=== PATIENT | female | born 1950 ===

== ENCOUNTER → 2021-08-04 11:18 | Outpatient (BNVA) | payer MEDICARE, OTHER, SELFPAY | PROVIDERS: PCP Internal Medicine; Visit Provider Psychiatry & Neurology Neurology | DX: G24.01 Drug induced subacute dyskinesia (principal); G47.30 Sleep apnea, unspecified | CPT/HCPCS: 99212 ==

== ENCOUNTER → 2022-02-02 11:19 | Outpatient (BNVA) | payer MEDICARE, OTHER, SELFPAY | PROVIDERS: PCP Internal Medicine; Visit Provider Psychiatry & Neurology Neurology | DX: G24.01 Drug induced subacute dyskinesia (principal); G47.30 Sleep apnea, unspecified | CPT/HCPCS: 99212 ==

== ENCOUNTER 2022-02-27 18:32 | Emergency (ER) | payer MEDICARE, OTHER, SELFPAY ==
--- NOTE | ~2022-02-27 | XR_ITS ---
EXAMINATION: PELVIS AND RIGHT HIP, RIGHT ANKLE, RIGHT FOOT CLINICAL INFORMATION: Fall with pain COMPARISON: None TECHNIQUE: Single view pelvis with 2 additional views right hip, 3 views right ankle, 3 views right foot FINDINGS: Pelvis and right hip: No fractures are seen. No significant degenerative changes are detected. Right ankle: There is mild lateral soft tissue swelling. A small bony fragment is seen between the lateral malleolus and the talus, possibly an avulsion fracture from the talus. The ankle mortise appears stable. No joint effusion is present. Right foot: Evaluation of the foot shows no evidence of a traumatic injury. XR/XR foot RT 2V IMPRESSION: Lateral process fracture of the talus.
--- NOTE | ~2022-02-27 | XR_ITS ---
EXAMINATION: PELVIS AND RIGHT HIP, RIGHT ANKLE, RIGHT FOOT CLINICAL INFORMATION: Fall with pain COMPARISON: None TECHNIQUE: Single view pelvis with 2 additional views right hip, 3 views right ankle, 3 views right foot FINDINGS: Pelvis and right hip: No fractures are seen. No significant degenerative changes are detected. Right ankle: There is mild lateral soft tissue swelling. A small bony fragment is seen between the lateral malleolus and the talus, possibly an avulsion fracture from the talus. The ankle mortise appears stable. No joint effusion is present. Right foot: Evaluation of the foot shows no evidence of a traumatic injury. XR/XR hip RT w PEL1V IMPRESSION: Lateral process fracture of the talus.
--- NOTE | ~2022-02-27 | XR_ITS ---
EXAMINATION: PELVIS AND RIGHT HIP, RIGHT ANKLE, RIGHT FOOT CLINICAL INFORMATION: Fall with pain COMPARISON: None TECHNIQUE: Single view pelvis with 2 additional views right hip, 3 views right ankle, 3 views right foot FINDINGS: Pelvis and right hip: No fractures are seen. No significant degenerative changes are detected. Right ankle: There is mild lateral soft tissue swelling. A small bony fragment is seen between the lateral malleolus and the talus, possibly an avulsion fracture from the talus. The ankle mortise appears stable. No joint effusion is present. Right foot: Evaluation of the foot shows no evidence of a traumatic injury. XR/XR ankle RT 2V IMPRESSION: Lateral process fracture of the talus.
[2022-02-27 18:40] VITALS: BP 166/76; PULSE 68; O2SAT 97
[2022-02-27 18:41] VITALS: BP 166/76; PULSE 68; RESP 16; TEMP 36.5; O2SAT 97; BMI 38.9
--- NOTE | 2022-02-27 18:42 | ED_ITS ---
HPI - Fall General Chief Complaint: Fall Stated Complaint: fall, no thinners Time Seen by Provider: 02/27/22 18:37 Source: patient and EMS Mode of arrival: EMS Limitations: no limitations History of Present Illness HPI Narrative: 71 yo female with history of HTN, HLD, hypothyroidism, MERRITT, bipolar disorder, tardive dyskinesia here with complaints of right ankle/foot/hip pain after missing a step and falling landing on the right hip. She caught herself with her left hand. Denies hitting her head or loss of consciousness. No anticoagulation use. Related Data Home Medications Medication Instructions Recorded Confirmed amlodipine 10 mg tablet 10 mg PO DAILY 08/04/21 02/02/22 atorvastatin 10 mg tablet 10 mg PO DAILY 08/04/21 02/02/22 bupropion HCl 150 mg tablet,12 hr 150 mg PO BID 08/04/21 02/02/22 sustained-release (Wellbutrin SR) desvenlafaxine succinate 25 mg 25 mg PO DAILY 08/04/21 02/02/22 tablet,extended release 24 hr hydroxyzine HCl 10 mg tablet 10 mg PO TID PRN 08/04/21 02/02/22 lamotrigine 150 mg tablet 150 mg PO BID 08/04/21 02/02/22 levothyroxine 13 mcg capsule 0.1 mcg PO DAILY 08/04/21 02/02/22 oxcarbazepine 300 mg/5 mL (60 450 mg PO BID 08/04/21 02/02/22 mg/mL) oral suspension pantoprazole 40 mg tablet,delayed 40 mg PO DAILY 08/04/21 02/02/22 release trazodone 100 mg tablet 200 mg PO BEDTIME PRN 08/04/21 02/02/22 trazodone 50 mg tablet 50 mg PO BEDTIME PRN 08/04/21 02/02/22 desvenlafaxine succinate 50 mg 50 mg PO DAILY 02/02/22 02/02/22 tablet,extended release 24 hr (Pristiq) Allergies Allergy/AdvReac Type Severity Reaction Status Date / Time Penicillins Allergy Severe HIVES Verified 02/27/22 19:11 lorazepam [Lorazepam] Allergy Mild REVERSE Verified 02/27/22 19:11 EFFECT oxycodone [Oxycodone] Allergy Mild UNKNOWN Verified 02/27/22 19:11 deutetrabenazine Allergy Unknown TOO MANY Verified 02/27/22 19:11 [From [place]] SIDE EFFECTS gabapentin [GABAPENTIN] Allergy Unknown DIZZYNESS, Verified 02/27/22 19:11 GI ISSUES NSAIDS (Non-Steroidal Allergy Unknown LIVER Verified 02/27/22 19:11 Anti-Inflamma ENZYME [NSAIDS (NON-STEROIDAL ISSUES ANTI-INFLAMMA] sulfamethoxazole Allergy Unknown DIARRHEA Verified 02/27/22 19:11 [From BACTRIM] trimethoprim [From BACTRIM] Allergy Unknown DIARRHEA Verified 02/27/22 19:11 valbenazine [From INGREZZA] Allergy Unknown INCREASED Verified 02/27/22 19:11 SLEEP 15-16HRS ANTIBIOTICS Allergy Unknown PT STATED Uncoded 02/27/22 19:11 NEED TO GO THRU PCP D/T GASTROPARESIS Review of Systems Review of Systems: Yes all other systems are reviewed and are negative Constitutional: Constitutional: Reports no additional constitutional complaints, Denies body ache(s), Denies chills, Denies fever(s), Denies headache(s) and Denies weakness Eyes: Eyes: Reports no additional eye complaints and Denies change in vision ENT: Reports system reviewed and no additional complaints, except as documented, Denies dizziness, Denies headache(s), Denies nasal congestion, Denies nasal discharge and Denies neck pain Cardiovascular: Cardiovascular: Reports no additional cardiovascular complaints, Denies chest pain, Denies leg edema and Denies dyspnea Respiratory: Respiratory: Reports no additional respiratory complaints, Denies cough and Denies dyspnea Gastrointestinal: Gastrointestinal: Reports no additional gastrointestinal complaints, Denies abdominal pain, Denies diarrhea, Denies nausea and Denies vomiting Genitourinary: Genitourinary: Reports no additional female genitourinary complaints and Denies urinary incontinence Musculoskeletal: Musculoskeletal: Reports no additional musculoskeletal complaints, Denies back pain, Reports arthralgias, Reports joint swelling, Reports limited range of motion, Denies neck pain, Denies numbness and Denies tingling Integumentary/Breasts: Skin/Breast: Reports system reviewed and no additional complaints, except as docu and Denies rash Neurologic: Reports system reviewed and no additional complaints, except as documented, Denies Abnormal speech present, Denies dizziness, Denies headache(s), Denies numbness, Denies tingling and Denies weakness PMFSH Past Medical History Attestation statement: The following information was validated with the patient. Source: old records reviewed and nursing notes reviewed Medical History Bipolar 1 disorder Combined hyperlipidemia Depression HTN (hypertension) Sleep apnea Tardive dyskinesia Thyroid disease Tremors of nervous system Surgical History H/O shoulder surgery Hx of appendectomy Hx of cholecystectomy Social History Social History Household Members: None Housing: Condominium Unable to assess alcohol history related to: Unable to respond Advance Directives: No Advance Directives Information Provided: No Physical Exam Vital Signs: Vital Signs: Last Vital Signs Temp 97.7 F 02/27/22 18:41 Pulse 68 02/27/22 18:41 Resp 16 02/27/22 18:41 BP 166/76 H 02/27/22 18:41 Pulse Ox 97 02/27/22 18:41 O2 Del Method 02/27/22 18:41 BMI result Body Mass Index 38.9 Const: General: cooperative, healthy appearing, comfortable and no acute distress Orientation/consciousness: patient oriented x3 Limitations: no limitations HEENT: Head: Yes normal to inspection Ears: hearing grossly normal bilaterally General nose exam: Normal external nose present Face and sinus: Yes normal facial exam Mouth: Normal oral and palatal mucosa present Throat: Yes posterior oropharynx normal Eyes: General: appearance normal, both eyes and all related structures Pupils: Equal, round and reactive pupils present Neck: Neck: Yes normal visual inspection Chest: Chest palpation & inspection: normal inspection of the chest Resp: Effort & Inspection: normal respiratory effort Auscultation: clear to auscultation bilaterally Cardio: Rate: regular rate Rhythm: regular rhythm Peripheral pulses: Peripheral pulses 2+ throughout GI: Inspection: Yes normal to inspection Palpation (GI): Soft to palpation and nontender Auscultation: normal bowel sounds Back/Spine/Pelvis: Thoracic/Lumbar Spine: thoracic and lumbar spine normal to inspection Skin: General skin exam: no rashes or lesions noted Neuro: General: patient oriented x3, moves all extremities, no focal motor deficits and normal sensation to monofilament Cranial nerves: Yes CN's II-XII intact bilaterally, Yes Equal, round and reactive pupils present, Yes Bilaterally intact EOM present, Yes Nystagmus not present, Yes Normal facial strength present and Yes Midline tongue present Cognition (Neuro): normal cognition Speech: No Abnormal speech present Motor exam (neuro): 5/5 motor strength present throughout Sensory Exam: Normal double simultaneous stimulation for sensation Extrem: Other: There is tenderness and swelling to the right lateral ankle and the base of the right 5th metatarsal. There is full range of motion. Neurovascular intact distally. Tenderness the right lateral. No shortening, rotation or deformity of the limb. Pain is worsened with internal rotation of the hip and abduction. Nv intact distally. 2+ DP/PT pulses General: Yes normal to inspection Course Course Course Narrative: X-rays of the right hip, right foot are normal. The ankle shows an avulsion fracture of the talus. Patient be placed in a walking boot and discharged home. Reviewed rice. Reviewed worrisome signs and symptoms of when to return to the emergency room. Comfortable discharge home. Procedures Procedure Narrative Procedure Narrative: walking boot MDM - Fall MDM Narrative Medical decision making narrative: 71-year-old female here with right ankle pain, right foot pain and right hip pain after mechanical fall. Will check x-rays Medical Records Attestation: I reviewed the patient's medical records. Lab Data Attestation: I reviewed the patient's lab results. Imaging Data pelvis/right hip/right ankle and foot: Attestation: I personally reviewed and interpreted this imaging study as follows: Radiologist's impression: TECHNIQUE: Single view pelvis with 2 additional views right hip, 3 views right ankle, 3 views right foot? FINDINGS: Pelvis and right hip: No fractures are seen. No significant degenerative changes are detected. Right ankle: There is mild lateral soft tissue swelling. A small bony fragment is seen between the lateral malleolus and the talus, possibly an avulsion fracture from the talus. The ankle mortise appears stable. No joint effusion is present. Right foot: Evaluation of the foot shows no evidence of a traumatic injury. XR/XR ankle RT 2V IMPRESSION: Lateral process fracture of the talus.? Discharge Plan Discharge Clinical Impression: Avulsion fracture of right talus Patient Disposition: Home, Self-Care Instructions: Talar Fracture in Adults (ED), Avulsion Fracture (ED) Additional Instructions: Use the boot for ambulation Remove the boot when resting and sleeping Apply ice to the ankle and elevated Take Tylenol for pain Follow-up with orthopedics Prescriptions: No Action bupropion HCl [Wellbutrin SR] 150 mg tablet sustained-release 12 hr 150 mg PO BID amlodipine 10 mg tablet 10 mg PO DAILY oxcarbazepine 300 mg/5 mL (60 mg/mL) suspension 450 mg PO BID trazodone 50 mg tablet 50 mg PO BEDTIME PRN trazodone 100 mg tablet 200 mg PO BEDTIME PRN atorvastatin 10 mg tablet 10 mg PO DAILY hydroxyzine HCl 10 mg tablet 10 mg PO TID PRN lamotrigine 150 mg tablet 150 mg PO BID levothyroxine 13 mcg capsule 0.1 mcg PO DAILY pantoprazole 40 mg tablet,delayed release (DR/EC) 40 mg PO DAILY desvenlafaxine succinate 25 mg tablet extended release 24 hr 25 mg PO DAILY desvenlafaxine succinate [Pristiq] 50 mg tablet extended release 24 hr 50 mg PO DAILY Referrals: [facility] [place] [facility] [Provider Group] - 2 weeks
--- NOTE | 2022-02-27 19:12 | PC.NURSE ---
patient away for imaging.
== END 2022-02-27 21:25 | disposition home or self-care (01) ==
PROVIDERS: Emergency Provider Internal Medicine
DX: S92.154A Nondisplaced avulsion fracture (chip fracture) of right talus, initial encounter for closed fracture (principal); W10.8XXA Fall (on) (from) other stairs and steps, initial encounter; M25.551 Pain in right hip; Y93.89 Activity, other specified; Y92.9 Unspecified place or not applicable; Y99.9 Unspecified external cause status
CPT/HCPCS: 73502; 73600; 73620; 99283

== ENCOUNTER → 2022-03-10 08:52 | Outpatient (BNVA) | payer MEDICARE, OTHER, SELFPAY | PROVIDERS: Visit Provider Nurse Practitioner Family | DX: G47.30 Sleep apnea, unspecified (principal); I10 Essential (primary) hypertension; G24.01 Drug induced subacute dyskinesia; E66.9 Obesity, unspecified; E07.9 Disorder of thyroid, unspecified; E78.2 Mixed hyperlipidemia; G25.81 Restless legs syndrome | CPT/HCPCS: 99212 ==

== ENCOUNTER 2022-03-29 13:02 | Inpatient (IN) | payer MEDICARE, OTHER, SELFPAY ==
[2022-03-29 13:07] VITALS: BP 132/66; PULSE 64; O2SAT 98
[2022-03-29 13:14] VITALS: BP 182/79; PULSE 65; RESP 16; TEMP 36.7; O2SAT 97; BMI 33.3
--- NOTE | 2022-03-29 13:29 | ECG_ITS ---
Test Reason : CHEST PRESSURE Blood Pressure : / mmHG Vent. Rate : 058 BPM Atrial Rate : 058 BPM P-R Int : 172 ms QRS Dur : 074 ms QT Int : 426 ms P-R-T Axes : 054 004 033 degrees QTc Int : 418 ms Sinus bradycardia with sinus arrhythmia Otherwise normal ECG No previous ECGs available Referred By: Gustavo De León Electronically Signed By:KOKI CURRIE MD
--- NOTE | 2022-03-29 13:31 | ED_ITS ---
HPI - Psych General Chief Complaint: Psychiatric Symptoms Stated Complaint: crisis Section 12 Time Seen by Provider: 03/29/22 13:12 Source: patient Mode of arrival: EMS Limitations: no limitations History of Present Illness HPI Narrative: 71-year-old female who was brought to the emergency department on a Section 12 for suicidal ideation. The patient told me that she has a history of depression and bipolar disorder. She states that over the last 6 months she had several life changes which have made her depression worse. She states that she is currently going through a divorce. She states that in January of 2022 her provider told her that she can no longer drive her car. She states that 2 weeks ago, her provider told her that she needs to get into an assisted living program. The patient states that these and other life changes that have made her very depressed. She does have a psychiatrist and a therapist and she has been in a [facility] outpatient program for approximately [address] that today, she told her providers that she was thinking of going into her [place] by her house and hang herself. She states she has attempted to hurt herself in the past but does not want to go into the details. Secondary to her suicidal ideation with a plan, she was placed on a Section 12 and transferred to the emergency department. Under to a of the Section 12 it states ?major depression disorder, recurrent, severe with suicidal ideation ?. The patient states that she has had difficulty sleeping is been only sleeping 5 hours at night she states that she cannot shut her mind off when she tries to fall asleep. She denied fever, chills, rhinorrhea, sore throat or cough. She states that she has chronic chest pain and chronic dyspnea on exertion secondary to her tardive dyskinesia. She has chronic nausea as well with no vomiting or diarrhea. Related Data Home Medications Medication Instructions Recorded Confirmed amlodipine 10 mg tablet 10 mg PO DAILY@1800 08/04/21 03/29/22 atorvastatin 10 mg tablet 10 mg PO DAILY 08/04/21 03/29/22 bupropion HCl 150 mg tablet,12 hr 150 mg PO BID 08/04/21 03/29/22 sustained-release (Wellbutrin SR) desvenlafaxine succinate 25 mg 25 mg PO DAILY 08/04/21 03/29/22 tablet,extended release 24 hr hydroxyzine HCl 10 mg tablet 10 mg PO TID PRN Anxiety 08/04/21 03/29/22 lamotrigine 150 mg tablet 150 mg PO BID 08/04/21 03/29/22 pantoprazole 40 mg tablet,delayed 40 mg PO DAILY 08/04/21 03/29/22 release trazodone 100 mg tablet 200 mg PO BEDTIME PRN Insomnia 08/04/21 03/29/22 desvenlafaxine succinate 50 mg 50 mg PO DAILY 02/02/22 03/29/22 tablet,extended release 24 hr (Pristiq) levothyroxine 100 mcg tablet 100 mcg PO DAILY 03/10/22 03/29/22 oxcarbazepine 150 mg tablet 150 mg PO BID 03/10/22 03/29/22 oxcarbazepine 300 mg tablet 300 mg PO BID 03/10/22 03/29/22 multivitamin 1 tab PO DAILY 03/29/22 03/29/22 Allergies Allergy/AdvReac Type Severity Reaction Status Date / Time Penicillins Allergy Severe HIVES Verified 03/10/22 08:58 lorazepam [Lorazepam] Allergy Mild REVERSE Verified 03/10/22 08:58 EFFECT oxycodone [Oxycodone] Allergy Mild UNKNOWN Verified 03/10/22 08:58 deutetrabenazine Allergy Unknown TOO MANY Verified 03/10/22 08:58 [From [place]ED[place]] SIDE EFFECTS gabapentin [GABAPENTIN] Allergy Unknown DIZZYNESS, Verified 03/10/22 08:58 GI ISSUES NSAIDS (Non-Steroidal Allergy Unknown LIVER Verified 03/10/22 08:58 Anti-Inflamma ENZYME [NSAIDS (NON-STEROIDAL ISSUES ANTI-INFLAMMA] sulfamethoxazole Allergy Unknown DIARRHEA Verified 03/10/22 08:58 [From BACTRIM] trimethoprim [From BACTRIM] Allergy Unknown DIARRHEA Verified 03/10/22 08:58 valbenazine [From INGREZZA] Allergy Unknown INCREASED Verified 03/10/22 08:58 SLEEP 15-16HRS ANTIBIOTICS Allergy Unknown PT STATED Uncoded 03/10/22 08:58 NEED TO GO THRU PCP D/T GASTROPARESIS Review of Systems 2 Review of Systems: Yes all other systems are reviewed and are negative PMFSH Past Medical History PMF Narrative: Past medical history: Reviewed below, gastroparesis. Past surgical history: Cholecystectomy, shoulder surgery for rotator cuff tear, bilateral knee surgeries for meniscal tears, shoulder surgery for bone spurs, x2, appendectomy. Social history: Patient states that she is a former smoker and quit 50 years prior. She smokes cigarettes for approximately 6 years. She denies alcohol use. She denies drug use. Medical History Bipolar 1 disorder Combined hyperlipidemia Depression HTN (hypertension) Sleep apnea Tardive dyskinesia Thyroid disease Tremors of nervous system Surgical History H/O shoulder surgery Hx of appendectomy Hx of cholecystectomy Family History Family History Father No problems noted. Mother No problems noted. Social History Social History Household Members: None Housing: Condominium Unable to assess alcohol history related to: Unable to respond Alcohol intake: never Patient Tobacco Use Status: Former Tobacco user Quit Date: 50 yrs ago Use of substances other than those prescribed or required for medical reasons: No Advance Directives: No Advance Directives Information Provided: No Physical Exam Vital Signs: Vital Signs: Last Vital Signs Temp 98.0 F 03/29/22 20:00 Pulse 68 03/29/22 20:00 Resp 16 03/29/22 20:00 BP 172/77 H 03/29/22 20:00 Pulse Ox 96 03/29/22 20:00 O2 Del Method 03/29/22 20:00 BMI result Body Mass Index 33.3 Const: General: cooperative and no acute distress Orientation/consciousness: oriented to person and oriented to place Limitations: no limitations HEENT: Head: Yes normal to inspection, Yes normocephalic and Yes atraumatic Ears: external ears normal General nose exam: Normal external nose present Face and sinus: Yes normal facial exam Mouth: Normal oral and palatal mucosa present Throat: Yes posterior oropharynx normal Eyes: General: appearance normal, both eyes and all related structures Pupils: Equal, round and reactive pupils present Neck: Neck: Yes normal visual inspection, Yes no lymphadenopathy, Yes trachea midline and Yes supple Chest: Chest palpation & inspection: normal inspection of the chest and normal palpation of entire chest wall Resp: Effort & Inspection: normal respiratory effort and able to speak in complete sentences Auscultation: clear to auscultation bilaterally Cardio: Rate: regular rate Rhythm: regular rhythm Heart sounds: S1 normal heart sound present, S2 normal heart sound present and no murmurs GI: Inspection: Yes normal to inspection Palpation (GI): Soft to palpation, nontender and no guarding Auscultation: normal bowel sounds : General: Yes no CVA tenderness Back/Spine/Pelvis: Back: no CVA tenderness Skin: General skin exam: no rashes or lesions noted Neuro: General: oriented to person and oriented to place Cranial nerves: Y es CN's II-XII intact bilaterally and Yes Equal, round and reactive pupils present Cognition (Neuro): normal cognition Motor exam (neuro): 5/5 motor strength present throughout Extrem: Other: Patient has a walking boot on the right leg for ankle sprain 3 weeks prior Psych: Appearance: grossly normal Speech and movement: Normal speech and movement present Affect: normal affect Attitude: cooperative Thought process: Normal thought process present Thought content: Suicidality present and no homicidality Course Course Course Narrative: 71-year-old female who presents emergency department on a Section 12 from her partial outpatient program for depression secondary to multiple life stressors over the last 6 months and suicidal ideation with a plan to go into the [place] near her house and hang herself. The patient's blood pressure was elevated 182/79 otherwise unremarkable. Physical examination was unremarkable except for a walking boot on her right lower extremity secondary to ankle sprain several weeks prior. I did order laboratory evaluation to include CBC, CMP, drug screen, alcohol level, acetaminophen and salicylate level, 12 EKG. Patient's medications will be reconciled. I will consult crisis for evaluation and in- patient placement. 1632: Start physician observation: Patient's laboratory evaluation was unremarkable. COVID-19 was negative. Urinalysis was negative. Urine tox screen was negative. Blood alcohol levels below detectable limits. Twelve EKG revealed a sinus bradycardia with a rate of 58 otherwise unremarkable. At this point I think the patient is medically cleared for crisis evaluation. The patient's medications have been reconciled and I will order these. The patient will remain on a Section 12. Patient will be placed in physician observation until she can be seen by crisis team and appropriate disposition can be obtained. 2134: Physician observation continued: At the end of my shift, the patient is still waiting for care team evaluation. The patient's care was turned over to my colleague, Dr. Carlos Marley. [facility] - Psych Medical Records Attestation: I reviewed the patient's medical records. Lab Data Attestation: I reviewed the patient's lab results. Result diagrams: 03/29/22 13:56 03/29/22 13:56 Labs: Lab Results 03/29/22 03/29/22 03/29/22 Range/Units 13:56 13:56 13:56 WBC 7.0 (4.8-10.8) X10*3/uL RBC 4.15 L (4.20-5.50) X10*6/uL Hgb 11.9 L (12.0-16.0) g/dl Hct 36.1 L (37.0-47.0) % MCV 87.0 (80.0-98.0) fL MCH 28.7 (27.0-33.0) pg MCHC 33.0 (31.0-35.0) g/dl RDW 13.0 (11.0-16.0) % Plt Count 202 (160-400) X10*3/uL MPV 9.6 (9.4-12.3) fL Immature Gran % (Auto) 0.6 H (0.0-0.4) % Neut % (Auto) 70.4 (45-73) % Lymph % (Auto) 16.7 L (20-40) % [place] % (Auto) 8.8 (2-11) % Eos % (Auto) 2.9 (0-4) % Baso % (Auto) 0.6 (0-2) % Lymph # (Auto) 1.2 (1.2-4.9) X10*3/uL [place] # (Auto) 0.6 (0.1-1.2) X10*3/uL Eos # (Auto) 0.2 (0.0-0.4) X10*3/uL Baso # (Auto) 0.0 (0.0-0.2) X10*3/uL Abs Immat Gran (auto) 0.04 H (0.00-0.03) X10*3/uL Absolute Neuts (auto) 4.9 (2.0-8.3) x10*3/uL Absolute Nucleated RBC 0.000 (0.0-0.012) X10*3/uL Nucleated RBC % (auto) 0.0 (0.0-0.2) /100WBC Sodium 143 (135-145) mmol/L Potassium 3.8 (3.3-5.1) mmol/L Chloride 106 (96-108) mmol/L Carbon Dioxide 27 (22-29) mmol/L Anion Gap 14 (12-20) BUN 20 H (9-16) mg/dL Creatinine 0.86 (0.5-1.4) mg/dL Estim Creat Clear Calc 66.7 Estimated GFR > 60 Random Glucose 144 H (60-115) mg/dL Calcium 8.9 (8.4-10.2) mg/dL Total Bilirubin 0.3 (0.0-1.0) mg/dL AST 14 (5-31) U/L ALT 13 (0-31) U/L Alkaline Phosphatase 133 H (39-117) U/L Total Protein 6.4 L (6.5-8.0) g/dL Albumin 3.7 (3.5-5.0) g/dL Urine Color Urine Appearance Urine pH (5.0-9.0) Ur Specific Newcomb (1.005-1.025) Urine Protein (Neg-Trace) mg/dL Urine Glucose (UA) (Negative) mg/dL Urine Ketones (Negative) mg/dL Urine Blood (Negative) Urine Nitrite (Negative) Ur Leukocyte Esterase (Negative) Urine RBC (0-2) /HPF Urine WBC (0-5) /HPF Ur Squamous Epith Cells (0-2) /HPF Urine Bacteria (None Seen) Hyaline Casts (0-2) /LPF Salicylates < 5.0 L (15-30) mg/dL Urine Opiates Screen (Not Detect) Urine Fentanyl Screen (Not Detect) Acetaminophen < 1 (<30) mcg/mL Ur Barbiturates Screen (Not Detect) Ur Phencyclidine Scrn (Not Detect) Ur Amphetamines Screen (Not Detect) U Benzodiazepines Scrn (Not Detect) Urine Cocaine Screen (Not Detect) U Marijuana (THC) Screen (Not Detect) Ethyl Alcohol < 10 mg/dL COVID-19 (LIZABETH) Negative (Negative) COVID-19 Clin Com See Note 03/29/22 03/29/22 Range/Units 14:12 14:12 WBC (4.8-10.8) X10*3/uL RBC (4.20-5.50) X10*6/uL Hgb (12.0-16.0) g/dl Hct (37.0-47.0) % MCV (80.0-98.0) fL MCH (27.0-33.0) pg MCHC (31.0-35.0) g/dl RDW (11.0-16.0) % Plt Count (160-400) X10*3/uL MPV (9.4-12.3) fL Immature Gran % (Auto) (0.0-0.4) % Neut % (Auto) (45-73) % Lymph % (Auto) (20-40) % [place] % (Auto) (2-11) % Eos % (Auto) (0-4) % Baso % (Auto) (0-2) % Lymph # (Auto) (1.2-4.9) X10*3/uL [place] # (Auto) (0.1-1.2) X10*3/uL Eos # (Auto) (0.0-0.4) X10*3/uL Baso # (Auto) (0.0-0.2) X10*3/uL Abs Immat Gran (auto) (0.00-0.03) X10*3/uL Absolute Neuts (auto) (2.0-8.3) x10*3/uL Absolute Nucleated RBC (0.0-0.012) X10*3/uL Nucleated RBC % (auto) (0.0-0.2) /100WBC Sodium (135-145) mmol/L Potassium (3.3-5.1) mmol/L Chloride (96-108) mmol/L Carbon Dioxide (22-29) mmol/L Anion Gap (12-20) BUN (9-16) mg/dL Creatinine (0.5-1.4) mg/dL Estim Creat Clear Calc Estimated GFR Random Glucose (60-115) mg/dL Calcium (8.4-10.2) mg/dL Total Bilirubin (0.0-1.0) mg/dL AST (5-31) U/L ALT (0-31) U/L Alkaline Phosphatase (39-117) U/L Total Protein (6.5-8.0) g/dL Albumin (3.5-5.0) g/dL Urine Color Yellow Urine Appearance Clear Urine pH 5.5 (5.0-9.0) Ur Specific Newcomb 1.025 (1.005-1.025) Urine Protein Negative (Neg-Trace) mg/dL Urine Glucose (UA) Negative (Negative) mg/dL Urine Ketones Negative (Negative) mg/dL Urine Blood Negative (Negative) Urine Nitrite Negative (Negative) Ur Leukocyte Esterase Trace H (Negative) Urine RBC 0-2 (0-2) /HPF Urine WBC 0-5 (0-5) /HPF Ur Squamous Epith Cells 3-5 (0-2) /HPF Urine Bacteria None Seen (None Seen) Hyaline Casts 0-2 (0-2) /LPF Salicylates (15-30) mg/dL Urine Opiates Screen Not Detected (Not Detect) Urine Fentanyl Screen Not Detected (Not Detect) Acetaminophen (<30) mcg/mL Ur Barbiturates Screen Not Detected (Not Detect) Ur Phencyclidine Scrn Not Detected (Not Detect) Ur Amphetamines Screen Not Detected (Not Detect) U Benzodiazepines Scrn Not Detected (Not Detect) Urine Cocaine Screen Not Detected (Not Detect) U Marijuana (THC) Screen Not Detected (Not Detect) Ethyl Alcohol mg/dL COVID-19 (LIZABETH) (Negative) COVID-19 Clin Com ECG Data Attestation: I personally reviewed and interpreted this ECG as follows: Interpretation: Sinus bradycardia with a rate of 58, normal [place] interval, QRS duration QTC interval, Q-wave in lead 3, no ST segment elevation, no ST segment depression, no T-wave abnormalities, no PACs, no PVCs. Discharge Plan Discharge Clinical Impression: Suicidal ideations, Depression Patient Disposition: Still a Patient Prescriptions: No Action multivitamin Tablet 1 tab PO DAILY bupropion HCl [Wellbutrin SR] 150 mg tablet sustained-release 12 hr 150 mg PO BID amlodipine 10 mg tablet 10 mg PO DAILY@1800 trazodone 100 mg tablet 200 mg PO BEDTIME PRN (Reason: Insomnia) atorvastatin 10 mg tablet 10 mg PO DAILY hydroxyzine HCl 10 mg tablet 10 mg PO TID PRN (Reason: Anxiety) lamotrigine 150 mg tablet 150 mg PO BID pantoprazole 40 mg tablet,delayed release (DR/EC) 40 mg PO DAILY desvenlafaxine succinate 25 mg tablet extended release 24 hr 25 mg PO DAILY desvenlafaxine succinate [Pristiq] 50 mg tablet extended release 24 hr 50 mg PO DAILY oxcarbazepine 150 mg tablet 150 mg PO BID oxcarbazepine 300 mg tablet 300 mg PO BID levothyroxine 100 mcg tablet 100 mcg PO DAILY
--- NOTE | 2022-03-29 13:59 | PC.NURSE ---
patient a&ox3, vss, pt states she has si but refuses to divulge plan to this nurse although she did tell provider she wishes to do so by hanging, pts labs obtained by tech, security now at bedside to do change management director, pt calm/compliant at this time, 1:1 sitter at bedside, will continue to monitor
[2022-03-29 14:05] LABS: MANUAL DIFF FLAG NO
[2022-03-29 14:07] LABS: Basophils Percent Auto 0.6 % (0-2); Eosinophils Absolute Auto 0.2 X10*3/uL (0.0-0.4); Eosinophils Percent Auto 2.9 % (0-4); Hematocrit 36.1 % (37.0-47.0); Hemoglobin 11.9 g/dl (12.0-16.0); Imm Gran Abs Auto 0.04 X10*3/uL (0.00-0.03); Imm Gran Pct Auto 0.6 % (0.0-0.4); Lymphocytes Absolute Auto 1.2 X10*3/uL (1.2-4.9); Lymphocytes Percent Auto 16.7 % (20-40); Mean Corpuscular Hemoglobin 28.7 pg (27.0-33.0); Mean Platelet Volume 9.6 fL (9.4-12.3); Monocytes Absolute Auto 0.6 X10*3/uL (0.1-1.2); Monocytes Percent Auto 8.8 % (2-11); Neutrophils Absolute Auto 4.9 x10*3/uL (2.0-8.3); Neutrophils Percent Auto 70.4 % (45-73); Platelet Count 202 X10*3/uL (160-400); Red Blood Count 4.15 X10*6/uL (4.20-5.50)
[2022-03-29 14:20] LABS: COVID-19 Test Negative (Negative); IDNOW Serial# 55D5AD1C
[2022-03-29 14:29] LABS: Acetaminophen LAB < 1 mcg/mL (<30); Alanine Aminotransferase 13 U/L (0-31); Albumin Level 3.7 g/dL (3.5-5.0); Alkaline Phosphatase 133 U/L (39-117); Anion Gap 14 (12-20); Aspartate Amino Transferase 14 U/L (5-31); Bilirubin Total 0.3 mg/dL (0.0-1.0); Blood Urea Nitrogen 20 mg/dL (9-16); Calcium 8.9 mg/dL (8.4-10.2); Carbon Dioxide 27 mmol/L (22-29); Chloride 106 mmol/L (96-108); Creatinine Clr Calc Pharmacy 66.7; Estimated Glomerular Filt Rate > 60; Ethanol < 10 mg/dL; Glucose Random 144 mg/dL (60-115); Potassium 3.8 mmol/L (3.3-5.1); Salicylate < 5.0 mg/dL (15-30); Sodium 143 mmol/L (135-145); Total Protein 6.4 g/dL (6.5-8.0)
[2022-03-29 14:36] LABS: Amphetamine Screen Urine Not Detected (Not Detect); Barbiturates, Urine Not Detected (Not Detect); Benzodiazepines Screen Urine Not Detected (Not Detect); Cannabinoid Screen Urine Not Detected (Not Detect); Cocaine Screen Urine Not Detected (Not Detect); Fentanyl, urine Not Detected (Not Detect); Opiate Screen Urine Not Detected (Not Detect); Phencyclidine Screen Urine Not Detected (Not Detect)
--- NOTE | 2022-03-29 14:37 | PHA.MEDREC ---
Pharmacy Consult ? Medication Reconciliation Pharmacy has completed the medication reconciliation. Patient takes her tablets with apple sauce.
[2022-03-29 16:00] VITALS: BP 175/87; PULSE 65; RESP 14; TEMP 36.7; O2SAT 98
--- NOTE | 2022-03-29 17:02 | PC.NURSE ---
care team this nurse called care team to notify them about the pt needing to be seen, they stated there is 8 people to be seen before her .
--- NOTE | 2022-03-29 17:56 | MHC.CARE ---
Smart sheet submitted
[2022-03-29 18:00] VITALS: BP 180/78; PULSE 65; RESP 14; TEMP 37.2; O2SAT 97
[2022-03-29] MEDS: Acetaminophen 325 MG TABLET 650 MG PO (18:04)
[2022-03-29] MEDS: Ibuprofen 400 MG TABLET PO (18:05)
[2022-03-29] MEDS: amLODIPine Besylate 10 MG TABLET PO (18:05)
--- NOTE | 2022-03-29 18:05 | PC.NURSE ---
patient a&ox3, medicated per order, speaking with daughter on phone, 1:1 sitter at bedside, will continue to monitor
[2022-03-29 20:00] VITALS: BP 172/77; PULSE 68; RESP 16; TEMP 36.7; O2SAT 96
--- NOTE | 2022-03-29 20:14 | PC.NURSE ---
patient awake/alert, 1:1 ranjan, pt concerned about not being seen by care team as of yet, pt states she has multiple appts tomm that she needs to have cancelled for her if she ends up staying. no c/o pain at this time, will continue to monitor
[2022-03-29 20:31] LABS: Appearance Urine Clear; Color Urine Yellow; Glucose Urine UA Negative (Negative); Leukocyte Esterase Urine Trace (Negative); Nitrite Urine Negative (Negative); PH 5.5 (5.0-9.0); Specific Gravity - Urine 1.025 (1.005-1.025); UMIC TRIGGER UA YES; Urine Blood Negative (Negative); Urine Ketones Negative (Negative); Urine Protein Negative (Neg-Trace)
[2022-03-29 20:35] LABS: Bacteria Urine None Seen (None Seen); Hyaline Casts Urine 0-2 /LPF (0-2); RBC Urine 0-2 /HPF (0-2); WBC Urine 0-5 /HPF (0-5)
[2022-03-29] MEDS: lamoTRIgine 25 MG TABLET 150 MG PO (21:26)
[2022-03-29] MEDS: OXcarbazepine 150 MG TABLET PO (21:26)
[2022-03-29] MEDS: OXcarbazepine 300 MG TABLET PO (21:26)
[2022-03-29] MEDS: traZODone HCL 100 MG TABLET 200 MG PO (21:40)
[2022-03-29] MEDS: hydrOXYzine HCL 10 MG TABLET PO (21:54)
--- NOTE | 2022-03-29 22:01 | PC.NURSE ---
Patient she was admitted to room 1 for observation, she was pleasant and cooperative, she had multiple questions about her medications after clarification with Dr. Wray and pharmacy order was placed for vistaril 10 mg now to make a total of 20mg, willbutrin 150mg not available in this hospital, Trazadone 200 mg given to help her sleep, she agreed to this changes and she is going to speak to her hog slaughterer to bring her, all medications from home, because she would like to follow the same schedule the she has at home. support provided,will continue to monitor.
--- NOTE | 2022-03-29 23:37 | MHC.CARE ---
Pt was evaluated by the CARE Team and is an inpatient bedsearch, likely will be going to S1 tomorrow.
[2022-03-30] VITALS (8 sets, daily range): BP systolic 130–193; BP diastolic 60–79; PULSE 61–72; RESP 12–18; TEMP 36.2–37.1; O2SAT 94–97
[2022-03-30] MEDS: Acetaminophen 325 MG TABLET 975 MG PO (04:19)
--- NOTE | 2022-03-30 04:24 | PC.NURSE ---
Patient was up C/O headache , B/P was taken right arm 189/79 and left arm 172/74 , Dr. Marley was make aware, Tylenol po given. Will continue to monitor.
[2022-03-30] MEDS: Levothyroxine Sodium 100 MCG TABLET PO (06:27)
--- NOTE | 2022-03-30 06:36 | PC.NURSE ---
Patient awake, feeling much better, denies any pain or discomfort, refusing to take Omeprazole at this time due to her Thyroid medication, BP is now 152/71, denies any distress, will continue to monitor.
[2022-03-30] MEDS: OXcarbazepine 300 MG TABLET PO ×2 (07:27→21:04)
[2022-03-30] MEDS: lamoTRIgine 25 MG TABLET 150 MG PO ×2 (07:27→20:46)
[2022-03-30] MEDS: Multivitamin TABLET 1 TAB PO (07:27)
[2022-03-30] MEDS: OXcarbazepine 150 MG TABLET PO ×2 (07:27→20:47)
[2022-03-30] MEDS: buPROPion HCl XL 300 MG TAB.ER.24H PO (07:27)
[2022-03-30] MEDS: Atorvastatin Calcium 10 MG TABLET PO (07:27)
[2022-03-30] MEDS: Acetaminophen 325 MG TABLET 650 MG PO (11:02)
--- NOTE | 2022-03-30 14:29 | PC.NURSE ---
rn to rn given to hilary barba aware of plan of care for transfer to s1.
--- NOTE | 2022-03-30 14:45 | PC.NURSE ---
rn to margareth barba re: pt's new vss.
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
[2022-03-30] MEDS: hydrOXYzine HCL 10 MG TABLET PO (17:22)
[2022-03-30] MEDS: amLODIPine Besylate 10 MG TABLET PO (18:58)
--- NOTE | 2022-03-30 19:03 | PC.NURSE ---
Pt is a 71 year old female, had been attending PHP at [facility], who reported SI with a plan to hang herself out in the [place] behind my house. Pt reports recent stressors including divorce, losing her license, and increase in depression and anxiety. Pt reported she felt unsafe by herself at home and is glad she has been admitted to the hospital. The pt arrived to the unit via wheelchair with RN present from the ED pod at 1745 on 03-30-2022. The pt is alert and oriented X4 at this time. The pt declined to participate in the majority of the admission assessment, stated I am tired, and I need to make some phone calls, and I am feeling quite stressed at this time . Admission assessment on the worklist was completed. The paperwork was signed and placed the chart. The pt signed a CV while in the pod. The pt reported she strained the tendons in her right foot and had order to wear a boot on that foot until she sees the orthopedic
[2022-03-30] MEDS: traZODone HCL 100 MG TABLET 200 MG PO (20:47)
[2022-03-30] MEDS: hydrOXYzine HCL 25 MG TABLET PO (21:15)
[2022-03-31] MEDS: Levothyroxine Sodium 100 MCG TABLET PO (06:18)
[2022-03-31 07:30] VITALS: BP 133/63; PULSE 65; RESP 17; TEMP 36.3; O2SAT 96
[2022-03-31 08:40] LABS: Estimated Average Glucose 97 mg/dL
[2022-03-31 09:07] LABS: Cholesterol 198 mg/dL; HDL Cholesterol 72 mg/dL; LDL Cholesterol Calculated 114 mg/dl; Magnesium 2.1 mg/dL (1.6-2.6); Triglycerides 62 mg/dL
[2022-03-31 09:30] LABS: Free T4 (Free Thyroxine) 1.05 ng/dL (0.71-1.85); Thyroid Stimulating Hormone 2.33 uIU/mL (0.32-4.0)
[2022-03-31 09:53] LABS: Folate > 20.0 ng/mL (> or = 4.0); Vitamin B12 440 pg/mL (200-900)
[2022-03-31] MEDS: lamoTRIgine 25 MG TABLET 150 MG PO ×2 (10:04→21:10)
[2022-03-31] MEDS: OXcarbazepine 300 MG TABLET PO ×2 (10:05→21:15)
[2022-03-31] MEDS: OXcarbazepine 150 MG TABLET PO ×2 (10:05→21:15)
[2022-03-31] MEDS: Atorvastatin Calcium 10 MG TABLET PO (10:05)
[2022-03-31] MEDS: Multivitamin TABLET 1 TAB PO (10:05)
[2022-03-31] MEDS: hydrOXYzine HCL 10 MG TABLET PO (10:35)
--- NOTE | 2022-03-31 12:14 | HE.PHANOTE ---
RE PT OWN MEDS PRISTIQ DOSE CHANGED. TOOK 25MG BOTTLE AND PUT IN SAFE
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
--- NOTE | 2022-03-31 15:25 | MHC.CLN ---
NUTRITION CONSULT FOR GASTROPARESIS. PATIENT REPORTS HX OF GASTROPARESIS. DISCUSSED FOODS THAT SHE IS ABLE TO TOLERATE/FOODS TO AVOID. SHOWED PATIENT COMPLETE MENU AND DISCUSSED THAT ABLE TO MAKE OWN FOOD CHOICES. NO FRESH FRUITS OR VEGETABLES. SMALL PIECES OF CELERY OK IN MEAT SALADS. FAT FREE MILK ONLY. WHITE BREAD ONLY. PREFERS FISH AND POULTRY; NO BEEF OR PORK. LIMITS FAT INTAKE. DIET=REGULAR. COMMUNICATED FOOD PREFERENCES WITH [facility]/DINING SERVICES.
[2022-03-31 18:00] VITALS: BP 158/80; PULSE 75; RESP 18; TEMP 36.6; O2SAT 96
[2022-03-31] MEDS: amLODIPine Besylate 10 MG TABLET PO (18:42)
[2022-03-31] MEDS: traZODone HCL 100 MG TABLET 200 MG PO (21:15)
[2022-03-31] MEDS: hydrOXYzine HCL 25 MG TABLET PO (21:44)
[2022-04-01] MEDS: Levothyroxine Sodium 100 MCG TABLET PO (06:16)
[2022-04-01] MEDS: OXcarbazepine 300 MG TABLET PO ×2 (08:36→21:10)
[2022-04-01] MEDS: lamoTRIgine 25 MG TABLET 150 MG PO (08:36)
[2022-04-01] MEDS: Multivitamin TABLET 1 TAB PO (08:36)
[2022-04-01] MEDS: OXcarbazepine 150 MG TABLET PO ×2 (08:36→21:10)
[2022-04-01] MEDS: Atorvastatin Calcium 10 MG TABLET PO (08:36)
[2022-04-01 08:40] VITALS: BP 138/62; PULSE 63; RESP 17; TEMP 36.1; O2SAT 96
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
[2022-04-01 18:00] VITALS: BP 148/70; PULSE 70; RESP 16; TEMP 37; O2SAT 98
[2022-04-01] MEDS: amLODIPine Besylate 10 MG TABLET PO (20:04)
[2022-04-01] MEDS: lamoTRIgine 25 MG TABLET 175 MG PO (21:08)
[2022-04-01] MEDS: traZODone HCL 100 MG TABLET 200 MG PO (21:10)
[2022-04-01] MEDS: hydrOXYzine HCL 25 MG TABLET PO (22:22)
[2022-04-02] MEDS: Levothyroxine Sodium 100 MCG TABLET PO (05:34)
[2022-04-02 06:00] VITALS: BP 144/74; PULSE 65; RESP 17; TEMP 36.1; O2SAT 97
[2022-04-02] MEDS: Multivitamin TABLET 1 TAB PO (08:41)
[2022-04-02] MEDS: lamoTRIgine 25 MG TABLET 150 MG PO (08:41)
[2022-04-02] MEDS: Atorvastatin Calcium 10 MG TABLET PO (08:42)
[2022-04-02] MEDS: OXcarbazepine 150 MG TABLET PO ×2 (08:42→21:03)
[2022-04-02] MEDS: OXcarbazepine 300 MG TABLET PO ×2 (08:42→21:03)
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
[2022-04-02] MEDS: hydrOXYzine HCL 25 MG TABLET PO ×2 (12:39→21:30)
[2022-04-02] MEDS: amLODIPine Besylate 10 MG TABLET PO (17:10)
[2022-04-02 18:00] VITALS: BP 169/71; PULSE 63; RESP 18; TEMP 36.6; O2SAT 98
[2022-04-02] MEDS: traZODone HCL 100 MG TABLET 200 MG PO (21:04)
[2022-04-02] MEDS: lamoTRIgine 25 MG TABLET 175 MG PO (21:07)
[2022-04-03] MEDS: Levothyroxine Sodium 100 MCG TABLET PO (06:15)
[2022-04-03 09:15] VITALS: BP 181/77; PULSE 58; RESP 16; TEMP 36.5; O2SAT 99
[2022-04-03] MEDS: lamoTRIgine 25 MG TABLET 150 MG PO (09:36)
[2022-04-03] MEDS: OXcarbazepine 150 MG TABLET PO ×2 (09:38→21:01)
[2022-04-03] MEDS: Multivitamin TABLET 1 TAB PO (09:38)
[2022-04-03] MEDS: OXcarbazepine 300 MG TABLET PO ×2 (09:38→21:01)
[2022-04-03] MEDS: Atorvastatin Calcium 10 MG TABLET PO (09:38)
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
[2022-04-03 17:05] VITALS: BP 171/78
[2022-04-03] MEDS: amLODIPine Besylate 10 MG TABLET PO (17:09)
[2022-04-03] MEDS: Acetaminophen 325 MG TABLET 650 MG PO (17:09)
[2022-04-03 18:00] VITALS: BP 174/79; PULSE 70; RESP 18; TEMP 36.3; O2SAT 98
[2022-04-03] MEDS: lamoTRIgine 25 MG TABLET 175 MG PO (21:01)
[2022-04-03] MEDS: traZODone HCL 100 MG TABLET 200 MG PO (21:04)
[2022-04-03] MEDS: hydrOXYzine HCL 25 MG TABLET PO (21:33)
[2022-04-04] MEDS: Acetaminophen 325 MG TABLET 650 MG PO ×2 (03:49→12:17)
[2022-04-04 06:00] VITALS: BP 144/65; PULSE 65; RESP 16; TEMP 36.6
[2022-04-04] MEDS: Levothyroxine Sodium 100 MCG TABLET PO (06:16)
[2022-04-04] MEDS: Atorvastatin Calcium 10 MG TABLET PO (08:15)
[2022-04-04] MEDS: lamoTRIgine 25 MG TABLET 175 MG PO ×2 (08:15→20:54)
[2022-04-04] MEDS: Multivitamin TABLET 1 TAB PO (08:15)
[2022-04-04] MEDS: OXcarbazepine 150 MG TABLET PO ×2 (08:15→20:59)
[2022-04-04] MEDS: OXcarbazepine 300 MG TABLET PO ×2 (08:17→20:59)
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
[2022-04-04 18:34] VITALS: BP 187/84
[2022-04-04] MEDS: amLODIPine Besylate 10 MG TABLET PO (18:36)
[2022-04-04 19:00] VITALS: BP 194/86; PULSE 61; RESP 16; TEMP 36.6; O2SAT 100
[2022-04-04 20:00] VITALS: BP 209/78; PULSE 64; RESP 16
[2022-04-04] MEDS: cloNIDine HCL 0.1 MG TABLET PO ×2 (20:54→22:08)
[2022-04-04] MEDS: traZODone HCL 100 MG TABLET 200 MG PO (20:58)
[2022-04-04] MEDS: hydrOXYzine HCL 25 MG TABLET PO (20:59)
[2022-04-04 21:45] VITALS: BP 181/86; PULSE 60; RESP 16; O2SAT 94
--- NOTE | 2022-04-04 23:00 | PC.NURSE ---
[address] kayce payen in regard to htn- notified 1. b/p 194/86 2. recheck b/p 209/77 3. pt c/o of intermittent headache 4. pt has scheduled norvasc 10 mg q am plan a. clonidine 0.1 mg stat.b. recheck b/p [address] kayce payne 1. repeat b/p 1 hour post clonidine 181/66 2. pt is comfortably resting. plan repeat clonidine 0.1 mg po now.
[2022-04-05] MEDS: Acetaminophen 325 MG TABLET 650 MG PO (05:00)
[2022-04-05 06:00] VITALS: BP 170/72; PULSE 60; TEMP 36.3; O2SAT 100
[2022-04-05] MEDS: Levothyroxine Sodium 100 MCG TABLET PO (06:36)
[2022-04-05] MEDS: OXcarbazepine 300 MG TABLET PO ×2 (10:46→21:38)
[2022-04-05] MEDS: OXcarbazepine 150 MG TABLET PO ×2 (10:46→21:37)
[2022-04-05] MEDS: lamoTRIgine 25 MG TABLET 175 MG PO ×2 (10:47→21:33)
[2022-04-05] MEDS: Multivitamin TABLET 1 TAB PO (10:47)
[2022-04-05] MEDS: Atorvastatin Calcium 10 MG TABLET PO (10:48)
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
[2022-04-05] MEDS: amLODIPine Besylate 10 MG TABLET PO (18:14)
[2022-04-05 19:30] VITALS: BP 199/81; PULSE 63; RESP 16; TEMP 37.1; O2SAT 100
[2022-04-05] MEDS: cloNIDine HCL 0.2 MG TABLET PO (20:31)
[2022-04-05 21:35] VITALS: BP 221/79; PULSE 66; RESP 18
[2022-04-05] MEDS: traZODone HCL 100 MG TABLET 200 MG PO (21:37)
[2022-04-05 21:43] VITALS: BP 219/85; PULSE 66; RESP 16
[2022-04-05] MEDS: hydrOXYzine HCL 25 MG TABLET PO (21:59)
[2022-04-05] MEDS: hydrOXYzine HCL 50 MG TABLET PO (22:09)
[2022-04-05 22:58] VITALS: BP 176/78; PULSE 64; RESP 16
--- NOTE | 2022-04-05 23:05 | PC.NURSE ---
P. htn-[address] salguero contacted notified pt htn a. b/p la 219/85 b. b/p ra 221/79 c. apical hr 66 bpm d. anxious worried/situational stress plan- clonidine 0.2 mg po stat atarax 50 mg po stat will recheck b/p at 2300 E. 2300- pt recumbent in side lying position. she appears somnolent. pt arouses to voice. she verbalizes a decrease in her anxiety. she has a lengthy conversation that her b/p has been out of control in the past. she is not sure what medications were used. pt states that she has uncoordinated movements in her hands r/t tardive dyskinesia. resp effort is regular unlabored. heart sounds have a soft tori. b/p 178/76. will continue to monitor.
[2022-04-06 06:00] VITALS: BP 110/56; PULSE 66; RESP 17; TEMP 36.8; O2SAT 97
[2022-04-06] MEDS: Levothyroxine Sodium 100 MCG TABLET PO (06:43)
[2022-04-06] MEDS: OXcarbazepine 300 MG TABLET PO (08:15)
[2022-04-06] MEDS: OXcarbazepine 150 MG TABLET PO (08:15)
[2022-04-06] MEDS: lamoTRIgine 25 MG TABLET 175 MG PO (08:15)
[2022-04-06] MEDS: Multivitamin TABLET 1 TAB PO (08:15)
[2022-04-06] MEDS: Atorvastatin Calcium 10 MG TABLET PO (08:16)
--- NOTE | 2022-04-06 08:19 | PM.PSYDC ---
DS: Providers Provider Date of Service: 04/06/22 Date of admission: 03/30/22 17:10 Date of discharge: 04/06/22 Primary care physician: Fadumo Marcum MD Attending physician on discharge: Chilo Marshall DS: Diagnosis Discharge Diagnosis (1) Bipolar II disorder: Status: Acute DS: Medications Discharge Medications Home Medications: Home Medications Medication Instructions Recorded Confirmed amlodipine 10 mg tablet 10 mg PO DAILY@1800 08/04/21 03/29/22 atorvastatin 10 mg tablet 10 mg PO DAILY 08/04/21 03/29/22 bupropion HCl 150 mg tablet,12 hr 150 mg PO BID 08/04/21 03/29/22 sustained-release (Wellbutrin SR) desvenlafaxine succinate 25 mg 25 mg PO DAILY 08/04/21 03/29/22 tablet,extended release 24 hr hydroxyzine HCl 10 mg tablet 10 mg PO TID PRN Anxiety 08/04/21 03/29/22 lamotrigine 150 mg tablet 150 mg PO BID 08/04/21 03/29/22 pantoprazole 40 mg tablet,delayed 40 mg PO DAILY 08/04/21 03/29/22 release trazodone 100 mg tablet 200 mg PO BEDTIME PRN Insomnia 08/04/21 03/29/22 desvenlafaxine succinate 50 mg 50 mg PO DAILY 02/02/22 03/29/22 tablet,extended release 24 hr (Pristiq) levothyroxine 100 mcg tablet 100 mcg PO DAILY 03/10/22 03/29/22 oxcarbazepine 150 mg tablet 150 mg PO BID 03/10/22 03/29/22 oxcarbazepine 300 mg tablet 300 mg PO BID 03/10/22 03/29/22 multivitamin 1 tab PO DAILY 03/29/22 03/29/22 Mental Status Exam Mental Status Exam Patient Appearance: Well Grooomed Patient Orientation: Person, Place, Time and Situation Level of Consciousness: Awake Patient Behavior: Cooperative Mood Description: Withdrawn Affect Description: Constricted Patient Cognition Impaired: No Ability to Follow Directions: Good Speech Pattern: Clear Hallucinations: None Delusions: Not Present Thought Process: Linear Thought Content: positive for [place]um[place] Judgement: Fair Data Data Completed and Pending Completed studies during hospitalization [Text1]: 10/14/22 10/14/22 10/14/22 07:58 07:58 07:58 Estimat Average Glucose 97 Hemoglobin A1c % 5.0 Magnesium 2.1 Triglycerides 62 Cholesterol 198 LDL Cholesterol, Calc 114 HDL Cholesterol 72 Vitamin B12 440 Folate > 20.0 TSH 2.33 Free T4 1.05 DS: Summary Hospital Course Hospital Course: the patient was initially admitted for suicidal ideation in the context of several psychosocial stressors such as impending divorce and financial constraints, currently living with the help of a really use order. Please see the HPI note for details. On admission, we review her list of medications and we start increasing her Pristiq progressively up to 100 mg p.o. daily and lamotrigine up to 175 mg p.o. b.i.d.. The patient tolerating fairly well these changes, her mood improved and she was future oriented. She participated in groups and since there were no safety concerns discharge planning was discussed. Time spent discussing smoking cessation with patient: 3 to 10 minutes Status at Discharge Cognitive/behavioral status at discharge: At baseline Functional status at discharge: independent ambulation Overall status at discharge: patient is back to baseline Time Spent with Patient Time attestation: Total time spent providing and/or coordinating discharge services: Time spent: Less than 30 minutes Discharge Plan Discharge Anticipated Discharge Date/Time: 04/06/22 08:20 Patient Disposition: Home, Self-Care Discharge Diagnosis: bipolar disorder. Cluster B personality traits Referrals: [facility] Partial Program [Other] - 3-5 Days ([facility] was contacted, referral made for Eloisa to return to [facility] post discharge. Clinical faxed over and and request was made for priority due to dischrge from inpatient unit.) Rachel Meyer (therapists) [Other] - 04/06/22 8:30 pm (Standing therapy appointments on Sunday/ @ 8:30 PM) Dr. Susu Funez (psychiatrists) [Other] - 04/13/22 3:30 pm (Appointment scheduled for 04/13/22 @ 3:30 PM IN PERSON) [facility] [Other] - 04/12/22 10:45 pm (Appointment scheduled for 04/12/22 @ 10:45 AM IN PERSON) Fadumo Marcum MD [Primary Care Provider] - 04/17/22 11:30 am (Appointment scheduled for April 17, 2022 @ 11:20 PM) Discharge Medications: New lamotrigine 25 mg Tablet 175 mg PO BID 30 Days Qty: 420 0RF Desvenlafaxine Succinate [Pristiq] 100 mg PO DAILY 30 Days Qty: 30 0RF Continued multivitamin Tablet 1 tab PO DAILY Qty: 30 0RF bupropion HCl [Wellbutrin SR] 150 mg tablet sustained-release 12 hr 150 mg PO BID 30 Days Qty: 60 0RF oxcarbazepine 150 mg tablet 150 mg PO BID 30 Days Qty: 60 0RF atorvastatin 10 mg tablet 10 mg PO DAILY 30 Days Qty: 30 0RF oxcarbazepine 300 mg tablet 300 mg PO BID 30 Days Qty: 60 0RF levothyroxine 100 mcg tablet 100 mcg PO DAILY 30 Days Qty: 30 0RF trazodone 100 mg tablet 200 mg PO BEDTIME PRN (Reason: Insomnia) 30 Days Qty: 60 0RF amlodipine 10 mg tablet 10 mg PO DAILY@1800 30 Days Qty: 30 0RF pantoprazole 40 mg tablet,delayed release (DR/EC) 40 mg PO DAILY 30 Days Qty: 30 0RF hydroxyzine HCl 10 mg tablet 10 mg PO TID PRN (Reason: Anxiety) 30 Days Qty: 90 0RF Discontinued lamotrigine 150 mg tablet 150 mg PO BID desvenlafaxine succinate 25 mg tablet extended release 24 hr 25 mg PO DAILY desvenlafaxine succinate [Pristiq] 50 mg tablet extended release 24 hr 50 mg PO DAILY Discharge Orders: Discharge Order (Routine); Ordered 04/06/22 Ordered By: Chilo Marshall Diet: Advance to usual diet Activity on Discharge: As tolerated Stand Alone Forms: Patient Portal Discharge page Care Plan Goals: care plan goals achieved in this admission Health Concerns: continue treatment by primary care physician Plan of Treatment: continue treatment as an outpatient. Assessment: elderly female with a long history of bipolar type 2 and cluster B personality traits admitted for suicidality in the context of several psychosocial stressors. At this moment, she is safe able to contract for safety. We did medication changes to optimize her antidepressants. No safety concerns at the moment of the discharge
--- NOTE | 2022-04-06 11:44 | PC.NURSE ---
Pt walked off the unit with all of her belongings at 11am, to meet her [employer] ride. Pt reports she is in agreement with discharge plan, feels safe with discharge.
== END 2022-04-06 11:00 | disposition home or self-care (01) | DRG 885 ==
LOC: HO.ED 03-30 17:33 → HO.PGERI 03-30 17:54
PROVIDERS: Emergency Medicine Emergency Medical Services; Admitting Provider Registered Nurse; Emergency Provider Internal Medicine; PCP Internal Medicine; Visit Provider Registered Nurse
DX: F31.81 Bipolar II disorder (principal); R45.851 Suicidal ideations; E78.2 Mixed hyperlipidemia; G47.39 Other sleep apnea; G24.01 Drug induced subacute dyskinesia; Z20.822 Contact with and (suspected) exposure to COVID-19; Z59.01 Sheltered homelessness; Z91.51 Personal history of suicidal behavior; Z87.891 Personal history of nicotine dependence; Z88.0 Allergy status to penicillin; Z88.2 Allergy status to sulfonamides; Z88.5 Allergy status to narcotic agent; Z88.6 Allergy status to analgesic agent; Z79.890 Hormone replacement therapy; Z79.899 Other long term (current) drug therapy
CPT/HCPCS: 36415; 80053; 80061; 80143; 80179; 80307; 81001; 82077; 82607; 82746; 83036; 83735; 84439; 84443; 85025; 87635; 90792; 93005; 99285

== ENCOUNTER 2022-04-13 15:38 | Outpatient (REF) | payer MEDICARE, OTHER, SELFPAY ==
--- NOTE | ~2022-04-13 | XR_ITS ---
EXAMINATION: XR hand wrist LT, 4V XR hand wrist RT, 4V XR ankle LT min 3V XR foot LT min 3V CLINICAL INFORMATION: Reason for Exam R76.8 - Other specified abnormal immunological findings in serum COMPARISON: None. FINDINGS: Bilateral hands/wrists: No fractures. No erosive changes. Joint spaces and articular surfaces are maintained. Small marginal osteophytes of the first CMC joint, and first metacarpophalangeal joint, bilaterally. Soft tissues unremarkable. No radiopaque foreign bodies. Left ankle/foot: No acute fracture or dislocation. Ankle mortise is congruent. Talar dome intact. Small tibiotalar marginal osteophytes. Tiny plantar calcaneal enthesophyte. Small first metatarsophalangeal joint marginal osteophytes. No ankle joint effusion. Soft tissues unremarkable. XR/XR hand wrist LT IMPRESSION: No acute findings. No evidence of inflammatory arthropathy.
--- NOTE | ~2022-04-13 | XR_ITS ---
EXAMINATION: XR hand wrist LT, 4V XR hand wrist RT, 4V XR ankle LT min 3V XR foot LT min 3V CLINICAL INFORMATION: Reason for Exam R76.8 - Other specified abnormal immunological findings in serum COMPARISON: None. FINDINGS: Bilateral hands/wrists: No fractures. No erosive changes. Joint spaces and articular surfaces are maintained. Small marginal osteophytes of the first CMC joint, and first metacarpophalangeal joint, bilaterally. Soft tissues unremarkable. No radiopaque foreign bodies. Left ankle/foot: No acute fracture or dislocation. Ankle mortise is congruent. Talar dome intact. Small tibiotalar marginal osteophytes. Tiny plantar calcaneal enthesophyte. Small first metatarsophalangeal joint marginal osteophytes. No ankle joint effusion. Soft tissues unremarkable. XR/XR hand wrist RT IMPRESSION: No acute findings. No evidence of inflammatory arthropathy.
--- NOTE | ~2022-04-13 | XR_ITS ---
EXAMINATION: XR hand wrist LT, 4V XR hand wrist RT, 4V XR ankle LT min 3V XR foot LT min 3V CLINICAL INFORMATION: Reason for Exam R76.8 - Other specified abnormal immunological findings in serum COMPARISON: None. FINDINGS: Bilateral hands/wrists: No fractures. No erosive changes. Joint spaces and articular surfaces are maintained. Small marginal osteophytes of the first CMC joint, and first metacarpophalangeal joint, bilaterally. Soft tissues unremarkable. No radiopaque foreign bodies. Left ankle/foot: No acute fracture or dislocation. Ankle mortise is congruent. Talar dome intact. Small tibiotalar marginal osteophytes. Tiny plantar calcaneal enthesophyte. Small first metatarsophalangeal joint marginal osteophytes. No ankle joint effusion. Soft tissues unremarkable. XR/XR ankle LT min 3V IMPRESSION: No acute findings. No evidence of inflammatory arthropathy.
--- NOTE | ~2022-04-13 | XR_ITS ---
EXAMINATION: XR hand wrist LT, 4V XR hand wrist RT, 4V XR ankle LT min 3V XR foot LT min 3V CLINICAL INFORMATION: Reason for Exam R76.8 - Other specified abnormal immunological findings in serum COMPARISON: None. FINDINGS: Bilateral hands/wrists: No fractures. No erosive changes. Joint spaces and articular surfaces are maintained. Small marginal osteophytes of the first CMC joint, and first metacarpophalangeal joint, bilaterally. Soft tissues unremarkable. No radiopaque foreign bodies. Left ankle/foot: No acute fracture or dislocation. Ankle mortise is congruent. Talar dome intact. Small tibiotalar marginal osteophytes. Tiny plantar calcaneal enthesophyte. Small first metatarsophalangeal joint marginal osteophytes. No ankle joint effusion. Soft tissues unremarkable. XR/XR foot LT min 3V IMPRESSION: No acute findings. No evidence of inflammatory arthropathy.
[2022-04-13 16:11] LABS: MANUAL DIFF FLAG NO
[2022-04-13 16:41] LABS: Basophils Percent Auto 0.5 % (0-2); Eosinophils Absolute Auto 0.2 X10*3/uL (0.0-0.4); Eosinophils Percent Auto 2.5 % (0-4); Hematocrit 38.2 % (37.0-47.0); Hemoglobin 12.8 g/dl (12.0-16.0); Imm Gran Abs Auto 0.03 X10*3/uL (0.00-0.03); Imm Gran Pct Auto 0.4 % (0.0-0.4); Lymphocytes Absolute Auto 1.2 X10*3/uL (1.2-4.9); Lymphocytes Percent Auto 15.1 % (20-40); Mean Corpuscular HGB Conc 33.5 g/dl (31.0-35.0); Mean Corpuscular Hemoglobin 29.2 pg (27.0-33.0); Mean Corpuscular Volume 87.2 fL (80.0-98.0); Mean Platelet Volume 10.2 fL (9.4-12.3); Monocytes Absolute Auto 0.7 X10*3/uL (0.1-1.2); Monocytes Percent Auto 8.8 % (2-11); Neutrophils Absolute Auto 5.8 x10*3/uL (2.0-8.3); Neutrophils Percent Auto 72.7 % (45-73); Platelet Count 250 X10*3/uL (160-400); Red Blood Count 4.38 X10*6/uL (4.20-5.50); Red Cell Distribution Width 12.8 % (11.0-16.0)
[2022-04-13 17:14] LABS: Alanine Aminotransferase 21 U/L (0-31); Albumin Level 4.1 g/dL (3.5-5.0); Alkaline Phosphatase 158 U/L (39-117); Anion Gap 14 (12-20); Aspartate Amino Transferase 17 U/L (5-31); Bilirubin Total 0.3 mg/dL (0.0-1.0); Blood Urea Nitrogen 14 mg/dL (9-16); Calcium 9.4 mg/dL (8.4-10.2); Carbon Dioxide 29 mmol/L (22-29); Chloride 103 mmol/L (96-108); Estimated Glomerular Filt Rate > 60; Glucose Random 93 mg/dL (60-115); Potassium 4.3 mmol/L (3.3-5.1); Rheumatoid Factor 30.2 IU/mL (<15.0); Sodium 142 mmol/L (135-145); Total Protein 7.1 g/dL (6.5-8.0)
[2022-04-13 17:23] LABS: Erythrocyte Sedimentation Rate 27 MM/HR (0-20)
[2022-04-13 17:37] LABS: TSH reflex Free T4 1.68 uIU/mL (0.32-4.0)
[2022-04-13 18:04] LABS: Appearance Urine Clear; Color Urine Yellow; Creatinine Urine 156.44 mg/dL; Glucose Urine UA Negative (Negative); Leukocyte Esterase Urine Negative (Negative); Nitrite Urine Negative (Negative); PH 5.5 (5.0-9.0); Protein/Creatinine Ratio, Ur 0.06 (<0.2); Total Protein Urine Random 10 mg/dL (<12); Urine Blood Negative (Negative); Urine Ketones Trace mg/dL (Negative); Urine Protein Negative (Neg-Trace)
[2022-04-13 18:09] LABS: Bacteria Urine None Seen (None Seen); Hyaline Casts Urine 0-2 /LPF (0-2); RBC Urine 0-2 /HPF (0-2); Squamous Epithelial Cell Urine 0-2 /HPF (0-2); WBC Urine 0-5 /HPF (0-5)
[2022-04-14 04:39] LABS: HBS Num1 0.45 mIU/mL (0-7.99); HBc Num1 0.09 S/CO (0.00-0.79); HBsAGNum1 0.14 S/CO (0.00-0.99); Hepatitis A Antibody IgM 0.17 Index (0-0.79); Hepatitis B Core Antibody Nonreactive (Nonreactive); Hepatitis B Surface Antigen Negative (Negative); ~HepC Num1 0.08 S/CO (0.00-0.79); ~Hepatitis A Antibody IgM Nonreactive (Nonreactive); ~Hepatitis B Surface Antibody NONREACTIVE (Nonreactive); ~Hepatitis C Antibody Nonreactive (Nonreactive)
[2022-04-14 18:07] LABS: Complement C3 148 mg/dL (83-193)
[2022-04-15 09:32] LABS: Thyroid Peroxidase Antibodies 3 IU/mL (<9)
[2022-04-16 01:27] LABS: TS Negative Control Passed; TS Panel A 0; TS Panel B 0; TS Positive Control Passed; TSpotTB Negative (Negative)
[2022-04-17 11:48] LABS: Anti DNA DS Antibody <1 IU/mL; Antibody to SS-A Antigen <1.0 NEG AI (<1.0 NEG); Antibody to SS-B Antigen <1.0 NEG AI (<1.0 NEG); SM/Ribonucleoprotein Ab <1.0 NEG AI (<1.0 NEG); Scleroderma 70 Antibody <1.0 NEG AI (<1.0 NEG); Smith Protein <1.0 NEG AI (<1.0 NEG)
[2022-04-17 13:33] LABS: Cardiolipin IgG Ab <2.0 GPL-U/mL; Cardiolipin IgM Ab 8.2 MPL-U/mL
[2022-04-17 16:47] LABS: Lyme Abs Screen <0.90 index
[2022-04-17 18:52] LABS: Cyclic Citrullinated Peptide <16 UNITS
[2022-04-17 22:11] LABS: Anti-Centromere B Antibodies <1.0 NEG AI (<1.0 NEG)
[2022-04-17 22:32] LABS: PTT (LAC) Screen 38 sec (<=40); Thyroglobulin Antibodies 259 IU/mL (< or = 1)
[2022-04-18 13:07] LABS: IgA 234 mg/dL (70-320); IgG 1040 mg/dL (600-1540); IgM 159 mg/dL (50-300)
[2022-04-18 18:11] LABS: Prot Elec - Albumin 3.9 g/dL (3.8-4.8); Prot Elec - Alpha1 0.3 g/dL (0.2-0.3); Prot Elec - Alpha2 0.8 g/dL (0.5-0.9); Prot Elec - Beta 1 0.5 g/dL (0.4-0.6); Prot Elec - Beta 2 0.4 g/dL (0.2-0.5); Prot Elec - Gamma 0.9 g/dL (0.8-1.7); Prot Elec - Total Protein 6.7 g/dL (6.1-8.1)
[2022-04-18 21:12] LABS: Beta-2 Glycoprotein IgG <2.0 U/mL (<20.0); Beta-2 Glycoprotein IgM 10.3 U/mL (<20.0)
[2022-04-19 14:23] LABS: DNAds, Crithidia Antibody Negative (Negative)
[2022-04-20 09:12] LABS: HLA B27 Positive (Negative)
== END 2022-04-13 15:39 | disposition home or self-care (01) ==
LOC: HO.LAB 15:38
PROVIDERS: Visit Provider Student in an Organized Health Care Education/Training Program
DX: R76.8 Other specified abnormal immunological findings in serum (principal); M25.541 Pain in joints of right hand; E03.9 Hypothyroidism, unspecified; E78.5 Hyperlipidemia, unspecified; Z79.899 Other long term (current) drug therapy; M13.80 Other specified arthritis, unspecified site
CPT/HCPCS: 36415; 73110; 73130; 73610; 73630; 80053; 81001; 82550; 82784; 84156; 84165; 84443; 85025; 85597; 85613; 85652; 85730; 86038; 86140; 86146; 86147; 86160; 86200; 86225; 86235; 86255; 86334; 86376; 86431; 86481; 86617; 86618; 86704; 86706; 86709; 86800; 86803; 86812; 87340; 99202

== ENCOUNTER → 2022-05-26 13:20 | Outpatient (BNVA) | payer MEDICARE, OTHER, SELFPAY | PROVIDERS: PCP Internal Medicine; Visit Provider Student in an Organized Health Care Education/Training Program | DX: M05.79 Rheumatoid arthritis with rheumatoid factor of multiple sites without organ or systems involvement (principal); Z71.85 Encounter for immunization safety counseling; Z79.631 Long term (current) use of antimetabolite agent | CPT/HCPCS: 99212 ==

== ENCOUNTER → 2022-05-30 19:30 | Outpatient (REF) | payer MEDICARE, OTHER, SELFPAY | LOC: HO.SL 19:30 | PROVIDERS: Visit Provider Nurse Practitioner Family | DX: G47.33 Obstructive sleep apnea (adult) (pediatric) (principal) | CPT/HCPCS: 95811 ==

== ENCOUNTER → 2022-06-20 14:32 | Outpatient (BNVA) | payer MEDICARE, OTHER, SELFPAY | PROVIDERS: PCP Internal Medicine; Visit Provider Nurse Practitioner Family | DX: G47.30 Sleep apnea, unspecified (principal) | CPT/HCPCS: 99212 ==

== ENCOUNTER → 2022-07-14 10:46 | Outpatient (BNVA) | payer MEDICARE, OTHER, SELFPAY | PROVIDERS: PCP Internal Medicine; Visit Provider Student in an Organized Health Care Education/Training Program | DX: M05.79 Rheumatoid arthritis with rheumatoid factor of multiple sites without organ or systems involvement (principal); G24.01 Drug induced subacute dyskinesia; E03.9 Hypothyroidism, unspecified; E78.5 Hyperlipidemia, unspecified; F31.9 Bipolar disorder, unspecified | CPT/HCPCS: 99212 ==

== ENCOUNTER → 2022-08-09 11:10 | Outpatient (BNVA) | payer MEDICARE, OTHER, SELFPAY | PROVIDERS: PCP Internal Medicine; Visit Provider Psychiatry & Neurology Neurology | DX: G47.30 Sleep apnea, unspecified (principal); G24.01 Drug induced subacute dyskinesia; R53.1 Weakness | CPT/HCPCS: 99212 ==

== ENCOUNTER → 2022-09-05 10:53 | Outpatient (BNVA) | payer MEDICARE, OTHER, SELFPAY | PROVIDERS: PCP Internal Medicine; Visit Provider Nurse Practitioner Family | DX: G47.30 Sleep apnea, unspecified (principal) | CPT/HCPCS: 99212 ==

== ENCOUNTER 2022-10-12 09:20 | Outpatient (REF) | payer MEDICARE, OTHER, SELFPAY ==
[2022-10-12 11:30] LABS: MANUAL DIFF FLAG NO
[2022-10-12 11:50] LABS: Basophils Absolute Auto 0.1 X10*3/uL (0.0-0.2); Basophils Percent Auto 0.5 % (0-2); Eosinophils Absolute Auto 0.2 X10*3/uL (0.0-0.4); Eosinophils Percent Auto 2.3 % (0-4); Hematocrit 37.4 % (37.0-47.0); Imm Gran Abs Auto 0.06 X10*3/uL (0.00-0.03); Imm Gran Pct Auto 0.6 % (0.0-0.4); Lymphocytes Absolute Auto 1.5 X10*3/uL (1.2-4.9); Lymphocytes Percent Auto 15.4 % (20-40); Mean Corpuscular HGB Conc 32.1 g/dl (31.0-35.0); Mean Corpuscular Hemoglobin 27.9 pg (27.0-33.0); Monocytes Absolute Auto 0.9 X10*3/uL (0.1-1.2); Monocytes Percent Auto 9.5 % (2-11); Neutrophils Absolute Auto 6.9 x10*3/uL (2.0-8.3); Neutrophils Percent Auto 71.7 % (45-73); Platelet Count 287 X10*3/uL (160-400); Red Cell Distribution Width 13.3 % (11.0-16.0); White Blood Count 9.7 X10*3/uL (4.8-10.8)
[2022-10-12 12:12] LABS: Alanine Aminotransferase 24 U/L (0-31); Albumin Level 3.9 g/dL (3.5-5.0); Alkaline Phosphatase 151 U/L (39-117); Anion Gap 12 (12-20); Aspartate Amino Transferase 17 U/L (5-31); Bilirubin Total 0.6 mg/dL (0.0-1.0); Blood Urea Nitrogen 15 mg/dL (9-16); C Reactive Protein 0.67 mg/dL (< or = 0.50); Calcium 9.3 mg/dL (8.4-10.2); Carbon Dioxide 29 mmol/L (22-29); Chloride 97 mmol/L (96-108); Estimated Glomerular Filt Rate > 60; Glucose Random 118 mg/dL (60-115); Potassium 4.3 mmol/L (3.3-5.1); Sodium 134 mmol/L (135-145); Total Protein 6.6 g/dL (6.5-8.0)
[2022-10-12 12:39] LABS: Erythrocyte Sedimentation Rate 29 MM/HR (0-20)
== END 2022-10-12 09:21 | disposition home or self-care (01) ==
LOC: HO.10HDL 09:20
PROVIDERS: Visit Provider Student in an Organized Health Care Education/Training Program
DX: M05.79 Rheumatoid arthritis with rheumatoid factor of multiple sites without organ or systems involvement (principal)
CPT/HCPCS: 36415; 80053; 85025; 85652; 86140; 99212

== ENCOUNTER 2022-11-20 22:04 | Emergency (ER) | payer MEDICARE, OTHER, SELFPAY ==
--- NOTE | ~2022-11-20 | XR_ITS ---
EXAMINATION: RIGHT ELBOW, RIGHT KNEE CLINICAL INFORMATION: Fall with knee and elbow pain COMPARISON: None available. TECHNIQUE: 4 views right knee, 3 views right elbow FINDINGS: Elbow: No bone, joint or soft tissue abnormality is seen. Left knee: A small knee joint effusion is present tricompartmental degenerative changes are seen with some minimal osteophytes. No chondrocalcinosis. No significant joint space narrowing. XR/XR elbow RT 2V IMPRESSION: No evidence of an acute osseous injury. Small knee joint effusion.
--- NOTE | ~2022-11-20 | CT_ITS ---
EXAMINATION: CT CHEST, ABDOMEN AND PELVIS WITHOUT CONTRAST CLINICAL INFORMATION: Reason for Exam fall COMPARISON: No pertinent prior studies are available for comparison. TECHNIQUE: Multidetector volumetric imaging was performed from the thoracic inlet through the pubic symphysis without IV contrast. Sagittal and coronal reformatted images were obtained on the technologist's workstation. This CT examination was performed using dose optimization techniques as appropriate, variously including the following: *Automated exposure control *Adjustment of mA and/or kV according to patient size (this includes techniques or standardized protocols for targeted exams where dose is matched to indication/reason for exam; i.e. extremities or head) *Use of iterative reconstruction technique DLP: 1804 mGy-cm FINDINGS: CHEST: Lung: Scattered peripheral tree-in-bud opacities are seen in both lungs. The largest single micronodule measures 3 mm in the right lower lobe (6:320). No consolidations. Mediastinum: The mediastinum is unremarkable. The central vascular structures are unremarkable. No hilar or mediastinal lymphadenopathy. Coronary calcification is present. Pericardium/Pleura: No significant effusion. No pleural mass or thickening. Chest Wall/Axilla: Unremarkable ABDOMEN/PELVIS: Peritoneal Space: No significant free air or free fluid identified. Liver, Gallbladder, Biliary Tree: The liver is normal in size, shape, and attenuation. No focal hepatic lesion or biliary ductal dilatation is present. Status post cholecystectomy Pancreas: Unremarkable Spleen: Unremarkable Adrenal Glands: Unremarkable Kidneys and Ureters: The kidneys are normal in size, shape, and attenuation. No hydronephrosis, hydroureter, or calculi seen. No perinephric stranding. Bladder: Unremarkable Gastrointestinal Tract: The small and large bowel are unremarkable aside from colonic diverticulosis without diverticulitis. The appendix is not seen but there is no evidence of appendicitis evidence of appendicitis. Abdominal Wall: No significant hernia is appreciated. Lymph Nodes: No lymphadenopathy. Vascular: Calcific plaque present aorta and iliac vessels without aneurysm.. The IVC appears unremarkable. PELVIC VISCERA: The uterus and adnexa are unremarkable. OSSEUS STRUCTURES: Moderate degenerative changes seen at L5-S1. Schmorl's nodes seen at the inferior endplate of L2 and the superior endplate of L3. No bony destructive lesions. CT/CT abdomen pelvis wo IV con IMPRESSION: 1. No evidence of a traumatic injury in the chest, abdomen or pelvis. 2. Incidental note made of scattered tree-in-bud opacities in the lungs with the largest nodule measuring 3 mm, colonic diverticulosis without diverticulitis and degenerative changes in the spine. Fleischner guidelines were followed.
--- NOTE | ~2022-11-20 | CT_ITS ---
EXAMINATION: CT head/brain wo IV con, CT cervical spine wo IV con INDICATION INFORMATION: Reason for Exam headache fall COMPARISON: None TECHNIQUE: Separate noncontrast CT examinations of the head and cervical spine were performed. Coronal and sagittal images were created for each examination at the technologist workstation. This CT examination was performed using dose optimization techniques as appropriate, variously including the following: *Automated exposure control *Adjustment of mA and/or kV according to patient size (this includes techniques or standardized protocols for targeted exams where dose is matched to indication/reason for exam; i.e. extremities or head) *Use of iterative reconstruction technique DLP: 1233.85 mGy-cm FINDINGS: Head: No acute osseous or soft tissue abnormality. The mastoid air cells and visualized portions of the paranasal sinuses are well aerated. There is no evidence of acute intracranial hemorrhage or territorial infarction. No abnormal mass effect or midline shift is seen. Araujo to white matter differentiation is well preserved. No extra-axial fluid collections are identified. No hydrocephalus. No significant volume loss. There is no abnormal attenuation within the brain parenchyma. Cervical spine: There is no evidence of acute cervical spine fracture. Vertebral bodies remain normal in height. Loss of the usual cervical spine lordosis. I No pre- or paravertebral soft tissue abnormality is identified. Focus of dense sclerosis along the right aspect of the C5 vertebral body most likely represents a bone island. Visualized portions of the lung apices are unremarkable. The thyroid gland is unremarkable. CT/CT cervical spine wo IV con IMPRESSION: 1. No acute intracranial abnormality. 2. No cervical spine fracture or traumatic malalignment.
--- NOTE | ~2022-11-20 | XR_ITS ---
EXAMINATION: RIGHT ELBOW, RIGHT KNEE CLINICAL INFORMATION: Fall with knee and elbow pain COMPARISON: None available. TECHNIQUE: 4 views right knee, 3 views right elbow FINDINGS: Elbow: No bone, joint or soft tissue abnormality is seen. Left knee: A small knee joint effusion is present tricompartmental degenerative changes are seen with some minimal osteophytes. No chondrocalcinosis. No significant joint space narrowing. XR/XR knee RT 3V IMPRESSION: No evidence of an acute osseous injury. Small knee joint effusion.
[2022-11-20 22:07] VITALS: BP 174/67; BP 178/92; PULSE 72; PULSE 95; RESP 16; TEMP 36.4; O2SAT 100; O2SAT 99; BMI 39.9
--- NOTE | 2022-11-20 23:03 | ECG_ITS ---
Test Reason : FALL Blood Pressure : / mmHG Vent. Rate : 058 BPM Atrial Rate : 058 BPM P-R Int : 178 ms QRS Dur : 072 ms QT Int : 442 ms P-R-T Axes : 065 011 027 degrees QTc Int : 433 ms Sinus bradycardia Normal ECG When compared with ECG of 29-MAR-2022 14:33, No significant change was found Referred By: Gayathri Burger Electronically Signed By:James Marsh
--- NOTE | 2022-11-20 23:10 | ED_ITS ---
HPI - Fall General Chief Complaint: Fall Stated Complaint: Fall yesterday, pain on rt side Time Seen by Provider: 11/20/22 22:44 History of Present Illness HPI Narrative: Patient is a 72-year-old female presents today with having fallen about 24 hours ago. Complaining of pain to the right side. Patient hit her head. She is not on any blood thinners. Feel lightheaded. Have neck pain. Patient also has chest pain. Has abdominal pain. Has pain to the hip. Pain to the knee on the right side pain to the elbow on the right side. Patient stated that she has a history of tardive dyskinesia subsequently fell accidentally. She denies any dizziness nausea vomiting prior. Denies any chest pain prior. Patient is from home. Related Data Home Medications Medication Instructions Recorded Confirmed lamotrigine 200 mg tablet 200 mg PO BID 05/26/22 10/12/22 hydrochlorothiazide 25 mg tablet 25 mg PO DAILY 07/14/22 10/12/22 lisinopril 5 mg tablet 5 mg PO DAILY 07/14/22 10/12/22 hydrochlorothiazide 25 mg tablet 25 mg PO DAILY 10/12/22 10/12/22 Previous Rx's Medication Instructions Recorded Desvenlafaxine Succinate [Pristiq] 100 mg PO DAILY 30 days #30 tabs 04/06/22 amlodipine 10 mg tablet 10 mg PO DAILY@1800 30 days #30 04/06/22 tabs atorvastatin 10 mg tablet 10 mg PO DAILY 30 days #30 tabs 04/06/22 bupropion HCl 150 mg tablet,12 hr 150 mg PO BID 30 days #60 tabs 04/06/22 sustained-release (Wellbutrin SR) hydroxyzine HCl 10 mg tablet 10 mg PO TID PRN Anxiety 30 days 04/06/22 #90 tabs levothyroxine 100 mcg tablet 100 mcg PO DAILY 30 days #30 tabs 04/06/22 multivitamin 1 tab PO DAILY #30 tabs 04/06/22 oxcarbazepine 150 mg tablet 150 mg PO BID 30 days #60 tabs 04/06/22 oxcarbazepine 300 mg tablet 300 mg PO BID 30 days #60 tabs 04/06/22 pantoprazole 40 mg tablet,delayed 40 mg PO DAILY 30 days #30 tabs 04/06/22 release trazodone 100 mg tablet 200 mg PO BEDTIME PRN Insomnia 30 04/06/22 days #60 tabs Allergies Allergy/AdvReac Type Severity Reaction Status Date / Time methotrexate Allergy Severe whole body Verified 10/12/22 10:36 itchy, swelling eyes and lips Penicillins Allergy Severe HIVES Verified 10/12/22 10:36 lorazepam [Lorazepam] Allergy Mild REVERSE Verified 10/12/22 10:36 EFFECT oxycodone [Oxycodone] Allergy Mild UNKNOWN Verified 10/12/22 10:36 deutetrabenazine Allergy Unknown TOO MANY Verified 10/12/22 10:36 [From [place]] SIDE EFFECTS gabapentin [GABAPENTIN] Allergy Unknown DIZZYNESS, Verified 10/12/22 10:36 GI ISSUES NSAIDS (Non-Steroidal Allergy Unknown LIVER Verified 10/12/22 10:36 Anti-Inflamma ENZYME [NSAIDS (NON-STEROIDAL ISSUES ANTI-INFLAMMA] sulfamethoxazole Allergy Unknown DIARRHEA Verified 10/12/22 10:36 [From BACTRIM] trimethoprim [From BACTRIM] Allergy Unknown DIARRHEA Verified 10/12/22 10:36 valbenazine [From INGREZZA] Allergy Unknown INCREASED Verified 10/12/22 10:36 SLEEP 15-16HRS ANTIBIOTICS Allergy Unknown PT STATED Uncoded 10/12/22 10:36 NEED TO GO THRU PCP D/T GASTROPARESIS Review of Systems Review of Systems: Positive pain on the right side Yes all other systems are reviewed and are negative PMFSH Past Medical History Attestation statement: The following information was validated with the patient. Medical History Bipolar 1 disorder Combined hyperlipidemia Depression HTN (hypertension) Sleep apnea Tardive dyskinesia Thyroid disease Tremors of nervous system Type 2 diabetes mellitus Weakness Surgical History H/O shoulder surgery Hx of appendectomy Hx of cholecystectomy Family History Family History Father No problems noted. Mother No problems noted. Other Family history of rheumatoid arthritis Social History Social History Household Members: Other Housing: Other Housing Other:: Living with nuns in a wing of a convent due to homelessness Do you presently have visiting nurse or other home services: No (Did receive services before partial hospitalization) Unable to assess alcohol history related to: Unable to respond Alcohol intake: never Patient Tobacco Use Status: Former Tobacco user Quit Date: over 50 years ago Tobacco use type: Cigarette Smoked in Last 30 Days: No e-Cigarette/Vaping Use: Never Used Second Hand Smoke Exposure: No Use of substances other than those prescribed or required for medical reasons: No Advance Directives: No Advance Directives Information Provided: No service: No Sexual orientation: Straight/Heterosexual Physical Exam Vital Signs: Vital Signs: Last Vital Signs Temp 97.6 F 11/20/22 22:07 Pulse 95 11/20/22 22:07 Resp 16 11/20/22 22:07 BP 174/67 H 11/20/22 22:07 Pulse Ox 99 11/20/22 22:07 O2 Del Method Room Air 11/20/22 23:03 BMI result Body Mass Index 39.9 Appearance: Alert. Oriented X3. No acute distress. Eyes: Pupils equal, round and reactive to light. ENT: Pharynx normal. Neck: Trachea is midline, C-spine is immobilized CVS: Normal heart rate and rhythm. Pulses normal. Normal S1 and S2 Respiratory: No respiratory distress. Breath sounds normal. No Wheezing. No rales Abdomen: Soft and nontender. No rigidity. No distention. good BS x4 Skin: Skin warm and dry. Normal skin color. Normal skin turgor. Extremities: Positive pain to the right hip. Pain on movement of the hip. Pain on movement of the knee. There is no gross joint effusion noted. Sensation distally intact. Neuro: Oriented X 3. No motor deficit. No sensory deficit. Moving all extermities. No slurred speech Medical Decision Making Medical Decision Making MDM Narrative: Patient status post accidental fall. Currently not on any blood thinners. Complaining of pain to the head to the neck to the back to the shoulder to the hip on the right side knee to the right side elbow to the right side. Denies any loss of consciousness. Not on blood thinners. CT scan of the head was negative for any acute evidence of bleeding. No fracture noted. CT scan of the C-spine was ordered based on nexus criteria there is no gross fracture or malalignment noted. CT scan of the chest abdomen pelvis showed no evidence of hip fracture or spine fracture. It does show a 3 mm pulmonary nodule which will require follow-up on an outpatient basis. Patient's abdominal CT showed no evidence of traumatic injury. X-ray of the elbow and x-ray of the knees both showed no acute fracture. Patient to be discharged home. Differential Diagnosis Differential Diagnoses: The differential diagnosis associated with the presentation includes Contusion, head injury, C-spine injury, fracture, abdominal trauma Lab Data MDM Lab Attestation statement: I reviewed the patient's lab results. 11/20/22 23:29 11/20/22 23:29 Labs: Lab Results 11/20/22 11/20/22 Range/Units 23:29 23:29 WBC 7.3 (4.8-10.8) X10*3/uL RBC 3.90 L (4.20-5.50) X10*6/uL Hgb 11.1 L (12.0-16.0) g/dl Hct 33.8 L (37.0-47.0) % MCV 86.7 (80.0-98.0) fL MCH 28.5 (27.0-33.0) pg MCHC 32.8 (31.0-35.0) g/dl RDW 13.4 (11.0-16.0) % Plt Count 232 (160-400) X10*3/uL MPV 9.6 (9.4-12.3) fL Immature Gran % (Auto) 0.4 (0.0-0.4) % Neut % (Auto) 59.7 (45-73) % Lymph % (Auto) 22.6 (20-40) % Baldwin % (Auto) 12.7 H (2-11) % Eos % (Auto) 4.0 (0-4) % Baso % (Auto) 0.6 (0-2) % Lymph # (Auto) 1.6 (1.2-4.9) X10*3/uL Baldwin # (Auto) 0.9 (0.1-1.2) X10*3/uL Eos # (Auto) 0.3 (0.0-0.4) X10*3/uL Baso # (Auto) 0.0 (0.0-0.2) X10*3/uL Abs Immat Gran (auto) 0.03 (0.00-0.03) X10*3/uL Absolute Neuts (auto) 4.3 (2.0-8.3) x10*3/uL Absolute Nucleated RBC 0.000 (0.0-0.012) X10*3/uL Nucleated RBC % (auto) 0.0 (0.0-0.2) /100WBC Sodium 140 (135-145) mmol/L Potassium 4.0 (3.3-5.1) mmol/L Chloride 103 (96-108) mmol/L Carbon Dioxide 27 (22-29) mmol/L Anion Gap 14 (12-20) BUN 21 H (9-16) mg/dL Creatinine 0.80 (0.5-1.4) mg/dL Estim Creat Clear Calc 77.9 Estimated GFR > 60 Random Glucose 125 H (60-115) mg/dL Calcium 9.2 (8.4-10.2) mg/dL Total Bilirubin 0.3 (0.0-1.0) mg/dL Direct Bilirubin 0.1 (0.0-0.5) mg/dL AST 17 (5-31) U/L ALT 21 (0-31) U/L Alkaline Phosphatase 148 H (39-117) U/L Total Protein 6.5 (6.5-8.0) g/dL Albumin 3.6 (3.5-5.0) g/dL Independent Interpretation I performed an independent interpretation of an: EKG Interpretation: My interpretation of patient's EKG showed a sinus pattern heart rate is 60 KS QRS QT within normal limits is no acute ST segment elevation. Radiology Impression Discussion of test interpretation with radiology: I have reviewed the radiologist's reading. Radiologist Impression: I reviewed the x-ray of the elbow and the x-ray of the knee they are both grossly negative. Discharge Plan Discharge Clinical Impression: Tardive dyskinesia, Head injury Patient Disposition: Home, Self-Care Instructions: Head Injury (ED), Fall Prevention (ED), Fall Prevention for Older Adults (ED), Contusion in Adults (ED) Prescriptions: No Action Desvenlafaxine Succinate [Pristiq] 100 mg PO DAILY 30 Days Qty: 30 0RF multivitamin Tablet 1 tab PO DAILY Qty: 30 0RF bupropion HCl [Wellbutrin SR] 150 mg tablet sustained-release 12 hr 150 mg PO BID 30 Days Qty: 60 0RF oxcarbazepine 150 mg tablet 150 mg PO BID 30 Days Qty: 60 0RF atorvastatin 10 mg tablet 10 mg PO DAILY 30 Days Qty: 30 0RF oxcarbazepine 300 mg tablet 300 mg PO BID 30 Days Qty: 60 0RF levothyroxine 100 mcg tablet 100 mcg PO DAILY 30 Days Qty: 30 0RF trazodone 100 mg tablet 200 mg PO BEDTIME PRN (Reason: Insomnia) 30 Days Qty: 60 0RF amlodipine 10 mg tablet 10 mg PO DAILY@1800 30 Days Qty: 30 0RF pantoprazole 40 mg tablet,delayed release (DR/EC) 40 mg PO DAILY 30 Days Qty: 30 0RF hydroxyzine HCl 10 mg tablet 10 mg PO TID PRN (Reason: Anxiety) 30 Days Qty: 90 0RF lamotrigine 200 mg tablet 200 mg PO BID hydrochlorothiazide 25 mg tablet 25 mg PO DAILY lisinopril 5 mg tablet 5 mg PO DAILY hydrochlorothiazide 25 mg tablet 25 mg PO DAILY Referrals: Physician,Unknown J [Primary Care Provider] - 11/23/22
--- NOTE | 2022-11-20 23:28 | PC.NURSE ---
Pt is a 72-year-old female presents today with a fall that happened yesterday afternoon. Pt states that the fall is causing right sided pain and feels lightheaded, CP and neck pain from the fall. Pt also claims she hit her head when she fell but no LOC. Pt denies being on any blood thinners. Patient also has chest pain. Pt also has abdominal pain, hip pain and right side pain to the elbow on the right side.
[2022-11-20 23:35] LABS: MANUAL DIFF FLAG NO
[2022-11-20 23:36] LABS: Basophils Percent Auto 0.6 % (0-2); Eosinophils Absolute Auto 0.3 X10*3/uL (0.0-0.4); Hematocrit 33.8 % (37.0-47.0); Hemoglobin 11.1 g/dl (12.0-16.0); Imm Gran Abs Auto 0.03 X10*3/uL (0.00-0.03); Imm Gran Pct Auto 0.4 % (0.0-0.4); Lymphocytes Absolute Auto 1.6 X10*3/uL (1.2-4.9); Lymphocytes Percent Auto 22.6 % (20-40); Mean Corpuscular HGB Conc 32.8 g/dl (31.0-35.0); Mean Corpuscular Hemoglobin 28.5 pg (27.0-33.0); Mean Corpuscular Volume 86.7 fL (80.0-98.0); Mean Platelet Volume 9.6 fL (9.4-12.3); Monocytes Absolute Auto 0.9 X10*3/uL (0.1-1.2); Monocytes Percent Auto 12.7 % (2-11); Neutrophils Absolute Auto 4.3 x10*3/uL (2.0-8.3); Neutrophils Percent Auto 59.7 % (45-73); Platelet Count 232 X10*3/uL (160-400); Red Cell Distribution Width 13.4 % (11.0-16.0); White Blood Count 7.3 X10*3/uL (4.8-10.8)
[2022-11-20 23:53] LABS: Alanine Aminotransferase 21 U/L (0-31); Albumin Level 3.6 g/dL (3.5-5.0); Alkaline Phosphatase 148 U/L (39-117); Anion Gap 14 (12-20); Aspartate Amino Transferase 17 U/L (5-31); Bilirubin Direct 0.1 mg/dL (0.0-0.5); Bilirubin Total 0.3 mg/dL (0.0-1.0); Blood Urea Nitrogen 21 mg/dL (9-16); Calcium 9.2 mg/dL (8.4-10.2); Carbon Dioxide 27 mmol/L (22-29); Chloride 103 mmol/L (96-108); Creatinine Clr Calc Pharmacy 77.9; Estimated Glomerular Filt Rate > 60; Glucose Random 125 mg/dL (60-115); Sodium 140 mmol/L (135-145); Total Protein 6.5 g/dL (6.5-8.0)
== END 2022-11-21 01:44 | disposition home or self-care (01) ==
PROVIDERS: Emergency Provider Emergency Medicine Emergency Medical Services
DX: G24.01 Drug induced subacute dyskinesia (principal); S09.90XA Unspecified injury of head, initial encounter; W19.XXXA Unspecified fall, initial encounter; R91.1 Solitary pulmonary nodule; E11.9 Type 2 diabetes mellitus without complications; I10 Essential (primary) hypertension; E78.5 Hyperlipidemia, unspecified; F31.81 Bipolar II disorder; Z87.891 Personal history of nicotine dependence; Z79.899 Other long term (current) drug therapy; Z79.02 Long term (current) use of antithrombotics/antiplatelets; Y93.9 Activity, unspecified; Y92.89 Other specified places as the place of occurrence of the external cause; Y99.9 Unspecified external cause status
CPT/HCPCS: 36415; 70450; 71250; 72125; 73070; 73562; 74176; 80048; 80076; 85025; 93005; 99284; 99285

== ENCOUNTER 2022-12-07 09:37 | Outpatient (REF) | payer MEDICARE, OTHER, SELFPAY ==
--- NOTE | ~2022-12-07 | MR_ITS ---
EXAMINATION: MR HAND WITHOUT AND WITH CONTRAST, LEFT CLINICAL INFORMATION: Rheumatoid arthritis. Pain. COMPARISON: Right hand and wrist radiographs dated 04/13/2022. TECHNIQUE: Multisequence MR imaging of the right hand was obtained before and after the administration of 10 mL Gadavist contrast on a high-field strength scanner. FINDINGS: BONE: Mild marrow edema within the dorsal aspect of the lunate. Findings may be degenerative or represent an osseous contusion. No additional marrow edema. Grossly intact articular cartilage. No concerning lytic or blastic osseous lesion. MUSCLES/TENDONS: Trace fluid within the flexor digitorum and extensor digitorum tendon sheaths, consistent with minimal tenosynovitis. Findings are most prominent within the 3rd flexor digitorum tendon sheath. No transverse tendon tear or tendon retraction. LIGAMENTS: The intra-articular ligaments are grossly intact. SOFT TISSUES: Mild edema along the dorsal aspect of the distal carpal row. No significant joint effusion. Findings could indicate minimal synovitis. No soft tissue mass or fluid collection. MR/MR hand LT wo/w con IMPRESSION: 1. Mild marrow edema within the dorsal aspect of the lunate which may be degenerative or represent an osseous contusion. No associated fracture line. 2. Mild flexor and extensor digitorum tenosynovitis, most prominent within the 3rd flexor digitorum tendon sheath. No transverse tendon tear or tendon retraction. 3. Mild edema along the dorsal aspect of the distal carpal row which could indicate minimal synovitis. No significant joint effusion.
== END 2022-12-07 09:38 | disposition home or self-care (01) ==
LOC: HO.MRI 09:37
PROVIDERS: Visit Provider Student in an Organized Health Care Education/Training Program
DX: M06.9 Rheumatoid arthritis, unspecified (principal)
CPT/HCPCS: 73220; A9585

== ENCOUNTER 2022-12-20 10:45 | Outpatient (AMB) | payer MEDICARE, OTHER, SELFPAY ==
--- NOTE | 2022-12-20 10:48 | A.OFFVIS_ITS ---
Intake Vital Signs 12/20/22 10:56 Weight 248 lb 2 oz BP 130/60 Blood Pressure Location Rt brachial Position Sitting Pulse 79 Pulse Source Pulse Oximeter Pulse Oximetry (%) 97 Oxygen Delivery Method Room Air Intake Visit Reasons: 3 mnts f/u + weakness & Pain complaints- Conf Intake Note: F/U for weakness and pain, she states she believes her tardive dyskanegia is getting worse and she can do this anymore. Also she was in partial hospitalization program Asset Protection Agent Required: No Allergies methotrexate Allergy (Severe, Verified 06/06/23 13:29) whole body itchy, swelling eyes and lips Penicillins Allergy (Severe, Verified 06/06/23 13:29) HIVES lorazepam [Lorazepam] Allergy (Mild, Verified 06/06/23 13:29) REVERSE EFFECT oxycodone [Oxycodone] Allergy (Mild, Verified 06/06/23 13:29) UNKNOWN deutetrabenazine [From AUSTEDO] Allergy (Unknown, Verified 06/06/23 13:29) TOO MANY SIDE EFFECTS gabapentin [GABAPENTIN] Allergy (Unknown, Verified 06/06/23 13:29) DIZZYNESS, GI ISSUES NSAIDS (Non-Steroidal Anti-Inflamma [NSAIDS (NON-STEROIDAL ANTI-INFLAMMA] Allergy (Unknown, Verified 06/06/23 13:29) LIVER ENZYME ISSUES sulfamethoxazole [From BACTRIM] Allergy (Unknown, Verified 06/06/23 13:29) DIARRHEA trimethoprim [From BACTRIM] Allergy (Unknown, Verified 06/06/23 13:29) DIARRHEA valbenazine [From INGREZZA] Allergy (Unknown, Verified 06/06/23 13:29) INCREASED SLEEP 15-16HRS acetaminophen [From Vicodin] Allergy (Verified 06/06/23 13:29) Unknown alprazolam [From Xanax] Allergy (Verified 06/06/23 13:29) Unknown doxepin Allergy (Verified 06/06/23 13:29) Unknown escitalopram [From Lexapro] Allergy (Verified 06/06/23 13:29) Unknown estradiol Allergy (Verified 06/06/23 13:29) Unknown hydrocodone [From Vicodin] Allergy (Verified 06/06/23 13:29) Unknown mirtazapine Allergy (Verified 06/06/23 13:29) Unknown pregabalin [From Lyrica] Allergy (Verified 06/06/23 13:29) Unknown ramelteon Allergy (Verified 06/06/23 13:29) Unknown ANTIBIOTICS Allergy (Unknown, Uncoded 06/06/23 13:29) PT STATED NEED TO GO THRU PCP D/T GASTROPARESIS Medication List - Last Reconciled 12/20/22 by Lata Dunham MD amlodipine 10 mg PO DAILY@1800 30 days atorvastatin 10 mg PO DAILY 30 days bupropion HCl (Wellbutrin SR) 150 mg PO BID 30 days [Desvenlafaxine Succinate [Pristiq] 100 mg PO DAILY 30 days] hydrochlorothiazide 25 mg PO DAILY hydroxyzine HCl 10 mg PO TID PRN 30 days lamotrigine 200 mg PO BID levothyroxine 100 mcg PO DAILY 30 days lisinopril 5 mg PO DAILY multivitamin 1 tab PO DAILY oxcarbazepine 300 mg PO BID 30 days oxcarbazepine 150 mg PO BID 30 days pantoprazole 40 mg PO DAILY 30 days trazodone 200 mg (2 x 100 mg) PO BEDTIME PRN 30 days HPI HPI Comments History of Present Illness Details 72 y/o female patient [facility] [place] [facility] . she reports increase in generalized weakness, speech is worse, has trouble with bringing words out, stutters.she also reports myoclonus like movements when she is lying down.she also reports recent fall 1 month ago. SHe missed a step and fell. The split sleep study result reviewed. The baseline portion of the study was significant for moderate degree of sleep apnea with increased severity in REM sleep. The AHI was 19/hr. REM AHI was 61/hr with O2 narinder at 83%. The breathing and oxygenation stabilized on CPAP 6cmH2O. The CPAP compliance and therapy response (09/13/22-12/11/22) reviewed with the patient. Usage days 90 days, usage 76%,average usage hours 5 hours 56min. The mean pressure is 6 and AHI 3.4 Pt states that she sleeps well throughout the night with CPAP, but still can have daytime tiredness. she also is going through a divorce and her is trying to prove her incompetent due to mental health issues. [facility] Medical History Expressive speech disorder Speech abnormality Weakness Type 2 diabetes mellitus Tremors of nervous system Tardive dyskinesia Sleep apnea Thyroid disease Depression Bipolar 1 disorder Combined hyperlipidemia HTN (hypertension) Surgical History Hx of cholecystectomy H/O shoulder surgery Hx of appendectomy Family History Father No problems noted. Mother No problems noted. Other Family history of rheumatoid arthritis Social History Household Members: Other Housing: Other Housing Other:: Living with nuns in a wing of a convent due to homelessness Do you presently have visiting nurse or other home services: No (Did receive services before partial hospitalization) Unable to assess alcohol history related to: Unable to respond Alcohol intake: never Patient Tobacco Use Status: Former Tobacco user Quit Date: over 50 years ago Tobacco use type: Cigarette e-Cigarette/Vaping Use: Never Used Second Hand Smoke Exposure: No Advance Directives Date on File: 01/21/23 service: No Sexual orientation: Straight/Heterosexual Physical Exam Vital Signs: Last Vital Signs Pulse 79 12/20/22 10:56 BP 130/60 12/20/22 10:56 Pulse Ox 97 12/20/22 10:56 Oxygen Delivery Method Room Air 12/20/22 10:56 Const General: cooperative, healthy appearing, comfortable and no acute distress Nutritional Appearance: overweight Neck Neck: Yes normal visual inspection and Yes full ROM Neuro Other: No abnormal tongue movements No UE or LE choreiform movements No tremors gait- mild slowness , good stride posture and arm swings Speech- normal General: CN's II-XI intact bilaterally Psych Affect: No Anxious affect present Assessment & Plan Assessment & Plan (1) Sleep apnea: Comment: Hx of complex sleep apnea, Moderate degree of sleep apnea with increased severity in REM sleep. AHI was 19/hr, REM AHI was 61/hr. Oxygen narinder was 83%. Code(s): G47.30 - Sleep apnea, unspecified (2) Tardive dyskinesia: Code(s): G24.01 - Drug induced subacute dyskinesia Plan: she could not tolerate austedo or ingrezza (3) Weakness: Code(s): R53.1 - Weakness Plan Continue CPAP at 6 cm of water She was diagnosed with Rheumatoid arthritis - f/u with Dr. Enriquez Speech therapy emg /ncs UE Orders: Referrals Speech and Hearing Referral R47.9 - Unspecified speech disturbances Coding Level of Care Code Est Pt Level 4 (46362) Diagnoses Sleep apnea G47.30 Tardive dyskinesia G24.01 Weakness R53.1
[2022-12-20 10:56] VITALS: BP 130/60; PULSE 79; O2SAT 97
== END 2022-12-20 11:32 | disposition home or self-care (01) ==
PROVIDERS: Visit Provider Psychiatry & Neurology Neurology
DX: G47.30 Sleep apnea, unspecified (principal); G24.01 Drug induced subacute dyskinesia; R53.1 Weakness
CPT/HCPCS: 99213; 99214

== ENCOUNTER → 2022-12-20 10:45 | Outpatient (BNVA) | payer MEDICARE, OTHER, SELFPAY | PROVIDERS: Visit Provider Nurse Practitioner Family | DX: G47.30 Sleep apnea, unspecified (principal); G24.01 Drug induced subacute dyskinesia; R53.1 Weakness | CPT/HCPCS: 99212 ==

== ENCOUNTER 2023-01-02 09:41 | Outpatient (AMB) | payer MEDICARE, OTHER, SELFPAY ==
[2023-01-02 09:56] VITALS: BP 142/64; PULSE 72; TEMP 36.5; O2SAT 96; BMI 41.6
--- NOTE | 2023-01-02 09:56 | A.OFFVIS_ITS ---
Intake Vital Signs 01/02/23 09:56 Height 5 ft 5 in Weight 249 lb 12.54 oz BMI 41.6 BP 142/64 H Blood Pressure Location Rt brachial Position Sitting Pulse 72 Pulse Source Pulse Oximeter Temp 97.7 F Temp Source Skin Pulse Oximetry (%) 96 Intake Visit Reasons: RA Intake Note: * Pt seen today for RA follow up. Reports while on prednisone felt more depressed and very dizzy, so she self stopped it * C/o pain in multiple areas. * States the pain is everywhere Claim Administrator Required: No Accompanied by: Self / Same As Patient Allergies methotrexate Allergy (Severe, Verified 01/02/23 10:00) whole body itchy, swelling eyes and lips Penicillins Allergy (Severe, Verified 01/02/23 10:00) HIVES lorazepam [Lorazepam] Allergy (Mild, Verified 01/02/23 10:00) REVERSE EFFECT oxycodone [Oxycodone] Allergy (Mild, Verified 01/02/23 10:00) UNKNOWN deutetrabenazine [From AUSTEDO] Allergy (Unknown, Verified 01/02/23 10:00) TOO MANY SIDE EFFECTS gabapentin [GABAPENTIN] Allergy (Unknown, Verified 01/02/23 10:00) DIZZYNESS, GI ISSUES NSAIDS (Non-Steroidal Anti-Inflamma [NSAIDS (NON-STEROIDAL ANTI-INFLAMMA] Allergy (Unknown, Verified 01/02/23 10:00) LIVER ENZYME ISSUES sulfamethoxazole [From BACTRIM] Allergy (Unknown, Verified 01/02/23 10:00) DIARRHEA trimethoprim [From BACTRIM] Allergy (Unknown, Verified 01/02/23 10:00) DIARRHEA valbenazine [From INGREZZA] Allergy (Unknown, Verified 01/02/23 10:00) INCREASED SLEEP 15-16HRS ANTIBIOTICS Allergy (Unknown, Uncoded 01/02/23 10:00) PT STATED NEED TO GO THRU PCP D/T GASTROPARESIS Medication List - Last Reconciled 01/02/23 by Yaquelin Darden MD amlodipine 10 mg PO DAILY@1800 30 days atorvastatin 10 mg PO DAILY 30 days bupropion HCl (Wellbutrin SR) 150 mg PO BID 30 days desvenlafaxine succinate ER 100 mg PO QAM hydrochlorothiazide 25 mg PO DAILY hydroxyzine HCl 10 mg PO TID PRN 30 days lamotrigine 200 mg PO BID levothyroxine 100 mcg PO DAILY 30 days lisinopril 5 mg PO DAILY multivitamin 1 tab PO DAILY oxcarbazepine 300 mg PO BID 30 days oxcarbazepine 150 mg PO BID 30 days pantoprazole 40 mg PO DAILY 30 days trazodone 200 mg (2 x 100 mg) PO BEDTIME PRN 30 days HPI HPI Comments History of Present Illness Details 72-year-old female with seropositive RA (+ RF, +[id number], -ve CCP) returns for follow-up. She continues to have pain and stiffness of both hands, back of both knees and both feet. She gets sudden cramps of her fingers when she is trying to go to sleep at night. Three weeks ago patient called the office complaining of diffuse pain. She was prescribed prednisone course which helped her pain but patient discontinued it after 4 days due to depression and dizziness. Initial history: This is a 71-year-old female past history hypothyroidism, dyslipidemia, depression, bipolar disorder, dyskinesia presents for evaluation diffuse joint pain. patient had bipolar disorder for many years was on antipsychotic many years. She recently developed tardive dyskinesia which is significantly affecting life. Over the past 6-9 months she has been pain swelling and stiffness hands, wrists, ankles and feet. Pain is generally worse in morning associated morning stiffness lasted few hours. She has dry for years but got worse over last 3 months.She was evaluated by her PCP referred to Rheumatology for evaluation. [facility] Medical History Bipolar 1 disorder Combined hyperlipidemia Depression HTN (hypertension) Sleep apnea Speech abnormality Tardive dyskinesia Thyroid disease Tremors of nervous system Type 2 diabetes mellitus Weakness Surgical History H/O shoulder surgery Hx of appendectomy Hx of cholecystectomy Family History Father No problems noted. Mother No problems noted. Other Family history of rheumatoid arthritis Social History Household Members: Other Housing: Other Housing Other:: Living with nuns in a wing of a convent due to homelessness Do you presently have visiting nurse or other home services: No (Did receive services before partial hospitalization) Unable to assess alcohol history related to: Unable to respond Alcohol intake: never Patient Tobacco Use Status: Former Tobacco user Quit Date: over 50 years ago Tobacco use type: Cigarette e-Cigarette/Vaping Use: Never Used Second Hand Smoke Exposure: No service: No Sexual orientation: Straight/Heterosexual Review of Systems Musc Reports arthralgias, Reports joint swelling, Reports muscle weakness and Reports stiffness Physical Exam Vital Signs: Last Vital Signs Temp 97.7 F 01/02/23 09:56 Pulse 72 01/02/23 09:56 BP 142/64 H 01/02/23 09:56 Pulse Ox 96 01/02/23 09:56 BMI result Body Mass Index 41.6 Const General: cooperative, healthy appearing, comfortable and no acute distress Nutritional Appearance: obese morbidly obese Orientation/consciousness: patient oriented x3 Limitations: ambulation with walker HEENT Head: Yes normocephalic and Yes atraumatic Resp Effort & Inspection: normal respiratory effort and able to speak in complete sentences Skin General skin exam: no rashes or lesions noted Neuro General: patient oriented x3 Extrem Other: Left wrist tenderness & pain with full flexion and extension Bilateral MCP joints tenderness with no significant swelling. Bilateral positive MCP squeeze test Diffuse PIP joint tenderness bilaterally with no significant swelling Right 2nd through 5th MTP tenderness and positive MTP squeeze test. Right 1st MTP joint tenderness Results Reviewed Results Reviewed: ?MR/MR hand LT wo/w con? 12/08 IMPRESSION: 1. Mild marrow edema within the dorsal aspect of the lunate which may be degenerative or represent an osseous contusion. No associated fracture line. 2. Mild flexor and extensor digitorum tenosynovitis, most prominent within the 3rd flexor digitorum tendon sheath. No transverse tendon tear or tendon retraction. 3. Mild edema along the dorsal aspect of the distal carpal row which could indicate minimal synovitis. No significant joint effusion. Assessment & Plan Assessment & Plan (1) Rheumatoid arthritis: Comment: +RF -CCP Dx 07/10 MTX 07/10 (multiple side effects Enbrel 07/10-10/08 ineffective Prednisone effective but causes psychiatric side effects and dizziness Code(s): M06.9 - Rheumatoid arthritis, unspecified Qualifiers: Rheumatoid arthritis location: multiple sites Rheumatoid factor presence: with rheumatoid factor Qualified Code(s): M05.79 - Rheumatoid arthr itis with rheumatoid factor of multiple sites without organ or systems involvement Plan: This is a 72-year-old female with seropositive RA (+RF, -ve CCP) who presents for follow-up. She is HLA B27 positive but no symptoms suggestive of inflammatory back pain. No symptoms of psoriasis. No history suggestive of uveitis or IBD. Patient could not tolerate methotrexate due to whole body pain, itchiness, swelling of her eyes lips and severe nausea. Cannot try sulfasalazine due to history of sulfa allergy. Hydroxychloroquine would not be favorable as patient is on multiple QTC prolonging medications. Enbrel tried for 11 weeks without improvement. Her recent hand MRI showing diffuse synovitis/tenosynovitis. Recent inflammatory markers elevated. Patient would be a good candidate for Actemra. Patient denies history of diverticulitis. Discussed risks and benefits of Actemra. Patient agreed to proceed. Will start prior authorization for Actemra Infectious screening: Hepatitis panel and T spot -ve 2021 Labs before next visit in 3 months Plan I spent 18 minutes reviewing patient's chart, evaluating patient, ordering diagnostic workup, counseling patient and documenting in the chart Orders: Orders Comprehensive Met. Panel 3 Months M06.9 - Rheumatoid arthritis, unspecified C Reactive Protein 3 Months M06.9 - Rheumatoid arthritis, unspecified Complete Blood Count Auto Diff 3 Months M06.9 - Rheumatoid arthritis, unspecified Erythrocyte Sedimentation Rate 3 Months M06.9 - Rheumatoid arthritis, unspecified Coding Level of Care Code Est Pt Level 3 (55572) Diagnoses Rheumatoid arthritis M05.79 Rheumatoid arthritis location: multiple sites Rheumatoid factor presence: with rheumatoid factor
== END 2023-01-02 10:39 | disposition home or self-care (01) ==
PROVIDERS: PCP Internal Medicine; Visit Provider Student in an Organized Health Care Education/Training Program
DX: M05.79 Rheumatoid arthritis with rheumatoid factor of multiple sites without organ or systems involvement (principal)
CPT/HCPCS: 99213

== ENCOUNTER → 2023-01-02 09:41 | Outpatient (BNVA) | payer MEDICARE, OTHER, SELFPAY | PROVIDERS: Visit Provider Student in an Organized Health Care Education/Training Program | DX: M05.79 Rheumatoid arthritis with rheumatoid factor of multiple sites without organ or systems involvement (principal) | CPT/HCPCS: 99212 ==

== ENCOUNTER 2023-01-18 08:30 | Outpatient (REF) | payer MEDICARE, OTHER, SELFPAY ==
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
== END 2023-01-18 08:31 | disposition home or self-care (01) ==
LOC: HO.HAP 08:30
PROVIDERS: Visit Provider Psychiatry & Neurology Neurology
DX: Z46.1 Encounter for fitting and adjustment of hearing aid (principal); R47.9 Unspecified speech disturbances
CPT/HCPCS: 96125

== ENCOUNTER 2023-01-21 11:22 | Observation (INO) | payer MEDICARE, OTHER, SELFPAY ==
--- NOTE | ~2023-01-21 | XR_ITS ---
EXAMINATION: XR chest 1V CLINICAL INFORMATION: Reason for Exam SOB COMPARISON: None TECHNIQUE: XR chest 1V Tubes and lines: None Lungs and pleura: Both lungs are clear. Heart and mediastinum: The mediastinum is within normal limits.. Bones/soft tissue: Skeletal structures included are normal for patient's age. XR/XR chest 1V IMPRESSION: No radiographic evidence of acute cardiopulmonary disease.
--- NOTE | 2023-01-21 11:31 | ECG_ITS ---
Test Reason : SYNCOPE Blood Pressure : / mmHG Vent. Rate : 057 BPM Atrial Rate : 057 BPM P-R Int : 178 ms QRS Dur : 080 ms QT Int : 480 ms P-R-T Axes : 062 -01 030 degrees QTc Int : 467 ms Sinus bradycardia Cannot rule out Inferior infarct , age undetermined Abnormal ECG When compared with ECG of 20-NOV-2022 23:16, Criteria for Septal infarct are no longer Present No significant change was found Referred By: Robe Barrett Electronically Signed By:James Marsh
--- NOTE | 2023-01-21 11:39 | ED_ITS ---
HPI - Syncope General Chief Complaint: Syncope Stated Complaint: past out while having a massive BM per EMS Time Seen by Provider: 01/21/23 11:31 Source: EMS Mode of arrival: EMS History of Present Illness HPI narrative: this is 72 years old female that the had large bowel movement and she had a syncopal episode she was brought pale hypodense MD complaint: loss of consciousness Onset (ago): hour(s) (1) Prodromal symptoms: lightheaded Context: other (using bathroom) Current symptoms: weakness Related Data Home Medications Medication Instructions Recorded Confirmed lamotrigine 200 mg tablet 200 mg PO BID 05/26/22 12/20/22 hydrochlorothiazide 25 mg tablet 25 mg PO DAILY 07/14/22 12/20/22 lisinopril 5 mg tablet 5 mg PO DAILY 07/14/22 12/20/22 desvenlafaxine succinate 100 mg 100 mg PO QAM 01/02/23 tablet,extended release 24 hr Previous Rx's Medication Instructions Recorded amlodipine 10 mg tablet 10 mg PO DAILY@1800 30 days #30 04/06/22 tabs atorvastatin 10 mg tablet 10 mg PO DAILY 30 days #30 tabs 04/06/22 bupropion HCl 150 mg tablet,12 hr 150 mg PO BID 30 days #60 tabs 04/06/22 sustained-release (Wellbutrin SR) hydroxyzine HCl 10 mg tablet 10 mg PO TID PRN Anxiety 30 days 04/06/22 #90 tabs levothyroxine 100 mcg tablet 100 mcg PO DAILY 30 days #30 tabs 04/06/22 multivitamin 1 tab PO DAILY #30 tabs 04/06/22 oxcarbazepine 150 mg tablet 150 mg PO BID 30 days #60 tabs 04/06/22 oxcarbazepine 300 mg tablet 300 mg PO BID 30 days #60 tabs 04/06/22 pantoprazole 40 mg tablet,delayed 40 mg PO DAILY 30 days #30 tabs 04/06/22 release trazodone 100 mg tablet 200 mg PO BEDTIME PRN Insomnia 30 04/06/22 days #60 tabs tocilizumab 162 mg/0.9 mL 162 mg (0.9 mL) subcut Q2W #1.8 mL 01/04/23 subcutaneous pen injector (Actemra ACTPen) Allergies Allergy/AdvReac Type Severity Reaction Status Date / Time methotrexate Allergy Severe whole body Verified 01/02/23 10:00 itchy, swelling eyes and lips Penicillins Allergy Severe HIVES Verified 01/02/23 10:00 lorazepam [Lorazepam] Allergy Mild REVERSE Verified 01/02/23 10:00 EFFECT oxycodone [Oxycodone] Allergy Mild UNKNOWN Verified 01/02/23 10:00 deutetrabenazine Allergy Unknown TOO MANY Verified 01/02/23 10:00 [From A[place]EDO] SIDE EFFECTS gabapentin [GABAPENTIN] Allergy Unknown DIZZYNESS, Verified 01/02/23 10:00 GI ISSUES NSAIDS (Non-Steroidal Allergy Unknown LIVER Verified 01/02/23 10:00 Anti-Inflamma ENZYME [NSAIDS (NON-STEROIDAL ISSUES ANTI-INFLAMMA] sulfamethoxazole Allergy Unknown DIARRHEA Verified 01/02/23 10:00 [From BACTRIM] trimethoprim [From BACTRIM] Allergy Unknown DIARRHEA Verified 01/02/23 10:00 valbenazine [From INGREZZA] Allergy Unknown INCREASED Verified 01/02/23 10:00 SLEEP 15-16HRS ANTIBIOTICS Allergy Unknown PT STATED Uncoded 01/02/23 10:00 NEED TO GO THRU PCP D/T GASTROPARESIS Review of Systems Constitutional: Constitutional: Reports no additional constitutional complaints Cardiovascular: Cardiovascular: Reports no additional cardiovascular complaints Musculoskeletal: Musculoskeletal: Reports no additional musculoskeletal complaints PMFSH Past Medical History Medical History Bipolar 1 disorder Combined hyperlipidemia Depression HTN (hypertension) Sleep apnea Speech abnormality Tardive dyskinesia Thyroid disease Tremors of nervous system Type 2 diabetes mellitus Weakness Surgical History H/O shoulder surgery Hx of appendectomy Hx of cholecystectomy Family History Family History Father No problems noted. Mother No problems noted. Other Family history of rheumatoid arthritis Social History Social History Household Members: Other Housing: Other Housing Other:: Living with nuns in a wing of a convent due to homelessness Do you presently have visiting nurse or other home services: No (Did receive services before partial hospitalization) Unable to assess alcohol history related to: Unable to respond Alcohol intake: never Patient Tobacco Use Status: Former Tobacco user Quit Date: over 50 years ago Tobacco use type: Cigarette Smoked in Last 30 Days: No e-Cigarette/Vaping Use: Never Used Second Hand Smoke Exposure: No Use of substances other than those prescribed or required for medical reasons: No Advance Directives: Yes Advance Directives Information Provided: Yes Advance Directives on File: No service: No Sexual orientation: Straight/Heterosexual Physical Exam Vital Signs: Vital Signs: Last Vital Signs Temp 97.6 F 01/21/23 12:49 Pulse 63 01/21/23 13:14 Resp 15 01/21/23 13:14 BP 154/73 H 01/21/23 13:14 Pulse Ox 100 01/21/23 13:14 O2 Del Method Nasal Cannula 01/21/23 13:14 O2 Flow Rate 2 01/21/23 13:14 BMI result Body Mass Index 18.8 Const: General: cooperative Nutritional Appearance: well nourished Orientation/consciousness: patient oriented x3 Limitations: no limitations HEENT: Head: Yes normal to inspection General nose exam: Normal external nose present Mouth: Normal oral and palatal mucosa present Neck: Neck: Yes normal visual inspection and Yes full ROM Chest: Chest palpation & inspection: normal inspection of the chest Resp: Effort & Inspection: normal respiratory effort Auscultation: clear to auscultation bilaterally Cardio: Jugular venous distension: no JVD Rate: regular rate Rhythm: regular rhythm GI: Inspection: Yes normal to inspection Palpation (GI): Soft to palpation, not firm and nontender Skin: General skin exam: no rashes or lesions noted and elasticity normal Rashes: no rashes Neuro: General: patient oriented x3 Course Reevaluation(s) Reevaluation #1: doing better normotensive now after IV fluids Time: 14:25 Medications Administered Discontinued Medications Generic Name Dose Route Start Last Admin Trade Name Freq PRN Reason Stop Dose Admin Sodium Chloride 1,000 mls @ 999 mls/hr 01/21/23 11:45 01/21/23 14:42 Ns IVCONT 01/21/23 12:45 Infused .Q1H1M EDWARD Infusion Sodium Chloride 1,000 mls @ 999 mls/hr 01/21/23 12:30 01/21/23 14:47 Ns IVCONT 01/21/23 13:30 Infused .Q1H1M EDWARD Infusion Ondansetron HCl 4 mg 01/21/23 11:42 01/21/23 12:32 Ondansetron Hcl 4 Mg/2 Ml Vial IVPUSH 01/21/23 11:43 4 mg ONCE ONE Administration Medical Decision Making Medical Decision Making [facility] Narrative: she presented after syncope and hypotension will get labs/IV fluids and reasses Differential Diagnosis Differential Diagnoses: The differential diagnosis associated with the presentation includes ACS/Dehydration/arrythimias Admission/Observation Consideration of admission/observation: Escalation of care including admission/observation considered Consult Healthcare Provider Management of the patient was discussed with: Hospitalist Dr Lugo Lab Data [facility] Lab Attestation statement: I reviewed the patient's lab results. 01/21/23 11:50 01/21/23 11:50 Labs: Lab Results 01/21/23 01/21/23 01/21/23 Range/Units 11:38 11:50 11:50 WBC 15.9 H (4.8-10.8) X10*3/uL RBC 4.61 (4.20-5.50) X10*6/uL Hgb 12.5 (12.0-16.0) g/dl Hct 37.4 (37.0-47.0) % MCV 81.1 (80.0-98.0) fL MCH 27.1 (27.0-33.0) pg MCHC 33.4 (31.0-35.0) g/dl RDW 13.9 (11.0-16.0) % Plt Count 344 D (160-400) X10*3/uL MPV 9.3 L (9.4-12.3) fL Immature Gran % (Auto) 0.8 H (0.0-0.4) % Neut % (Auto) 84.9 H (45-73) % Lymph % (Auto) 6.9 L (20-40) % Hawkins % (Auto) 6.2 (2-11) % Eos % (Auto) 0.8 (0-4) % Baso % (Auto) 0.4 (0-2) % Lymph # (Auto) 1.1 L (1.2-4.9) X10*3/uL Hawkins # (Auto) 1.0 (0.1-1.2) X10*3/uL Eos # (Auto) 0.1 (0.0-0.4) X10*3/uL Baso # (Auto) 0.1 (0.0-0.2) X10*3/uL Abs Immat Gran (auto) 0.13 H (0.00-0.03) X10*3/uL Absolute Neuts (auto) 13.5 H (2.0-8.3) x10*3/uL Absolute Nucleated RBC 0.000 (0.0-0.012) X10*3/uL Nucleated RBC % (auto) 0.0 (0.0-0.2) /100WBC Sodium 131 L (135-145) mmol/L Potassium 3.9 (3.3-5.1) mmol/L Chloride 95 L (96-108) mmol/L Carbon Dioxide 21 L (22-29) mmol/L Anion Gap 19 (12-20) BUN 18 H (9-16) mg/dL Creatinine 1.43 H (0.5-1.4) mg/dL Estim Creat Clear Calc TNP Estimated GFR 36 POC Glucose 198 H (60-115) mg/dL Random Glucose 218 H (60-115) mg/dL Estimat Average Glucose mg/dL Hemoglobin A1c % % Calcium 9.9 D (8.4-10.2) mg/dL Total Bilirubin 0.5 (0.0-1.0) mg/dL AST 21 (5-31) U/L ALT 23 (0-31) U/L Alkaline Phosphatase 161 H (39-117) U/L Troponin I High Sens (<3.5-17.0) ng/L Total Protein 7.3 (6.5-8.0) g/dL Albumin 3.9 (3.5-5.0) g/dL Stool Occult Blood (NEGATIVE) 01/21/23 01/21/23 01/21/23 Range/Units 11:50 11:50 11:50 WBC (4.8-10.8) X10*3/uL RBC (4.20-5.50) X10*6/uL Hgb (12.0-16.0) g/dl Hct (37.0-47.0) % MCV (80.0-98.0) fL MCH (27.0-33.0) pg MCHC (31.0-35.0) g/dl RDW (11.0-16.0) % Plt Count (160-400) X10*3/uL MPV (9.4-12.3) fL Immature Gran % (Auto) (0.0-0.4) % Neut % (Auto) (45-73) % Lymph % (Auto) (20-40) % Hawkins % (Auto) (2-11) % Eos % (Auto) (0-4) % Baso % (Auto) (0-2) % Lymph # (Auto) (1.2-4.9) X10*3/uL Hawkins # (Auto) (0.1-1.2) X10*3/uL Eos # (Auto) (0.0-0.4) X10*3/uL Baso # (Auto) (0.0-0.2) X10*3/uL Abs Immat Gran (auto) (0.00-0.03) X10*3/uL Absolute Neuts (auto) (2.0-8.3) x10*3/uL Absolute Nucleated RBC (0.0-0.012) X10*3/uL Nucleated RBC % (auto) (0.0-0.2) /100WBC Sodium (135-145) mmol/L Potassium (3.3-5.1) mmol/L Chloride (96-108) mmol/L Carbon Dioxide (22-29) mmol/L Anion Gap (12-20) BUN (9-16) mg/dL Creatinine (0.5-1.4) mg/dL Estim Creat Clear Calc Estimated GFR POC Glucose (60-115) mg/dL Random Glucose (60-115) mg/dL Estimat Average Glucose 120 mg/dL Hemoglobin A1c % 5.8 % Calcium (8.4-10.2) mg/dL Total Bilirubin (0.0-1.0) mg/dL AST (5-31) U/L ALT (0-31) U/L Alkaline Phosphatase (39-117) U/L Troponin I High Sens 10.3 (<3.5-17.0) ng/L Total Protein (6.5-8.0) g/dL Albumin (3.5-5.0) g/dL Stool Occult Blood NEGATIVE (NEGATIVE) Independent Interpretation I performed an independent interpretation of an: EKG Interpretation: sinus rhythm rate [address]-T changes Radiology Impression Discussion of test interpretation with radiology: I have reviewed the radiologist's reading. Independent Historian CLINICAL INFORMATION: Reason for Exam SOB COMPARISON: None? TECHNIQUE: XR chest 1V Tubes and lines: None Lungs and pleura: Both lungs are clear. Heart and mediastinum: The mediastinum is within normal limits.. Bones/soft tissue: Skeletal structures included are normal for patient's age. XR/XR chest 1V IMPRESSION: No radiographic evidence of acute cardiopulmonary disease. Dictated By: Yanely Stovall MD Signed By: <Electronically signed by Yanely Stovall MD in OV> 01/21/23 1448 External Record Review External record reviewed: Inpatient record Critical Care Time Critical Care Time Critical Care Time: Yes Total Critical Care Time: 60 Attestation: hypotension,JORDY Discharge Plan Discharge Clinical Impression: Syncope, Hypotension, JORDY (acute kidney injury), Leukocytosis
[2023-01-21 11:43] VITALS: BP 87/31; PULSE 56; RESP 18
[2023-01-21 11:44] LABS: Glucose, Whole Blood 198 mg/dL (60-115)
[2023-01-21 11:54] LABS: MANUAL DIFF FLAG NO
[2023-01-21 11:55] LABS: Basophils Absolute Auto 0.1 X10*3/uL (0.0-0.2); Basophils Percent Auto 0.4 % (0-2); Eosinophils Absolute Auto 0.1 X10*3/uL (0.0-0.4); Eosinophils Percent Auto 0.8 % (0-4); Hematocrit 37.4 % (37.0-47.0); Hemoglobin 12.5 g/dl (12.0-16.0); Imm Gran Abs Auto 0.13 X10*3/uL (0.00-0.03); Imm Gran Pct Auto 0.8 % (0.0-0.4); Lymphocytes Absolute Auto 1.1 X10*3/uL (1.2-4.9); Lymphocytes Percent Auto 6.9 % (20-40); Mean Corpuscular HGB Conc 33.4 g/dl (31.0-35.0); Mean Corpuscular Hemoglobin 27.1 pg (27.0-33.0); Mean Corpuscular Volume 81.1 fL (80.0-98.0); Mean Platelet Volume 9.3 fL (9.4-12.3); Monocytes Percent Auto 6.2 % (2-11); Neutrophils Absolute Auto 13.5 x10*3/uL (2.0-8.3); Neutrophils Percent Auto 84.9 % (45-73); Platelet Count 344 X10*3/uL (160-400); Red Blood Count 4.61 X10*6/uL (4.20-5.50); Red Cell Distribution Width 13.9 % (11.0-16.0); White Blood Count 15.9 X10*3/uL (4.8-10.8)
[2023-01-21 11:56] LABS: OBS Int Ctl Valid YES; OBS1 NEGATIVE (NEGATIVE)
[2023-01-21 12:04] VITALS: BP 102/00; BP 86/35; PULSE 46; PULSE 59; RESP 18; TEMP 36.5; O2SAT 100; BMI 18.8
[2023-01-21 12:09] LABS: Alanine Aminotransferase 23 U/L (0-31); Albumin Level 3.9 g/dL (3.5-5.0); Alkaline Phosphatase 161 U/L (39-117); Anion Gap 19 (12-20); Aspartate Amino Transferase 21 U/L (5-31); Bilirubin Total 0.5 mg/dL (0.0-1.0); Blood Urea Nitrogen 18 mg/dL (9-16); Calcium 9.9 mg/dL (8.4-10.2); Carbon Dioxide 21 mmol/L (22-29); Chloride 95 mmol/L (96-108); Estimated Glomerular Filt Rate 36; Glucose Random 218 mg/dL (60-115); Potassium 3.9 mmol/L (3.3-5.1); Sodium 131 mmol/L (135-145); Total Protein 7.3 g/dL (6.5-8.0)
[2023-01-21 12:16] LABS: Troponin-I High Sensitivity 10.3 ng/L (<3.5-17.0)
[2023-01-21] MEDS: 0.9 % Sodium Chloride 1,000 ML 999 ML IVCONT ×2 (12:16→12:48)
[2023-01-21] MEDS: ondansetron HCL 4 MG/2 ML VIAL IVPUSH (12:32)
[2023-01-21 12:49] VITALS: BP 106/60; PULSE 59; PULSE 62; RESP 14; TEMP 36.4; O2SAT 88
--- NOTE | 2023-01-21 12:55 | PC.NURSE ---
bp improving, 115/5 MAP 75. pt remains supine, feeling weak, diaphoretic, ongoing sensation that she has to have a bm. ivf running, piv positional though patent. attempts to obtain second iv unsuccessful.
[2023-01-21 13:14] VITALS: BP 154/73; PULSE 63; RESP 15; O2SAT 100
--- NOTE | 2023-01-21 14:46 | PM.IMHP ---
History of Present Illness Date of Service: 01/21/23 Chief Complaint: Syncope, Hypotension 72 year old female with PMH as listed below including HTN on lisinopril and Norvasc who has not been feeling well since the morning and went to [place]ai and headed to bathroom and passed out on the floor incontinent of a large bowel movement, she has been having nausea and vomitting and frequent diarrhea, EMS found her to be pale and low blood pressure; initial blood pressure was 86/31 and has gotten 2 liters of [place] [id number]. She has no chest pain and shortness of breath. Lab work is noted for mild hyponatremia 131 and REGGIE Creat of 1.4 Review of Systems Review of Systems: Gen: no fever Resp: no sob, no cough CV: no chest, no SETHI, no leg edema GI: + n/v, no abd pain, diarrhea Neuro: No confusion Yes all other systems are reviewed and are negative [facility] Medical History Bipolar 1 disorder Combined hyperlipidemia Depression HTN (hypertension) Sleep apnea Speech abnormality Tardive dyskinesia Thyroid disease Tremors of nervous system Type 2 diabetes mellitus Weakness Family History Father No problems noted. Mother No problems noted. Other Family history of rheumatoid arthritis Surgical History H/O shoulder surgery Hx of appendectomy Hx of cholecystectomy Social History Household Members: Other Housing: Other Housing Other:: Living with nuns in a wing of a convent due to homelessness Do you presently have visiting nurse or other home services: No (Did receive services before partial hospitalization) Unable to assess alcohol history related to: Unable to respond Alcohol intake: never Patient Tobacco Use Status: Former Tobacco user Quit Date: over 50 years ago Tobacco use type: Cigarette Smoked in Last 30 Days: No e-Cigarette/Vaping Use: Never Used Second Hand Smoke Exposure: No Use of substances other than those prescribed or required for medical reasons: No Advance Directives: Yes Advance Directives Information Provided: Yes Advance Directives on File: No service: No Sexual orientation: Straight/Heterosexual Meds Allergies Allergy/AdvReac Type Severity Reaction Status Date / Time methotrexate Allergy Severe whole body Verified 01/02/23 10:00 itchy, swelling eyes and lips Penicillins Allergy Severe HIVES Verified 01/02/23 10:00 lorazepam [Lorazepam] Allergy Mild REVERSE Verified 01/02/23 10:00 EFFECT oxycodone [Oxycodone] Allergy Mild UNKNOWN Verified 01/02/23 10:00 deutetrabenazine Allergy Unknown TOO MANY Verified 01/02/23 10:00 [From AUSTEDO] SIDE EFFECTS gabapentin [GABAPENTIN] Allergy Unknown DIZZYNESS, Verified 01/02/23 10:00 GI ISSUES NSAIDS (Non-Steroidal Allergy Unknown LIVER Verified 01/02/23 10:00 Anti-Inflamma ENZYME [NSAIDS (NON-STEROIDAL ISSUES ANTI-INFLAMMA] sulfamethoxazole Allergy Unknown DIARRHEA Verified 01/02/23 10:00 [From BACTRIM] trimethoprim [From BACTRIM] Allergy Unknown DIARRHEA Verified 01/02/23 10:00 valbenazine [From INGREZZA] Allergy Unknown INCREASED Verified 01/02/23 10:00 SLEEP 15-16HRS ANTIBIOTICS Allergy Unknown PT STATED Uncoded 01/02/23 10:00 NEED TO GO THRU PCP D/T GASTROPARESIS Active Medications: Current Medications Pharmacy Consult (Consult Rx Perform Med Rec) 1 each MISCELLANE ONCE PRN PRN Reason: Consult order Home Medications Medication Instructions Recorded Confirmed Last Taken Type lamotrigine 200 mg tablet 200 mg PO BID 05/26/22 12/20/22 Unknown History hydrochlorothiazide 25 mg tablet 25 mg PO DAILY 07/14/22 12/20/22 Unknown History lisinopril 5 mg tablet 5 mg PO DAILY 07/14/22 12/20/22 Unknown History desvenlafaxine succinate 100 mg 100 mg PO QAM 01/02/23 Unknown History tablet,extended release 24 hr Physical Exam Vital Signs and Narrative: Vital Signs: Last Vital Signs Temp 97.6 F 01/21/23 12:49 Pulse 63 01/21/23 13:14 Resp 15 01/21/23 13:14 BP 154/73 H 01/21/23 13:14 Pulse Ox 100 01/21/23 13:14 O2 Del Method Nasal Cannula 01/21/23 13:14 O2 Flow Rate 2 01/21/23 13:14 BMI result Body Mass Index 18.8 Const: Other: Constitutional: Alert, in no distress, overweight. Mental Status: Oriented to person, place and time. Eyes: Pupils are equal, round and reactive to light. Ear, Nose and Throat: Oropharynx clear, mucous membranes moist. Ears and nose without eformities. Trachea midline. Respiratory: Clear to auscultation. No wheezing, rales or rhonchi. Cardiovascular: S1 S2 regular. No murmurs, rubs or gallops. Gastrointestinal: Abdomen soft, non-tender, non-distended. Normal bowel sounds.? Neurologic: Cranial nerves II-XII grossly intact. No focal neurological deficits. Moves all extremities spontaneously.? Skin: No rashes or lesions.? Musculoskeletal: No cyanosis or clubbing. Psychiatric: Normal mood and affect? Results Labs 01/21/23 11:50 01/21/23 11:50 Labs: Laboratory Results - last 24 hr 01/21/23 01/21/23 01/21/23 11:38 11:50 11:50 MCV 81.1 MCH 27.1 MCHC 33.4 RDW 13.9 Plt Count 344 D MPV 9.3 L Immature Gran % (Auto) 0.8 H Neut % (Auto) 84.9 H Lymph % (Auto) 6.9 L Bracken % (Auto) 6.2 Eos % (Auto) 0.8 Baso % (Auto) 0.4 Lymph # (Auto) 1.1 L Bracken # (Auto) 1.0 Eos # (Auto) 0.1 Baso # (Auto) 0.1 Abs Immat Gran (auto) 0.13 H Absolute Neuts (auto) 13.5 H Absolute Nucleated RBC 0.000 Nucleated RBC % (auto) 0.0 Anion Gap 19 Estim Creat Clear Calc TNP Estimated GFR 36 POC Glucose 198 H Random Glucose 218 H Calcium 9.9 D Total Bilirubin 0.5 AST 21 ALT 23 Alkaline Phosphatase 161 H Total Protein 7.3 Albumin 3.9 Stool Occult Blood 01/21/23 11:50 MCV MCH MCHC RDW Plt Count MPV Immature Gran % (Auto) Neut % (Auto) Lymph % (Auto) Bracken % (Auto) Eos % (Auto) Baso % (Auto) Lymph # (Auto) Bracken # (Auto) Eos # (Auto) Baso # (Auto) Abs Immat Gran (auto) Absolute Neuts (auto) Absolute Nucleated RBC Nucleated RBC % (auto) Anion Gap Estim Creat Clear Calc Estimated GFR POC Glucose Random Glucose Calcium Total Bilirubin AST ALT Alkaline Phosphatase Total Protein Albumin Stool Occult Blood NEGATIVE Assessment and Plan (1) Syncope: Status: Acute (2) Hypotension: Status: Acute (3) REGGIE (acute kidney injury): Status: Acute (4) Diarrhea: Status: Acute Plan 72 year old female with syncope, REGGIE due to dehydration leading to hypotension likely from decrease oral intake and frequent diarrha. She likely has viral gastroenteritis leading to gi symptoms and hypotension and REGGIE Plan: Agresive hydration with IVF, check cdif, stool panel, repeat BMP in the morning. Hold BP medsmeds until able toerate meds, if not cdif can get immodium. Hyperglycemia chech a1 c Reggie pre renal and should resolved with ivf, repeat tomorrow Hyponatremia mild and should resolved with IvF Observe overnight if better in the morning discharge. Time Spent With Patient Time: Total time managing care of this patient today ____ minutes. Quality Stroke Does the patient have a stroke diagnosis?: No VTE Prior VTE?: No VTE Risk Level:: Medical - moderate - high VTE Device Contraindication: Treatment Not Indicated VTE Drug Contraindication: N/A - Med Ordered
[2023-01-21 14:54] LABS: Estimated Average Glucose 120 mg/dL; Hemoglobin A1c % 5.8 %
--- NOTE | 2023-01-21 16:19 | PHA.MEDREC ---
Pharmacy Consult ? Medication Reconciliation Pharmacy has completed the medication reconciliation. spoke with patient to confirm medications. She took her AM meds today. Does have an order for Actemra injection however she states she has not had approval to start it yet.
[2023-01-21 16:25] VITALS: BP 176/78; PULSE 69; RESP 14; TEMP 36.9; O2SAT 98
[2023-01-21] MEDS: 0.9 % Sodium Chloride 1,000 ML 150 ML IVCONT ×2 (16:51→23:19)
[2023-01-21] MEDS: Enoxaparin Sodium 40 MG/0.4 ML SYRINGE SUBCUT (19:04)
[2023-01-21 21:40] VITALS: BMI 41.5
[2023-01-21 22:10] VITALS: TEMP 36.4
[2023-01-21] MEDS: Acetaminophen 325 MG TABLET 650 MG PO (22:16)
[2023-01-22] VITALS: BP 176/70; PULSE 70; RESP 18; TEMP 36.5; O2SAT 96
[2023-01-22 00:24] LABS: CDiff Gene PCR NEGATIVE (Negative)
[2023-01-22] MEDS: hydrOXYzine HCL 25 MG TABLET PO (02:46)
[2023-01-22] MEDS: Loperamide HCl 2 MG CAPSULE PO (02:46)
[2023-01-22] MEDS: hydrALAZINE HCl 20 MG/ML VIAL 10 MG IVPUSH (03:24)
[2023-01-22 03:52] VITALS: BP 202/79; PULSE 69; RESP 18; TEMP 36.6; O2SAT 99
--- NOTE | 2023-01-22 04:02 | PC.NURSE ---
Pt admitted from ED. A&Ox3. Calm and cooperative with care. C/O SOB with exertion but improves with rest and deep breathing. No c/o chest pain or discomfort. Diarrhea continues, C-Diff sample obtained, results negative. Stool panel pending. Voiding on bedpan. SBP >200, MD Aldridge notified. 1x dose IV Hydralazine ordered and given. Pt c/o increased anxiety and feels like crawling out of my skin . notified, Atarax ordered and given. Call key within reach, bed in lowest locked position.
[2023-01-22] MEDS: 0.9 % Sodium Chloride 1,000 ML 150 ML IVCONT (05:44)
[2023-01-22 06:18] VITALS: BP 188/81; PULSE 66
[2023-01-22 07:14] VITALS: BP 172/65; PULSE 65; RESP 17; TEMP 37.3; O2SAT 97
[2023-01-22 07:16] LABS: Anion Gap 17 (12-20); Blood Urea Nitrogen 11 mg/dL (9-16); Calcium 8.9 mg/dL (8.4-10.2); Carbon Dioxide 19 mmol/L (22-29); Chloride 103 mmol/L (96-108); Creatinine Clr Calc Pharmacy 79.7; Estimated Glomerular Filt Rate > 60; Glucose Random 129 mg/dL (60-115); Potassium 3.5 mmol/L (3.3-5.1); Sodium 135 mmol/L (135-145)
--- NOTE | 2023-01-22 08:53 | MHC.CM.PN ---
CM met with Patient at bedside and addressed BRIZUELA with her (Patient explains that she has TD and can only make an X). Original BRIZUELA given to Patient and a copy has been placed on the chart. Patient lives alone in an apartment at [facility] and the goal is for her to return there. CM has initiated and will follow for dc planning. Daughter/Elvia and Niece/Barbara are the HCP. PCP is Dr. Fadumo Escobar.
[2023-01-22] MEDS: Omeprazole 20 MG CAPSULE.DR PO (09:02)
[2023-01-22] MEDS: OXcarbazepine 150 MG TABLET PO (09:02)
[2023-01-22] MEDS: OXcarbazepine 300 MG TABLET PO (09:02)
[2023-01-22] MEDS: hydroCHLOROthiazide 25 MG TABLET PO (09:02)
[2023-01-22] MEDS: lamoTRIgine 100 MG TABLET 200 MG PO (09:02)
[2023-01-22] MEDS: Levothyroxine Sodium 100 MCG TABLET PO (09:03)
[2023-01-22] MEDS: lisinopriL 5 MG TABLET PO (09:03)
[2023-01-22] MEDS: Atorvastatin Calcium 10 MG TABLET PO (09:03)
[2023-01-22 09:22] LABS: Campylobacter Not Detected (Not Detect.); Plesiomonas shigelloides Not Detected (Not Detect.); Salmonella Not Detected (Not Detect.); Vibrio Not Detected (Not Detect.)
[2023-01-22 09:23] LABS: Adenovirus F 40/41 Not Detected (Not Detect.); Astrovirus Not Detected (Not Detect.); Cryptosporidium Not Detected (Not Detect.); Cyclospora cayetanensis Not Detected (Not Detect.); E. coli EAEC Not Detected (Not Detect.); E. coli EPEC Not Detected (Not Detect.); E. coli ETEC Not Detected (Not Detect.); E. coli STEC Not Detected (Not Detect.); Entamoeba histolytica Not Detected (Not Detect.); Giardia lamblia Not Detected (Not Detect.); Norovirus GI/GII Not Detected (Not Detect.); Rotavirus A Not Detected (Not Detect.); Sapovirus Not Detected (Not Detect.); Shigella sp./EIEC Not Detected (Not Detect.); Vibrio Cholerae Not Detected (Not Detect.); Yersinia enterocolitica Not Detected (Not Detect.)
[2023-01-22 10:29] LABS: Hematocrit 37.3 % (37.0-47.0); Mean Corpuscular HGB Conc 32.2 g/dl (31.0-35.0); Mean Corpuscular Hemoglobin 26.8 pg (27.0-33.0); Mean Corpuscular Volume 83.4 fL (80.0-98.0); Mean Platelet Volume 10.5 fL (9.4-12.3); Platelet Count 274 X10*3/uL (160-400); Red Blood Count 4.47 X10*6/uL (4.20-5.50); Red Cell Distribution Width 14.2 % (11.0-16.0); White Blood Count 13.5 X10*3/uL (4.8-10.8)
--- NOTE | 2023-01-22 11:11 | PC.NURSE ---
Pt neurologically intact. Lung sounds clear denies shortness of breath or chest pain. Abdomen soft tender having cramps per patient, denies nausea/vomiting. Voiding without difficulty. Continues with loose stool although per pt less than previous having small amount of bleeding from rectum. Dr Calix notified on unit to see patient. OOB to chair in am ambulates with walker steady to bathroom. Plan for discharge back to assisted living at 1200. Will continue to monitor and report changes
--- NOTE | 2023-01-22 11:21 | PM.DS ---
DS: Providers Provider Date of Service: 01/22/23 Date of admission: 01/21/23 14:57 Primary care physician: Fadumo Marcum MD DS: Diagnosis Discharge Diagnosis (1) Syncope: Status: Acute (2) Hypotension: Status: Acute (3) JORDY (acute kidney injury): Status: Acute (4) Diarrhea: Status: Acute DS: Summary Hospital Course Hospital Course: Chief Complaint: Syncope, Hypotension 72 year old female with PMH as listed below including HTN on lisinopril and Norvasc who has not been feeling well since the morning and went to christian and headed to bathroom and passed out on the floor incontinent of a large bowel movement, she has been having nausea and vomitting and frequent diarrhea, EMS found her to be pale and low blood pressure; initial blood pressure was 86/31 and has gotten 2 liters of fluid bolus [place] [address]. She has no chest pain and shortness of breath. Lab work is noted for mild hyponatremia 131 and JORDY Creat of 1.4 Hospital course: She presented with severe dehydration, n/v, diarrhea leading hypotension, syncope and JORDY, work was unremarkable for infectin. She responded well to iv fluid with resolution of hypotension, n/v and diarrhea have all resolved, but is back up, JORDY resolved, leukocytosis is trending down. She is feeling better, tolerating regular diet and will be discharged home. She likely had acute gastroenteritis causing her symptoms, had an episode of blood stain on wipe, hemoglobin and hematocrit are normal. She will follow up with PCP this week. Time Spent with Patient Time attestation: Total time managing care of this patient today ____ minutes. Discharge coordination time: Greater than 30 minutes Quality: Safe Use of Opioids Does Pt have an Active Cancer Diagnosis on the Problem List?: No Quality: Stroke Does the patient have a stroke diagnosis?: No Physical Exam Vital Signs: Vital Signs: Last Vital Signs Temp 99.1 F 01/22/23 07:14 Pulse 65 01/22/23 07:14 Resp 17 01/22/23 07:14 BP 172/65 H 01/22/23 07:14 Pulse Ox 97 01/22/23 07:14 O2 Del Method Room Air 01/22/23 07:14 O2 Flow Rate 2 01/21/23 13:14 BMI result Body Mass Index 41.5 Const: Other: General: AO X 3, no acute distress Resp: CTA bilateral CVS: S1,S2,RRR GI: +BS, NT, no distention Skin: No rash Neuro: motor grossly intact Psych: appropriate affect DS: Data Data Completed and Pending Labs on day of discharge: Laboratory Results - last 24 hr 01/21/23 01/21/23 01/21/23 11:38 11:50 11:50 WBC 15.9 H RBC 4.61 Hgb 12.5 Hct 37.4 MCV 81.1 MCH 27.1 MCHC 33.4 RDW 13.9 Plt Count 344 D MPV 9.3 L Immature Gran % (Auto) 0.8 H Neut % (Auto) 84.9 H Lymph % (Auto) 6.9 L [place] % (Auto) 6.2 Eos % (Auto) 0.8 Baso % (Auto) 0.4 Lymph # (Auto) 1.1 L [place] # (Auto) 1.0 Eos # (Auto) 0.1 Baso # (Auto) 0.1 Abs Immat Gran (auto) 0.13 H Absolute Neuts (auto) 13.5 H Absolute Nucleated RBC 0.000 Nucleated RBC % (auto) 0.0 Sodium 131 L Potassium 3.9 Chloride 95 L Carbon Dioxide 21 L Anion Gap 19 BUN 18 H Creatinine 1.43 H Estim Creat Clear Calc TNP Estimated GFR 36 POC Glucose 198 H Random Glucose 218 H Estimat Average Glucose Hemoglobin A1c % Calcium 9.9 D Total Bilirubin 0.5 AST 21 ALT 23 Alkaline Phosphatase 161 H Troponin I High Sens Total Protein 7.3 Albumin 3.9 Stool Occult Blood Stl C. cayetanensis PCR Stool Rotavirus A PCR Stl Adenov F 40/41 PCR Stool Astrovirus (PCR) Stool Campylobacter PCR Stool Cryptosporidium PCR Stl Sh Tox Pr E STEC PCR Stool E coli O157 PCR Stl Enterotoxigenic E PCR Stool EPEC (PCR) Stool EAEC (PCR) Stl E. histolytica PCR Stool Giardia Lamblia PCR Stl P. shigelloides PCR Stool Salmonella PCR Stool Sapovirus (PCR) Stl Shigella/EIEC PCR St Y.enterocolitica PCR Stool Vibrio (PCR) Stl Vibrio cholerae PCR Stl Norovirus GI/GII PCR C. difficile Tox B Gene 01/21/23 01/21/23 01/21/23 11:50 11:50 11:50 WBC RBC Hgb Hct MCV MCH MCHC RDW Plt Count MPV Immature Gran % (Auto) Neut % (Auto) Lymph % (Auto) [place] % (Auto) Eos % (Auto) Baso % (Auto) Lymph # (Auto) [place] # (Auto) Eos # (Auto) Baso # (Auto) Abs Immat Gran (auto) Absolute Neuts (auto) Absolute Nucleated RBC Nucleated RBC % (auto) Sodium Potassium Chloride Carbon Dioxide Anion Gap BUN Creatinine Estim Creat Clear Calc Estimated GFR POC Glucose Random Glucose Estimat Average Glucose 120 Hemoglobin A1c % 5.8 Calcium Total Bilirubin AST ALT Alkaline Phosphatase Troponin I High Sens 10.3 Total Protein Albumin Stool Occult Blood NEGATIVE Stl C. cayetanensis PCR Stool Rotavirus A PCR Stl Adenov F PCR Stool Astrovirus (PCR) Stool Campylobacter PCR Stool Cryptosporidium PCR Stl Sh Tox Pr E STEC PCR Stool E coli O157 PCR Stl Enterotoxigenic E PCR Stool EPEC (PCR) Stool EAEC (PCR) Stl E. histolytica PCR Stool Giardia Lamblia PCR Stl P. shigelloides PCR Stool Salmonella PCR Stool Sapovirus (PCR) Stl Shigella/EIEC PCR St Y.enterocolitica PCR Stool Vibrio (PCR) Stl Vibrio cholerae PCR Stl Norovirus GI/GII PCR C. difficile Tox B Gene 01/21/23 01/21/23 01/22/23 19:07 19:07 06:10 WBC 13.5 H RBC 4.47 Hgb 12.0 Hct 37.3 MCV 83.4 MCH 26.8 L MCHC 32.2 RDW 14.2 Plt Count 274 MPV 10.5 Immature Gran % (Auto) Neut % (Auto) Lymph % (Auto) [place] % (Auto) Eos % (Auto) Baso % (Auto) Lymph # (Auto) [place] # (Auto) Eos # (Auto) Baso # (Auto) Abs Immat Gran (auto) Absolute Neuts (auto) Absolute Nucleated RBC 0.000 Nucleated RBC % (auto) 0.0 Sodium Potassium Chloride Carbon Dioxide Anion Gap BUN Creatinine Estim Creat Clear Calc Estimated GFR POC Glucose Random Glucose Estimat Average Glucose Hemoglobin A1c % Calcium Total Bilirubin AST ALT Alkaline Phosphatase Troponin I High Sens Total Protein Albumin Stool Occult Blood Stl C. cayetanensis PCR Not Detected Stool Rotavirus A PCR Not Detected Stl Adenov F PCR Not Detected Stool Astrovirus (PCR) Not Detected Stool Campylobacter PCR Not Detected Stool Cryptosporidium PCR Not Detected Stl Sh Tox Pr E STEC PCR Not Detected Stool E coli O157 PCR Not applicable Stl Enterotoxigenic E PCR Not Detected Stool EPEC (PCR) Not Detected Stool EAEC (PCR) Not Detected Stl E. histolytica PCR Not Detected Stool Giardia Lamblia PCR Not Detected Stl P. shigelloides PCR Not Detected Stool Salmonella PCR Not Detected Stool Sapovirus (PCR) Not Detected Stl Shigella/EIEC PCR Not Detected St Y.enterocolitica PCR Not Detected Stool Vibrio (PCR) Not Detected Stl Vibrio cholerae PCR Not Detected Stl Norovirus GI/GII PCR Not Detected C. difficile Tox B Gene NEGATIVE 01/22/23 06:16 WBC RBC Hgb Hct MCV MCH MCHC RDW Plt Count MPV Immature Gran % (Auto) Neut % (Auto) Lymph % (Auto) [place] % (Auto) Eos % (Auto) Baso % (Auto) Lymph # (Auto) [place] # (Auto) Eos # (Auto) Baso # (Auto) Abs Immat Gran (auto) Absolute Neuts (auto) Absolute Nucleated RBC Nucleated RBC % (auto) Sodium 135 Potassium 3.5 Chloride 103 Carbon Dioxide 19 L Anion Gap 17 BUN 11 Creatinine 0.80 Estim Creat Clear Calc 79.7 Estimated GFR > 60 POC Glucose Random Glucose 129 H Estimat Average Glucose Hemoglobin A1c % Calcium 8.9 D Total Bilirubin AST ALT Alkaline Phosphatase Troponin I High Sens Total Protein Albumin Stool Occult Blood Stl C. cayetanensis PCR Stool Rotavirus A PCR Stl Adenov F 4041 PCR Stool Astrovirus (PCR) Stool Campylobacter PCR Stool Cryptosporidium PCR Stl Sh Tox Pr E STEC PCR Stool E coli O157 PCR Stl Enterotoxigenic E PCR Stool EPEC (PCR) Stool EAEC (PCR) Stl E. histolytica PCR Stool Giardia Lamblia PCR Stl P. shigelloides PCR Stool Salmonella PCR Stool Sapovirus (PCR) Stl Shigella/EIEC PCR St Y.enterocolitica PCR Stool Vibrio (PCR) Stl Vibrio cholerae PCR Stl Norovirus GI/GII PCR C. difficile Tox B Gene Discharge Plan Discharge Anticipated Discharge Date/Time: 01/22/23 11:14 Patient Disposition: Home, Self-Care Discharge Diagnosis: gastroenteritis, acute kidney injury, dehydration, syncope, hypertension. Referrals: Fadumo Marcum MD [Primary Care Provider] - 1 Week Discharge Medications: Continued multivitamin Tablet 1 tab PO DAILY Qty: 30 0RF bupropion HCl [Wellbutrin SR] 150 mg tablet sustained-release 12 hr 150 mg PO BID 30 Days Qty: 60 0RF oxcarbazepine 150 mg tablet 150 mg PO BID 30 Days Qty: 60 0RF atorvastatin 10 mg tablet 10 mg PO DAILY 30 Days Qty: 30 0RF oxcarbazepine 300 mg tablet 300 mg PO BID 30 Days Qty: 60 0RF levothyroxine 100 mcg tablet 100 mcg PO DAILY 30 Days Qty: 30 0RF amlodipine 10 mg tablet 10 mg PO DAILY@1800 30 Days Qty: 30 0RF pantoprazole 40 mg tablet,delayed release (DR/EC) 40 mg PO DAILY 30 Days Qty: 30 0RF hydroxyzine HCl 10 mg tablet 20 mg PO BEDTIME trazodone 100 mg tablet 200 mg PO BEDTIME hydroxyzine HCl 10 mg tablet 10 mg PO DAILY PRN (Reason: Anxiety) lamotrigine 200 mg tablet 200 mg PO BID hydrochlorothiazide 25 mg tablet 25 mg PO DAILY lisinopril 5 mg tablet 5 mg PO DAILY desvenlafaxine succinate 100 mg tablet extended release 24 hr 100 mg PO QAM Rx Instructions: after breakfast Discharge Orders: Discharge Order (Routine); Ordered 01/22/23 Ordered By: Reinaldo Calix Diet: Advance to usual diet Activity on Discharge: As tolerated Stand Alone Forms: Patient Portal Discharge page Care Plan Goals: Recovery from syncope, hypotension, kidney failure, gastroenteritis Health Concerns: Hypotension, syncope, kidney failure, blood in stool Plan of Treatment: Stay well hydrated, follow up with your doctor as planed this week, if you notice blood in you stool again informed your doctor you blood count is not affected by blood that was noted in stool Assessment: as above
--- NOTE | 2023-01-22 11:38 | MHC.CM.PN ---
Patient has been medically cleared for dc to home/[facility]PC today, self ja.
== END 2023-01-22 13:50 | disposition home or self-care (01) ==
LOC: HO.ED 14:42 → HO.EDOVER 15:13 → HO.IMC 19:40
PROVIDERS: Internal Medicine; Admitting Provider Internal Medicine; Emergency Provider Emergency Medicine; PCP Internal Medicine; Visit Provider Internal Medicine
DX: R55 Syncope and collapse (principal); I10 Essential (primary) hypertension; N17.9 Acute kidney failure, unspecified; E11.9 Type 2 diabetes mellitus without complications; D72.829 Elevated white blood cell count, unspecified; R19.7 Diarrhea, unspecified; E78.2 Mixed hyperlipidemia; R06.02 Shortness of breath; Z79.899 Other long term (current) drug therapy; Z87.891 Personal history of nicotine dependence
CPT/HCPCS: 36415; 71045; 80048; 80053; 82272; 82947; 83036; 84484; 85025; 85027; 87493; 87507; 93005; 96361; 96372; 96374; 96375; 99222; 99285; J1650; J2405

== ENCOUNTER → 2023-01-21 11:31 | Outpatient (BNV) | payer MEDICARE, OTHER, SELFPAY | PROVIDERS: Admitting Provider Internal Medicine; Emergency Provider Emergency Medicine; PCP Internal Medicine; Visit Provider Internal Medicine Cardiovascular Disease | DX: R00.1 Bradycardia, unspecified (principal); R94.31 Abnormal electrocardiogram [ECG] [EKG] | CPT/HCPCS: 93010 ==

== ENCOUNTER → 2023-01-21 14:57 | Outpatient (BNV) | payer MEDICARE, OTHER, SELFPAY | PROVIDERS: Admitting Provider Internal Medicine; Emergency Provider Emergency Medicine; PCP Internal Medicine; Visit Provider Internal Medicine | DX: R55 Syncope and collapse (principal); I95.9 Hypotension, unspecified; N17.9 Acute kidney failure, unspecified; R19.7 Diarrhea, unspecified | CPT/HCPCS: 99222; 99239 ==

== ENCOUNTER 2023-03-05 15:54 | Emergency (ER) | payer MEDICARE, OTHER, SELFPAY ==
--- NOTE | ~2023-03-05 | XR_ITS ---
EXAMINATION: XR CHEST CLINICAL INFORMATION: Unwitnessed fall COMPARISON: Previous chest x-ray January 2023 TECHNIQUE: Frontal view of the chest was obtained. FINDINGS: The cardiac and mediastinal contours are stable. The lungs are clear. No pleural effusion or pneumothorax. Postsurgical changes to the right shoulder. Degenerative changes of the thoracic spine. XR/XR chest 1V IMPRESSION: No evidence for acute disease in the chest.
--- NOTE | ~2023-03-05 | CT_ITS ---
Examination: CT brain and CT cervical spine without contrast. Clinical indications: Unwitnessed fall, AMS. COMPARISON: CT brain and CT cervical spine 11/20/2022. TECHNIQUE: 5 mm thin axial and reformatted 2 mm thin sagittal and coronal images of brain were obtained. Subsequently axial 3 mm thin and reformatted 2 mm thin sagittal and coronal images of cervical spine were obtained. DLP 2436. This CT examination was performed using dose optimization technique as appropriate, variously including the following: Automated exposure control Adjustment of MA and/or KV according to patient size(this includes techniques or standardized protocols for targeted exams where dose is matched to indication/reason for exam; extremities or head. Use of iterative reconstruction techniques. FINDINGS: Brain: There is no acute intra-axial, extra-axial bleed, masses or midline shift. There is no acute infarction evolution. There is no edema. There is no acute infarction evolution. As no edema. The lateral ventricles are symmetrical in size and configuration without enlargement. Bone windows reveal no calvarial abnormality. There is benign hyperostosis frontalis interna. Bilateral paranasal sinuses and mastoid air cells are well-aerated. Cervical spine: There is normal cervical lordosis. The vertebral heights, alignment and disc heights are normal. There is no visible acute fracture, dislocation or subluxation seen. There is mild posterior spondylosis with left uncovertebral hypertrophic changes at C3-C4 disc level. Mild narrowing of left C3-C4 neural foramina is noted. The craniovertebral junction and the C1-C2 alignment is normal. No visible acute fracture, dislocation or subluxation seen. There is a dense sclerosis right C5 pedicle, stable. The prevertebral and paravertebral soft tissues are normal. The lung apices are clear. The airway is widely patent. CT/CT cervical spine wo IV con IMPRESSION: There is no acute intracranial process. There is no visible cervical spine fracture or dislocation. Mild posterior spondylosis and left uncovertebral hypertrophic changes and narrowing the left neural foramina is noted at the C3-C4 disc level. No major change compared to previous study 11/20/2022.
--- NOTE | ~2023-03-05 | XR_ITS ---
EXAMINATION: XR KNEE, RIGHT CLINICAL INFORMATION: Pain, swelling and limited range of motion after fall COMPARISON: None available. TECHNIQUE: Four views of the right knee. FINDINGS: Mild tricompartment spurring. Mild medial knee joint narrowing. No fracture, dislocation or joint effusion. XR/XR knee RT 4V IMPRESSION: No acute bony pathology right knee
--- NOTE | ~2023-03-05 | CT_ITS ---
EXAMINATION: CT ABDOMEN AND PELVIS WITHOUT CONTRAST CLINICAL INFORMATION: Abdominal distention, pain not verbal. COMPARISON: None available. TECHNIQUE: Multidetector volumetric imaging was performed from the superior aspect of the liver through the pubic symphysis. Sagittal and coronal reformatted images were obtained on the technologist's workstation. This CT examination was performed using dose optimization techniques as appropriate, variously including the following: *Automated exposure control *Adjustment of mA and/or kV according to patient size (this includes techniques or standardized protocols for targeted exams where dose is matched to indication/reason for exam; i.e. extremities or head) *Use of iterative reconstruction technique DLP: 2436 mGy-cm FINDINGS: LUNG BASES: There is dependent bibasilar scarring or atelectatic changes. Heart size is normal. LIVER, GALLBLADDER, AND BILIARY TREE: The liver is normal in size, shape, and attenuation. No focal hepatic lesion or biliary ductal dilatation is present. The gallbladder has been surgically removed. PANCREAS: Unremarkable. SPLEEN: Unremarkable. ADRENAL GLANDS: Unremarkable. KIDNEYS AND URETERS: The kidneys are normal in size, shape, and attenuation. No hydronephrosis, hydroureter, or calculi seen. No perinephric stranding. Is a punctate 4 mL hypodensity in the lower pole right kidney. BLADDER: Unremarkable. GASTROINTESTINAL TRACT: There is scattered stool, colonic diverticulosis without mural thickening or pericolic fat stranding. The small bowel loops are normal caliber. Appendix is not visualized with certainty. The stomach is mildly distended with recently ingested food. No inflammatory process seen in the abdomen ABDOMINAL WALL: No significant hernia is appreciated. LYMPH NODES: Normal. VASCULAR: Unremarkable. PELVIC VISCERA: Unremarkable. OSSEOUS STRUCTURES: There is degenerative disc changes L2-L3 and L5-S1 disc levels with mild ventral and posterior spondylosis. No aggressive lytic or sclerotic process seen. CT/CT abdomen pelvis wo IV con IMPRESSION: 1. No acute intra-abdominal process seen. 2. Colonic diverticulosis without diverticulitis. Fleischner guidelines were followed.
[2023-03-05 16:03] VITALS: BP 142/73; BP 162/65; PULSE 61; PULSE 95; RESP 18; O2SAT 95; O2SAT 97; BMI 39.6
--- NOTE | 2023-03-05 16:03 | PC.NURSE ---
pt brought in by ambulance from home. pt found on the ground by family in the bathroom. no head strike, or loc noted. pt not on blood thinners. pt was found to be covered in fecal matter that traced from the bathroom from the bedroom. pt nodding yes to pain in abdomen. abdomen soft, non tender. active bowel sounds in all 4 quadrants. when opening pt eyes, pt was fighting to keep them closed. pt placed in c collar by ems.
--- NOTE | 2023-03-05 16:04 | ECG_ITS ---
Test Reason : AMS Blood Pressure : / mmHG Vent. Rate : 061 BPM Atrial Rate : 061 BPM P-R Int : 174 ms QRS Dur : 078 ms QT Int : 440 ms P-R-T Axes : 066 -01 055 degrees QTc Int : 442 ms Normal sinus rhythm Normal ECG When compared with ECG of 21-JAN-2023 12:13, Minimal criteria for Inferior infarct are no longer Present Referred By: Marcia Wray Electronically Signed By:CARLOS ENRIQUE
--- NOTE | 2023-03-05 16:12 | ED.FALL ---
HPI - Fall General Chief Complaint: Fall Stated Complaint: unwit fall, c-collared, AMS Time Seen by Provider: 03/05/23 15:58 Source: EMS Mode of arrival: EMS Limitations: other History of Present Illness HPI Narrative: Patient comes to the emergency room via ambulance from home. Patient was found on the floor by family. Unclear if patient fell. Patient is awake but not answering any questions. Patient has an extensive history of psychiatric conditions. Today, patient was last well seen at 13:30 (3 hours ago) in divorce court. Seems that patient has been defecating in the bathroom floor, her bedroom and the living room, normal stool, not diarrhea. When EMS arrived to the patient's house, patient did not have any trouble moving. On arrival to the ED, patient is awake but not answering any questions Related Data Home Medications Medication Instructions Recorded Confirmed lamotrigine 200 mg tablet 200 mg PO BID 05/26/22 01/21/23 hydrochlorothiazide 25 mg tablet 25 mg PO DAILY 07/14/22 01/21/23 lisinopril 5 mg tablet 5 mg PO DAILY 07/14/22 01/21/23 desvenlafaxine succinate 100 mg 100 mg PO QAM 01/02/23 01/21/23 tablet,extended release 24 hr hydroxyzine HCl 10 mg tablet 10 mg PO DAILY PRN Anxiety 01/21/23 01/21/23 hydroxyzine HCl 10 mg tablet 20 mg PO BEDTIME 01/21/23 01/21/23 trazodone 100 mg tablet 200 mg PO BEDTIME 01/21/23 01/21/23 Previous Rx's Medication Instructions Recorded amlodipine 10 mg tablet 10 mg PO DAILY@1800 30 days #30 04/06/22 tabs atorvastatin 10 mg tablet 10 mg PO DAILY 30 days #30 tabs 04/06/22 bupropion HCl 150 mg tablet,12 hr 150 mg PO BID 30 days #60 tabs 04/06/22 sustained-release (Wellbutrin SR) levothyroxine 100 mcg tablet 100 mcg PO DAILY 30 days #30 tabs 04/06/22 multivitamin 1 tab PO DAILY #30 tabs 04/06/22 oxcarbazepine 150 mg tablet 150 mg PO BID 30 days #60 tabs 04/06/22 oxcarbazepine 300 mg tablet 300 mg PO BID 30 days #60 tabs 04/06/22 pantoprazole 40 mg tablet,delayed 40 mg PO DAILY 30 days #30 tabs 04/06/22 release tocilizumab 162 mg/0.9 mL 162 mg (0.9 mL) subcut Q2W #1.8 mL 01/24/23 subcutaneous pen injector (Actemra ACTPen) Allergies Allergy/AdvReac Type Severity Reaction Status Date / Time methotrexate Allergy Severe whole body Verified 01/02/23 10:00 itchy, swelling eyes and lips Penicillins Allergy Severe HIVES Verified 01/02/23 10:00 lorazepam [Lorazepam] Allergy Mild REVERSE Verified 01/02/23 10:00 EFFECT oxycodone [Oxycodone] Allergy Mild UNKNOWN Verified 01/02/23 10:00 deutetrabenazine Allergy Unknown TOO MANY Verified 01/02/23 10:00 [From [place]] SIDE EFFECTS gabapentin [GABAPENTIN] Allergy Unknown DIZZYNESS, Verified 01/02/23 10:00 GI ISSUES NSAIDS (Non-Steroidal Allergy Unknown LIVER Verified 01/02/23 10:00 Anti-Inflamma ENZYME [NSAIDS (NON-STEROIDAL ISSUES ANTI-INFLAMMA] sulfamethoxazole Allergy Unknown DIARRHEA Verified 01/02/23 10:00 [From BACTRIM] trimethoprim [From BACTRIM] Allergy Unknown DIARRHEA Verified 01/02/23 10:00 valbenazine [From INGREZZA] Allergy Unknown INCREASED Verified 01/02/23 10:00 SLEEP 15-16HRS ANTIBIOTICS Allergy Unknown PT STATED Uncoded 01/02/23 10:00 NEED TO GO THRU PCP D/T GASTROPARESIS Review of Systems Review of Systems: Yes Unobtainable due to mental status PMFSH Past Medical History Medical History Speech abnormality Weakness Type 2 diabetes mellitus Tremors of nervous system Tardive dyskinesia Sleep apnea Thyroid disease Depression Bipolar 1 disorder Combined hyperlipidemia HTN (hypertension) Surgical History Hx of cholecystectomy H/O shoulder surgery Hx of appendectomy Family History Family History Father No problems noted. Mother No problems noted. Other Family history of rheumatoid arthritis Social History Social History Household Members: Other Housing: Other Housing Other:: Living with nuns in a wing of a convent due to homelessness Do you presently have visiting nurse or other home services: No (Did receive services before partial hospitalization) Unable to assess alcohol history related to: Unable to respond Alcohol intake: never Patient Tobacco Use Status: Former Tobacco user Quit Date: over 50 years ago Tobacco use type: Cigarette Smoked in Last 30 Days: No e-Cigarette/Vaping Use: Never Used Second Hand Smoke Exposure: No Use of substances other than those prescribed or required for medical reasons: No Advance Directives: Yes Advance Directives on File: Yes Advance Directives Date on File: 01/21/23 service: No Sexual orientation: Straight/Heterosexual Physical Exam Vital Signs: Vital Signs: Last Vital Signs Pulse 61 03/05/23 16:03 Resp 18 03/05/23 16:03 BP 162/65 H 03/05/23 16:03 Pulse Ox 97 03/05/23 16:03 O2 Del Method Room Air 03/05/23 16:03 BMI result Body Mass Index 39.6 Const: Other: Appearance: Alert. Not answering any questions, No acute distress. Patient covered in feces Eyes: Pupils equal, round and reactive to light. ENT: Pharynx normal. Neck: Normal inspection. Neck supple. No lymph nodes noted. No crepitus CVS: Normal heart rate and rhythm. Pulses normal. Normal S1 and S2 Respiratory: No respiratory distress. Breath sounds normal. No Wheezing. No rales Abdomen: Soft , seems distended, seems to groan in pain with palpation over the abdomen Skin: Skin warm and dry. Normal skin color. Normal skin turgor. Extremities: No lower extremity edema. No Lacerations. No Rash Neuro: Patient unwilling to answer questions or participate in cranial nerve assessment Psych: calm Course Course Course Narrative: -all of patient's labs and imaging pending Medical Decision Making Medical Decision Making MDM Narrative: -my interpretation head CT: No intracranial bleed -my interpretation of labs: White blood cell count slightly elevated, chronic, mild hyponatremia sodium 133, ammonia 24, troponin negative, TSH normal -interpretation of urinalysis, negative for UTI. -my interpretation of CT scan of the abdomen pelvis, no acute abnormality, no SBO -CARE team consult pending. And it is possible that patient's behavior today might be secondary to stress, as she does have a court date. Patient is not suicidal or homicidal, not on a Section 12 Differential Diagnosis Differential Diagnoses: The differential diagnosis associated with the presentation includes (Intracranial bleed, UTI, psychiatric decompensation) Admission/Observation Consideration of admission/observation: Escalation of care including admission/observation considered (Unclear if patient has a medical condition versus psychiatric condition, admission considered on arrival) Lab Data MDM Lab Attestation statement: I reviewed the patient's lab results. 03/05/23 16:27 03/05/23 16:27 Labs: Lab Results 03/05/23 03/05/23 03/05/23 Range/Units 16:27 16:28 19:39 WBC 11.1 H (4.8-10.8) X10*3/uL RBC 4.51 (4.20-5.50) X10*6/uL Hgb 12.0 (12.0-16.0) g/dl Hct 37.2 (37.0-47.0) % MCV 82.5 (80.0-98.0) fL MCH 26.6 L (27.0-33.0) pg MCHC 32.3 (31.0-35.0) g/dl RDW 14.9 (11.0-16.0) % Plt Count 279 (160-400) X10*3/uL MPV 9.4 (9.4-12.3) fL Immature Gran % (Auto) 0.4 (0.0-0.4) % Neut % (Auto) 84.9 H (45-73) % Lymph % (Auto) 5.9 L (20-40) % [place] % (Auto) 7.9 (2-11) % Eos % (Auto) 0.5 (0-4) % Baso % (Auto) 0.4 (0-2) % Lymph # (Auto) 0.7 L (1.2-4.9) X10*3/uL [place] # (Auto) 0.9 (0.1-1.2) X10*3/uL Eos # (Auto) 0.1 (0.0-0.4) X10*3/uL Baso # (Auto) 0.0 (0.0-0.2) X10*3/uL Abs Immat Gran (auto) 0.04 H (0.00-0.03) X10*3/uL Absolute Neuts (auto) 9.4 H (2.0-8.3) x10*3/uL Absolute Nucleated RBC 0.000 (0.0-0.012) X10*3/uL Nucleated RBC % (auto) 0.0 (0.0-0.2) /100WBC PT 12.6 (11.1-13.3) SEC INR 1.0 (0.9-1.1) Sodium 133 L (135-145) mmol/L Potassium 4.0 (3.3-5.1) mmol/L Chloride 98 (96-108) mmol/L Carbon Dioxide 26 (22-29) mmol/L Anion Gap 13 (12-20) BUN 20 H (9-16) mg/dL Creatinine 1.21 (0.5-1.4) mg/dL Estim Creat Clear Calc 56.7 Estimated GFR 44 Random Glucose 169 H (60-115) mg/dL Calcium 9.6 D (8.4-10.2) mg/dL Magnesium 2.2 (1.6-2.6) mg/dL Total Bilirubin 0.3 (0.0-1.0) mg/dL Direct Bilirubin 0.2 (0.0-0.5) mg/dL AST 20 (5-31) U/L ALT 23 (0-31) U/L Alkaline Phosphatase 146 H (39-117) U/L Ammonia 24 (13-55) umol/L Total Creatine Kinase 76 (26-140) U/L Troponin I High Sens 4.1 D (<3.5-17.0) ng/L Total Protein 7.3 (6.5-8.0) g/dL Albumin 3.9 (3.5-5.0) g/dL TSH 3.40 (0.32-4.0) uIU/mL Urine Color Yellow Urine Appearance Clear Urine pH 6.0 (5.0-9.0) Ur Specific [place] 1.020 (1.005-1.025) Urine Protein Negative (Neg-Trace) mg/dL Urine Glucose (UA) Negative (Negative) mg/dL Urine Ketones Negative (Negative) mg/dL Urine Blood Negative (Negative) Urine Nitrite Negative (Negative) Ur Leukocyte Esterase Negative (Negative) Urine Opiates Screen Not Detected (Not Detect) Urine Fentanyl Screen Not Detected (Not Detect) Ur Barbiturates Screen Not Detected (Not Detect) Ur Phencyclidine Scrn Not Detected (Not Detect) Ur Amphetamines Screen Not Detected (Not Detect) U Benzodiazepines Scrn Not Detected (Not Detect) Urine Cocaine Screen Not Detected (Not Detect) U Marijuana (THC) Screen Not Detected (Not Detect) Ethyl Alcohol < 10 mg/dL Independent Interpretation I performed an independent interpretation of an: CT Scan Radiology Impression Discussion of test interpretation with radiology: I have reviewed the radiologist's reading. Radiologist Impression: FINDINGS: Brain: There is no acute intra-axial, extra-axial bleed, masses or midline shift. There is no acute infarction evolution. There is no edema. There is no acute infarction evolution. As no edema. The lateral ventricles are symmetrical in size and configuration without enlargement. Bone windows reveal no calvarial abnormality. There is benign hyperostosis frontalis interna. Bilateral paranasal sinuses and mastoid air cells are well-aerated. Cervical spine: There is normal cervical lordosis. The vertebral heights, alignment and disc heights are normal. There is no visible acute fracture, dislocation or subluxation seen. There is mild posterior spondylosis with left uncovertebral hypertrophic changes at C3-C4 disc level. Mild narrowing of left C3-C4 neural foramina is noted. The craniovertebral junction and the C1-C2 alignment is normal. No visible acute fracture, dislocation or subluxation seen. There is a dense sclerosis right C5 pedicle, stable. The prevertebral and paravertebral soft tissues are normal. The lung apices are clear. The airway is widely patent. CT/CT head/brain wo IV con IMPRESSION: There is no acute intracranial process. There is no visible cervical spine fracture or dislocation. Mild posterior spondylosis and left uncovertebral hypertrophic changes and narrowing the left neural foramina is noted at the C3-C4 disc level. FINDINGS: LUNG BASES: There is dependent bibasilar scarring or atelectatic changes. Heart size is normal. LIVER, GALLBLADDER, AND BILIARY TREE: The liver is normal in size, shape, and attenuation. No focal hepatic lesion or biliary ductal dilatation is present. The gallbladder has been surgically removed. PANCREAS: Unremarkable. SPLEEN: Unremarkable. ADRENAL GLANDS: Unremarkable. KIDNEYS AND URETERS: The kidneys are normal in size, shape, and attenuation. No hydronephrosis, hydroureter, or calculi seen. No perinephric stranding. Is a punctate 4 mL hypodensity in the lower pole right kidney. BLADDER: Unremarkable. GASTROINTESTINAL TRACT: There is scattered stool, colonic diverticulosis without mural thickening or pericolic fat stranding. The small bowel loops are normal caliber. Appendix is not visualized with certainty. The stomach is mildly distended with recently ingested food. No inflammatory process seen in the abdomen ABDOMINAL WALL: No significant hernia is appreciated. LYMPH NODES: Normal. VASCULAR: Unremarkable. PELVIC VISCERA: Unremarkable. OSSEOUS STRUCTURES: There is degenerative disc changes L2-L3 and L5-S1 disc levels with mild ventral and posterior spondylosis. No aggressive lytic or sclerotic process seen. CT/CT abdomen pelvis wo IV con IMPRESSION: 1. No acute intra-abdominal process seen. 2. Colonic diverticulosis without diverticulitis. Fleischner guidelines were followed. Critical Care Time Critical Care Time Critical Care Time: Yes Total Critical Care Time: 60 Attestation: I have personally provided critical care time. Time includes review of lab data, radiology results, discussion with consultants, and monitoring for potential decompensation. Intervention performed as documented. Discharge Plan Discharge Clinical Impression: Fall, Bizarre behavior Patient Disposition: Still a Patient Prescriptions: No Action Actemra ACTPen 162 mg/0.9 mL pen injector 162 mg subcut Q2W Qty: 1.8 2RF multivitamin Tablet 1 tab PO DAILY Qty: 30 0RF bupropion HCl [Wellbutrin SR] 150 mg tablet sustained-release 12 hr 150 mg PO BID 30 Days Qty: 60 0RF oxcarbazepine 150 mg tablet 150 mg PO BID 30 Days Qty: 60 0RF atorvastatin 10 mg tablet 10 mg PO DAILY 30 Days Qty: 30 0RF oxcarbazepine 300 mg tablet 300 mg PO BID 30 Days Qty: 60 0RF levothyroxine 100 mcg tablet 100 mcg PO DAILY 30 Days Qty: 30 0RF amlodipine 10 mg tablet 10 mg PO DAILY@1800 30 Days Qty: 30 0RF pantoprazole 40 mg tablet,delayed release (DR/EC) 40 mg PO DAILY 30 Days Qty: 30 0RF hydroxyzine HCl 10 mg tablet 20 mg PO BEDTIME trazodone 100 mg tablet 200 mg PO BEDTIME hydroxyzine HCl 10 mg tablet 10 mg PO DAILY PRN (Reason: Anxiety) lamotrigine 200 mg tablet 200 mg PO BID hydrochlorothiazide 25 mg tablet 25 mg PO DAILY lisinopril 5 mg tablet 5 mg PO DAILY desvenlafaxine succinate 100 mg tablet extended release 24 hr 100 mg PO QAM Rx Instructions: after breakfast
[2023-03-05 16:34] LABS: MANUAL DIFF FLAG NO
[2023-03-05 16:44] LABS: Prothrombin Time 12.6 SEC (11.1-13.3)
[2023-03-05 16:48] LABS: Basophils Percent Auto 0.4 % (0-2); Eosinophils Absolute Auto 0.1 X10*3/uL (0.0-0.4); Eosinophils Percent Auto 0.5 % (0-4); Hematocrit 37.2 % (37.0-47.0); Imm Gran Abs Auto 0.04 X10*3/uL (0.00-0.03); Imm Gran Pct Auto 0.4 % (0.0-0.4); Lymphocytes Absolute Auto 0.7 X10*3/uL (1.2-4.9); Lymphocytes Percent Auto 5.9 % (20-40); Mean Corpuscular HGB Conc 32.3 g/dl (31.0-35.0); Mean Corpuscular Hemoglobin 26.6 pg (27.0-33.0); Mean Corpuscular Volume 82.5 fL (80.0-98.0); Mean Platelet Volume 9.4 fL (9.4-12.3); Monocytes Absolute Auto 0.9 X10*3/uL (0.1-1.2); Monocytes Percent Auto 7.9 % (2-11); Neutrophils Absolute Auto 9.4 x10*3/uL (2.0-8.3); Neutrophils Percent Auto 84.9 % (45-73); Platelet Count 279 X10*3/uL (160-400); Red Blood Count 4.51 X10*6/uL (4.20-5.50); Red Cell Distribution Width 14.9 % (11.0-16.0); White Blood Count 11.1 X10*3/uL (4.8-10.8)
[2023-03-05 16:51] LABS: Ammonia 24 umol/L (13-55)
[2023-03-05 16:53] LABS: Alanine Aminotransferase 23 U/L (0-31); Albumin Level 3.9 g/dL (3.5-5.0); Alkaline Phosphatase 146 U/L (39-117); Anion Gap 13 (12-20); Aspartate Amino Transferase 20 U/L (5-31); Bilirubin Direct 0.2 mg/dL (0.0-0.5); Bilirubin Total 0.3 mg/dL (0.0-1.0); Blood Urea Nitrogen 20 mg/dL (9-16); Calcium 9.6 mg/dL (8.4-10.2); Carbon Dioxide 26 mmol/L (22-29); Chloride 98 mmol/L (96-108); Creatinine Clr Calc Pharmacy 56.7; Estimated Glomerular Filt Rate 44; Glucose Random 169 mg/dL (60-115); Magnesium 2.2 mg/dL (1.6-2.6); Sodium 133 mmol/L (135-145); Total Protein 7.3 g/dL (6.5-8.0)
[2023-03-05 17:00] LABS: Troponin-I High Sensitivity 4.1 ng/L (<3.5-17.0)
[2023-03-05 17:02] LABS: Ethanol < 10 mg/dL
--- NOTE | 2023-03-05 19:40 | MHC.EDTECH ---
Patient inc and changed
--- NOTE | 2023-03-05 19:45 | PC.NURSE ---
pt incontinent of stool, cleaned, urine sample obtained by tech, pt having frequent diarrhea, resting quietly, no new orders at this time.
[2023-03-05 19:51] LABS: Appearance Urine Clear; Color Urine Yellow; Glucose Urine UA Negative (Negative); Leukocyte Esterase Urine Negative (Negative); Nitrite Urine Negative (Negative); Urine Blood Negative (Negative); Urine Ketones Negative (Negative); Urine Protein Negative (Neg-Trace)
[2023-03-05 19:58] LABS: Amphetamine Screen Urine Not Detected (Not Detect); Barbiturates, Urine Not Detected (Not Detect); Benzodiazepines Screen Urine Not Detected (Not Detect); Cannabinoid Screen Urine Not Detected (Not Detect); Cocaine Screen Urine Not Detected (Not Detect); Fentanyl, urine Not Detected (Not Detect); Opiate Screen Urine Not Detected (Not Detect); Phencyclidine Screen Urine Not Detected (Not Detect)
[2023-03-05 20:52] VITALS: BP 142/62; PULSE 70; RESP 14; O2SAT 97
--- NOTE | 2023-03-05 20:53 | PC.NURSE ---
pt a&ox4, vss, pt resting quietly pending care team consult. pt talking on phone w friend accurately recalling events from today.
[2023-03-05 22:06] VITALS: BP 164/68; PULSE 63; RESP 20; TEMP 36.8; O2SAT 100
--- NOTE | 2023-03-06 02:11 | PC.NURSE ---
This RN asked Dr. Odom for pain medicine for patient, order for Tylenol 650mg placed by this RN after verbal readback and confirmation with MD.
[2023-03-06] MEDS: Acetaminophen 325 MG TABLET 650 MG PO ×2 (02:54→08:41)
--- NOTE | 2023-03-06 02:54 | PC.NURSE ---
Patient called for this RN to come into the room multiple times between 0000 and 0300. Patient reports frustration due to medications not being given, not seeing a nurse, as well as pain. Patient medicated per AUG. This RN wrote down medications, will enter med rec
--- NOTE | 2023-03-06 04:01 | PC.NURSE ---
assumed care of patient at 0315
[2023-03-06 05:53] VITALS: BP 174/81; PULSE 72; RESP 17; TEMP 37.1; O2SAT 95
[2023-03-06] MEDS: Levothyroxine Sodium 100 MCG TABLET PO (08:39)
[2023-03-06] MEDS: lisinopriL 5 MG TABLET PO (08:39)
[2023-03-06] MEDS: OXcarbazepine 150 MG TABLET PO (08:39)
[2023-03-06] MEDS: OXcarbazepine 300 MG TABLET PO (08:39)
[2023-03-06] MEDS: hydroCHLOROthiazide 25 MG TABLET PO (08:40)
[2023-03-06] MEDS: Omeprazole 20 MG CAPSULE.DR PO (08:40)
[2023-03-06] MEDS: lamoTRIgine 100 MG TABLET 200 MG PO (08:40)
[2023-03-06 08:47] VITALS: BP 177/69; PULSE 66; RESP 16; O2SAT 100
--- NOTE | 2023-03-06 08:48 | PC.NURSE ---
Addendum entered by Tasneem Wills 03/06/23 08:54: pt refused wellbutrin d/t dosing; pharmacy called stated it was changed d/t policy. if the patient would like to bring in home meds we could label it that way. pt also refusing multivitamin. breakfast tray ordered for pt. otherwise denies questions/concerns at this time. call key within reach. Original Note: axox4; pt reporting 10/10 L. knee pain; awaiting imaging; pt medicated per aug. pt refused
--- NOTE | 2023-03-06 11:42 | MHC.CARE ---
Patient seen by CARE team, does not appear to meet or desire an [facility] admission for psych. She denies SI/ HI and speaks highly of the OP treatment providers she has established as well as getting comfortable in her residence, which is fairly new. She is cleared by CARE team for return to [facility].
[2023-03-06] MEDS: hydrOXYzine HCL 25 MG TABLET PO (14:38)
[2023-03-06 14:58] VITALS: BP 177/69; PULSE 66; O2SAT 100
--- NOTE | 2023-03-06 15:01 | MHC.CM.PN ---
CM MET WITH PT AND STAFF FROM [facility] WHERE SHE RESIDES PT IS AWARE HER INSURANCE WILL NOT COVER STR SHE HAS MADE A PLAN WITH LONG TERM STAFF TO HAVE HER MEALS IN HER ROOM AND WORK WITH HOME PT SHE REQUESTED A REFERRAL TO [facility], AWAITING RESPONSE PT WILL NEED ASSISTANCE WITH TRANSPORT HOME
--- NOTE | 2023-03-06 15:30 | PC.NURSE ---
pt states she took home dose wellbutrin as RN from assisted living facility brought in; unwitnessed by this RN. provider made aware.
== END 2023-03-06 16:13 | disposition home or self-care (01) ==
PROVIDERS: Emergency Provider Emergency Medicine
DX: S89.91XA Unspecified injury of right lower leg, initial encounter (principal); R41.0 Disorientation, unspecified; R51.9 Headache, unspecified; M54.2 Cervicalgia; F43.9 Reaction to severe stress, unspecified; R26.2 Difficulty in walking, not elsewhere classified; W01.10XA Fall on same level from slipping, tripping and stumbling with subsequent striking against unspecified object, initial encounter; Y93.9 Activity, unspecified; Y92.9 Unspecified place or not applicable; Y99.9 Unspecified external cause status; Z79.899 Other long term (current) drug therapy; Z87.891 Personal history of nicotine dependence
CPT/HCPCS: 36415; 70450; 71045; 72125; 73564; 74176; 80048; 80076; 80307; 81003; 82140; 82550; 83735; 84443; 84484; 85025; 85610; 93005; 97161; 99285; S9485

== ENCOUNTER 2023-03-27 10:15 | Outpatient (REF) | payer MEDICARE, OTHER, SELFPAY ==
[2023-03-27 10:39] LABS: MANUAL DIFF FLAG NO
[2023-03-27 12:46] LABS: Basophils Absolute Auto 0.1 X10*3/uL (0.0-0.2); Basophils Percent Auto 0.8 % (0-2); Eosinophils Absolute Auto 0.3 X10*3/uL (0.0-0.4); Eosinophils Percent Auto 4.2 % (0-4); Hematocrit 38.2 % (37.0-47.0); Imm Gran Abs Auto 0.05 X10*3/uL (0.00-0.03); Imm Gran Pct Auto 0.7 % (0.0-0.4); Lymphocytes Absolute Auto 1.5 X10*3/uL (1.2-4.9); Lymphocytes Percent Auto 20.1 % (20-40); Mean Corpuscular HGB Conc 31.4 g/dl (31.0-35.0); Mean Corpuscular Hemoglobin 26.3 pg (27.0-33.0); Mean Corpuscular Volume 83.6 fL (80.0-98.0); Monocytes Percent Auto 13.2 % (2-11); Neutrophils Absolute Auto 4.6 x10*3/uL (2.0-8.3); Platelet Count 289 X10*3/uL (160-400); Red Blood Count 4.57 X10*6/uL (4.20-5.50); Red Cell Distribution Width 14.5 % (11.0-16.0); White Blood Count 7.5 X10*3/uL (4.8-10.8)
[2023-03-27 13:28] LABS: Rheumatoid Factor < 13.0 IU/mL (<15.0)
[2023-03-27 13:36] LABS: Erythrocyte Sedimentation Rate 25 MM/HR (0-20)
[2023-03-27 13:40] LABS: Alanine Aminotransferase 20 U/L (0-31); Albumin Level 3.9 g/dL (3.5-5.0); Alkaline Phosphatase 124 U/L (39-117); Anion Gap 15 (12-20); Aspartate Amino Transferase 16 U/L (5-31); Bilirubin Total 0.3 mg/dL (0.0-1.0); Blood Urea Nitrogen 22 mg/dL (9-16); C Reactive Protein 0.79 mg/dL (< or = 0.50); Calcium 10.1 mg/dL (8.4-10.2); Carbon Dioxide 26 mmol/L (22-29); Chloride 101 mmol/L (96-108); Estimated Glomerular Filt Rate > 60; Glucose Random 133 mg/dL (60-115); Potassium 4.4 mmol/L (3.3-5.1); Sodium 138 mmol/L (135-145); Total Protein 7.3 g/dL (6.5-8.0)
== END 2023-03-27 10:16 | disposition home or self-care (01) ==
LOC: HO.LAB 10:15
PROVIDERS: PCP Internal Medicine; Visit Provider Student in an Organized Health Care Education/Training Program
DX: Z13.89 Encounter for screening for other disorder (principal)
CPT/HCPCS: 36415; 80053; 85025; 85652; 86140; 86431

== ENCOUNTER 2023-03-27 12:28 | Emergency (ER) | payer MEDICARE, OTHER, SELFPAY ==
[2023-03-27 12:37] VITALS: BP 157/63; BP 194/86; PULSE 61; PULSE 67; RESP 22; TEMP 36.5; O2SAT 100; BMI 41.3
--- NOTE | 2023-03-27 13:16 | PC.NURSE ---
pt responding to painful stimuli. tracking with eyes. pt not speaking with staff.
--- NOTE | 2023-03-27 13:18 | ED.GENADULT ---
HPI - General Adult General Chief complaint: General Medical Stated complaint: dizzness unresponsive Time Seen by Provider: 03/27/23 13:00 History of Present Illness HPI narrative: Patient is a 72-year-old female with a history of dizziness patient and was noted to be unresponsive today. History of similar episodes when patient has anxiety. Patient RI slumped over and a bench. Subsequently was brought to the emergency department for further evaluation. These he is unable to give detailed history. She does have a history of bipolar history of rheumatoid arthritis, hypertension, hyperlipidemia, depression, anxiety, diabetes, history of tardive dyskinesia. Related Data Home Medications Medication Instructions Recorded Confirmed lamotrigine 200 mg tablet 200 mg PO BID 05/26/22 03/06/23 hydrochlorothiazide 25 mg tablet 25 mg PO DAILY 07/14/22 03/06/23 lisinopril 5 mg tablet 5 mg PO DAILY 07/14/22 03/06/23 desvenlafaxine succinate 100 mg 100 mg PO QAM 01/02/23 03/06/23 tablet,extended release 24 hr hydroxyzine HCl 10 mg tablet 10 mg PO DAILY PRN Anxiety 01/21/23 03/06/23 hydroxyzine HCl 10 mg tablet 20 mg PO BEDTIME 01/21/23 03/06/23 trazodone 100 mg tablet 200 mg PO BEDTIME 01/21/23 03/06/23 Previous Rx's Medication Instructions Recorded amlodipine 10 mg tablet 10 mg PO DAILY@1800 30 days #30 04/06/22 tabs atorvastatin 10 mg tablet 10 mg PO DAILY 30 days #30 tabs 04/06/22 bupropion HCl 150 mg tablet,12 hr 150 mg PO BID 30 days #60 tabs 04/06/22 sustained-release (Wellbutrin SR) levothyroxine 100 mcg tablet 100 mcg PO DAILY 30 days #30 tabs 04/06/22 multivitamin 1 tab PO DAILY #30 tabs 04/06/22 oxcarbazepine 150 mg tablet 150 mg PO BID 30 days #60 tabs 04/06/22 oxcarbazepine 300 mg tablet 300 mg PO BID 30 days #60 tabs 04/06/22 pantoprazole 40 mg tablet,delayed 40 mg PO DAILY 30 days #30 tabs 04/06/22 release tocilizumab 162 mg/0.9 mL 162 mg (0.9 mL) subcut Q2W #1.8 mL 01/24/23 subcutaneous pen injector (Actemra ACTPen) Allergies Allergy/AdvReac Type Severity Reaction Status Date / Time methotrexate Allergy Severe whole body Verified 01/02/23 10:00 itchy, swelling eyes and lips Penicillins Allergy Severe HIVES Verified 01/02/23 10:00 lorazepam [Lorazepam] Allergy Mild REVERSE Verified 01/02/23 10:00 EFFECT oxycodone [Oxycodone] Allergy Mild UNKNOWN Verified 01/02/23 10:00 deutetrabenazine Allergy Unknown TOO MANY Verified 01/02/23 10:00 [From AUSTEDO] SIDE EFFECTS gabapentin [GABAPENTIN] Allergy Unknown DIZZYNESS, Verified 01/02/23 10:00 GI ISSUES NSAIDS (Non-Steroidal Allergy Unknown LIVER Verified 01/02/23 10:00 Anti-Inflamma ENZYME [NSAIDS (NON-STEROIDAL ISSUES ANTI-INFLAMMA] sulfamethoxazole Allergy Unknown DIARRHEA Verified 01/02/23 10:00 [From BACTRIM] trimethoprim [From BACTRIM] Allergy Unknown DIARRHEA Verified 01/02/23 10:00 valbenazine [From INGREZZA] Allergy Unknown INCREASED Verified 01/02/23 10:00 SLEEP 15-16HRS ANTIBIOTICS Allergy Unknown PT STATED Uncoded 01/02/23 10:00 NEED TO GO THRU PCP D/T GASTROPARESIS Review of Systems Review of Systems: Unable to obtain review systems-patient's condition [facility] Past Medical History Attestation statement: The following information was validated with the patient. Medical History Speech abnormality Weakness Type 2 diabetes mellitus Tremors of nervous system Tardive dyskinesia Sleep apnea Thyroid disease Depression Bipolar 1 disorder Combined hyperlipidemia HTN (hypertension) Surgical History Hx of cholecystectomy H/O shoulder surgery Hx of appendectomy Family History Family History Father No problems noted. Mother No problems noted. Other Family history of rheumatoid arthritis Social History Social History Household Members: Other Housing: Other Housing Other:: Living with nuns in a wing of a convent due to homelessness Do you presently have visiting nurse or other home services: No (Did receive services before partial hospitalization) Unable to assess alcohol history related to: Unable to respond Alcohol intake: never Patient Tobacco Use Status: Former Tobacco user Quit Date: over 50 years ago Tobacco use type: Cigarette e-Cigarette/Vaping Use: Never Used Second Hand Smoke Exposure: No Advance Directives: No Advance Directives Information Provided: No Advance Directives Date on File: 01/21/23 service: No Sexual orientation: Straight/Heterosexual Physical Exam ED Vital Signs: Vital Signs - 24 hr 03/27/23 12:37 Temperature 97.7 F Pulse Rate 61 Respiratory Rate 22 H Blood Pressure 194/86 H Pulse Oximetry 100 Oxygen Delivery Method Room Air BMI result Body Mass Index 41.3 Appearance: Patient not responding initially to verbal stimuli. When patient was given an noxious stimuli she wakes up at eyes open. Eyes: Pupils equal, round and reactive to light. ENT: Pharynx normal. Neck: Normal inspection. Neck supple. No lymph nodes noted. No crepitus CVS: Normal heart rate and rhythm. Pulses normal. Normal S1 and S2 Respiratory: No respiratory distress. Breath sounds normal. No Wheezing. No rales Abdomen: Soft and nontender. No rigidity. No distention. good BS x4 Skin: Skin warm and dry. Normal skin color. Normal skin turgor. Extremities: No lower extremity edema. Neurovascular intact to all extremities. No Lacerations. No Rash Neuro: Oriented times 0. Able to move arms and legs when given painful stimuli. When given painful stimuli patient's eyes open. Not verbal. Went in arm was dropped on her head she avoids it completely. When moving patient's legs patient patient held the leg in whenever position we put it in. Medical Decision Making Medical Decision Making MDM Narrative: Patient became awake alert. Now complaining of weakness to the left side. The weakness is interesting and is only on lifting up the arm. There is no weakness in pushing the arm down. Patient also has weakness in lifting the leg on the left side. But has no difficulty bringing the legs down. Patient has no facial droop. No changes in voice. Patient well appearing no acute distress. Awake alert oriented moving all extremity at this point. CT scan of the head was grossly negative. Patient's weakness is not consistent with CVA earlier. Question secondary to conversion disorder. Currently has no specific complaints. Patient now wants to go back to the [place] [facility]. Her lecture lytes are normal. She is unable to provide a urine. Her weakness is completely resolved. She is in stable condition. Differential Diagnosis Differential Diagnoses: The differential diagnosis associated with the presentation includes CVA, hypoglycemia, conversion disorder Admission/Observation Consideration of admission/observation: Escalation of care including admission/observation considered No need patient's symptoms completely resolved Lab Data MDM Lab Attestation statement: I reviewed the patient's lab results. 03/27/23 13:39 03/27/23 13:39 Labs: Lab Results 03/27/23 Range/Units 13:39 WBC 7.3 (4.8-10.8) X10*3/uL RBC 4.70 (4.20-5.50) X10*6/uL Hgb 12.3 (12.0-16.0) g/dl Hct 37.8 (37.0-47.0) % MCV 80.4 (80.0-98.0) fL MCH 26.2 L (27.0-33.0) pg MCHC 32.5 (31.0-35.0) g/dl RDW 14.3 (11.0-16.0) % Plt Count 247 (160-400) X10*3/uL MPV 8.7 L (9.4-12.3) fL Immature Gran % (Auto) 0.8 H (0.0-0.4) % Neut % (Auto) 64.6 (45-73) % Lymph % (Auto) 18.4 L (20-40) % [place] % (Auto) 12.1 H (2-11) % Eos % (Auto) 3.3 (0-4) % Baso % (Auto) 0.8 (0-2) % Lymph # (Auto) 1.3 (1.2-4.9) X10*3/uL [place] # (Auto) 0.9 (0.1-1.2) X10*3/uL Eos # (Auto) 0.2 (0.0-0.4) X10*3/uL Baso # (Auto) 0.1 (0.0-0.2) X10*3/uL Abs Immat Gran (auto) 0.06 H (0.00-0.03) X10*3/uL Absolute Neuts (auto) 4.7 (2.0-8.3) x10*3/uL Absolute Nucleated RBC 0.000 (0.0-0.012) X10*3/uL Nucleated RBC % (auto) 0.0 (0.0-0.2) /100WBC Sodium 137 (135-145) mmol/L Potassium 4.5 (3.3-5.1) mmol/L Chloride 101 (96-108) mmol/L Carbon Dioxide 25 (22-29) mmol/L Anion Gap 16 (12-20) BUN 20 H (9-16) mg/dL Creatinine 0.85 (0.5-1.4) mg/dL Estim Creat Clear Calc 77.4 Estimated GFR > 60 Random Glucose 139 H (60-115) mg/dL Calcium 10.1 (8.4-10.2) mg/dL Total Bilirubin 0.4 (0.0-1.0) mg/dL Direct Bilirubin 0.2 (0.0-0.5) mg/dL AST 17 (5-31) U/L ALT 22 (0-31) U/L Alkaline Phosphatase 132 H (39-117) U/L Troponin I High Sens 5.5 (<3.5-17.0) ng/L Total Protein 7.5 (6.5-8.0) g/dL Albumin 4.1 (3.5-5.0) g/dL Independent Interpretation I performed an independent interpretation of an: EKG Interpretation: Sinus rhythm heart rate is 60 DE QRS QTC within normal limits there is no acute ST segment elevation Radiology Impression Discussion of test interpretation with radiology: I have reviewed the radiologist's reading. External Record Review External record reviewed: Inpatient record Patient's [facility] [facility] record reviewed Chronic Conditions Patient?s care impacted by: Hypertension Hypertension hypercholesterolemia Social Determinants Patient?s care significantly limited by Social Determinants of Health including: Problems related to primary support group Discharge Plan Discharge Clinical Impression: Conversion disorder Patient Disposition: Home, Self-Care Instructions: Conversion Disorder (ED) Prescriptions: No Action Actemra ACTPen 162 mg/0.9 mL pen injector 162 mg subcut Q2W Qty: 1.8 2RF multivitamin Tablet 1 tab PO DAILY Qty: 30 0RF bupropion HCl [Wellbutrin SR] 150 mg tablet sustained-release 12 hr 150 mg PO BID 30 Days Qty: 60 0RF oxcarbazepine 150 mg tablet 150 mg PO BID 30 Days Qty: 60 0RF atorvastatin 10 mg tablet 10 mg PO DAILY 30 Days Qty: 30 0RF oxcarbazepine 300 mg tablet 300 mg PO BID 30 Days Qty: 60 0RF levothyroxine 100 mcg tablet 100 mcg PO DAILY 30 Days Qty: 30 0RF amlodipine 10 mg tablet 10 mg PO DAILY@1800 30 Days Qty: 30 0RF pantoprazole 40 mg tablet,delayed release (DR/EC) 40 mg PO DAILY 30 Days Qty: 30 0RF hydroxyzine HCl 10 mg tablet 20 mg PO BEDTIME trazodone 100 mg tablet 200 mg PO BEDTIME hydroxyzine HCl 10 mg tablet 10 mg PO DAILY PRN (Reason: Anxiety) lamotrigine 200 mg tablet 200 mg PO BID hydrochlorothiazide 25 mg tablet 25 mg PO DAILY lisinopril 5 mg tablet 5 mg PO DAILY desvenlafaxine succinate 100 mg tablet extended release 24 hr 100 mg PO QAM Rx Instructions: after breakfast Referrals: Fadumo Marcum MD [Primary Care Provider] - 03/29/23
[2023-03-27 16:05] VITALS: BP 122/75; PULSE 71; RESP 20; TEMP 37.3; O2SAT 98
[2023-03-27 17:50] VITALS: BP 199/78; PULSE 64; RESP 18; TEMP 36.5; O2SAT 98
== END 2023-03-27 19:05 | disposition home or self-care (01) ==
PROVIDERS: Emergency Provider Emergency Medicine Emergency Medical Services; PCP Internal Medicine
DX: F44.7 Conversion disorder with mixed symptom presentation (principal); R07.89 Other chest pain; R00.1 Bradycardia, unspecified; R42 Dizziness and giddiness; Z79.899 Other long term (current) drug therapy; Z87.891 Personal history of nicotine dependence
CPT/HCPCS: 36415; 70450; 80048; 80053; 80076; 80307; 81001; 84484; 85025; 85652; 86140; 86431; 93005; 99284

== ENCOUNTER 2023-03-29 13:40 | Outpatient (AMB) | payer MEDICARE, OTHER, SELFPAY ==
--- NOTE | 2023-03-29 13:45 | A.OFFVIS_ITS ---
Intake Vital Signs 03/29/23 13:46 Height 5 ft 6 in Weight 253 lb 15.56 oz BMI 41.0 BP 148/72 H Blood Pressure Location Rt brachial Position Sitting Pulse 87 Pulse Source Pulse Oximeter Temp 97.3 F Temp Source Skin Pulse Oximetry (%) 97 Intake Visit Reasons: RA Intake Note: Pt seen today for follow up and lab results. On Actemra states it does nothing. Left ring finger and right big toe painful. Seen in ED on Sunday, following with PCP today. 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 Accompanied by: Self / Same As Patient Allergies methotrexate Allergy (Severe, Verified 03/29/23 13:50) whole body itchy, swelling eyes and lips Penicillins Allergy (Severe, Verified 03/29/23 13:50) HIVES lorazepam [Lorazepam] Allergy (Mild, Verified 03/29/23 13:50) REVERSE EFFECT oxycodone [Oxycodone] Allergy (Mild, Verified 03/29/23 13:50) UNKNOWN deutetrabenazine [From AUSTEDO] Allergy (Unknown, Verified 03/29/23 13:50) TOO MANY SIDE EFFECTS gabapentin [GABAPENTIN] Allergy (Unknown, Verified 03/29/23 13:50) DIZZYNESS, GI ISSUES NSAIDS (Non-Steroidal Anti-Inflamma [NSAIDS (NON-STEROIDAL ANTI-INFLAMMA] Allergy (Unknown, Verified 03/29/23 13:50) LIVER ENZYME ISSUES sulfamethoxazole [From BACTRIM] Allergy (Unknown, Verified 03/29/23 13:50) DIARRHEA trimethoprim [From BACTRIM] Allergy (Unknown, Verified 03/29/23 13:50) DIARRHEA valbenazine [From INGREZZA] Allergy (Unknown, Verified 03/29/23 13:50) INCREASED SLEEP 15-16HRS ANTIBIOTICS Allergy (Unknown, Uncoded 03/29/23 13:50) PT STATED NEED TO GO THRU PCP D/T GASTROPARESIS Medication List - Last Reconciled 03/29/23 by Yaquelin Darden MD amlodipine 10 mg PO DAILY@1800 30 days atorvastatin 10 mg PO DAILY 30 days bupropion HCl (Wellbutrin SR) 150 mg PO BID 30 days desvenlafaxine succinate ER 100 mg PO QAM hydrochlorothiazide 25 mg PO DAILY hydroxyzine HCl 20 mg PO BEDTIME hydroxyzine HCl 10 mg PO DAILY PRN lamotrigine 200 mg PO BID levothyroxine 100 mcg PO DAILY 30 days lisinopril 5 mg PO DAILY multivitamin 1 tab PO DAILY oxcarbazepine 300 mg PO BID 30 days oxcarbazepine 150 mg PO BID 30 days pantoprazole 40 mg PO DAILY 30 days tocilizumab (Actemra ACTPen) 162 mg (0.9 mL) subcut Q2W trazodone 200 mg PO BEDTIME HPI HPI Comments History of Present Illness Details 72-year-old female with seropositive RA (+ RF, +[id number], -ve CCP) returns for follow-up. She continues to have pain and stiffness of both hands. Patient is using the Actemra but it was interrupted due to a brief hospitalization. Due to her tardive dyskinesia she has difficulty with performing the injections. Initial history: This is a 71-year-old female past history hypothyroidism, dyslipidemia, depression, bipolar disorder, dyskinesia presents for evaluation diffuse joint pain. patient had bipolar disorder for many years was on antipsychotic many years. She recently developed tardive dyskinesia which is significantly affecting life. Over the past 6-9 months she has been pain swelling and stiffness hands, wrists, ankles and feet. Pain is generally worse in morning associated morning stiffness lasted few hours. She has dry for years but got worse over last 3 months.She was evaluated by her PCP referred to Rheumatology for evaluation. [facility] Medical History Speech abnormality Weakness Type 2 diabetes mellitus Tremors of nervous system Tardive dyskinesia Sleep apnea Thyroid disease Depression Bipolar 1 disorder Combined hyperlipidemia HTN (hypertension) Surgical History Hx of cholecystectomy H/O shoulder surgery Hx of appendectomy Family History Father No problems noted. Mother No problems noted. Other Family history of rheumatoid arthritis Social History Household Members: Other Housing: Other Housing Other:: Living with nuns in a wing of a convent due to homelessness Do you presently have visiting nurse or other home services: No (Did receive services before partial hospitalization) Unable to assess alcohol history related to: Unable to respond Alcohol intake: never Patient Tobacco Use Status: Former Tobacco user Quit Date: over 50 years ago Tobacco use type: Cigarette e-Cigarette/Vaping Use: Never Used Second Hand Smoke Exposure: No Advance Directives Date on File: 01/21/23 service: No Sexual orientation: Straight/Heterosexual Review of Systems [facility] [place], [place] Reports arthralgias, Reports joint swelling and Reports stiffness Physical Exam Vital Signs: Last Vital Signs Temp 97.3 F 03/29/23 13:46 Pulse 87 03/29/23 13:46 BP 148/72 H 03/29/23 13:46 Pulse Ox 97 03/29/23 13:46 BMI result Body Mass Index 41.0 Const General: cooperative, healthy appearing, comfortable and no acute distress Nutritional Appearance: obese morbidly obese Orientation/consciousness: patient oriented x3 Limitations: ambulation with walker HEENT Head: Yes normocephalic and Yes atraumatic Resp Effort & Inspection: normal respiratory effort and able to speak in complete sentences Skin General skin exam: no rashes or lesions noted Neuro General: patient oriented x3 Extrem Other: Left wrist tenderness & pain with full flexion and extension Bilateral MCP joints tenderness with no significant swelling. Bilateral positive MCP squeeze test Diffuse PIP joint tenderness bilaterally with no significant swelling Right 2nd through 5th MTP tenderness and positive MTP squeeze test. Results Reviewed Results Reviewed: ?MR/MR hand LT wo/w con? 12/08 IMPRESSION: 1. Mild marrow edema within the dorsal aspect of the lunate which may be degenerative or represent an osseous contusion. No associated fracture line. 2. Mild flexor and extensor digitorum tenosynovitis, most prominent within the 3rd flexor digitorum tendon sheath. No transverse tendon tear or tendon retraction. 3. Mild edema along the dorsal aspect of the distal carpal row which could indicate minimal synovitis. No significant joint effusion. Assessment & Plan Assessment & Plan (1) Rheumatoid arthritis: Comment: +RF, -ve on repeat -CCP Dx 07/10 MTX 07/10 (multiple side effects Enbrel 07/10-10/08 ineffective Prednisone effective but causes psychiatric side effects and dizziness Code(s): M06.9 - Rheumatoid arthritis, unspecified Qualifiers: Rheumatoid arthritis location: multiple sites Rheumatoid factor presence: with rheumatoid factor Qualified Code(s): M05.79 - Rheumatoid arthritis with rheumatoid factor of multiple sites without organ or systems involvement Plan: This is a 72-year-old female with seropositive RA (+RF, -ve CCP) who presents for follow-up. She is HLA B27 positive but no symptoms suggestive of inflammatory back pain. No symptoms of psoriasis. No history suggestive of uveitis or IBD. Patient could not tolerate methotrexate due to whole body pain, itchiness, swelling of her eyes lips and severe nausea. Cannot try sulfasalazine due to history of sulfa allergy. Hydroxychloroquine would not be favorable as patient is on multiple QTC prolonging medications. Enbrel tried for 11 weeks without improvement. Her recent hand MRI showing diffuse synovitis/tenosynovitis. Recent inflammatory markers elevated. Patient was started on Actemra last visit however patient cannot inject the bands properly due to her tardive dyskinesia. Discussed switching to IV Actemra. Patient agreed to proceed. Will start prior authorization for IV Actemra 4 milligrams/kilograms every 4 weeks Can take prednisone 5-10 mg once daily as needed for joint pain Infectious screening: Hepatitis panel and T spot -ve 2021 Labs before next visit in 3 months Plan I spent 18 minutes reviewing patient's chart, evaluating patient, ordering diagnostic workup, counseling patient and documenting in the chart Orders: Orders Erythrocyte Sedimentation Rate 3 Months M06.9 - Rheumatoid arthritis, unspecified Complete Blood Count Auto Diff 3 Months M06.9 - Rheumatoid arthritis, unspecified Comprehensive Met. Panel 3 Months M06.9 - Rheumatoid arthritis, unspecified C Reactive Protein 3 Months M06.9 - Rheumatoid arthritis, unspecified Medications: New tocilizumab (Actemra) administer as a 1 hr infusion 461 mg (23.05 mL) IV Q4W 0RF prednisone take 1-2 tabs once daily as needed for joint pain 60 tabs 1RF pain (scale score 7-10) Coding Level of Care Code Est Pt Level 3 (42151) Diagnoses Rheumatoid arthritis involving multiple sites with positive rheumatoid factor M05.79 Rheumatoid arthritis location: multiple sites Rheumatoid factor presence: with rheumatoid factor
[2023-03-29 13:46] VITALS: BP 148/72; PULSE 87; TEMP 36.3; O2SAT 97; BMI 41.0
== END 2023-03-29 14:12 | disposition home or self-care (01) ==
PROVIDERS: Visit Provider Student in an Organized Health Care Education/Training Program
DX: M05.79 Rheumatoid arthritis with rheumatoid factor of multiple sites without organ or systems involvement (principal)
CPT/HCPCS: 99213

== ENCOUNTER → 2023-03-29 13:40 | Outpatient (BNVA) | payer MEDICARE, OTHER, SELFPAY | PROVIDERS: Visit Provider Student in an Organized Health Care Education/Training Program | DX: M05.79 Rheumatoid arthritis with rheumatoid factor of multiple sites without organ or systems involvement (principal) | CPT/HCPCS: 99212 ==

== ENCOUNTER 2023-04-12 15:06 | Outpatient (AMB) | payer MEDICARE, OTHER, SELFPAY ==
--- NOTE | 2023-04-12 15:48 | A.OFFVIS_ITS ---
Intake Vital Signs 04/12/23 15:53 Pulse 77 Pulse Source Pulse Oximeter Pulse Oximetry (%) 97 Oxygen Delivery Method Room Air Intake Visit Reasons: 3 mnts f/u + weakness & Pain complaints-confirmed Intake Note: Pt presents to the office for 3 month follow up for weakness and pain. She states her pain and weakness is unchanged. SHe also states shes been to the ED at [facility] 3 times in under 3 months for seizure like episodes . She states she feels dizzy and sweating after a BM. Allergies methotrexate Allergy (Severe, Verified 04/12/23 15:52) whole body itchy, swelling eyes and lips Penicillins Allergy (Severe, Verified 04/12/23 15:52) HIVES lorazepam [Lorazepam] Allergy (Mild, Verified 04/12/23 15:52) REVERSE EFFECT oxycodone [Oxycodone] Allergy (Mild, Verified 04/12/23 15:52) UNKNOWN deutetrabenazine [From AUSTEDO] Allergy (Unknown, Verified 04/12/23 15:52) TOO MANY SIDE EFFECTS gabapentin [GABAPENTIN] Allergy (Unknown, Verified 04/12/23 15:52) DIZZYNESS, GI ISSUES NSAIDS (Non-Steroidal Anti-Inflamma [NSAIDS (NON-STEROIDAL ANTI-INFLAMMA] Allergy (Unknown, Verified 04/12/23 15:52) LIVER ENZYME ISSUES sulfamethoxazole [From BACTRIM] Allergy (Unknown, Verified 04/12/23 15:52) DIARRHEA trimethoprim [From BACTRIM] Allergy (Unknown, Verified 04/12/23 15:52) DIARRHEA valbenazine [From INGREZZA] Allergy (Unknown, Verified 04/12/23 15:52) INCREASED SLEEP 15-16HRS ANTIBIOTICS Allergy (Unknown, Uncoded 04/12/23 15:52) PT STATED NEED TO GO THRU PCP D/T GASTROPARESIS Medication List - Last Reconciled 04/12/23 by Lata Dunham MD Actemra (tocilizumab) 461 mg (23.05 mL) IV Q4W NS amlodipine 10 mg PO DAILY@1800 30 days atorvastatin 10 mg PO DAILY 30 days bupropion HCl (Wellbutrin SR) 150 mg PO BID 30 days desvenlafaxine succinate ER 100 mg PO QAM hydrochlorothiazide 25 mg PO DAILY hydroxyzine HCl 20 mg PO BEDTIME hydroxyzine HCl 10 mg PO DAILY PRN lamotrigine 200 mg PO BID levothyroxine 100 mcg PO DAILY 30 days lisinopril 5 mg PO DAILY multivitamin 1 tab PO DAILY oxcarbazepine 300 mg PO BID 30 days oxcarbazepine 150 mg PO BID 30 days pantoprazole 40 mg PO DAILY 30 days prednisone take 1-2 tabs once daily as needed for joint pain trazodone 200 mg PO BEDTIME HPI HPI Comments History of Present Illness Details 72 [facility]she has been in the ER 3 times for the past few weeks. The visits are due to speech arrest that lasts for 60minutes . Once she takes hydroxyzine and sleeps for 1 hr and wakes up normal. There was 1 episode where she had left sided numbness. Her tardive dyskinesias are stable.she is under a lot of stress, she sees her therapist twice a week and sees a psychiatrist 1/3 mths. she has been into respite once. she is going through a rough divorce. The split sleep study result reviewed. The baseline portion of the study was significant for moderate degree of sleep apnea with increased severity in REM sleep. The AHI was 19/hr. REM AHI was 61/hr with O2 narinder at 83%. The breathing and oxygenation stabilized on CPAP 6cmH2O. The CPAP compliance and therapy response (01/13/23-04/12/23) reviewed with the patient. Usage days 90 days, usage 43% over 4 hrs average usage hours 5 hours 32 The mean pressure is 6 and AHI 5.2 Pt states that she sleeps well throughout the night with CPAP, but still can have daytime tiredness. she also is going through a divorce and her is trying to prove her incompetent due to mental health issues. [facility] Medical History (Updated 04/12/23 @ 16:09 by Lata Dunham MD) Expressive speech disorder Speech abnormality Weakness Type 2 diabetes mellitus Tremors of nervous system Tardive dyskinesia Sleep apnea Thyroid disease Depression Bipolar 1 disorder Combined hyperlipidemia HTN (hypertension) Surgical History Hx of cholecystectomy H/O shoulder surgery Hx of appendectomy Family History Father No problems noted. Mother No problems noted. Other Family history of rheumatoid arthritis Social History Household Members: Other Housing: Other Housing Other:: Living with nuns in a wing of a convent due to homelessness Do you presently have visiting nurse or other home services: No (Did receive services before partial hospitalization) Unable to assess alcohol history related to: Unable to respond Alcohol intake: never Patient Tobacco Use Status: Former Tobacco user Quit Date: over 50 years ago Tobacco use type: Cigarette e-Cigarette/Vaping Use: Never Used Second Hand Smoke Exposure: No Advance Directives Date on File: 01/21/23 service: No Sexual orientation: Straight/Heterosexual Physical Exam Const General: cooperative, healthy appearing, comfortable and no acute distress Nutritional Appearance: overweight Neck Neck: Yes normal visual inspection and Yes full ROM Neuro Other: No abnormal tongue movements No UE or LE choreiform movements No tremors gait- mild slowness , good stride posture and arm swings Speech- normal General: CN's II-XI intact bilaterally Extrem Other: Psych Affect: No Anxious affect present Assessment & Plan Assessment & Plan (1) Sleep apnea: Comment: Hx of complex sleep apnea, Moderate degree of sleep apnea with increased severity in REM sleep. AHI was 19/hr, REM AHI was 61/hr. Oxygen narinder was 83%. Code(s): G47.30 - Sleep apnea, unspecified (2) Tardive dyskinesia: Code(s): G24.01 - Drug induced subacute dyskinesia Plan: she could not tolerate austedo or ingrezza (3) Weakness: Code(s): R53.1 - Weakness (4) Expressive speech disorder: Code(s): F80.1 - Expressive language disorder Plan Continue CPAP at 6 cm of water She was diagnosed with Rheumatoid arthritis - f/u with Dr. Enriquez Speech therapy EEG Orders: Orders EEG electroencephalogram Today F80.1 - Expressive language disorder Referrals Speech and Hearing Referral F80.1 - Expressive language disorder, R47.9 - Unspecified speech disturbances Medications: New hydroxyzine HCl 25 mg PO TID PRN Coding Level of Care Code Est Pt Level 4 (12943) Diagnoses Sleep apnea G47.30 Tardive dyskinesia G24.01 Weakness R53.1 Expressive speech disorder F80.1
[2023-04-12 15:53] VITALS: PULSE 77; O2SAT 97
== END 2023-04-12 16:19 | disposition home or self-care (01) ==
PROVIDERS: Visit Provider Psychiatry & Neurology Neurology
DX: G47.30 Sleep apnea, unspecified (principal); G24.01 Drug induced subacute dyskinesia; R53.1 Weakness; F80.1 Expressive language disorder
CPT/HCPCS: 99214

== ENCOUNTER → 2023-04-12 15:06 | Outpatient (BNVA) | payer MEDICARE, OTHER, SELFPAY | PROVIDERS: Visit Provider Psychiatry & Neurology Neurology | DX: F80.1 Expressive language disorder (principal); R53.1 Weakness; G47.30 Sleep apnea, unspecified; G24.01 Drug induced subacute dyskinesia; Z99.89 Dependence on other enabling machines and devices; Z59.01 Sheltered homelessness; Z63.5 Disruption of family by separation and divorce | CPT/HCPCS: 99212 ==

== ENCOUNTER 2023-04-14 13:51 | Emergency (ER) | payer MEDICARE, OTHER, SELFPAY ==
--- NOTE | ~2023-04-14 | CT_ITS ---
EXAMINATION: CT HEAD WITHOUT CONTRAST CT CERVICAL SPINE WITHOUT CONTRAST CLINICAL INFORMATION: Unwitnessed fall. COMPARISON: None available. TECHNIQUE: Contiguous axial imaging was performed through the head and cervical spine without intravenous administration of contrast. This CT examination was performed using dose optimization techniques as appropriate, variously including the following: *Automated exposure control *Adjustment of mA and/or kV according to patient size (this includes techniques or standardized protocols for targeted exams where dose is matched to indication/reason for exam; i.e. extremities or head) *Use of iterative reconstruction technique DLP: 1450 mGy-cm FINDINGS: The lateral, third and fourth ventricles are normally outlined. The cortical sulci and basal cisterns are normally outlined as well. There is no acute territorial defect, hemorrhage or midline shift. The extra-axial spaces are unremarkable. Calvarium: Intact. Maxillofacial sinuses and mastoids: There is a large left sphenoid sinus opacity. The mastoids are clear. The remaining maxillofacial sinuses are also clear. Cervical spine: The alignment is within normal limits. There is mild diffuse cervical disc degenerative change most pronounced at C3-C4 with loss of disc space, endplate change and mild osteophyte formation most pronounced at C3-C4 associated mild diffuse facet osteoarthritic hypertrophic change with mild C3-C4 spinal canal narrowing and [id number] left neuroforaminal narrowing. There is no fracture. The soft tissues are unremarkable. Visualized upper lung ceja are clear. CT/CT cervical spine wo IV con IMPRESSION: No acute intracranial abnormality. Mild cervical disc degenerative change. No fracture or malalignment. Sphenoid sinus opacity of uncertain acuity and current significance.
--- NOTE | ~2023-04-14 | CT_ITS ---
EXAMINATION: CT HEAD WITHOUT CONTRAST CT CERVICAL SPINE WITHOUT CONTRAST CLINICAL INFORMATION: Unwitnessed fall. COMPARISON: None available. TECHNIQUE: Contiguous axial imaging was performed through the head and cervical spine without intravenous administration of contrast. This CT examination was performed using dose optimization techniques as appropriate, variously including the following: *Automated exposure control *Adjustment of mA and/or kV according to patient size (this includes techniques or standardized protocols for targeted exams where dose is matched to indication/reason for exam; i.e. extremities or head) *Use of iterative reconstruction technique DLP: 1450 mGy-cm FINDINGS: The lateral, third and fourth ventricles are normally outlined. The cortical sulci and basal cisterns are normally outlined as well. There is no acute territorial defect, hemorrhage or midline shift. The extra-axial spaces are unremarkable. Calvarium: Intact. Maxillofacial sinuses and mastoids: There is a large left sphenoid sinus opacity. The mastoids are clear. The remaining maxillofacial sinuses are also clear. Cervical spine: The alignment is within normal limits. There is mild diffuse cervical disc degenerative change most pronounced at C3-C4 with loss of disc space, endplate change and mild osteophyte formation most pronounced at C3-C4 associated mild diffuse facet osteoarthritic hypertrophic change with mild C3-C4 spinal canal narrowing and [id number] left neuroforaminal narrowing. There is no fracture. The soft tissues are unremarkable. Visualized upper lung ceja are clear. CT/CT head/brain wo IV con IMPRESSION: No acute intracranial abnormality. Mild cervical disc degenerative change. No fracture or malalignment. Sphenoid sinus opacity of uncertain acuity and current significance.
[2023-04-14 13:51] VITALS: BP 150/90; BP 178/70; PULSE 67; PULSE 82; RESP 16; TEMP 36.7; O2SAT 100; O2SAT 97; BMI 47.2
[2023-04-14 13:58] LABS: Glucose, Whole Blood 169 mg/dL (60-115)
--- NOTE | 2023-04-14 13:58 | ECG_ITS ---
Test Reason : AMS Blood Pressure : / mmHG Vent. Rate : 065 BPM Atrial Rate : 065 BPM P-R Int : 180 ms QRS Dur : 080 ms QT Int : 412 ms P-R-T Axes : 012 -05 048 degrees QTc Int : 428 ms Normal sinus rhythm Normal ECG When compared with ECG of 27-MAR-2023 13:28, No significant change was found Referred By: Eb Marley Electronically Signed By:KOKI CURRIE MD
[2023-04-14 14:11] LABS: MANUAL DIFF FLAG NO
[2023-04-14 14:12] LABS: Basophils Absolute Auto 0.1 X10*3/uL (0.0-0.2); Basophils Percent Auto 0.6 % (0-2); Eosinophils Absolute Auto 0.4 X10*3/uL (0.0-0.4); Eosinophils Percent Auto 4.3 % (0-4); Hematocrit 33.8 % (37.0-47.0); Hemoglobin 11.1 g/dl (12.0-16.0); Imm Gran Abs Auto 0.07 X10*3/uL (0.00-0.03); Imm Gran Pct Auto 0.9 % (0.0-0.4); Lymphocytes Percent Auto 12.2 % (20-40); Mean Corpuscular HGB Conc 32.8 g/dl (31.0-35.0); Mean Corpuscular Hemoglobin 26.4 pg (27.0-33.0); Mean Corpuscular Volume 80.5 fL (80.0-98.0); Mean Platelet Volume 9.1 fL (9.4-12.3); Monocytes Percent Auto 12.7 % (2-11); Neutrophils Absolute Auto 5.7 x10*3/uL (2.0-8.3); Neutrophils Percent Auto 69.3 % (45-73); Platelet Count 229 X10*3/uL (160-400); Red Cell Distribution Width 14.8 % (11.0-16.0); White Blood Count 8.2 X10*3/uL (4.8-10.8)
[2023-04-14 14:24] LABS: Alanine Aminotransferase 24 U/L (0-31); Albumin Level 3.9 g/dL (3.5-5.0); Alkaline Phosphatase 136 U/L (39-117); Anion Gap 15 (12-20); Aspartate Amino Transferase 20 U/L (5-31); Bilirubin Total 0.4 mg/dL (0.0-1.0); Blood Urea Nitrogen 15 mg/dL (9-16); Calcium 9.5 mg/dL (8.4-10.2); Carbon Dioxide 25 mmol/L (22-29); Chloride 101 mmol/L (96-108); Creatinine Clr Calc Pharmacy 74.5; Estimated Glomerular Filt Rate > 60; Glucose Random 155 mg/dL (60-115); Potassium 3.6 mmol/L (3.3-5.1); Sodium 137 mmol/L (135-145); Total Protein 7.1 g/dL (6.5-8.0)
--- NOTE | 2023-04-14 14:55 | ED.GENADULT ---
HPI - General Adult General Chief complaint: Seizure Stated complaint: UNRENSPONSIVE Time Seen by Provider: 04/14/23 13:54 Source: EMS Mode of arrival: EMS History of Present Illness HPI narrative: 72-year-old female who comes in with history of hypertension, bipolar disorder/depression from the [facility] via EMS who states that patient was found in the bathroom on the floor with reportedly eye fluttering and nystagmus that then stopped and staff reports that patient was unresponsive but 1246, unclear head strike patient is not on blood thinners. Related Data Home Medications Medication Instructions Recorded Confirmed lamotrigine 200 mg tablet 200 mg PO BID 05/26/22 04/12/23 hydrochlorothiazide 25 mg tablet 25 mg PO DAILY 07/14/22 04/12/23 lisinopril 5 mg tablet 5 mg PO DAILY 07/14/22 04/12/23 desvenlafaxine succinate 100 mg 100 mg PO QAM 01/02/23 04/12/23 tablet,extended release 24 hr trazodone 100 mg tablet 200 mg PO BEDTIME 01/21/23 04/12/23 hydroxyzine HCl 25 mg tablet 25 mg PO TID PRN 04/12/23 04/12/23 Previous Rx's Medication Instructions Recorded amlodipine 10 mg tablet 10 mg PO DAILY@1800 30 days #30 04/06/22 tabs atorvastatin 10 mg tablet 10 mg PO DAILY 30 days #30 tabs 04/06/22 bupropion HCl 150 mg tablet,12 hr 150 mg PO BID 30 days #60 tabs 04/06/22 sustained-release (Wellbutrin SR) levothyroxine 100 mcg tablet 100 mcg PO DAILY 30 days #30 tabs 04/06/22 multivitamin 1 tab PO DAILY #30 tabs 04/06/22 oxcarbazepine 150 mg tablet 150 mg PO BID 30 days #60 tabs 04/06/22 oxcarbazepine 300 mg tablet 300 mg PO BID 30 days #60 tabs 04/06/22 pantoprazole 40 mg tablet,delayed 40 mg PO DAILY 30 days #30 tabs 04/06/22 release prednisone 5 mg tablet See Rx Instructions PO DAILY PRN 03/29/23 pain (scale score 7-10) #60 tabs Actemra 400 mg/20 mL (20 mg/mL) 461 mg (23.05 mL) IV Q4W #20 mL 04/05/23 intravenous solution (tocilizumab) Allergies Allergy/AdvReac Type Severity Reaction Status Date / Time methotrexate Allergy Severe whole body Verified 04/12/23 15:52 itchy, swelling eyes and lips Penicillins Allergy Severe HIVES Verified 04/12/23 15:52 lorazepam [Lorazepam] Allergy Mild REVERSE Verified 04/12/23 15:52 EFFECT oxycodone [Oxycodone] Allergy Mild UNKNOWN Verified 04/12/23 15:52 deutetrabenazine Allergy Unknown TOO MANY Verified 04/12/23 15:52 [From AUSTEDO] SIDE EFFECTS gabapentin [GABAPENTIN] Allergy Unknown DIZZYNESS, Verified 04/12/23 15:52 GI ISSUES NSAIDS (Non-Steroidal Allergy Unknown LIVER Verified 04/12/23 15:52 Anti-Inflamma ENZYME [NSAIDS (NON-STEROIDAL ISSUES ANTI-INFLAMMA] sulfamethoxazole Allergy Unknown DIARRHEA Verified 04/12/23 15:52 [From BACTRIM] trimethoprim [From BACTRIM] Allergy Unknown DIARRHEA Verified 04/12/23 15:52 valbenazine [From INGREZZA] Allergy Unknown INCREASED Verified 04/12/23 15:52 SLEEP 15-16HRS acetaminophen [From Vicodin] Allergy Unknown Verified 04/14/23 14:08 alprazolam [From Xanax] Allergy Unknown Verified 04/14/23 14:08 doxepin Allergy Unknown Verified 04/14/23 14:06 escitalopram [From Lexapro] Allergy Unknown Verified 04/14/23 14:05 estradiol Allergy Unknown Verified 04/14/23 14:09 hydrocodone [From Vicodin] Allergy Unknown Verified 04/14/23 14:08 mirtazapine Allergy Unknown Verified 04/14/23 14:07 pregabalin [From Lyrica] Allergy Unknown Verified 04/14/23 14:07 ramelteon Allergy Unknown Verified 04/14/23 14:08 ANTIBIOTICS Allergy Unknown PT STATED Uncoded 04/12/23 15:52 NEED TO GO THRU PCP D/T GASTROPARESIS Review of Systems Review of Systems: Pertinent positives and negatives as stated in HPI [facility] Past Medical History Source: nursing notes reviewed Medical History (Updated 04/14/23 @ 16:12 by Jennifer Odom MD) Expressive speech disorder Speech abnormality Weakness Type 2 diabetes mellitus Tremors of nervous system Tardive dyskinesia Sleep apnea Thyroid disease Depression Bipolar 1 disorder Combined hyperlipidemia HTN (hypertension) Surgical History Hx of cholecystectomy H/O shoulder surgery Hx of appendectomy Family History Family History Father No problems noted. Mother No problems noted. Other Family history of rheumatoid arthritis Social History Social History Household Members: Other Housing: Other Housing Other:: Living with nuns in a wing of a convent due to homelessness Do you presently have visiting nurse or other home services: No (Did receive services before partial hospitalization) Unable to assess alcohol history related to: Unable to respond Alcohol intake: never Patient Tobacco Use Status: Former Tobacco user Quit Date: over 50 years ago Tobacco use type: Cigarette e-Cigarette/Vaping Use: Never Used Second Hand Smoke Exposure: No Advance Directives: No Advance Directives Information Provided: No Advance Directives Date on File: 01/21/23 service: No Sexual orientation: Straight/Heterosexual Physical Exam ED Vital Signs: Vital Signs - 24 hr 04/14/23 13:51 Temperature 98.1 F Pulse Rate 67 Respiratory Rate 16 Blood Pressure 178/70 H Pulse Oximetry 100 Oxygen Delivery Method Nasal Cannula BMI result Body Mass Index 47.2 VITAL SIGNS: Reviewed. GENERAL: Elevated BMI Well developed, well nourished, in no acute distress. HEAD: Normocephalic/atraumatic EYES: PERRLA, EOMI EARS: Ext canals without abnormality NOSE: Nares patent bilateral OROPHARYNX: no oral lesions noted, posterior pharynx clear NECK: C-collar, no adenopathy LUNGS: Normal breath sounds. No adventitious sounds or accessory muscle use. SpO2<100> CARDIOVASCULAR: Regular rate and rhythm without noted murmurs, no JVD or lower extremity edema. ABDOMEN: Soft, non-tender, non-distended with bowel sounds. MUSCULOSKELETAL: No tenderness, deformities, or effusions noted on gross inspection. EXTREMITIES: No cyanosis, clubbing or edema. SKIN: Inspection of the skin reveals no rashes NEUROLOGIC: Arousable to painful stimuli and strength and sensation to light touch were grossly intact x 4. Medical Decision Making Medical Decision Making [facility] Narrative: 1355: 72-year-old female with history and clinical presentation consistent with unwitnessed fall and unclear whether head strike, she did receive benzodiazepines en route for EMS concern of possible seizure. Will evaluate the patient for infection, anemia, electrolyte abnormalities, or arrhythmias. I reviewed all investigations and hematologic indices are negative for leukocytosis or left shift, there is a slight normocytic anemia without findings or evidence of active bleeding and no thrombocytopenia. Chemistry indices are negative for JORDY and there is no electrolyte or liver enzyme abnormality, chronically elevated alkaline phosphatase. EKG does not demonstrate arrhythmia or STEMI. Signed out to DR Marley - CT head/cervical spine - a straight cath/urinalysis Differential Diagnosis Differential Diagnoses: The differential diagnosis associated with the presentation includes Please see the discussion above Admission/Observation Consideration of admission/observation: Escalation of care including admission/observation considered Please see the discussion above Lab Data [facility] Lab Attestation statement: I reviewed the patient's lab results. Please see the discussion above 04/14/23 13:59 04/14/23 13:59 Labs: Lab Results 04/14/23 04/14/23 Range/Units 13:54 13:59 WBC 8.2 (4.8-10.8) X10*3/uL RBC 4.20 (4.20-5.50) X10*6/uL Hgb 11.1 L (12.0-16.0) g/dl Hct 33.8 L (37.0-47.0) % MCV 80.5 (80.0-98.0) fL MCH 26.4 L (27.0-33.0) pg MCHC 32.8 (31.0-35.0) g/dl RDW 14.8 (11.0-16.0) % Plt Count 229 (160-400) X10*3/uL MPV 9.1 L (9.4-12.3) fL Immature Gran % (Auto) 0.9 H (0.0-0.4) % Neut % (Auto) 69.3 (45-73) % Lymph % (Auto) 12.2 L (20-40) % [place] % (Auto) 12.7 H (2-11) % Eos % (Auto) 4.3 H (0-4) % Baso % (Auto) 0.6 (0-2) % Lymph # (Auto) 1.0 L (1.2-4.9) X10*3/uL [place] # (Auto) 1.0 (0.1-1.2) X10*3/uL Eos # (Auto) 0.4 (0.0-0.4) X10*3/uL Baso # (Auto) 0.1 (0.0-0.2) X10*3/uL Abs Immat Gran (auto) 0.07 H (0.00-0.03) X10*3/uL Absolute Neuts (auto) 5.7 (2.0-8.3) x10*3/uL Absolute Nucleated RBC 0.000 (0.0-0.012) X10*3/uL Nucleated RBC % (auto) 0.0 (0.0-0.2) /100WBC Sodium 137 (135-145) mmol/L Potassium 3.6 (3.3-5.1) mmol/L Chloride 101 (96-108) mmol/L Carbon Dioxide 25 (22-29) mmol/L Anion Gap 15 (12-20) BUN 15 (9-16) mg/dL Creatinine 0.86 (0.5-1.4) mg/dL Estim Creat Clear Calc 74.5 Estimated GFR > 60 POC Glucose 169 H (60-115) mg/dL Random Glucose 155 H (60-115) mg/dL Calcium 9.5 (8.4-10.2) mg/dL Total Bilirubin 0.4 (0.0-1.0) mg/dL AST 20 (5-31) U/L ALT 24 (0-31) U/L Alkaline Phosphatase 136 H (39-117) U/L Total Protein 7.1 (6.5-8.0) g/dL Albumin 3.9 (3.5-5.0) g/dL Independent Interpretation I performed an independent interpretation of an: EKG Interpretation: Normal sinus rhythm, HR-65, no STEMI, AR/QRS/QTC are within normal limits. External Record Review External record reviewed: Outpatient record, Prior outpatient labs and Prior outpatient radiology Chronic Conditions Patient?s care impacted by: Hypertension and Other Bipolar disorder Critical Care Time Critical Care Time Critical Care Time: Yes Total Critical Care Time: 30 Attestation: I personally attest to this time spent taking care of the patient. Discharge Plan Discharge Clinical Impression: Fall Patient Disposition: Still a Patient Instructions: Fall Prevention for Older Adults (ED) Prescriptions: No Action Actemra 400 mg/20 mL (20 mg/mL) solution 461 mg IV Q4W Qty: 20 4RF Rx Instructions: 4 mg/kg every 4 weeks administer as a 1 hour infusion multivitamin Tablet 1 tab PO DAILY Qty: 30 0RF bupropion HCl [Wellbutrin SR] 150 mg tablet sustained-release 12 hr 150 mg PO BID 30 Days Qty: 60 0RF oxcarbazepine 150 mg tablet 150 mg PO BID 30 Days Qty: 60 0RF atorvastatin 10 mg tablet 10 mg PO DAILY 30 Days Qty: 30 0RF oxcarbazepine 300 mg tablet 300 mg PO BID 30 Days Qty: 60 0RF levothyroxine 100 mcg tablet 100 mcg PO DAILY 30 Days Qty: 30 0RF amlodipine 10 mg tablet 10 mg PO DAILY@1800 30 Days Qty: 30 0RF pantoprazole 40 mg tablet,delayed release (DR/EC) 40 mg PO DAILY 30 Days Qty: 30 0RF trazodone 100 mg tablet 200 mg PO BEDTIME lamotrigine 200 mg tablet 200 mg PO BID hydrochlorothiazide 25 mg tablet 25 mg PO DAILY lisinopril 5 mg tablet 5 mg PO DAILY desvenlafaxine succinate 100 mg tablet extended release 24 hr 100 mg PO QAM Rx Instructions: after breakfast hydroxyzine HCl 25 mg tablet 25 mg PO TID PRN prednisone 5 mg tablet See Rx Instructions PO DAILY PRN (Reason: pain (scale score 7-10)) Qty: 60 1RF Rx Instructions: take 1-2 tabs once daily as needed for joint pain
[2023-04-14 16:45] VITALS: BP 180/85; PULSE 63; RESP 14; O2SAT 99
[2023-04-14 16:58] LABS: Appearance Urine Clear; Color Urine Yellow; Glucose Urine UA Negative (Negative); Leukocyte Esterase Urine Negative (Negative); Nitrite Urine Negative (Negative); PH 6.5 (5.0-9.0); Urine Blood Negative (Negative); Urine Ketones Negative (Negative); Urine Protein Negative (Neg-Trace)
[2023-04-14 17:21] VITALS: BP 153/45; BP 154/68; PULSE 60; PULSE 66
[2023-04-14 17:22] VITALS: BP 159/57; PULSE 68
== END 2023-04-14 17:53 | disposition skilled nursing facility (03) ==
PROVIDERS: Student in an Organized Health Care Education/Training Program; Emergency Provider Internal Medicine
DX: Z04.3 Encounter for examination and observation following other accident (principal); R29.6 Repeated falls; Z91.81 History of falling; E11.9 Type 2 diabetes mellitus without complications; I10 Essential (primary) hypertension; Z79.02 Long term (current) use of antithrombotics/antiplatelets; Z79.899 Other long term (current) drug therapy; E78.2 Mixed hyperlipidemia; F31.9 Bipolar disorder, unspecified; M06.9 Rheumatoid arthritis, unspecified; E66.9 Obesity, unspecified; Z68.42 Body mass index [BMI] 45.0-49.9, adult; Z87.891 Personal history of nicotine dependence
CPT/HCPCS: 36415; 51701; 70450; 72125; 80053; 81003; 82947; 85025; 93005; 99284

== ENCOUNTER 2023-04-16 08:32 | Outpatient (REF) | payer MEDICARE, OTHER, SELFPAY ==
[2023-04-16 08:46] LABS: MANUAL DIFF FLAG NO
[2023-04-16 08:54] LABS: Basophils Percent Auto 0.6 % (0-2); Eosinophils Absolute Auto 0.4 X10*3/uL (0.0-0.4); Eosinophils Percent Auto 5.4 % (0-4); Hematocrit 34.2 % (37.0-47.0); Hemoglobin 11.1 g/dl (12.0-16.0); Imm Gran Abs Auto 0.04 X10*3/uL (0.00-0.03); Imm Gran Pct Auto 0.6 % (0.0-0.4); Lymphocytes Absolute Auto 1.4 X10*3/uL (1.2-4.9); Mean Corpuscular HGB Conc 32.5 g/dl (31.0-35.0); Mean Corpuscular Hemoglobin 26.6 pg (27.0-33.0); Mean Platelet Volume 9.1 fL (9.4-12.3); Monocytes Percent Auto 14.1 % (2-11); Neutrophils Percent Auto 59.3 % (45-73); Platelet Count 246 X10*3/uL (160-400); Red Blood Count 4.17 X10*6/uL (4.20-5.50); Red Cell Distribution Width 15.2 % (11.0-16.0); White Blood Count 6.8 X10*3/uL (4.8-10.8)
[2023-04-16 09:15] LABS: Alanine Aminotransferase 20 U/L (0-31); Albumin Level 3.8 g/dL (3.5-5.0); Alkaline Phosphatase 121 U/L (39-117); Anion Gap 16 (12-20); Aspartate Amino Transferase 15 U/L (5-31); Bilirubin Total 0.3 mg/dL (0.0-1.0); Blood Urea Nitrogen 18 mg/dL (9-16); C Reactive Protein 0.95 mg/dL (< or = 0.50); Calcium 9.9 mg/dL (8.4-10.2); Carbon Dioxide 27 mmol/L (22-29); Chloride 101 mmol/L (96-108); Estimated Glomerular Filt Rate > 60; Glucose Random 138 mg/dL (60-115); Potassium 4.4 mmol/L (3.3-5.1); Sodium 140 mmol/L (135-145); Total Protein 6.9 g/dL (6.5-8.0)
== END 2023-04-16 08:33 | disposition home or self-care (01) ==
LOC: HO.LAB 08:32
PROVIDERS: PCP Internal Medicine; Visit Provider Student in an Organized Health Care Education/Training Program
DX: M06.9 Rheumatoid arthritis, unspecified (principal)
CPT/HCPCS: 36415; 80053; 85025; 86140

== ENCOUNTER 2023-05-02 12:48 | Outpatient (REF) | payer MEDICARE, OTHER, SELFPAY ==
--- NOTE | 2023-05-02 12:50 | EEG_ITS ---
FINDINGS: The awaking background activity consists of low-voltage fast frequencies seen anteriorly intermixed with an 8 to 9 hertz posterior alpha frequencies of moderate voltage. Photic stimulation produces symmetrical photic driving from the posterior quadrants. Poorly performed hyperventilation is without activation. No sleep stages are identified. No focal, lateralizing, or paroxysmal discharges are seen. IMPRESSION: This waking EEG is within normal limits. MD DERREK Lilly/KARINA / [id number]
== END 2023-05-02 12:49 | disposition home or self-care (01) ==
LOC: HO.NEURO 12:48
PROVIDERS: PCP Internal Medicine; Visit Provider Psychiatry & Neurology Neurology
DX: F80.1 Expressive language disorder (principal)
CPT/HCPCS: 95816

== ENCOUNTER 2023-06-06 13:18 | Outpatient (AMB) | payer MEDICARE, OTHER, SELFPAY ==
--- NOTE | 2023-06-06 13:28 | MHC.OFFVIS ---
Intake Vital Signs 06/06/23 13:29 Height 5 ft 5 in Weight 254 lb 2 oz BMI 42.3 BP 122/72 Blood Pressure Location Rt brachial Position Sitting Respiration 17 Pulse 78 Pulse Source Pulse Oximeter Pulse Oximetry (%) 99 Oxygen Delivery Method Room Air Intake Visit Reasons: 2 mo f/u weakness & Pain Intake Note: Pt presents tot he office for a 2 month follow up for weakness and pain. Paper Roller Required: No Allergies methotrexate Allergy (Severe, Verified 06/06/23 13:29) whole body itchy, swelling eyes and lips Penicillins Allergy (Severe, Verified 06/06/23 13:29) HIVES lorazepam [Lorazepam] Allergy (Mild, Verified 06/06/23 13:29) REVERSE EFFECT oxycodone [Oxycodone] Allergy (Mild, Verified 06/06/23 13:29) UNKNOWN deutetrabenazine [From AUSTEDO] Allergy (Unknown, Verified 06/06/23 13:29) TOO MANY SIDE EFFECTS gabapentin [GABAPENTIN] Allergy (Unknown, Verified 06/06/23 13:29) DIZZYNESS, GI ISSUES NSAIDS (Non-Steroidal Anti-Inflamma [NSAIDS (NON-STEROIDAL ANTI-INFLAMMA] Allergy (Unknown, Verified 06/06/23 13:29) LIVER ENZYME ISSUES sulfamethoxazole [From BACTRIM] Allergy (Unknown, Verified 06/06/23 13:29) DIARRHEA trimethoprim [From BACTRIM] Allergy (Unknown, Verified 06/06/23 13:29) DIARRHEA valbenazine [From INGREZZA] Allergy (Unknown, Verified 06/06/23 13:29) INCREASED SLEEP 15-16HRS acetaminophen [From Vicodin] Allergy (Verified 06/06/23 13:29) Unknown alprazolam [From Xanax] Allergy (Verified 06/06/23 13:29) Unknown doxepin Allergy (Verified 06/06/23 13:29) Unknown escitalopram [From Lexapro] Allergy (Verified 06/06/23 13:29) Unknown estradiol Allergy (Verified 06/06/23 13:29) Unknown hydrocodone [From Vicodin] Allergy (Verified 06/06/23 13:29) Unknown mirtazapine Allergy (Verified 06/06/23 13:29) Unknown pregabalin [From Lyrica] Allergy (Verified 06/06/23 13:29) Unknown ramelteon Allergy (Verified 06/06/23 13:29) Unknown ANTIBIOTICS Allergy (Unknown, Uncoded 06/06/23 13:29) PT STATED NEED TO GO THRU PCP D/T GASTROPARESIS HPI HPI Comments History of Present Illness Details 73 y/o female patient presents for follow up .she was tested positive for COVID 10 days ago. No episodes of speech arrest in the pats 2 weeks Her PCP suggested that it could be conversion disorder. SHe is also very anxious because of the divorce. Her tardive dyskinesias are stable.she is under a lot of stress, she sees her therapist twice a week and sees a psychiatrist 1/3 mths. The split sleep study result reviewed. The baseline portion of the study was significant for moderate degree of sleep apnea with increased severity in REM sleep. The AHI was 19/hr. REM AHI was 61/hr with O2 narinder at 83%. The breathing and oxygenation stabilized on CPAP 6cmH2O. The CPAP compliance and therapy response (01/13/23-04/12/23) reviewed with the patient. Usage days 90 days, usage 43% over 4 hrs average usage hours 5 hours 32 The mean pressure is 6 and AHI 5.2 Pt states that she sleeps well throughout the night with CPAP, but still can have daytime tiredness. she also is going through a divorce and her is trying to prove her incompetent due to mental health issues. [facility] Medical History Expressive speech disorder Speech abnormality Weakness Type 2 diabetes mellitus Tremors of nervous system Tardive dyskinesia Sleep apnea Thyroid disease Depression Bipolar 1 disorder Combined hyperlipidemia HTN (hypertension) Surgical History Hx of cholecystectomy H/O shoulder surgery Hx of appendectomy Family History Father No problems noted. Mother No problems noted. Other Family history of rheumatoid arthritis Social History Household Members: Other Housing: Other Housing Other:: Living with nuns in a wing of a convent due to homelessness Do you presently have visiting nurse or other home services: No (Did receive services before partial hospitalization) Unable to assess alcohol history related to: Unable to respond Alcohol intake: never Patient Tobacco Use Status: Former Tobacco user Quit Date: over 50 years ago Tobacco use type: Cigarette e-Cigarette/Vaping Use: Never Used Second Hand Smoke Exposure: No Advance Directives Date on File: 01/21/23 service: No Sexual orientation: Straight/Heterosexual Physical Exam Vital Signs: Last Vital Signs Pulse 78 06/06/23 13:29 Resp 17 06/06/23 13:29 BP 122/72 06/06/23 13:29 Pulse Ox 99 06/06/23 13:29 Oxygen Delivery Method Room Air 06/06/23 13:29 BMI result Body Mass Index 42.3 Const General: cooperative, healthy appearing, comfortable and no acute distress Nutritional Appearance: obese Neck Neck: Yes normal visual inspection and Yes full ROM Neuro Other: No abnormal tongue movements No UE or LE choreiform movements No tremors gait- mild slowness , good stride posture and arm swings Speech- normal General: CN's II-XI intact bilaterally Extrem Other: Psych Affect: No Anxious affect present Assessment & Plan Assessment & Plan (1) Sleep apnea: Comment: Hx of complex sleep apnea, Moderate degree of sleep apnea with increased severity in REM sleep. AHI was 19/hr, REM AHI was 61/hr. Oxygen narinder was 83%. Code(s): G47.30 - Sleep apnea, unspecified (2) Tardive dyskinesia: Code(s): G24.01 - Drug induced subacute dyskinesia Plan: she could not tolerate austedo or ingrezza (3) Weakness: Code(s): R53.1 - Weakness (4) Expressive speech disorder: Comment: related to anxiety Code(s): F80.1 - Expressive language disorder Plan Continue CPAP at 6 cm of water She was diagnosed with Rheumatoid arthritis - f/u with Dr. Enriquez continue Psychotherapy EEG- normal Coding Level of Care Code Est Pt Level 4 (07788) Diagnoses Sleep apnea G47.30 Tardive dyskinesia G24.01 Weakness R53.1 Expressive speech disorder F80.1
[2023-06-06 13:29] VITALS: BP 122/72; PULSE 78; RESP 17; O2SAT 99; BMI 42.3
== END 2023-06-06 13:50 | disposition home or self-care (01) ==
PROVIDERS: Visit Provider Psychiatry & Neurology Neurology
DX: G47.30 Sleep apnea, unspecified (principal); G24.01 Drug induced subacute dyskinesia; R53.1 Weakness; F80.1 Expressive language disorder
CPT/HCPCS: 99214

== ENCOUNTER → 2023-06-06 13:18 | Outpatient (BNVA) | payer MEDICARE, OTHER, SELFPAY | PROVIDERS: Visit Provider Psychiatry & Neurology Neurology | DX: G47.30 Sleep apnea, unspecified (principal); G24.01 Drug induced subacute dyskinesia; R53.1 Weakness; F80.1 Expressive language disorder | CPT/HCPCS: 99212 ==

== ENCOUNTER → 2023-07-16 08:10 | Outpatient (BNVA) | payer MEDICARE, OTHER, SELFPAY | PROVIDERS: PCP Internal Medicine; Referring Provider Internal Medicine; Visit Provider Student in an Organized Health Care Education/Training Program | DX: M05.79 Rheumatoid arthritis with rheumatoid factor of multiple sites without organ or systems involvement (principal); M65.342 Trigger finger, left ring finger; Z79.899 Other long term (current) drug therapy | CPT/HCPCS: 20550; 99212 ==

== ENCOUNTER 2023-07-16 08:11 | Outpatient (AMB) | payer MEDICARE, OTHER, SELFPAY ==
--- NOTE | 2023-07-16 08:12 | A.OFFVIS_ITS ---
Intake Vital Signs 07/16/23 08:13 BP 130/86 Blood Pressure Location Lt brachial Position Sitting Pulse 77 Pulse Source Pulse Oximeter Temp 97 F Temp Source Skin Pulse Oximetry (%) 96 Oxygen Delivery Method Room Air Intake Visit Reasons: RA Intake Note: Patient last seen 03/29/23 presents today for follow up and test results. Business Office Assistant Required: No Accompanied by: Self / Same As Patient Allergies methotrexate Allergy (Severe, Verified 07/16/23 08:13) whole body itchy, swelling eyes and lips Penicillins Allergy (Severe, Verified 07/16/23 08:13) HIVES lorazepam [Lorazepam] Allergy (Mild, Verified 07/16/23 08:13) REVERSE EFFECT oxycodone [Oxycodone] Allergy (Mild, Verified 07/16/23 08:13) UNKNOWN deutetrabenazine [From AUSTEDO] Allergy (Unknown, Verified 07/16/23 08:13) TOO MANY SIDE EFFECTS gabapentin [GABAPENTIN] Allergy (Unknown, Verified 07/16/23 08:13) DIZZYNESS, GI ISSUES NSAIDS (Non-Steroidal Anti-Inflamma [NSAIDS (NON-STEROIDAL ANTI-INFLAMMA] Allergy (Unknown, Verified 07/16/23 08:13) LIVER ENZYME ISSUES sulfamethoxazole [From BACTRIM] Allergy (Unknown, Verified 07/16/23 08:13) DIARRHEA trimethoprim [From BACTRIM] Allergy (Unknown, Verified 07/16/23 08:13) DIARRHEA valbenazine [From INGREZZA] Allergy (Unknown, Verified 07/16/23 08:13) INCREASED SLEEP 15-16HRS acetaminophen [From Vicodin] Allergy (Verified 07/16/23 08:13) Unknown alprazolam [From Xanax] Allergy (Verified 07/16/23 08:13) Unknown doxepin Allergy (Verified 07/16/23 08:13) Unknown escitalopram [From Lexapro] Allergy (Verified 07/16/23 08:13) Unknown estradiol Allergy (Verified 07/16/23 08:13) Unknown hydrocodone [From Vicodin] Allergy (Verified 07/16/23 08:13) Unknown mirtazapine Allergy (Verified 07/16/23 08:13) Unknown pregabalin [From Lyrica] Allergy (Verified 07/16/23 08:13) Unknown ramelteon Allergy (Verified 07/16/23 08:13) Unknown ANTIBIOTICS Allergy (Unknown, Uncoded 07/16/23 08:13) PT STATED NEED TO GO THRU PCP D/T GASTROPARESIS Medication List - Last Reconciled 07/16/23 by Yaquelin Darden MD Actemra (tocilizumab) 461 mg (23.05 mL) IV Q4W NS amlodipine 10 mg PO DAILY@1800 30 days atorvastatin 10 mg PO DAILY 30 days bupropion HCl (Wellbutrin SR) 150 mg PO BID 30 days desvenlafaxine succinate ER 100 mg PO QAM hydrochlorothiazide 25 mg PO DAILY hydroxyzine HCl 25 mg PO TID lamotrigine 200 mg PO BID levothyroxine 100 mcg PO DAILY 30 days lisinopril 5 mg PO DAILY multivitamin 1 tab PO DAILY oxcarbazepine 300 mg PO BID 30 days oxcarbazepine 150 mg PO BID 30 days pantoprazole 40 mg PO DAILY 30 days trazodone 200 mg PO BEDTIME HPI HPI Comments History of Present Illness Details 73-year-old female with seropositive RA (+ RF, +[id number], -ve CCP) returns for follow-up. Patient is currently on Actemra infusions. She received 1 infusion so far. Most recent infusion was 3 days ago. She states that she is doing better overall. The middle of the night joint pain and stiffness has resolved. Joint pain significantly improved overall. She feels much better 1st 2 weeks after infusion. She continues to have intermittent pain and swelling of her left hand knuckles. Recently she has been having triggering of her left ring finger. It happens almost daily. She continues to have pain of her big toe. Over the last 3 months or so she has been having pain on the inner aspect of her right thigh. She gets headaches with the Actemra infusion. She takes 2 Advil and Tylenol when she gets home which takes care of the headaches. She had COVID around [place] time, symptoms were mild with some fatigue. She did not get hospitalized. Initial history: This is a 71-year-old female past history hypothyroidism, dyslipidemia, depression, bipolar disorder, dyskinesia presents for evaluation diffuse joint pain. patient had bipolar disorder for many years was on antipsychotic many years. She recently developed tardive dyskinesia which is significantly affecting life. Over the past 6-9 months she has been pain swelling and stiffness hands, wrists, ankles and feet. Pain is generally worse in morning associated morning stiffness lasted few hours. She has dry for years but got worse over last 3 months.She was evaluated by her PCP referred to Rheumatology for evaluation. [facility] Medical History Expressive speech disorder Speech abnormality Weakness Type 2 diabetes mellitus Tremors of nervous system Tardive dyskinesia Sleep apnea Thyroid disease Depression Bipolar 1 disorder Combined hyperlipidemia HTN (hypertension) Surgical History Hx of cholecystectomy H/O shoulder surgery Hx of appendectomy Family History Father No problems noted. Mother No problems noted. Other Family history of rheumatoid arthritis Social History Household Members: Other Housing: Other Housing Other:: Living with nuns in a wing of a convent due to homelessness Do you presently have visiting nurse or other home services: No (Did receive services before partial hospitalization) Unable to assess alcohol history related to: Unable to respond Alcohol intake: never Patient Tobacco Use Status: Former Tobacco user Quit Date: over 50 years ago Tobacco use type: Cigarette e-Cigarette/Vaping Use: Never Used Second Hand Smoke Exposure: No Advance Directives Date on File: 01/21/23 service: No Sexual orientation: Straight/Heterosexual Review of Systems Const Reports headache(s) ENT Reports headache(s) Musc Reports arthralgias, Reports joint swelling, Reports limited range of motion and Reports stiffness Neuro Reports headache(s) Physical Exam Vital Signs: Last Vital Signs Temp 97 F 07/16/23 08:13 Pulse 77 07/16/23 08:13 BP 130/86 07/16/23 08:13 Pulse Ox 96 07/16/23 08:13 Oxygen Delivery Method Room Air 07/16/23 08:13 Const General: cooperative, healthy appearing and comfortable Nutritional Appearance: obese morbidly obese Orientation/consciousness: patient oriented x3 Limitations: ambulation with walker HEENT Head: Yes normocephalic and Yes atraumatic Resp Effort & Inspection: normal respiratory effort and able to speak in complete sentences Skin General skin exam: no rashes or lesions noted Neuro General: patient oriented x3 Extrem Other: Normal range of motion of both shoulders and elbows without pain No wrist tenderness or swelling bilaterally. Normal flexion and extension without pain Left 3rd and 4th MCP tenderness Left 4th flexor tendon tenderness No PIP or DIP tenderness today Right 1st MTP tenderness No MTP tenderness otherwise and negative MTP squeeze test Tenderness to light touch of the right hip adductor muscles Office Procedures Tendon Injection Tendon Injection Details: With patient's consent, The palm of the left hand was prepped with ChloraPrep and alcohol. Under topical ethyl chloride spray the [4th] flexor tendon sheath was injected with 20 mg of triamcinolone and 0.2 cc of 1% lidocaine. The patient tolerated the procedure without any acute complications. [id number] Tendon Sheath Injection All charges added?: Procedure code (CPT) selection complete Results Reviewed Results Reviewed: ?MR/MR hand LT wo/w con? 12/08 IMPRESSION: 1. Mild marrow edema within the dorsal aspect of the lunate which may be degenerative or represent an osseous contusion. No associated fracture line. 2. Mild flexor and extensor digitorum tenosynovitis, most prominent within the 3rd flexor digitorum tendon sheath. No transverse tendon tear or tendon retraction. 3. Mild edema along the dorsal aspect of the distal carpal row which could indicate minimal synovitis. No significant joint effusion. Assessment & Plan Assessment & Plan (1) Rheumatoid arthritis: Comment: +RF, -ve on repeat -CCP Dx 07/10 MTX 07/10 (multiple side effects Enbrel 07/10-10/08 ineffective Prednisone effective but causes psychiatric side effects and dizziness Actemra infusions 4 mg/kg 03/2023 effective Code(s): M06.9 - Rheumatoid arthritis, unspecified Qualifiers: Rheumatoid arthritis location: multiple sites Rheumatoid factor presence: with rheumatoid factor Qualified Code(s): M05.79 - Rheumatoid arthritis with rheumatoid factor of multiple sites without organ or systems involvement Plan: This is a 73-year-old female with seropositive RA (+RF, -ve CCP) who presents for follow-up. She is HLA B27 positive but no symptoms suggestive of inflammatory back pain. No symptoms of psoriasis. No history suggestive of uveitis or IBD. Patient was started on Actemra infusions last visit. She received 4 infusions so far. She is on 4 mg/kg q.4 weeks with significant improvement. She has 2 tender joints on exam today. We discussed potentially increasing her Actemra dose to 6 mg/kg. Patient would like to stay on current dose. Continue current Actemra dose. Infectious screening: Hepatitis panel and T spot -ve 2021 Labs before next visit in 3 months (2) Trigger finger, left: Code(s): M65.30 - Trigger finger, unspecified finger Qualifiers: Trigger finger location: ring finger Qualified Code(s): M65.342 - Trigger finger, left ring finger Plan: Patient's consent, left ring finger was injected in clinic today. (3) High risk medication use: Code(s): Z79.899 - Other snf (current) drug therapy Plan: Monitor safety labs for Actemra. Advised patient to call the clinic if she develops any signs of fever or an infection Plan I spent 35 minutes reviewing patient's chart, evaluating patient, ordering diagnostic workup, counseling patient and documenting in the chart Orders: Orders Comprehensive Met. Panel 3 Months M06.9 - Rheumatoid arthritis, unspecified T Spot TB 3 Months Z11.7 - Encounter for testing for latent tuberculosis infection Complete Blood Count Auto Diff 3 Months M06.9 - Rheumatoid arthritis, unspecified C Reactive Protein 3 Months M06.9 - Rheumatoid arthritis, unspecified Erythrocyte Sedimentation Rate 3 Months M06.9 - Rheumatoid arthritis, unspecified Hepatitis A,B,C Profile 3 Months Z11.59 - Encounter for screening for other viral diseases AMB Injection-Tendon Today M65.30 - Trigger finger, unspecified finger Coding Level of Care Code Est Pt Level 4 (11085) Diagnoses Rheumatoid arthritis involving multiple sites with positive rheumatoid factor M05.79 Rheumatoid arthritis location: multiple sites Rheumatoid factor presence: with rheumatoid factor Trigger ring finger of left hand M65.342 Trigger finger location: ring finger High risk medication use Z79.899 CPT Codes Tendon Injection - Tendon Injection 1: [id number] Tendon Sheath Injection ([id number])
[2023-07-16 08:13] VITALS: BP 130/86; PULSE 77; TEMP 36.1; O2SAT 96
== END 2023-07-16 08:54 | disposition home or self-care (01) ==
PROVIDERS: PCP Internal Medicine; Referring Provider Internal Medicine; Visit Provider Student in an Organized Health Care Education/Training Program
DX: M05.79 Rheumatoid arthritis with rheumatoid factor of multiple sites without organ or systems involvement (principal); M65.342 Trigger finger, left ring finger; Z79.899 Other long term (current) drug therapy
CPT/HCPCS: 20550; 99214

== ENCOUNTER 2023-08-27 11:18 | Day surgery (SDC) | payer MEDICARE, OTHER, SELFPAY ==
--- NOTE | ~2023-08-27 | IR_ITS ---
CLINICAL HISTORY: Poor IV access. Patient requires frequent infusions for rheumatoid arthritis. The patient presents to interventional radiology for placement of a port. PROCEDURES: 1. Real-time ultrasound-guided access into the right internal jugular vein after documentation of selected vessel patency, and permanent image storing in the patient records. 2. Placement of a 6.0 Welsh single-lumen power port. CLINICIAN: Hector Moyer PA-C MEDICATIONS: - Versed 2 mg, Fentanyl 100 mcg, Lidocaine 1% 10 mL SQ -Antibiotics: Clindamycin 600 mg -For additional details, please see nursing flowsheet. Complications: None. Estimated blood loss: <5 ml Specimens: None. Contrast: None. Fluoroscopy time: 2.2 min MODERATE SEDATION TIME: 32 min PROCEDURE NOTE: The procedure, risks, benefits, and alternatives were carefully explained to the patient and written informed consent was obtained. The patient was placed supine on the fluoroscopy table. A timeout was performed. The right neck and chest was prepped and draped in usual sterile fashion. Maximum barrier technique was utilized. Local anesthesia was administered to the access site with 1% lidocaine. Under ultrasound guidance, the right internal jugular vein was accessed with a 5 fr micropuncture set. A 0.035 in wire was advanced into the IVC. A peel-away sheath was advanced over the wire and into the SVC, and the wire was removed. Next, subcutaneous lidocaine was administered to the chest. The port pocket was created after the skin incision, utilizing blunt dissection. Using blunt dissection, a subcutaneous tunnel was created that connects from the port pocket to the venotomy site. Through the peel-away sheath, the 6.0 Welsh port catheter was placed. The catheter position was verified with fluoroscopy to be at the superior vena cava/right atrial junction. The port was connected to the catheter and was placed in the pocket. The venotomy site was closed with a 3-0 Vicryl subcutaneous suture. The port incision site was closed with interrupted 3-0 Vicryl subcutaneous sutures and surgical glue. The port was tested, flushed, and packed with heparin per routine protocol. The patient tolerated the procedure well. The patient was stable after the procedure and was transferred to the PACU. The procedure was performed under moderate sedation and with a dedicated nurse with continuous monitoring of vital signs. A permanent image of the ultrasound the neck and fluoroscopic image of the chest was saved and sent to PACS. FINDINGS: 1. Patent right internal jugular vein 2. Placement of a 6.0 Welsh single lumen power port. 3. Port flushes and aspirates very well with a 10 mL syringe. No pneumothorax. IR/IR cvc insert tunnel w prt/lead advisor IMPRESSION: Placement of a 6.6 Welsh single-lumen power port. PLAN: - The patient will be discharged home when stable by sedation protocol. - Port may be used immediately. This procedure was performed by Hector Moyer PA-C, and directly supervised by Dr. Lino
[2023-08-27 12:10] VITALS: BMI 43.1
[2023-08-27 12:21] LABS: INTERNATIONAL NORM RATIO 0.9 (0.9-1.1); Prothrombin Time 11.4 SEC (11.1-13.3)
[2023-08-27 12:24] LABS: Partial Thromboplastin Time 28.2 SEC (26.0-36.8)
[2023-08-27 14:45] VITALS: BP 179/65; PULSE 62; RESP 16; TEMP 37.2; O2SAT 98
[2023-08-27 15:00] VITALS: BP 176/62; PULSE 72; RESP 16; TEMP 37.1; O2SAT 98
== END 2023-08-27 15:25 | disposition home or self-care (01) ==
PROVIDERS: Physician Assistant Surgical; Student in an Organized Health Care Education/Training Program; PCP Internal Medicine; Visit Provider Student in an Organized Health Care Education/Training Program
DX: Z45.2 Encounter for adjustment and management of vascular access device (principal); M05.79 Rheumatoid arthritis with rheumatoid factor of multiple sites without organ or systems involvement; N17.9 Acute kidney failure, unspecified; Z79.899 Other long term (current) drug therapy
CPT/HCPCS: 36415; 36561; 76937; 85610; 85730; 99152; 99153; C1769; C1788; J0690; J0736; J1642; J1644; J2250; J2310; J3010

== ENCOUNTER → 2023-08-27 13:15 | Outpatient (BNV) | payer MEDICARE, OTHER, SELFPAY | PROVIDERS: PCP Internal Medicine; Visit Provider Physician Assistant Surgical | DX: M05.79 Rheumatoid arthritis with rheumatoid factor of multiple sites without organ or systems involvement (principal); Z78.9 Other specified health status | CPT/HCPCS: 36561; 76937 ==

== ENCOUNTER 2023-09-14 09:22 | Outpatient (REF) | payer MEDICARE, OTHER, SELFPAY ==
[2023-09-14 09:45] LABS: MANUAL DIFF FLAG NO
[2023-09-14 09:47] LABS: Basophils Percent Auto 0.7 % (0-2); Eosinophils Absolute Auto 0.3 X10*3/uL (0.0-0.4); Eosinophils Percent Auto 4.3 % (0-4); Hematocrit 35.1 % (37.0-47.0); Hemoglobin 11.6 g/dl (12.0-16.0); Imm Gran Abs Auto 0.03 X10*3/uL (0.00-0.03); Imm Gran Pct Auto 0.5 % (0.0-0.4); Lymphocytes Absolute Auto 1.3 X10*3/uL (1.2-4.9); Lymphocytes Percent Auto 21.5 % (20-40); Mean Corpuscular Hemoglobin 25.7 pg (27.0-33.0); Mean Corpuscular Volume 77.7 fL (80.0-98.0); Monocytes Absolute Auto 0.9 X10*3/uL (0.1-1.2); Monocytes Percent Auto 14.7 % (2-11); Neutrophils Absolute Auto 3.5 x10*3/uL (2.0-8.3); Neutrophils Percent Auto 58.3 % (45-73); Platelet Count 230 X10*3/uL (160-400); Red Blood Count 4.52 X10*6/uL (4.20-5.50); Red Cell Distribution Width 14.6 % (11.0-16.0)
[2023-09-14 11:17] LABS: Anion Gap 13 (12-20); Blood Urea Nitrogen 14 mg/dL (9-16); C Reactive Protein < 0.04 mg/dL (< or = 0.50); Calcium 9.4 mg/dL (8.4-10.2); Carbon Dioxide 27 mmol/L (22-29); Chloride 96 mmol/L (96-108); Estimated Glomerular Filt Rate 58; Glucose Random 124 mg/dL (60-115); Potassium 3.5 mmol/L (3.3-5.1); Sodium 132 mmol/L (135-145)
[2023-09-14 12:18] LABS: Erythrocyte Sedimentation Rate 2 MM/HR (0-20)
== END 2023-09-14 09:23 | disposition home or self-care (01) ==
LOC: HO.LAB 09:22
PROVIDERS: Visit Provider Student in an Organized Health Care Education/Training Program
DX: M06.9 Rheumatoid arthritis, unspecified (principal); M05.79 Rheumatoid arthritis with rheumatoid factor of multiple sites without organ or systems involvement; E87.1 Hypo-osmolality and hyponatremia
CPT/HCPCS: 36415; 80048; 85025; 85652; 86140

== ENCOUNTER 2023-10-02 17:22 | Inpatient (IN) | payer MEDICARE, OTHER, SELFPAY ==
--- NOTE | ~2023-10-02 | XR_ITS ---
EXAMINATION: XR CHEST CLINICAL INFORMATION: Pain COMPARISON: 03/05/2023 TECHNIQUE: 2 views of the chest were obtained. FINDINGS: No significant abnormality is noted involving the heart, lungs, mediastinum, bony thorax or soft tissues. Since the prior study of 03/05/2023, a right chest wall port has been placed via the jugular vein with its tip in the SVC. Incidental note made of 2 suture anchors in the right humeral head. XR/XR chest 2V IMPRESSION: No acute intrathoracic disease. Interval placement of right chest wall port.
[2023-10-02 18:12] VITALS: BP 194/79; PULSE 71; RESP 16; TEMP 36.3; O2SAT 97; BMI 44.0
--- NOTE | 2023-10-02 18:14 | ED.GENADULT ---
HPI - General Adult General Chief complaint: General Medical Stated complaint: swollen chest port Time Seen by Provider: 10/02/23 23:58 Source: patient Mode of arrival: ambulatory Limitations: no limitations History of Present Illness HPI narrative: 73-year-old female with a past medical history of expressive speech disorder, weakness, diabetes, tardive dyskinesia, sleep apnea, thyroid disease, depression, bipolar disorder, hyperlipidemia, hypertension, hypothyroidism, rheumatoid arthritis treated monthly Actemra infusions who presents for evaluation pain over her right chest access port. Patient states that she gets monthly infusions of Actemra and had a right chest access port placed on 08/27/2023 by [facility] [place] interventional radiology secondary to poor venous access continued need for IV infusions. She states that the access port was used proximally 4 weeks ago. She states that 1 week prior she noticed redness over the area of the access port. She states that she has had progressive increased redness and pain. She states area over the access port is puffy as well and is extremely tender to palpation. She states that last night she was unable to sleep secondary to the severity of the pain. She states she called her instructional technology specialist and was advised to go to the emergency department for evaluation. The patient states she is feeling lightheaded and dizzy. She denied fever, chills, rhinorrhea, sore throat, shortness of breath, dyspnea on exertion. She states that she is having nausea secondary to the pain but has had no vomiting. She states she has chronic myalgias and arthralgias secondary to her rheumatoid arthritis. Patient states that she is a fall risk and fell 2 times last week but she is uncertain if she hit her chest during 1 of her falls. Related Data Home Medications ?Medication ?Instructions ?Recorded ?Confirmed lamotrigine 200 mg tablet 200 mg PO BID 05/26/22 06/15/23 hydrochlorothiazide 25 mg tablet 25 mg PO DAILY 07/14/22 06/15/23 lisinopril 5 mg tablet 5 mg PO DAILY 07/14/22 06/15/23 desvenlafaxine succinate 100 mg 100 mg PO QAM 01/02/23 06/15/23 tablet,extended release 24 hr trazodone 100 mg tablet 200 mg PO BEDTIME 01/21/23 06/15/23 hydroxyzine HCl 25 mg tablet 25 mg PO TID as directed 01/29/24 Previous Rx's ?Medication ?Instructions ?Recorded amlodipine 10 mg tablet 10 mg PO DAILY@1800 30 days #30 04/06/22 tabs atorvastatin 10 mg tablet 10 mg PO DAILY 30 days #30 tabs 04/06/22 bupropion HCl 150 mg tablet,12 hr 150 mg PO BID 30 days #60 tabs 04/06/22 sustained-release (Wellbutrin SR) levothyroxine 100 mcg tablet 100 mcg PO DAILY 30 days #30 tabs 04/06/22 multivitamin 1 tab PO DAILY #30 tabs 04/06/22 oxcarbazepine 150 mg tablet 150 mg PO BID 30 days #60 tabs 04/06/22 oxcarbazepine 300 mg tablet 300 mg PO BID 30 days #60 tabs 04/06/22 pantoprazole 40 mg tablet,delayed 40 mg PO DAILY 30 days #30 tabs 04/06/22 release Actemra 400 mg/20 mL (20 mg/mL) 461 mg (23.05 mL) IV Q4W #20 mL 04/05/23 intravenous solution (tocilizumab) Allergies Allergy/AdvReac Type Severity Reaction Status Date / Time methotrexate Allergy Severe whole body Verified 10/02/23 18:17 itchy, swelling eyes and lips Penicillins Allergy Severe HIVES Verified 10/02/23 18:17 lorazepam [Lorazepam] Allergy Mild REVERSE Verified 10/02/23 18:17 EFFECT oxycodone [Oxycodone] Allergy Mild UNKNOWN Verified 10/02/23 18:17 deutetrabenazine Allergy Unknown TOO MANY Verified 10/02/23 18:17 [From [place]] SIDE EFFECTS gabapentin [GABAPENTIN] Allergy Unknown DIZZYNESS, Verified 10/02/23 18:17 GI ISSUES NSAIDS (Non-Steroidal Allergy Unknown LIVER Verified 10/02/23 18:17 Anti-Inflamma ENZYME [NSAIDS (NON-STEROIDAL ISSUES ANTI-INFLAMMA] sulfamethoxazole Allergy Unknown DIARRHEA Verified 10/02/23 18:17 [From BACTRIM] trimethoprim [From BACTRIM] Allergy Unknown DIARRHEA Verified 10/02/23 18:17 valbenazine [From INGREZZA] Allergy Unknown INCREASED Verified 10/02/23 18:17 SLEEP 15-16HRS acetaminophen [From Vicodin] Allergy Unknown Verified 10/02/23 18:17 alprazolam [From Xanax] Allergy Unknown Verified 10/02/23 18:17 doxepin Allergy Unknown Verified 10/02/23 18:17 escitalopram [From Lexapro] Allergy Unknown Verified 10/02/23 18:17 estradiol Allergy Unknown Verified 10/02/23 18:17 hydrocodone [From Vicodin] Allergy Unknown Verified 10/02/23 18:17 mirtazapine Allergy Unknown Verified 10/02/23 18:17 pregabalin [From Lyrica] Allergy Unknown Verified 10/02/23 18:17 ramelteon Allergy Unknown Verified 10/02/23 18:17 ANTIBIOTICS Allergy Unknown PT STATED Uncoded 07/16/23 08:13 NEED TO GO THRU PCP D/T GASTROPARESIS Review of Systems Review of Systems: Yes all other systems are reviewed and are negative [facility] Past Medical History [facility] Narrative: Social history: She denies tobacco use, she states that she has a former smoker but quit 50 years prior. She denies alcohol and drug use Medical History Expressive speech disorder Speech abnormality Weakness Type 2 diabetes mellitus Tremors of nervous system Tardive dyskinesia Sleep apnea Thyroid disease Depression Bipolar 1 disorder Combined hyperlipidemia HTN (hypertension) Surgical History Hx of cholecystectomy H/O shoulder surgery Hx of appendectomy Family History Family History Father No problems noted. Mother No problems noted. Other Family history of rheumatoid arthritis Social History Social History Household Members: Other Housing: Other Housing Other:: Living with nuns in a wing of a convent due to homelessness Do you presently have visiting nurse or other home services: No (Did receive services before partial hospitalization) Unable to assess alcohol history related to: Unable to respond Alcohol intake: never Patient Tobacco Use Status: Former Tobacco user Quit Date: over 50 years ago Tobacco use type: Cigarette e-Cigarette/Vaping Use: Never Used Second Hand Smoke Exposure: No Advance Directives: No Advance Directives Information Provided: No Advance Directives Date on File: 01/21/23 service: No Sexual orientation: Straight/Heterosexual Physical Exam ED Vital Signs: Vital Signs - 24 hr 10/02/23 18:12 10/02/23 23:47 Temperature 97.3 F 98.2 F Pulse Rate 71 63 Respiratory Rate 16 18 Blood Pressure 194/79 H 186/76 H Pulse Oximetry 97 99 Oxygen Delivery Method Room Air Room Air BMI result Body Mass Index 44.0 Vital signs revealed an elevated blood pressure of 194/79 Exam: General: Awake, alert in no distress, weight 120 kg elevated BMI of kg/m2 Head: Normocephalic, atraumatic EENT: PERRL, Lids normal, sclera normal, conjunctiva normal, nose normal , ears normal, throat without erythema or exudates Neck: Supple, no adenopathy Lung: breath sounds symmetric, no wheezing, rales or rhonchi Chest: Patient has erythema with slight increased warmth and soft tissue swelling over the right chest access port. The area is very tender to palpation. Heart: regular rate and rhythm, normal S1, S2 no murmurs or rubs Abdomen: soft, non-tender, nondistended, normal bowel sounds Back: no vertebral tenderness, no CVAT Extremities: no deformities, moves all extremities symmetrically Neuro: Awake, alert, oriented, normal speech, cranial nerves intact, moves all extremities symmetrically Psych: Pleasant, cooperative Course Course Course Narrative: RME- 73 year old female presents for evaluation of redness, swelling and pain around her right chest power port. This was placed on 08/27/23 for infusions for rheumatoid arthritis. ? She does not have cancer. On exam, the area is erythematous and edematous. Plan for blood cultures x3, 1 from the port as well as labs and a chest x-ray Medical Decision Making Medical Decision Making MDM Narrative: 73-year-old female with a past medical history of expressive speech disorder, weakness, diabetes, tardive dyskinesia, sleep apnea, thyroid disease, depression, bipolar disorder, hyperlipidemia, hypertension, hypothyroidism, rheumatoid arthritis treated monthly Actemra infusions who presents for evaluation pain, swelling and erythema over her right chest access port x 1 week. Patient's last infusion was 4 weeks prior. Patient's pain became worse last night to the point where she was unable to sleep. Patient's access port was placed on 08/27/2023 by [facility] – [place] interventional radiology. She denied fever, chills, shortness of breath or dyspnea on exertion. Differential diagnosis: ?Includes but is not limited to cellulitis, infected access port, anemia, electrolyte abnormalities Following evaluation was ordered: CBC, CMP, lipase, lactic acid, blood cultures x2, CRP, ESR, CK, chest x-ray two view Patient was initially treated with the following: Ceftriaxone 1 g IV, vancomycin 2 g IV, morphine 4 mg IV, normal saline at 150 mL/hr Course: 00:54 My interpretation patient's laboratory evaluation is as follows: WBC normal 6800 with normal differential, anemia with an H&H of 11.2 and 34.6-chronic. Low sodium 133. Elevated glucose 149. LFTs were normal. Lipase was normal. Patient's physical findings are concerning for possible infected access port, patient was treated with the above antibiotics. I did discuss admission text with the covering hospitalist, Dr. Villagran. Admission/Observation Consideration of admission/observation: Escalation of care including admission/observation considered Consult Healthcare Provider Management of the patient was discussed with: Hospitalist Lab Data MDM Lab Attestation statement: I reviewed the patient's lab results. 10/02/23 18:50 10/02/23 18:50 Labs: Lab Results 10/02/23 Range/Units 18:50 WBC 6.8 (4.8-10.8) X10*3/uL RBC 4.36 (4.20-5.50) X10*6/uL Hgb 11.2 L (12.0-16.0) g/dl Hct 34.6 L (37.0-47.0) % MCV 79.4 L (80.0-98.0) fL MCH 25.7 L (27.0-33.0) pg MCHC 32.4 (31.0-35.0) g/dl RDW 15.4 (11.0-16.0) % Plt Count 210 (160-400) X10*3/uL MPV 9.3 L (9.4-12.3) fL Immature Gran % (Auto) 0.6 H (0.0-0.4) % Neut % (Auto) 66.6 (45-73) % Lymph % (Auto) 17.7 L (20-40) % [place] % (Auto) 11.3 H (2-11) % Eos % (Auto) 3.2 (0-4) % Baso % (Auto) 0.6 (0-2) % Lymph # (Auto) 1.2 (1.2-4.9) X10*3/uL [place] # (Auto) 0.8 (0.1-1.2) X10*3/uL Eos # (Auto) 0.2 (0.0-0.4) X10*3/uL Baso # (Auto) 0.0 (0.0-0.2) X10*3/uL Abs Immat Gran (auto) 0.04 H (0.00-0.03) X10*3/uL Absolute Neuts (auto) 4.6 (2.0-8.3) x10*3/uL Absolute Nucleated RBC 0.000 (0.0-0.012) X10*3/uL Nucleated RBC % (auto) 0.0 (0.0-0.2) /100WBC Sodium 133 L (135-145) mmol/L Potassium 3.3 (3.3-5.1) mmol/L Chloride 97 (96-108) mmol/L Carbon Dioxide 29 (22-29) mmol/L Anion Gap 10 L (12-20) BUN 12 (9-16) mg/dL Creatinine 1.02 (0.5-1.4) mg/dL Estim Creat Clear Calc 63.7 Estimated GFR 53 Random Glucose 149 H (60-115) mg/dL Lactic Acid 1.0 (0.5-2.0) mmol/L Calcium 9.4 (8.4-10.2) mg/dL Total Bilirubin 0.4 (0.0-1.0) mg/dL AST 18 (5-31) U/L ALT 24 (0-31) U/L Alkaline Phosphatase 65 (39-117) U/L Total Protein 7.1 (6.5-8.0) g/dL Albumin 4.1 (3.5-5.0) g/dL Lipase 15 (8-78) U/L Independent Interpretation I performed an independent interpretation of an: Plain X-Ray Interpretation: My independent interpretation of the patient's two view chest x-ray is as follows: No acute disease, Port-A-Cath is lives in the right chest-do not clearly see PowerPort markings Radiology Impression Discussion of test interpretation with radiology: I have reviewed the radiologist's reading. Radiologist Impression: EXAMINATION: XR CHEST FINDINGS: No significant abnormality is noted involving the heart, lungs, mediastinum, bony thorax or soft tissues. Since the prior study of 03/05/2023, a right chest wall port has been placed via the jugular vein with its tip in the SVC. Incidental note made of 2 suture anchors in the right humeral head. IMPRESSION: No acute intrathoracic disease. Interval placement of right chest wall port. Dictated By: Nnamdi Lainez MD Discharge Plan Discharge Prescriptions: No Action Actemra 400 mg/20 mL (20 mg/mL) solution 461 mg IV Q4W Qty: 20 4RF Rx Instructions: 4 mg/kg every 4 weeks administer as a 1 hour infusion multivitamin Tablet 1 tab PO DAILY Qty: 30 0RF bupropion HCl [Wellbutrin SR] 150 mg tablet sustained-release 12 hr 150 mg PO BID 30 Days Qty: 60 0RF oxcarbazepine 150 mg tablet 150 mg PO BID 30 Days Qty: 60 0RF atorvastatin 10 mg tablet 10 mg PO DAILY 30 Days Qty: 30 0RF oxcarbazepine 300 mg tablet 300 mg PO BID 30 Days Qty: 60 0RF levothyroxine 100 mcg tablet 100 mcg PO DAILY 30 Days Qty: 30 0RF amlodipine 10 mg tablet 10 mg PO DAILY@1800 30 Days Qty: 30 0RF pantoprazole 40 mg tablet,delayed release (DR/EC) 40 mg PO DAILY 30 Days Qty: 30 0RF trazodone 100 mg tablet 200 mg PO BEDTIME lamotrigine 200 mg tablet 200 mg PO BID hydrochlorothiazide 25 mg tablet 25 mg PO DAILY lisinopril 5 mg tablet 5 mg PO DAILY desvenlafaxine succinate 100 mg tablet extended release 24 hr 100 mg PO QAM Rx Instructions: after breakfast hydroxyzine HCl 25 mg tablet 25 mg PO TID Print Language: Yakut
[2023-10-02 19:03] LABS: MANUAL DIFF FLAG NO
[2023-10-02 19:04] LABS: Basophils Percent Auto 0.6 % (0-2); Eosinophils Absolute Auto 0.2 X10*3/uL (0.0-0.4); Eosinophils Percent Auto 3.2 % (0-4); Hematocrit 34.6 % (37.0-47.0); Hemoglobin 11.2 g/dl (12.0-16.0); Imm Gran Abs Auto 0.04 X10*3/uL (0.00-0.03); Imm Gran Pct Auto 0.6 % (0.0-0.4); Lymphocytes Absolute Auto 1.2 X10*3/uL (1.2-4.9); Lymphocytes Percent Auto 17.7 % (20-40); Mean Corpuscular HGB Conc 32.4 g/dl (31.0-35.0); Mean Corpuscular Hemoglobin 25.7 pg (27.0-33.0); Mean Corpuscular Volume 79.4 fL (80.0-98.0); Mean Platelet Volume 9.3 fL (9.4-12.3); Monocytes Absolute Auto 0.8 X10*3/uL (0.1-1.2); Monocytes Percent Auto 11.3 % (2-11); Neutrophils Absolute Auto 4.6 x10*3/uL (2.0-8.3); Neutrophils Percent Auto 66.6 % (45-73); Platelet Count 210 X10*3/uL (160-400); Red Blood Count 4.36 X10*6/uL (4.20-5.50); Red Cell Distribution Width 15.4 % (11.0-16.0); White Blood Count 6.8 X10*3/uL (4.8-10.8)
[2023-10-02 19:20] LABS: Alanine Aminotransferase 24 U/L (0-31); Albumin Level 4.1 g/dL (3.5-5.0); Alkaline Phosphatase 65 U/L (39-117); Anion Gap 10 (12-20); Aspartate Amino Transferase 18 U/L (5-31); Bilirubin Total 0.4 mg/dL (0.0-1.0); Blood Urea Nitrogen 12 mg/dL (9-16); Calcium 9.4 mg/dL (8.4-10.2); Carbon Dioxide 29 mmol/L (22-29); Chloride 97 mmol/L (96-108); Creatinine Clr Calc Pharmacy 63.7; Estimated Glomerular Filt Rate 53; Glucose Random 149 mg/dL (60-115); Lipase 15 U/L (8-78); Potassium 3.3 mmol/L (3.3-5.1); Sodium 133 mmol/L (135-145); Total Protein 7.1 g/dL (6.5-8.0)
[2023-10-02 23:47] VITALS: BP 186/76; PULSE 63; RESP 18; TEMP 36.8; O2SAT 99
[2023-10-03] VITALS (10 sets, daily range): BP systolic 145–180; BP diastolic 52–75; PULSE 58–70; RESP 12–20; TEMP 35.8–36.9; O2SAT 95–98
[2023-10-03 01:13] LABS: C Reactive Protein < 0.10 mg/dL (< or = 0.50)
--- NOTE | 2023-10-03 01:38 | PC.NURSE ---
antibiotics late admin d/t patient being a difficulty stick. ultrasound guided iv placed in RFA #20g.
[2023-10-03] MEDS: Morphine Sulfate 4 MG/ML CARTRIDGE IVPUSH (01:56)
[2023-10-03] MEDS: cefTRIAXone sodium 1 GM in 0.9 % Sodium Chloride 50 ML IV ×2 (01:57→21:16)
[2023-10-03 02:09] LABS: Appearance Urine Clear; Color Urine Yellow; Glucose Urine UA Negative (Negative); Leukocyte Esterase Urine Small (1+) (Negative); Nitrite Urine Negative (Negative); Specific Gravity - Urine 1.015 (1.005-1.025); UMIC TRIGGER UACC YES; Urine Blood Negative (Negative); Urine Ketones Negative (Negative); Urine Protein Negative (Neg-Trace)
--- NOTE | 2023-10-03 02:19 | P.HPHOSP_ITS ---
History of Present Illness Date of Service: 10/03/23 Attending physician on admission: Michael Alvares Chief Complaint: Right chest wall pain Eloisa Chopra this is a 73 years old woman with past medical history significant for RA on Actemra infusions via right chest port, dyskinesia, speech abnormalities, sleep apnea on CPAP, hypothyroidism, bipolar disorder, obesity, hyperlipidemia and essential hypertension complaining of pain around her right chest area (over port insertion area) that started last Sunday associated with redness and swelling. Patient described the pain as very severe to the point that she has been unable to sleep. She did not report fever or chills but mentioned feeling dizzy and nauseous. Denied events of vomiting or abdominal pain. She did not report any acute cardiopulmonary symptoms. Last time she received an infusion of Actemra was 4 weeks ago and stated that the catheter was inserted 6 weeks ago (August 27, 2023) by Interventional Radiology. In the ED, she was found to have stable vital signs, however there is hypertension. Last blood pressure is 186/73. There is no tachycardia or fever noted. O2 sats are normal on room air. Blood workup showed no leukocytosis. ESR is normal (5). There is no lactic acidosis. Corrected sodium is 134. There are no other electrolyte imbalances. Creatinine is 1.02. Glucose 149. LFTs, CRP and lipase are normal. CXR is negative; right chest wall port noted with tip in the SVC. ED tx: Ceftriaxone 1 g IV, vancomycin 2 g IV, morphine 4 mg IV. Blood cultures obtained. Review of Systems 2 Review of Systems: All 12 systems were reviewed and normal except as noted in HPI. [facility] Medical History (Updated 10/03/23 @ 03:43 by Michael Alvares MD) Obesity MERRITT (obstructive sleep apnea) Expressive speech disorder Speech abnormality Weakness Type 2 diabetes mellitus Tremors of nervous system Tardive dyskinesia Sleep apnea Thyroid disease Depression Bipolar 1 disorder Combined hyperlipidemia HTN (hypertension) Family History Father No problems noted. Mother No problems noted. Other Family history of rheumatoid arthritis Surgical History Hx of cholecystectomy H/O shoulder surgery Hx of appendectomy Social History Household Members: Other Housing: Other Housing Other:: Living with nuns in a wing of a convent due to homelessness Do you presently have visiting nurse or other home services: No (Did receive services before partial hospitalization) Unable to assess alcohol history related to: Unable to respond Alcohol intake: never Patient Tobacco Use Status: Former Tobacco user Quit Date: over 50 years ago Tobacco use type: Cigarette e-Cigarette/Vaping Use: Never Used Second Hand Smoke Exposure: No Advance Directives: No Advance Directives Information Provided: No Advance Directives Date on File: 01/21/23 service: No Sexual orientation: Straight/Heterosexual Meds Allergies Allergy/AdvReac Type Severity Reaction Status Date / Time methotrexate Allergy Severe whole body Verified 10/02/23 18:17 itchy, swelling eyes and lips Penicillins Allergy Severe HIVES Verified 10/02/23 18:17 lorazepam [Lorazepam] Allergy Mild REVERSE Verified 10/02/23 18:17 EFFECT oxycodone [Oxycodone] Allergy Mild UNKNOWN Verified 10/02/23 18:17 deutetrabenazine Allergy Unknown TOO MANY Verified 10/02/23 18:17 [From [place]] SIDE EFFECTS gabapentin [GABAPENTIN] Allergy Unknown DIZZYNESS, Verified 10/02/23 18:17 GI ISSUES NSAIDS (Non-Steroidal Allergy Unknown LIVER Verified 10/02/23 18:17 Anti-Inflamma ENZYME [NSAIDS (NON-STEROIDAL ISSUES ANTI-INFLAMMA] sulfamethoxazole Allergy Unknown DIARRHEA Verified 10/02/23 18:17 [From BACTRIM] trimethoprim [From BACTRIM] Allergy Unknown DIARRHEA Verified 10/02/23 18:17 valbenazine [From INGREZZA] Allergy Unknown INCREASED Verified 10/02/23 18:17 SLEEP 15-16HRS acetaminophen [From Vicodin] Allergy Unknown Verified 10/02/23 18:17 alprazolam [From Xanax] Allergy Unknown Verified 10/02/23 18:17 doxepin Allergy Unknown Verified 10/02/23 18:17 escitalopram [From Lexapro] Allergy Unknown Verified 10/02/23 18:17 estradiol Allergy Unknown Verified 10/02/23 18:17 hydrocodone [From Vicodin] Allergy Unknown Verified 10/02/23 18:17 mirtazapine Allergy Unknown Verified 10/02/23 18:17 pregabalin [From Lyrica] Allergy Unknown Verified 10/02/23 18:17 ramelteon Allergy Unknown Verified 10/02/23 18:17 ANTIBIOTICS Allergy Unknown PT STATED Uncoded 07/16/23 08:13 NEED TO GO THRU PCP D/T GASTROPARESIS Active Medications: Current Medications Amlodipine Besylate (Amlodipine Besylate 10 Mg Tablet) 10 mg PO DAILY@1800 [facility]; Protocol Atorvastatin Calcium (Atorvastatin Calcium 10 Mg Tablet) 10 mg PO DAILY [facility] Hydrochlorothiazide (Hydrochlorothiazide 25 Mg Tablet) 25 mg PO DAILY [facility]; Protocol Hydroxyzine HCl (Hydroxyzine Hcl 50 Mg Tablet) 50 mg PO BEDTIME [facility] Hydroxyzine HCl (Hydroxyzine Hcl 25 Mg Tablet) 25 mg PO DAILY [facility] Vancomycin HCl (Vancomycin/Ns) 2,000 mg in 500 mls @ 250 mls/hr IV ONCE ONE Stop: 10/03/23 02:30 Sodium Chloride (Ns) 1,000 mls @ 150 mls/hr IVCONT .Q6H40M [facility] Lamotrigine (Lamotrigine 100 Mg Tablet) 200 mg PO BID [facility] Levothyroxine Sodium (Levothyroxine Sodium 100 Mcg Tablet) 100 mcg PO DAILY [facility] Lisinopril (Lisinopril 5 Mg Tablet) 5 mg PO DAILY [facility]; Protocol Non-Formulary Medication (Bupropion Hcl [Wellbutrin Sr]) 150 mg PO BID [facility] Non-Formulary Medication (Desvenlafaxine Succinate) 100 mg PO QAM [facility] Non-Formulary Medication (Pantoprazole) 40 mg PO DAILY [facility] Oxcarbazepine (Oxcarbazepine 150 Mg Tablet) 150 mg PO BID [facility] Oxcarbazepine (Oxcarbazepine 300 Mg Tablet) 300 mg PO BID [facility] Pharmacy Consult (Consult Rx Vancomycin Dosing) 1 each MISCELLANE DAILY PRN PRN Reason: Consult order Sodium Chloride (0.9 % Sodium Chloride Flush 3 Ml Syringe) 3 ml IVFLUSH QSHIFT [facility] Home Medications ?Medication ?Instructions ?Recorded ?Confirmed ?Last Taken ?Type lamotrigine 200 mg tablet 200 mg PO BID 05/26/22 10/03/23 01/21/23 History hydrochlorothiazide 25 mg tablet 25 mg PO DAILY 07/14/22 10/03/23 01/21/23 History lisinopril 5 mg tablet 5 mg PO DAILY 07/14/22 06/15/2323 History desvenlafaxine succinate 100 mg 100 mg PO QAM 01/02/23 10/03/23 01/21/23 History tablet,extended release 24 hr trazodone 100 mg tablet 200 mg PO BEDTIME 01/21/23 06/15/23 Unknown History hydroxyzine HCl 25 mg tablet 25 mg PO DAILY as directed 07/16/23 10/03/23 Unknown History hydroxyzine HCl 25 mg tablet 50 mg PO BEDTIME 10/03/23 10/03/23 Unknown History levothyroxine 100 mcg tablet 100 mcg PO DAILY 10/03/23 10/03/23 Unknown History lisinopril 5 mg tablet 5 mg PO DAILY 10/03/23 10/03/23 Unknown History oxcarbazepine 150 mg tablet 150 mg PO BID 10/03/23 10/03/23 Unknown History oxcarbazepine 300 mg tablet 300 mg PO BID 10/03/23 10/03/23 Unknown History pantoprazole 40 mg tablet,delayed 40 mg PO DAILY 10/03/23 10/03/23 Unknown History release trazodone 100 mg tablet 200 mg PO BEDTIME PRN insomia 10/03/23 10/03/23 Unknown History Physical Exam 2 Vital Signs and Narrative: Vital Signs: Last Vital Signs Temp 98.2 F 10/02/23 23:47 Pulse 63 10/02/23 23:47 Resp 18 10/02/23 23:47 BP 186/76 H 10/02/23 23:47 Pulse Ox 99 10/02/23 23:47 O2 Del Method Room Air 10/02/23 23:47 BMI result Body Mass Index 44.0 Constitutional - Awake and Alert, No apparent distress. Obese. Cooperative and pleasant. Afebrile. HEEENT - Pupils equally round. Normal sclerae. Heart - S1S2, RRR. Lung - Normal lung expansion, Normal respiratory effort, No respiratory distress, CTA bilaterally Chest - Right wall over port area: Erythema and exquisite tenderness to palpation + increased warmth: Abdomen - NT / ND; +BS; No rebound or guarding Extremities - No edema or tenderness. Musculoskeletal - Normal inspection, normal ROM Skin - Warm/Dry Neurological - Alert & oriented x3, CN II-XII in tact, 5/5 strength BUE and BLE Psychological - Appropriate affect Results Labs 10/02/23 18:50 10/02/23 18:50 Labs: Laboratory Results - last 24 hr 10/02/23 10/03/23 18:50 02:03 MCV 79.4 L MCH 25.7 L MCHC 32.4 RDW 15.4 Plt Count 210 MPV 9.3 L Immature Gran % (Auto) 0.6 H Neut % (Auto) 66.6 Lymph % (Auto) 17.7 L [place] % (Auto) 11.3 H Eos % (Auto) 3.2 Baso % (Auto) 0.6 Lymph # (Auto) 1.2 [place] # (Auto) 0.8 Eos # (Auto) 0.2 Baso # (Auto) 0.0 Abs Immat Gran (auto) 0.04 H Absolute Neuts (auto) 4.6 Absolute Nucleated RBC 0.000 Nucleated RBC % (auto) 0.0 Anion Gap 10 L Estim Creat Clear Calc 63.7 Estimated GFR 53 Random Glucose 149 H Lactic Acid 1.0 Calcium 9.4 Total Bilirubin 0.4 AST 18 ALT 24 Alkaline Phosphatase 65 Total Creatine Kinase 82 C-Reactive Protein < 0.10 Total Protein 7.1 Albumin 4.1 Lipase 15 Urine Color Yellow Urine Appearance Clear Urine pH 7.0 Ur Specific [place] 1.015 Urine Protein Negative Urine Glucose (UA) Negative Urine Ketones Negative Urine Blood Negative Urine Nitrite Negative Ur Leukocyte Esterase Small (1+) H Imaging Radiologist's Impressions: Impressions Chest X-Ray 10/02/23 18:35 IMPRESSION: No acute intrathoracic disease. Interval placement of right chest wall port. Assessment and Plan (1) Infected venous access port: Qualifiers: Encounter type: initial encounter Qualified Code(s): T80.219A - Unspecified infection due to central venous catheter, initial encounter Status: Acute (2) Hyponatremia: Status: Acute (3) Expressive speech disorder: Status: Acute (4) Bipolar II disorder: Status: Acute (5) Thyroid disease: Status: Acute (6) Depression: Qualifiers: Depression Type: other depression Qualified Code(s): F32.89 - Other specified depressive episodes Status: Acute (7) Bipolar 1 disorder: Status: Acute (8) Combined hyperlipidemia: Status: Acute (9) HTN (hypertension): Qualifiers: Hypertension type: primary hypertension Qualified Code(s): I10 - Essential (primary) hypertension Status: Acute (10) MERRITT (obstructive sleep apnea): Status: Acute (11) Obesity: Qualifiers: Obesity type: due to excess calories Serious obesity comorbidity presence: with serious comorbidity Body mass index: BMI 40.0-44.9 Obesity classification: adult class 3 (BMI >= 40) Qualified Code(s): E66.01 - Morbid (severe) obesity due to excess calories; Z68.41 - Body mass index [BMI] 40.0- 44.9, adult Status: Acute Plan Eloisa Chopra this is a 73 years old woman with PMHx significant for RA on Actemra infusions via right chest port admitted with: * Right chest wall cellulitis/subcutaneous port pocket infection. No SIRS criteria: No tachycardia, no fever, no tachypnea or leukocytosis. Inflammatory markers are normal. Admit to hospitalist service. Continue empiric IV antibiotic therapy with ceftriaxone and vancomycin. Blood cultures were obtained -will follow results. IR consult to determine the need to replace or remove catheter/port. * Hyponatremia, minimal (134). Recheck in the morning. * Essential hypertension. Continue lisinopril, HCTZ and amlodipine. * Hypothyroidism. Continue levothyroxine. * Hyperlipidemia. Continue statin. * Obstructive sleep apnea. Nocturnal CPAP. * Bipolar disorder/depression. Continue bupropion, Pristiq, oxcarbazepine (non formulary -pt will bring her own med) and lamotrigine. * Insomnia. Trazodone as needed. * Anxiety. Continue hydroxyzine. * Obesity. BMI 44.0 kg/m2. Weight loss. * Anemia, chronic. Continue to monitor. * Rheumatoid arthritis. On Actemra infusions q4 wks. * Tardive dyskinesia and expressive speech disorder. At baseline. Continue F/U by neurology as an outpatient. DVT prophylaxis: SCDs Code status: Full Patient will station for least 2 midnights for right chest wall cellulitis therapy with IV antibiotics as well as evaluation by IR for possible poor removal or replacement. Quality Stroke Does the patient have a stroke diagnosis?: No VTE Prior VTE?: No VTE Risk Level:: Medical - moderate - high VTE Device Contraindication: N/A - Device Ordered VTE Drug Contraindication: Treatment Not Indicated
[2023-10-03 02:27] LABS: Erythrocyte Sedimentation Rate 5 MM/HR (0-20)
[2023-10-03] MEDS: 0.9 % Sodium Chloride 1,000 ML 150 ML IVCONT (02:32)
[2023-10-03] MEDS: vancomycin/NS 2,000 MG/500 ML PLAST..BAG 250 MG IV (02:34)
[2023-10-03] MEDS: OXcarbazepine 300 MG TABLET PO ×3 (02:37→19:46)
[2023-10-03] MEDS: OXcarbazepine 150 MG TABLET PO ×3 (02:37→19:46)
[2023-10-03] MEDS: lamoTRIgine 100 MG TABLET 200 MG PO ×3 (02:37→19:47)
[2023-10-03] MEDS: hydrOXYzine HCL 50 MG TABLET PO ×2 (02:37→19:45)
[2023-10-03 02:59] LABS: Bacteria Urine None Seen (None Seen); Hyaline Casts Urine 0-2 /LPF (0-2); RBC Urine 0-2 /HPF (0-2); Squamous Epithelial Cell Urine 0-2 /HPF (0-2); UACC Culture Trigger YES; WBC Urine 0-5 /HPF (0-5)
[2023-10-03 06:29] LABS: MANUAL DIFF FLAG NO
[2023-10-03 06:45] LABS: Basophils Percent Auto 0.3 % (0-2); Eosinophils Absolute Auto 0.2 X10*3/uL (0.0-0.4); Eosinophils Percent Auto 2.9 % (0-4); Hematocrit 31.3 % (37.0-47.0); Imm Gran Abs Auto 0.02 X10*3/uL (0.00-0.03); Imm Gran Pct Auto 0.3 % (0.0-0.4); Lymphocytes Absolute Auto 1.3 X10*3/uL (1.2-4.9); Lymphocytes Percent Auto 21.6 % (20-40); Mean Corpuscular HGB Conc 31.9 g/dl (31.0-35.0); Mean Corpuscular Hemoglobin 25.6 pg (27.0-33.0); Mean Corpuscular Volume 80.1 fL (80.0-98.0); Mean Platelet Volume 9.5 fL (9.4-12.3); Monocytes Absolute Auto 0.8 X10*3/uL (0.1-1.2); Monocytes Percent Auto 13.3 % (2-11); Neutrophils Absolute Auto 3.6 x10*3/uL (2.0-8.3); Neutrophils Percent Auto 61.6 % (45-73); Platelet Count 183 X10*3/uL (160-400); Red Blood Count 3.91 X10*6/uL (4.20-5.50); Red Cell Distribution Width 15.5 % (11.0-16.0); White Blood Count 5.9 X10*3/uL (4.8-10.8)
[2023-10-03 06:51] LABS: Anion Gap 9 (12-20); Blood Urea Nitrogen 10 mg/dL (9-16); Calcium 8.5 mg/dL (8.4-10.2); Carbon Dioxide 28 mmol/L (22-29); Chloride 101 mmol/L (96-108); Creatinine Clr Calc Pharmacy 79.2; Estimated Glomerular Filt Rate > 60; Glucose Random 129 mg/dL (60-115); Potassium 3.1 mmol/L (3.3-5.1); Sodium 135 mmol/L (135-145)
--- NOTE | 2023-10-03 07:48 | PHA.PROG ---
Admission Date/Time: October 03, 2023 01:57 Indication:Skin Weight in k kg Adjusted body weight in Kg: [place] body weight in Kg: Obesity Dosing Indication % IBW: Serum Creatinine - Last 168 Hours 10/02/23 10/03/23 18:50 06:03 Creatinine 1.02 0.82 Estimated CrCl and GFR - Last 168 Hours 10/02/23 10/03/23 18:50 06:03 Estim Creat Clear Calc 63.7 79.2 Estimated GFR 53 > 60 Vancomycin Loading Dose: 2000mg x 1 Current Vancomycin Dosing Regimen: 1500mg Q24H Vancomycin Monitoring using AUC goal of 400 - 600 range with trough as surrogate marker: 492 mg/L Date and Time for next Vancomycin Level to be drawn: 10/04 @2100 Pharmacist Comments on Vancomycin Plan: Jailyn's BMI = 44, obese model being used in [employer]. Predicted trough of 13.1 mg/L. Will continue to monitor renal function and adjust accordingly Vancomycin dosing will take advantage of [employer] as a clinical decision support tool that uses Bayesian modeling to calculate individual patient's pharmacokinetic parameters and forecast the patient's drug concentration time course with the target goal AUC 24 range of 400 - 600 mg/L/hr.
--- NOTE | 2023-10-03 08:21 | PM.EVENT ---
Event Note Date of Service: 10/03/23 Event Note: Patient seen and examined in ED. 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 Patient developed right chest wall discomfort 2 days ago. Denies fevers. Currently afebrile, no tachycardia or hypotension. Faint erythema in chest wall with some induration. Blood cultures taken in ED. Recommend IV antibiotics and observation for at least 24 hr. If symptoms worsen or blood cultures become positive, will remove port. Patient understands current plan. Will continue to follow. Full dictation to follow. Hector JENSEN Interventional Radiology Time Spent With Patient Time: Total time managing care of this patient today ____ minutes.
[2023-10-03] MEDS: buPROPion HCl XL 300 MG TAB.ER.24H PO (08:50)
[2023-10-03] MEDS: Venlafaxine HCl ER 150 MG CAP.ER.24H PO (08:51)
[2023-10-03] MEDS: Potassium Chloride ER 20 MEQ TAB.ER.PRT 40 MEQ PO (08:51)
[2023-10-03] MEDS: Atorvastatin Calcium 10 MG TABLET PO (08:51)
[2023-10-03] MEDS: lisinopriL 5 MG TABLET PO (08:51)
[2023-10-03] MEDS: hydrOXYzine HCL 25 MG TABLET PO (08:51)
[2023-10-03] MEDS: hydroCHLOROthiazide 25 MG TABLET PO (08:51)
[2023-10-03] MEDS: Omeprazole 20 MG CAPSULE.DR PO (08:52)
[2023-10-03] MEDS: Levothyroxine Sodium 100 MCG TABLET PO (08:52)
[2023-10-03] MEDS: Acetaminophen 325 MG TABLET 975 MG PO (08:55)
--- NOTE | 2023-10-03 09:04 | PHA.MEDREC ---
Pharmacy Consult ? Medication Reconciliation Pharmacy has reviewed the medication reconciliation, also spoke to patient and added in melatonin 10 mg qhs.
--- NOTE | 2023-10-03 09:52 | MHC.CM.PN ---
pt from [facility] where she will return when dcd
--- NOTE | 2023-10-03 14:20 | P.EN_ITS ---
Event Note Date of Service: 10/03/23 Event Note: Eloisa Chopra this is a 73 years old woman with PMHx significant for RA on Actemra infusions via right chest port admitted with: Right chest wall cellulitis ? subcutaneous port pocket infection. No SIRS criteria: No tachycardia, no fever, no tachypnea or leukocytosis. Inflammatory markers are normal likely due to Actemra Continue IV ceftriaxone and vancomycin day 1 Blood cultures pending Case discussed with IR CAMILA Moyer he recommend to follow blood cultures and check the response with IV antibiotics for 24 hours ID consult obtained Placed on IV Dilaudid and oxycodone Acute mild Hyponatremia, resolved Acute hypokalemia will replete and follow Essential hypertension. Continue lisinopril, HCTZ and amlodipine. Hypothyroidism. Continue levothyroxine. Hyperlipidemia. Continue statin. Obstructive sleep apnea. Nocturnal CPAP. Bipolar disorder/depression. Continue bupropion, Pristiq, oxcarbazepine (non formulary -pt will bring her own med) and lamotrigine. Insomnia. Trazodone as needed. Anxiety. Continue hydroxyzine. Morbid Obesity. BMI 44.0 kg/m2. Weight loss. Anemia, chronic. Continue to monitor. Rheumatoid arthritis. On Actemra infusions q4 wks. Tardive dyskinesia and expressive speech disorder. At baseline. Continue F/U by neurology as an outpatient. DVT prophylaxis: SCDs Code status: Radiology Receptionist Spent With Patient Time: Total time managing care of this patient today ____ minutes.
[2023-10-03] MEDS: HYDROmorphone HCl 0.5 MG/0.5 ML SYRINGE IVPUSH (14:59)
--- NOTE | 2023-10-03 18:09 | PC.NURSE ---
Patient feels like she's having a weird reaction to Dilaudid feels like she has electricity running through her with racing thoughts. Dr. Dubon notified.
--- NOTE | 2023-10-03 18:48 | PC.NURSE ---
Dr. Dubon discontinued dilaudid ordered oxycodone instead. Patient c/o that she thinks she's getting tardive dyskinesia (per pt) she's feels like she's going crazy. notified she is going to room to see her.
--- NOTE | 2023-10-03 19:26 | PC.NURSE ---
Patient doses not need to be on personnel monitor per Dr. Dubon
[2023-10-03] MEDS: diphenhydrAMINE HCL 50 MG/ML VIAL 25 MG IVPUSH (19:44)
[2023-10-03] MEDS: amLODIPine Besylate 10 MG TABLET PO (19:46)
--- NOTE | 2023-10-03 21:25 | PC.NURSE ---
BENADRYL DOSE WAS ADMINISTERED ORDERED,PATIENT REPORTED NOT BEING ABLE TO STAY STILL SINCE DILAUDID WAS ADMINISTERED IN ED,REPORTS GOOD EFFECT FROM BENADRYL
[2023-10-03] MEDS: vancomycin HCL 1,500 MG in 0.9 % Sodium Chloride 500 ML 333.33 MG IV (22:06)
--- NOTE | 2023-10-03 23:38 | W.PM.IDCN ---
History of Present Illness Data of Consult Service Date: 10/03/23 Requesting physician: Shahram Dubon Primary Care Provider: Fadumo Marcum MD HPI Reason for consult: right chest wall discomfort She presents with right chest wall discomfort over port. She [place] [facility]. She describes poor venous access and lack of response to injectable medication for rheumatoid arthritis. She sees Dr Jara. She lives at [facility]. She reports redness started at port 5 days ago. She had infusion four weeks ago here first time port accessed. She had no trauma to port. Review of Systems Review of Systems: Yes all other systems are reviewed and are negative PMFSH Past Medical History Medical History Obesity MERRITT (obstructive sleep apnea) Expressive speech disorder Speech abnormality Weakness Type 2 diabetes mellitus Tremors of nervous system Tardive dyskinesia Sleep apnea Thyroid disease Depression Bipolar 1 disorder Combined hyperlipidemia HTN (hypertension) Family History Family History Father No problems noted. Mother No problems noted. Other Family history of rheumatoid arthritis Family history: reviewed and not pertinent Surgical History Surgical History Hx of cholecystectomy H/O shoulder surgery Hx of appendectomy Social History Social History Household Members: Other Housing: Assisted Living Facility Housing Other:: Living with nuns in a wing of a convent due to homelessness Do you presently have visiting nurse or other home services: No Unable to assess alcohol history related to: Unable to respond Alcohol intake: never Patient Tobacco Use Status: Former Tobacco user Quit Date: 55 years ago Tobacco use type: Cigarette e-Cigarette/Vaping Use: Never Used Second Hand Smoke Exposure: No Advance Directives Date on File: 01/21/23 service: No Sexual orientation: Straight/Heterosexual Meds Allergies Allergy/AdvReac Type Severity Reaction Status Date / Time methotrexate Allergy Severe whole body Verified 10/02/23 18:17 itchy, swelling eyes and lips Penicillins Allergy Severe HIVES Verified 10/02/23 18:17 lorazepam [Lorazepam] Allergy Mild REVERSE Verified 10/02/23 18:17 EFFECT oxycodone [Oxycodone] Allergy Mild UNKNOWN Verified 10/02/23 18:17 deutetrabenazine Allergy Unknown TOO MANY Verified 10/02/23 18:17 [From [place]] SIDE EFFECTS gabapentin [GABAPENTIN] Allergy Unknown DIZZYNESS, Verified 10/02/23 18:17 GI ISSUES NSAIDS (Non-Steroidal Allergy Unknown LIVER Verified 10/02/23 18:17 Anti-Inflamma ENZYME [NSAIDS (NON-STEROIDAL ISSUES ANTI-INFLAMMA] sulfamethoxazole Allergy Unknown DIARRHEA Verified 10/02/23 18:17 [From BACTRIM] trimethoprim [From BACTRIM] Allergy Unknown DIARRHEA Verified 10/02/23 18:17 valbenazine [From INGREZZA] Allergy Unknown INCREASED Verified 10/02/23 18:17 SLEEP 15-16HRS acetaminophen [From Vicodin] Allergy Unknown Verified 10/02/23 18:17 alprazolam [From Xanax] Allergy Unknown Verified 10/02/23 18:17 doxepin Allergy Unknown Verified 10/02/23 18:17 escitalopram [From Lexapro] Allergy Unknown Verified 10/02/23 18:17 estradiol Allergy Unknown Verified 10/02/23 18:17 hydrocodone [From Vicodin] Allergy Unknown Verified 10/02/23 18:17 mirtazapine Allergy Unknown Verified 10/02/23 18:17 pregabalin [From Lyrica] Allergy Unknown Verified 10/02/23 18:17 ramelteon Allergy Unknown Verified 10/02/23 18:17 ANTIBIOTICS Allergy Unknown PT STATED Uncoded 07/16/23 08:13 NEED TO GO THRU PCP D/T GASTROPARESIS Active Medications: Current Medications Acetaminophen (Acetaminophen 325 Mg Tablet) 975 mg PO Q6H PRN PRN Reason: Pain, Severe (Pain Scale 7-10) Last Admin: 10/03/23 08:55 Dose: 975 mg Amlodipine Besylate (Amlodipine Besylate 10 Mg Tablet) 10 mg PO DAILY@1800 [facility]; Protocol Last Admin: 10/03/23 19:46 Dose: 10 mg Atorvastatin Calcium (Atorvastatin Calcium 10 Mg Tablet) 10 mg PO DAILY [facility] Last Admin: 10/03/23 08:51 Dose: 10 mg Bupropion HCl (Bupropion Hcl Xl 300 Mg Tab.Er.24h) 300 mg PO DAILY [facility] Last Admin: 10/03/23 08:50 Dose: 300 mg Hydrochlorothiazide (Hydrochlorothiazide 25 Mg Tablet) 25 mg PO DAILY [facility]; Protocol Last Admin: 10/03/23 08:51 Dose: 25 mg Hydroxyzine HCl (Hydroxyzine Hcl 50 Mg Tablet) 50 mg PO BEDTIME [facility] Last Admin: 10/03/23 19:45 Dose: 50 mg Hydroxyzine HCl (Hydroxyzine Hcl 25 Mg Tablet) 25 mg PO DAILY [facility] Last Admin: 10/03/23 08:51 Dose: 25 mg Ceftriaxone Sodium 1 gm/ (Sodium Chloride) 50 mls @ 100 mls/hr IV Q24H [facility] Last Infusion: 10/03/23 21:54 Dose: Infused Vancomycin HCl 1,500 mg/ (Sodium Chloride) 500 mls @ 333.333 mls/hr IV Q24H [facility] Last Admin: 10/03/23 22:06 Dose: 333.33 mls/hr Lamotrigine (Lamotrigine 100 Mg Tablet) 200 mg PO BID [facility] Last Admin: 10/03/23 19:47 Dose: 200 mg Levothyroxine Sodium (Levothyroxine Sodium 100 Mcg Tablet) 100 mcg PO DAILY@0630 [facility] Last Admin: 10/03/23 08:52 Dose: 100 mcg Lisinopril (Lisinopril 5 Mg Tablet) 5 mg PO DAILY [facility]; Protocol Last Admin: 10/03/23 08:51 Dose: 5 mg Morphine Sulfate (Morphine Sulfate 4 Mg/Ml Cartridge) 4 mg IVPUSH Q4H PRN; Protocol PRN Reason: Pain, Severe (Pain Scale 7-10) Omeprazole (Omeprazole 20 Mg Capsule.Dr) 20 mg PO DAILY [facility] Last Admin: 10/03/23 08:52 Dose: 20 mg Ondansetron HCl (Ondansetron Hcl 4 Mg/2 Ml Vial) 4 mg IVPUSH Q6H PRN PRN Reason: Nausea and Vomiting Oxcarbazepine (Oxcarbazepine 150 Mg Tablet) 150 mg PO BID [facility] Last Admin: 10/03/23 19:46 Dose: 150 mg Oxcarbazepine (Oxcarbazepine 300 Mg Tablet) 300 mg PO BID [facility] Last Admin: 10/03/23 19:46 Dose: 300 mg Oxycodone HCl (Oxycodone Hcl Immed Release 5 Mg Tablet) 7.5 mg PO Q4H PRN PRN Reason: Pain, Moderate(Pain Scale 4-6) Pharmacy Consult (Consult Rx Vancomycin Dosing) 1 each MISCELLANE DAILY PRN PRN Reason: Consult order Sodium Chloride (0.9 % Sodium Chloride Flush 3 Ml Syringe) 3 ml IVFLUSH QSHIFT [facility] Last Admin: 10/03/23 15:51 Dose: Not Given Venlafaxine HCl (Venlafaxine Hcl Er 150 Mg Cap.Er.24h) 150 mg PO DAILY [facility] Last Admin: 10/03/23 08:51 Dose: 150 mg Home Medications ?Medication ?Instructions ?Recorded ?Confirmed ?Last Taken ?Type lamotrigine 200 mg tablet 200 mg PO BID 05/26/22 10/03/23 01/21/23 History hydrochlorothiazide 25 mg tablet 25 mg PO DAILY 07/14/22 10/03/23 01/21/23 History desvenlafaxine succinate 100 mg 100 mg PO QAM 01/02/23 10/03/23 01/21/23 History tablet,extended release 24 hr hydroxyzine HCl 25 mg tablet 25 mg PO DAILY as directed 07/16/23 10/03/23 Unknown History hydroxyzine HCl 25 mg tablet 50 mg PO BEDTIME 10/03/23 10/03/23 Unknown History levothyroxine 100 mcg tablet 100 mcg PO DAILY 10/03/23 10/03/23 Unknown History lisinopril 5 mg tablet 5 mg PO DAILY 10/03/23 10/03/23 Unknown History melatonin 10 mg tablet 10 mg PO BEDTIME 10/03/23 10/03/23 10/01/23 History oxcarbazepine 150 mg tablet 150 mg PO BID 10/03/23 10/03/23 Unknown History oxcarbazepine 300 mg tablet 300 mg PO BID 10/03/23 10/03/23 Unknown History pantoprazole 40 mg tablet,delayed 40 mg PO DAILY 10/03/23 10/03/23 Unknown History release trazodone 100 mg tablet 200 mg PO BEDTIME PRN insomia 10/03/23 10/03/23 Unknown History Physical Exam Vital Signs: Vital Signs: Last Vital Signs Temp 97.2 F 10/03/23 22:21 Pulse 70 10/03/23 22:21 Resp 18 10/03/23 22:21 BP 148/67 H 10/03/23 22:21 Pulse Ox 98 10/03/23 22:21 O2 Del Method Room Air 10/03/23 22:21 BMI result Body Mass Index 44.0 Const: General: cooperative HEENT: Head: Yes normal to inspection Face and sinus: Yes normal facial exam Mouth: Normal oral and palatal mucosa present Teeth and gingiva: dentition normal Eyes: General: appearance normal, both eyes and all related structures Pupils: Equal, round and reactive pupils present Resp: Effort & Inspection: normal respiratory effort Cardio: Rate: regular rate Rhythm: regular rhythm GI: Palpation (GI): Soft to palpation and nontender : General: Yes no CVA tenderness Back/Spine/Pelvis: Back: no CVA tenderness Skin: General skin exam: no rashes or lesions noted Neuro: General: moves all extremities Cranial nerves: Yes Equal, round and reactive pupils present Extrem: Other: redness over port area and fullness but no ballotable fluid General: Yes normal to inspection Psych: Appearance: grossly normal Results Labs 10/03/23 06:03 10/03/23 06:03 Labs: Short CBC 10/03/23 Range/Units 06:03 WBC 5.9 (4.8-10.8) X10*3/uL Hgb 10.0 L (12.0-16.0) g/dl Hct 31.3 L (37.0-47.0) % Plt Count 183 (160-400) X10*3/uL BMP 10/03/23 06:03 Sodium 135 Potassium 3.1 L Chloride 101 Carbon Dioxide 28 BUN 10 Creatinine 0.82 Calcium 8.5 D Cardiac Enzymes 10/02/23 Range/Units 18:50 Total Creatine Kinase 82 (26-140) U/L Urine 10/03/23 Range/Units 02:03 Urine Color Yellow Urine Appearance Clear Urine pH 7.0 (5.0-9.0) Ur Specific [place] 1.015 (1.005-1.025) Urine Protein Negative (Neg-Trace) mg/dL Urine Glucose (UA) Negative (Negative) mg/dL Microbiology Microbiology Results: Microbiology 10/02/23 18:50 Blood - Venous Blood Culture - Preliminary No growth after 24 hours. Assessment and Plan (1) Infected venous access port: Qualifiers: Encounter type: initial encounter Qualified Code(s): T80.219A - Unspecified infection due to central venous catheter, initial encounter Status: Acute (2) Rheumatoid arthritis: Qualifiers: Rheumatoid arthritis location: multiple sites Rheumatoid factor presence: with rheumatoid factor Qualified Code(s): M05.79 - Rheumatoid arthritis with rheumatoid factor of multiple sites without organ or systems involvement Status: Chronic Plan She has significantly reddened port area even though there is no drainable abscess on imaging or exam. She has possible staph or strep infection. Ceftriaxone and Vancomycin,duration until improvement. Remove Port tomorrow.
[2023-10-03] MEDS: 0.9 % Sodium Chloride Flush 3 ML SYRINGE IVFLUSH (23:50)
[2023-10-04] MEDS: Acetaminophen 325 MG TABLET 975 MG PO ×3 (01:27→18:15)
[2023-10-04] MEDS: Levothyroxine Sodium 100 MCG TABLET PO (05:45)
[2023-10-04 06:00] VITALS: BP 176/80; PULSE 79; RESP 20; TEMP 36.4; O2SAT 97
[2023-10-04 06:49] VITALS: BP 150/70; PULSE 68; RESP 17; TEMP 36.4; O2SAT 97
[2023-10-04 07:21] LABS: Anion Gap 12 (12-20); Blood Urea Nitrogen 11 mg/dL (9-16); Calcium 9.2 mg/dL (8.4-10.2); Carbon Dioxide 28 mmol/L (22-29); Chloride 102 mmol/L (96-108); Creatinine Clr Calc Pharmacy 77.4; Estimated Glomerular Filt Rate > 60; Glucose Random 113 mg/dL (60-115); Potassium 3.7 mmol/L (3.3-5.1); Sodium 138 mmol/L (135-145)
[2023-10-04] MEDS: Atorvastatin Calcium 10 MG TABLET PO (09:46)
[2023-10-04] MEDS: lisinopriL 5 MG TABLET PO (09:47)
[2023-10-04] MEDS: buPROPion HCl XL 300 MG TAB.ER.24H PO (09:47)
[2023-10-04] MEDS: hydrOXYzine HCL 25 MG TABLET PO (09:47)
[2023-10-04] MEDS: hydroCHLOROthiazide 25 MG TABLET PO (09:47)
[2023-10-04] MEDS: lamoTRIgine 100 MG TABLET 200 MG PO ×2 (09:47→22:25)
[2023-10-04] MEDS: Omeprazole 20 MG CAPSULE.DR PO (09:47)
[2023-10-04] MEDS: 0.9 % Sodium Chloride Flush 3 ML SYRINGE IVFLUSH ×2 (09:48→18:07)
[2023-10-04] MEDS: OXcarbazepine 300 MG TABLET PO ×2 (09:48→22:25)
[2023-10-04] MEDS: OXcarbazepine 150 MG TABLET PO ×2 (09:48→22:25)
[2023-10-04 11:15] VITALS: BP 154/72; PULSE 73; RESP 18; TEMP 36.5; O2SAT 99
--- NOTE | 2023-10-04 11:21 | HO.PM.IMPN ---
Subjective Subjective Date of Service: 10/04/23 Interval History: Events from last night noted patient developed reaction to IV Dilaudid with shakiness treated with Benadryl with good response Complaining of 6 to 7/10 pain over right anterior chest wall, feels pain medicines do not help the right anterior chest wall pain, She admits to never have fevers even during COVID. Tolerating diet no nausea, no vomiting, no fevers, no chills, no lightheadedness, no dizziness Review of Systems All other system reviewed and negative Physical Exam Vital Signs: Vital Signs: Last Vital Signs Temp 97.7 F 10/04/23 11:15 Pulse 73 10/04/23 11:15 Resp 18 10/04/23 11:15 BP 154/72 H 10/04/23 11:15 Pulse Ox 99 10/04/23 11:15 O2 Del Method Room Air 10/04/23 11:15 BMI result Body Mass Index 44.0 Const: Other: General resting comfortably in no acute distress. Neck supple no JVD. CVS regular rate rhythm, Respiratory lungs clear to auscultation, no respiratory distress, no wheeze, no rhonchi. Gastrointestinal abdomen soft, non tender, bowel sounds audible,no guarding , no rigidity. Extremities no r edema. Neuro non focal Right anterior chest wall redness over Port-A-Cath, tenderness to palpation Objective Data Active Medications Acetaminophen (Acetaminophen 325 Mg Tablet) 975 mg PO Q6H PRN PRN Reason: Pain, Severe (Pain Scale 7-10) Last Admin: 10/04/23 10:23 Dose: 975 mg Documented By: ALVARO Amlodipine Besylate (Amlodipine Besylate 10 Mg Tablet) 10 mg PO DAILY@1800 [facility]; Protocol Last Admin: 10/03/23 19:46 Dose: 10 mg Documented By: RAJWINDER Atorvastatin Calcium (Atorvastatin Calcium 10 Mg Tablet) 10 mg PO DAILY [facility] Last Admin: 10/04/23 09:46 Dose: 10 mg Documented By: EDITH Bupropion HCl (Bupropion Hcl Xl 300 Mg Tab.Er.24h) 300 mg PO DAILY [facility] Last Admin: 10/04/23 09:47 Dose: 300 mg Documented By: EDITH Hydrochlorothiazide (Hydrochlorothiazide 25 Mg Tablet) 25 mg PO DAILY [facility]; Protocol Last Admin: 10/04/23 09:47 Dose: 25 mg Documented By: EDITH Hydroxyzine HCl (Hydroxyzine Hcl 50 Mg Tablet) 50 mg PO BEDTIME [facility] Last Admin: 10/03/23 19:45 Dose: 50 mg Documented By: RAJWINDER Hydroxyzine HCl (Hydroxyzine Hcl 25 Mg Tablet) 25 mg PO DAILY [facility] Last Admin: 10/04/23 09:47 Dose: 25 mg Documented By: EDITH Ceftriaxone Sodium 1 gm/ (Sodium Chloride) 50 mls @ 100 mls/hr IV Q24H [facility] Last Infusion: 10/03/23 21:54 Dose: Infused Documented By: RAJWINDER Vancomycin HCl 1,500 mg/ (Sodium Chloride) 500 mls @ 333.333 mls/hr IV Q24H [facility] Last Infusion: 10/03/23 23:51 Dose: Infused Documented By: ANTDIAMOND Lamotrigine (Lamotrigine 100 Mg Tablet) 200 mg PO BID [facility] Last Admin: 10/04/23 09:47 Dose: 200 mg Documented By: EDITH Levothyroxine Sodium (Levothyroxine Sodium 100 Mcg Tablet) 100 mcg PO DAILY@0630 [facility] Last Admin: 10/04/23 05:45 Dose: 100 mcg Documented By: ANTDIAMOND Lisinopril (Lisinopril 5 Mg Tablet) 5 mg PO DAILY [facility]; Protocol Last Admin: 10/04/23 09:47 Dose: 5 mg Documented By: EDITH Morphine Sulfate (Morphine Sulfate 4 Mg/Ml Cartridge) 4 mg IVPUSH Q4H PRN; Protocol PRN Reason: Pain, Severe (Pain Scale 7-10) Omeprazole (Omeprazole 20 Mg Capsule.Dr) 20 mg PO DAILY [facility] Last Admin: 10/04/23 09:47 Dose: 20 mg Documented By: EDITH Ondansetron HCl (Ondansetron Hcl 4 Mg/2 Ml Vial) 4 mg IVPUSH Q6H PRN PRN Reason: Nausea and Vomiting Oxcarbazepine (Oxcarbazepine 150 Mg Tablet) 150 mg PO BID [facility] Last Admin: 10/04/23 09:48 Dose: 150 mg Documented By: EDITH Oxcarbazepine (Oxcarbazepine 300 Mg Tablet) 300 mg PO BID [facility] Last Admin: 10/04/23 09:48 Dose: 300 mg Documented By: EDITH Oxycodone HCl (Oxycodone Hcl Immed Release 5 Mg Tablet) 7.5 mg PO Q4H PRN PRN Reason: Pain, Moderate(Pain Scale 4-6) Pharmacy Consult (Consult Rx Vancomycin Dosing) 1 each MISCELLANE DAILY PRN PRN Reason: Consult order Sodium Chloride (0.9 % Sodium Chloride Flush 3 Ml Syringe) 3 ml IVFLUSH QSHIFT [facility] Last Admin: 10/04/23 09:48 Dose: 3 ml Documented By: EDITH Venlafaxine HCl (Venlafaxine Hcl Er 150 Mg Cap.Er.24h) 150 mg PO DAILY [facility] Last Admin: 10/03/23 08:51 Dose: 150 mg Documented By: RAÚL Labs 10/03/23 06:03 10/04/23 06:53 Labs: Laboratory Results - last 24 hr 10/04/23 06:53 Anion Gap 12 Estim Creat Clear Calc 77.4 Estimated GFR > 60 Random Glucose 113 Calcium 9.2 D Microbiology Microbiology Results: Microbiology 10/03/23 01:42 Blood Culture - Preliminary Blood - Venous No growth after 24 hours. 10/02/23 18:50 Blood Culture - Preliminary Blood - Venous No growth after 24 hours. Assessment and Plan (1) Obesity: Status: Acute (2) MERRITT (obstructive sleep apnea): Status: Acute (3) Infected venous access port: Status: Acute Plan Eloisa Chopra this is a 73 years old woman with PMHx significant for RA on Actemra infusions via right chest port admitted with: Right chest wall cellulitis ? subcutaneous port pocket infection. Persistent redness/ pain but better since yesterday No SIRS criteria: No tachycardia, no fever, no tachypnea or leukocytosis. Inflammatory markers are normal likely due to Actemra (monoclonal antibody) Continue IV ceftriaxone and vancomycin day 2 Blood cultures neg x 24h Case discussed with IR CAMILA Young Moyer he recommend to discharge patient home if she continues to improve and outpatient follow-up with him. ID recommend to remove the port Patient to not tolerate IV Dilaudid/will place on IV morphine and continue oxycodone as needed Acute mild Hyponatremia, resolved Acute hypokalemia repleted and normalized Essential hypertension. Continue lisinopril, HCTZ and amlodipine. Hypothyroidism. Continue levothyroxine. Hyperlipidemia. Continue statin. Obstructive sleep apnea. Nocturnal CPAP. Bipolar disorder/depression. Continue bupropion, Pristiq, oxcarbazepine (non formulary -pt will bring her own med) and lamotrigine. Insomnia. Trazodone as needed. Anxiety. Continue hydroxyzine. Morbid Obesity. BMI 44.0 kg/m2. Weight loss. Anemia, chronic. Continue to monitor. Rheumatoid arthritis. On Actemra infusions q4 wks. Tardive dyskinesia and expressive speech disorder. At baseline. Continue F/U by neurology as an outpatient. DVT prophylaxis: SCDs Code status: Full Patient requires continued inpatient hospitalization for anterior chest wall cellulitis with concern for Port-A-Cath infection need IV antibiotics and close clinical follow-up. Quality Stroke Does the patient have a stroke diagnosis?: No VTE Prior VTE?: No VTE Risk Level:: Medical - moderate - high VTE Device Contraindication: N/A - Device Ordered VTE Drug Contraindication: Treatment Not Indicated
[2023-10-04 15:26] VITALS: BP 162/80; PULSE 74; RESP 18; TEMP 36.2; O2SAT 96
--- NOTE | 2023-10-04 15:54 | PC.NURSE ---
Pt takes Pristiq at home. Pharmacy interchanged medication with effexor. Pt reported that while in ED her niece brought in 4 of Pristiq pills in a small ziplock bag for pharmacy to verify, but unable to because pills were loose. Pt reported she didn't get her pills back. This RN spoke to pharmacy staff who did not have pt's medication. Pt found meds in belongings and took 1. Pt was very concerned about having withdrawals. Medications placed in patient specific bin. Niece supposed to bring in pills from [facility] in blister pack for pharmacy to verify and take the loose pills home. Dr. Dubon aware that patient took the Pristiq.
[2023-10-04 18:08] VITALS: BP 162/80
[2023-10-04] MEDS: amLODIPine Besylate 10 MG TABLET PO (18:08)
[2023-10-04 20:02] VITALS: BP 159/70; PULSE 70; RESP 20; TEMP 36.6; O2SAT 96
[2023-10-04] MEDS: cefTRIAXone sodium 1 GM in 0.9 % Sodium Chloride 50 ML IV (22:20)
[2023-10-04] MEDS: hydrOXYzine HCL 50 MG TABLET PO (22:25)
[2023-10-04] MEDS: vancomycin HCL 1,500 MG in 0.9 % Sodium Chloride 500 ML 333.33 MG IV (23:55)
[2023-10-05] VITALS: BP 175/70; PULSE 70; RESP 20; TEMP 36.4; O2SAT 98
[2023-10-05] MEDS: Acetaminophen 325 MG TABLET 975 MG PO (04:26)
[2023-10-05 05:13] VITALS: BP 153/69; PULSE 70; RESP 18; TEMP 36.3; O2SAT 98
[2023-10-05] MEDS: Levothyroxine Sodium 100 MCG TABLET PO (06:11)
[2023-10-05 06:24] LABS: Creatinine Clr Calc Pharmacy 80.2; Estimated Glomerular Filt Rate > 60
[2023-10-05 07:20] VITALS: BP 182/92; PULSE 68; RESP 14; TEMP 36.7; O2SAT 96
[2023-10-05] MEDS: 0.9 % Sodium Chloride Flush 3 ML SYRINGE IVFLUSH ×2 (08:02)
[2023-10-05] MEDS: OXcarbazepine 300 MG TABLET PO (08:03)
[2023-10-05] MEDS: Atorvastatin Calcium 10 MG TABLET PO (08:03)
[2023-10-05] MEDS: Omeprazole 20 MG CAPSULE.DR PO (08:03)
[2023-10-05] MEDS: buPROPion HCl XL 300 MG TAB.ER.24H PO (08:03)
[2023-10-05] MEDS: OXcarbazepine 150 MG TABLET PO (08:03)
[2023-10-05] MEDS: hydroCHLOROthiazide 25 MG TABLET PO (08:03)
[2023-10-05] MEDS: hydrOXYzine HCL 25 MG TABLET PO (08:03)
[2023-10-05] MEDS: lisinopriL 5 MG TABLET PO (08:04)
[2023-10-05] MEDS: lamoTRIgine 100 MG TABLET 200 MG PO (08:04)
--- NOTE | 2023-10-05 09:56 | PM.EVENT ---
Event Note Date of Service: 10/05/23 Event Note: Patient seen and examined this morning. She states the discomfort in her right chest continues to improve. She reports she would like to try to continue observation with antibiotics. Afebrile, no tachycardia or hypotension A+O x 4 Right chest: right port present, significant improvement of the induration. Small remaining area of erythema. Incision is well healed without dehiscence. 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 Will monitor her as an outpatient and remove port if clinical scenario changes Chava JENSEN Interventional Radiology Time Spent With Patient Time: Total time managing care of this patient today ____ minutes.
--- NOTE | 2023-10-05 12:25 | PM.DS ---
DS: Providers Provider Date of Service: 10/05/23 Date of admission: 10/03/23 01:57 Date of discharge: 10/05/23 Primary care physician: Fadumo Marcum MD Consults: 10/03/23 07:35 Consult to Infectious Diseases Routine Consulting Provider: [facility] Infectious Disease Reason for consultation: cellulitis over port Has provider been notified: No Attending physician on discharge: Jonathan Stanley Discharging clinician: Gayatri Baker DS: Diagnosis Discharge Diagnosis (1) Obesity: Status: Acute (2) MERRITT (obstructive sleep apnea): Status: Acute (3) Infected venous access port: Status: Acute DS: Summary Hospital Course Hospital Course: From H&P on the day of admission Eloisa Chopra this is a 73 years old woman with past medical history significant for RA on Actemra infusions via right chest port, dyskinesia, speech abnormalities, sleep apnea on CPAP, hypothyroidism, bipolar disorder, obesity, hyperlipidemia and essential hypertension complaining of pain around her right chest area (over port insertion area) that started last Sunday associated with redness and swelling. Patient described the pain as very severe to the point that she has been unable to sleep. She did not report fever or chills but mentioned feeling dizzy and nauseous. Denied events of vomiting or abdominal pain. She did not report any acute cardiopulmonary symptoms. Last time she received an infusion of Actemra was 4 weeks ago and stated that the catheter was inserted 6 weeks ago (August 27, 2023) by Interventional Radiology. In the ED, she was found to have stable vital signs, however there is hypertension. Last blood pressure is 186/73. There is no tachycardia or fever noted. O2 sats are normal on room air. Blood workup showed no leukocytosis. ESR is normal (5). There is no lactic acidosis. Corrected sodium is 134. There are no other electrolyte imbalances. Creatinine is 1.02. Glucose 149. LFTs, CRP and lipase are normal. CXR is negative; right chest wall port noted with tip in the SVC. ED tx: Ceftriaxone 1 g IV, vancomycin 2 g IV, morphine 4 mg IV. Blood cultures obtained. Right chest wall cellulitis ? subcutaneous port pocket infection. Persistent redness/ pain but both have been improving daily. No SIRS criteria: No tachycardia, no fever, no tachypnea or leukocytosis. During her hospitalization she was treated with IV ceftriaxone and vancomycin. She was seen in consultation by Infectious diseases who recommended to remove the port, however her blood cultures have remained negative at 48 hours. The case has been discussed with IR CAMILA Moyer who recommend to discharge patient home with oral antibiotics as the pain and redness has been improving and she has remained afebrile with negative blood cultures. He will follow-up with her on Sunday. The patient would prefer to keep the port in place and give the antibiotics a chance to work. She is willing to return to the hospital if she develops fever or worsening pain. She understands that in that case the port would have to be removed. She understands the risk of worsening infection. Time Attestation Discharge Coordination Time (in mins): 35 Quality: Safe Use of Opioids Does Pt have an Active Cancer Diagnosis on the Problem List?: No Quality: Stroke Does the patient have a stroke diagnosis?: No Physical Exam Vital Signs: Vital Signs: Last Vital Signs Temp 98.0 F 10/05/23 07:20 Pulse 68 10/05/23 07:20 Resp 14 10/05/23 07:20 BP 182/92 H 10/05/23 07:20 Pulse Ox 96 10/05/23 07:20 O2 Del Method Room Air 10/05/23 07:20 BMI result Body Mass Index 44.0 Const: General: cooperative, comfortable, no acute distress, alert and awake Nutritional Appearance: overweight Orientation/consciousness: patient oriented x3 Resp: Effort & Inspection: normal respiratory effort, able to speak in complete sentences, no respiratory distress and no use of accessory muscles GI: Inspection: No distended Palpation (GI): Soft to palpation and nontender Skin: Other: small area of erythema overlying port right chest wall, some mild tenderness on palpation Neuro: General: patient oriented x3 DS: Data Data Completed and Pending Labs on day of discharge: Laboratory Results - last 24 hr 10/05/23 05:20 Hold Purple Top SEE NOTE Creatinine 0.81 Estim Creat Clear Calc 80.2 Estimated GFR > 60 Preliminary micro results at discharge 10/03/23 01:42 Blood Culture - Preliminary Blood - Venous No growth after 48 hours. 10/02/23 18:50 Blood Culture - Preliminary Blood - Venous No growth after 48 hours. Discharge Plan Discharge Anticipated Discharge Date/Time: 10/05/23 12:45 Patient Disposition: Home, Self-Care Discharge Diagnosis: chest wall cellulitis overlying port Referrals: Fadumo Marcum MD [Primary Care Provider] - 1 Week Discharge Medications: New cefuroxime axetil 500 mg tablet 500 mg PO Q12H 10 Days Qty: 20 0RF doxycycline monohydrate 100 mg tablet 100 mg PO BID 10 Days Qty: 20 0RF Continued Actemra 400 mg/20 mL (20 mg/mL) solution 461 mg IV Q4W Qty: 20 4RF Rx Instructions: 4 mg/kg every 4 weeks administer as a 1 hour infusion bupropion HCl [Wellbutrin SR] 150 mg tablet sustained-release 12 hr 150 mg PO BID 30 Days Qty: 60 0RF atorvastatin 10 mg tablet 10 mg PO DAILY 30 Days Qty: 30 0RF amlodipine 10 mg tablet 10 mg PO DAILY@1800 30 Days Qty: 30 0RF hydroxyzine HCl 25 mg tablet 50 mg PO BEDTIME oxcarbazepine 150 mg tablet 150 mg PO BID oxcarbazepine 300 mg tablet 300 mg PO BID trazodone 100 mg tablet 200 mg PO BEDTIME PRN (Reason: insomia) levothyroxine 100 mcg tablet 100 mcg PO DAILY lisinopril 5 mg tablet 5 mg PO DAILY pantoprazole 40 mg tablet,delayed release (DR/EC) 40 mg PO DAILY melatonin 10 mg Tablet 10 mg PO BEDTIME desvenlafaxine succinate 100 mg tablet extended release 24 hr 100 mg PO DAILY lamotrigine 200 mg tablet 200 mg PO BID hydrochlorothiazide 25 mg tablet 25 mg PO DAILY hydroxyzine HCl 25 mg tablet 25 mg PO DAILY Discharge Orders: Discharge Order (Routine); Ordered 10/05/23 Ordered By: Gayatri Baker Activity on Discharge: As tolerated Stand Alone Forms: Patient Portal Discharge page Print Language: Ugandan Care Plan Goals: Resolution of infection Health Concerns: Cellulitis of chest wall overlying Port-A-Cath Plan of Treatment: Continue to take antibiotics as prescribed Follow-up with Interventional Radiology next week. If redness and pain continued to improve port can remain in place. If pain, redness worsen or you develop fever, port will need to be removed. Return to the emergency department if you develop fever or any new or worsening symptoms Assessment: See discharge summary
[2023-10-05 12:26] VITALS: BP 142/78
--- NOTE | 2023-10-05 13:28 | MHC.CM.PN ---
[facility] MET WITH PT WHO STATED SHE DOES NOT HAVE TRANSPORT CM CALLED [facility] AND SPOKE TO RN, BRYAN WHO STATED THEY USUALLY HAVE ALL THE MEDS FILLED AT [facility], HOWEVER THAT WOULD TAKE AT LEAST A DAY, BUT POSSIBLY ALL WEEKEND SINCE IT IS SUNDAY. SHE ASKED THAT THE MEDS BE FILLED HERE AT THE OUTPATIENT PHARMACY. PT WILL DC ONCE HER MEDS ARE FILLED SHE WILL GO VIA [facility]
--- NOTE | 2023-10-08 09:53 | PM.EVENT ---
Event Note Date of Service: 10/08/23 Event Note: Called patient at home. She report discomfort in right chest continues to improve. States fullness is gone. Reports of some pruritis over port but denies rash. Instructed patient to continue current antibiotic regimen and will follow up with her in 2-3 days. Hector JENSEN Interventional Radiology Time Spent With Patient Time: Total time managing care of this patient today ____ minutes.
== END 2023-10-05 14:30 | disposition home or self-care (01) | DRG 315 ==
LOC: HO.ED 10-03 01:02 → HO.EDOVER 10-03 04:22 → HO.S3 10-03 17:51
PROVIDERS: Hospitalist; Physician Assistant; Admitting Provider Internal Medicine; Emergency Provider Emergency Medicine Emergency Medical Services; PCP Internal Medicine; Visit Provider Physician Assistant Medical
DX: T80.212A Local infection due to central venous catheter, initial encounter (principal); E87.1 Hypo-osmolality and hyponatremia; L03.313 Cellulitis of chest wall; Z68.41 Body mass index [BMI] 40.0-44.9, adult; F31.81 Bipolar II disorder; Y82.8 Other medical devices associated with adverse incidents; E03.9 Hypothyroidism, unspecified; E87.6 Hypokalemia; E78.2 Mixed hyperlipidemia; M05.79 Rheumatoid arthritis with rheumatoid factor of multiple sites without organ or systems involvement; E66.01 Morbid (severe) obesity due to excess calories; F41.9 Anxiety disorder, unspecified; G24.01 Drug induced subacute dyskinesia; G47.33 Obstructive sleep apnea (adult) (pediatric); I10 Essential (primary) hypertension; Z79.69 Long term (current) use of other immunomodulators and immunosuppressants; Z79.890 Hormone replacement therapy; Z79.899 Other long term (current) drug therapy
CPT/HCPCS: 36415; 71046; 80048; 80053; 81001; 82550; 82565; 83605; 83690; 85025; 85652; 86140; 87040; 87086; 99285; J0696; J1170; J1200; J2270; J3370; J3371

== ENCOUNTER → 2023-10-02 18:39 | Outpatient (BNV) | payer MEDICARE, OTHER, SELFPAY | PROVIDERS: Emergency Provider Emergency Medicine Emergency Medical Services; PCP Internal Medicine; Visit Provider Internal Medicine | DX: T80.219A Unspecified infection due to central venous catheter, initial encounter (principal); G47.33 Obstructive sleep apnea (adult) (pediatric); E66.01 Morbid (severe) obesity due to excess calories; Z68.41 Body mass index [BMI] 40.0-44.9, adult | CPT/HCPCS: 99223; 99232; 99239; 99499 ==

== ENCOUNTER → 2023-10-03 01:57 | Outpatient (BNV) | payer MEDICARE, OTHER, SELFPAY | PROVIDERS: Admitting Provider Internal Medicine; Emergency Provider Emergency Medicine Emergency Medical Services; PCP Internal Medicine; Visit Provider Internal Medicine | DX: T80.219A Unspecified infection due to central venous catheter, initial encounter (principal); M05.79 Rheumatoid arthritis with rheumatoid factor of multiple sites without organ or systems involvement | CPT/HCPCS: 99222 ==

== ENCOUNTER 2023-10-10 11:26 | Outpatient (AMB) | payer MEDICARE, OTHER, SELFPAY ==
--- NOTE | 2023-10-10 11:26 | A.OFFVIS_ITS ---
Vital Signs 10/10/23 11:27 Height 5 ft 5 in Weight 260 lb 5.855 oz BMI 43.3 BP 132/76 Blood Pressure Location Rt brachial Position Sitting Pulse 76 Pulse Source Pulse Oximeter Pulse Oximetry (%) 98 Oxygen Delivery Method Room Air Intake Visit Reasons: Follow up RA, RA Intake Note: Had labs done at [facility] today. Allergies methotrexate Allergy (Severe, Verified 10/02/23 18:17) whole body itchy, swelling eyes and lips Penicillins Allergy (Severe, Verified 10/02/23 18:17) HIVES lorazepam [Lorazepam] Allergy (Mild, Verified 10/02/23 18:17) REVERSE EFFECT oxycodone [Oxycodone] Allergy (Mild, Verified 10/02/23 18:17) UNKNOWN deutetrabenazine [From [place]] Allergy (Unknown, Verified 10/02/23 18:17) TOO MANY SIDE EFFECTS gabapentin [GABAPENTIN] Allergy (Unknown, Verified 10/02/23 18:17) DIZZYNESS, GI ISSUES NSAIDS (Non-Steroidal Anti-Inflamma [NSAIDS (NON-STEROIDAL ANTI-INFLAMMA] Allergy (Unknown, Verified 10/02/23 18:17) LIVER ENZYME ISSUES sulfamethoxazole [From BACTRIM] Allergy (Unknown, Verified 10/02/23 18:17) DIARRHEA trimethoprim [From BACTRIM] Allergy (Unknown, Verified 10/02/23 18:17) DIARRHEA valbenazine [From INGREZZA] Allergy (Unknown, Verified 10/02/23 18:17) INCREASED SLEEP 15-16HRS acetaminophen [From Vicodin] Allergy (Verified 10/02/23 18:17) Unknown alprazolam [From Xanax] Allergy (Verified 10/02/23 18:17) Unknown doxepin Allergy (Verified 10/02/23 18:17) Unknown escitalopram [From Lexapro] Allergy (Verified 10/02/23 18:17) Unknown estradiol Allergy (Verified 10/02/23 18:17) Unknown hydrocodone [From Vicodin] Allergy (Verified 10/02/23 18:17) Unknown mirtazapine Allergy (Verified 10/02/23 18:17) Unknown pregabalin [From Lyrica] Allergy (Verified 10/02/23 18:17) Unknown ramelteon Allergy (Verified 10/02/23 18:17) Unknown ANTIBIOTICS Allergy (Unknown, Uncoded 07/16/23 08:13) PT STATED NEED TO GO THRU PCP D/T GASTROPARESIS Medication List - Last Reconciled 10/10/23 by Yaquelin Darden MD Actemra (tocilizumab) 461 mg (23.05 mL) IV Q4W NS amlodipine 10 mg PO DAILY@1800 30 days atorvastatin 10 mg PO DAILY 30 days bupropion HCl SR (Wellbutrin SR) 150 mg PO BID 30 days cefuroxime axetil 500 mg PO Q12H 10 days desvenlafaxine succinate ER 100 mg PO DAILY doxycycline monohydrate 100 mg PO BID 10 days hydrochlorothiazide 25 mg PO DAILY hydroxyzine HCl 50 mg PO BEDTIME hydroxyzine HCl 25 mg PO DAILY lamotrigine 200 mg PO BID levothyroxine 100 mcg PO DAILY lisinopril 5 mg PO DAILY melatonin 10 mg PO BEDTIME oxcarbazepine 300 mg PO BID oxcarbazepine 150 mg PO BID pantoprazole 40 mg PO DAILY trazodone 200 mg PO BEDTIME PRN HPI Comments Details: 73-year-old female with seropositive RA (+ RF, +[id number], -ve CCP) who returns for follow-up. Patient was doing well on Actemra infusions however last week she started having pain and redness at port. She went to the hospital. Blood cultures were negative they recommended removing the port. She received IV antibiotics and discharged on oral antibiotics. Pain and itching at the port has improved but continues to be symptomatic. Patient missed her Actemra dose which was supposed to be last Sunday and is now having her pain in different knuckles and her toes. Initial history: This is a 71-year-old female past history hypothyroidism, dyslipidemia, depression, bipolar disorder, dyskinesia presents for evaluation diffuse joint pain. patient had bipolar disorder for many years was on antipsychotic many years. She recently developed tardive dyskinesia which is significantly affecting life. Over the past 6-9 months she has been pain swelling and stiffness hands, wrists, ankles and feet. Pain is generally worse in morning associated morning stiffness lasted few hours. She has dry for years but got worse over last 3 months.She was evaluated by her PCP referred to Rheumatology for evaluation. [facility] Medical History Obesity MERRITT (obstructive sleep apnea) Expressive speech disorder Speech abnormality Weakness Type 2 diabetes mellitus Tremors of nervous system Tardive dyskinesia Sleep apnea Thyroid disease Depression Bipolar 1 disorder Combined hyperlipidemia HTN (hypertension) Surgical History Hx of cholecystectomy H/O shoulder surgery Hx of appendectomy Family History Father No problems noted. Mother No problems noted. Other Family history of rheumatoid arthritis Social History Household Members: Other Housing: Assisted Living Facility Housing Other:: Living with nuns in a wing of a convent due to homelessness Do you presently have visiting nurse or other home services: No Unable to assess alcohol history related to: Unable to respond Alcohol intake: never Patient Tobacco Use Status: Former Tobacco user Quit Date: 55 years ago Tobacco use type: Cigarette e-Cigarette/Vaping Use: Never Used Second Hand Smoke Exposure: No Advance Directives Date on File: 01/21/23 service: No Sexual orientation: Straight/Heterosexual Review of Systems [facility] Reports arthralgias, Reports joint swelling, Reports limited range of motion and Reports stiffness Physical Exam Vital Signs: Last Vital Signs Pulse 76 10/10/23 11:27 BP 132/76 10/10/23 11:27 Pulse Ox 98 10/10/23 11:27 Oxygen Delivery Method Room Air 10/10/23 11:27 BMI result Body Mass Index 43.3 Const General: cooperative, healthy appearing and comfortable Nutritional Appearance: obese morbidly obese Orientation/consciousness: patient oriented x3 Limitations: ambulation with walker HEENT Head: Yes normocephalic and Yes atraumatic Chest Other: Right chest wall Port insertion site is erythematous and tender and patient Resp Effort & Inspection: normal respiratory effort and able to speak in complete sentences Skin General skin exam: no rashes or lesions noted Neuro General: patient oriented x3 Extrem Other: Normal range of motion of both shoulders and elbows without pain No wrist tenderness or swelling bilaterally. Normal flexion and extension without pain Left 3rd and 4th MCP tenderness Couple of tender PIPs left hand Results Reviewed Results Reviewed: ?MR/MR hand LT wo/w con? 12/08 IMPRESSION: 1. Mild marrow edema within the dorsal aspect of the lunate which may be degenerative or represent an osseous contusion. No associated fracture line. 2. Mild flexor and extensor digitorum tenosynovitis, most prominent within the 3rd flexor digitorum tendon sheath. No transverse tendon tear or tendon retraction. 3. Mild edema along the dorsal aspect of the distal carpal row which could indicate minimal synovitis. No significant joint effusion. Assessment & Plan Assessment & Plan (1) Rheumatoid arthritis: Comment: +RF, -ve on repeat -CCP Dx 07/10 MTX 07/10 (multiple side effects Enbrel 07/10-10/08 ineffective Prednisone effective but causes psychiatric side effects and dizziness Actemra infusions 4 mg/kg 03/2023 effective Code(s): M06.9 - Rheumatoid arthritis, unspecified Category: Medical Qualifiers: Rheumatoid arthritis location: multiple sites Rheumatoid factor presence: with rheumatoid factor Qualified Code(s): M05.79 - Rheumatoid arthritis with rheumatoid factor of multiple sites without organ or systems involvement Plan: This is a 73-year-old female with seropositive RA (+RF, -ve CCP) who presents for follow-up. She is HLA B27 positive but no symptoms suggestive of inflammatory back pain. No symptoms of psoriasis. No history suggestive of uveitis or IBD. Patient was doing quite well on Actemra infusions until about last week when she developed pain and redness at the port insertion site. She went to the hospital.? Blood cultures were negative they recommended removing the port.? She received IV antibiotics and discharged on oral antibiotics.? Pain and itching at the port has improved but continues to be symptomatic. I agree that port should be removed. She has an appointment tomorrow morning for port to be removed. Obviously patient will need a different mode of treatment. Patient did not do well with self injectables. I suggested changing the treatment to subcu Actemra weekly dosing done at the clinic. Due to difficulties with transportation, patient will not be able to do that. Patient will call her insurance company and discuss whether sitting nurse can evaluate her at home once weekly and do the Actemra injection. Alternatively discussed switching to Rinvoq. We discussed potential side effects of Rinvoq such as mildly increased risk of cardiovascular events, strokes, thromboembolic phenomena. She will think about it Infectious screening: Hepatitis panel and T spot -ve 2021 Labs before next visit in 2 months (2) High risk medication use: Code(s): Z79.899 - Other residential (current) drug therapy Category: Medical Plan: Monitor safety labs for DMARDs. Advised patient to call the clinic if she develops any signs of fever or an infection Plan I spent 35 minutes reviewing patient's chart, evaluating patient, ordering diagnostic workup, counseling patient and documenting in the chart Orders: Orders Comprehensive Met. Panel 2 Months E87.1 - Hypo-osmolality and hyponatremia, M05.79 - Rheumatoid arthritis with rheumatoid factor of multiple sites without organ or systems involvement Erythrocyte Sedimentation Rate 2 Months E87.1 - Hypo-osmolality and hyponatremia, M05.79 - Rheumatoid arthritis with rheumatoid factor of multiple sites without organ or systems involvement Complete Blood Count Auto Diff 2 Months E87.1 - Hypo-osmolality and hyponatremia, M05.79 - Rheumatoid arthritis with rheumatoid factor of multiple sites without organ or systems involvement C Reactive Protein 2 Months E87.1 - Hypo-osmolality and hyponatremia, M05.79 - Rheumatoid arthritis with rheumatoid factor of multiple sites without organ or systems involvement Coding Level of Care Code Est Pt Level 4 (29857) Diagnoses Rheumatoid arthritis involving multiple sites with positive rheumatoid factor M05.79 Rheumatoid arthritis location: multiple sites Rheumatoid factor presence: with rheumatoid factor High risk medication use Z79.899
[2023-10-10 11:27] VITALS: BP 132/76; PULSE 76; O2SAT 98; BMI 43.3
== END 2023-10-10 12:08 | disposition home or self-care (01) ==
PROVIDERS: PCP Internal Medicine; Visit Provider Student in an Organized Health Care Education/Training Program
DX: M05.79 Rheumatoid arthritis with rheumatoid factor of multiple sites without organ or systems involvement (principal); Z79.899 Other long term (current) drug therapy
CPT/HCPCS: 99214

== ENCOUNTER → 2023-10-10 11:27 | Outpatient (BNVA) | payer MEDICARE, OTHER, SELFPAY | PROVIDERS: PCP Internal Medicine; Visit Provider Student in an Organized Health Care Education/Training Program | DX: M05.79 Rheumatoid arthritis with rheumatoid factor of multiple sites without organ or systems involvement (principal); Z79.899 Other long term (current) drug therapy | CPT/HCPCS: 99212 ==

== ENCOUNTER 2023-10-11 06:52 | Day surgery (SDC) | payer MEDICARE, OTHER, SELFPAY ==
--- NOTE | ~2023-10-11 | IR_ITS ---
Port removal History: 73-year-old female with rheumatoid arthritis status post right port placement in early August 2023 percent with right chest wall induration and mild erythema over the port. She had a good improvement since her symptoms with IV antibiotic and was discharged home on oral antibiotics. Patient has multiple drug allergies and developed severe pruritus from the outpatient antibiotics. After discussing the case with her primary care physician, it was decided to remove her port. Procedure: The risks and benefits were discussed the patient and the consent was signed. The right anterior chest was prepped and draped in routine sterile fashion. The skin was anesthetized with 1% lidocaine. An incision was made over the previous scar. Utilizing blunt dissection, the port was removed from the chest with the catheter intact. There was no evidence of purulent drainage or signs of a deep soft tissue infection. The pocket was irrigated with 50 mL of normal saline. The port pocket was closed with interrupted 3-0 Vicryl sutures in the deep layer and surgical glue to close the skin. The patient tolerated the procedure well. A sterile dressing was applied. This procedure was performed by Hector Moyer PA-C, and supervised by Dr. Clifton. IR/IR cvc remove tunnel w prt/power mule operator Impression: Right port removal
[2023-10-11 07:05] VITALS: BP 134/61; PULSE 78; RESP 20; TEMP 36.3; O2SAT 96; BMI 44.2
--- NOTE | 2023-10-11 08:21 | PC.NURSE ---
right port red and painful
[2023-10-11 09:30] VITALS: BP 178/74; PULSE 64; RESP 18; TEMP 36.3; O2SAT 96
[2023-10-11] MEDS: Acetaminophen 325 MG TABLET 650 MG PO (09:40)
[2023-10-11 09:49] VITALS: BP 154/78; PULSE 64; RESP 16; TEMP 36.2; O2SAT 96
== END 2023-10-11 10:10 | disposition home or self-care (01) ==
PROVIDERS: Radiology Vascular & Interventional Radiology; PCP Internal Medicine; Visit Provider Internal Medicine
DX: T82.7XXA Infection and inflammatory reaction due to other cardiac and vascular devices, implants and grafts, initial encounter (principal); Y82.8 Other medical devices associated with adverse incidents; Y92.9 Unspecified place or not applicable; M06.9 Rheumatoid arthritis, unspecified; G24.01 Drug induced subacute dyskinesia; I10 Essential (primary) hypertension; E78.2 Mixed hyperlipidemia; E11.9 Type 2 diabetes mellitus without complications; G47.33 Obstructive sleep apnea (adult) (pediatric); R47.89 Other speech disturbances; F31.9 Bipolar disorder, unspecified; Z79.899 Other long term (current) drug therapy; Z88.0 Allergy status to penicillin; Z88.8 Allergy status to other drugs, medicaments and biological substances; Z98.890 Other specified postprocedural states; Z87.891 Personal history of nicotine dependence
CPT/HCPCS: 36590; 87071; C1769; C1788; J2250; J2310; J3010

== ENCOUNTER → 2023-10-11 08:30 | Outpatient (BNV) | payer MEDICARE, OTHER, SELFPAY | PROVIDERS: PCP Internal Medicine; Visit Provider Physician Assistant Surgical | DX: Z45.2 Encounter for adjustment and management of vascular access device (principal) | CPT/HCPCS: 36590 ==

== ENCOUNTER 2023-10-17 09:49 | Outpatient (AMB) | payer MEDICARE, OTHER, SELFPAY ==
--- NOTE | 2023-10-17 10:07 | MHC.OFFVIS ---
Vital Signs 10/17/23 10:20 Height 5 ft 5 in Weight 263 lb 4 oz BMI 43.8 BP 140/80 H Blood Pressure Location Lt brachial Position Sitting Pulse 72 Pulse Source Pulse Oximeter Pulse Oximetry (%) 98 Oxygen Delivery Method Room Air Intake Visit Reasons: 1 yr f/u for MERRITT - CONF w /address Intake Note: Patient presents for 1 year f/u. Allergies methotrexate Allergy (Severe, Verified 10/17/23 10:14) whole body itchy, swelling eyes and lips Penicillins Allergy (Severe, Verified 10/17/23 10:14) HIVES lorazepam [Lorazepam] Allergy (Mild, Verified 10/17/23 10:14) REVERSE EFFECT oxycodone [Oxycodone] Allergy (Mild, Verified 10/17/23 10:14) UNKNOWN deutetrabenazine [From AUSTEDO] Allergy (Unknown, Verified 10/17/23 10:14) TOO MANY SIDE EFFECTS gabapentin [GABAPENTIN] Allergy (Unknown, Verified 10/17/23 10:14) DIZZYNESS, GI ISSUES NSAIDS (Non-Steroidal Anti-Inflamma [NSAIDS (NON-STEROIDAL ANTI-INFLAMMA] Allergy (Unknown, Verified 10/17/23 10:14) LIVER ENZYME ISSUES sulfamethoxazole [From BACTRIM] Allergy (Unknown, Verified 10/17/23 10:14) DIARRHEA trimethoprim [From BACTRIM] Allergy (Unknown, Verified 10/17/23 10:14) DIARRHEA valbenazine [From INGREZZA] Allergy (Unknown, Verified 10/17/23 10:14) INCREASED SLEEP 15-16HRS acetaminophen [From Vicodin] Allergy (Verified 10/17/23 10:14) Unknown alprazolam [From Xanax] Allergy (Verified 10/17/23 10:14) Unknown doxepin Allergy (Verified 10/17/23 10:14) Unknown escitalopram [From Lexapro] Allergy (Verified 10/17/23 10:14) Unknown estradiol Allergy (Verified 10/17/23 10:14) Unknown hydrocodone [From Vicodin] Allergy (Verified 10/17/23 10:14) Unknown mirtazapine Allergy (Verified 10/17/23 10:14) Unknown pregabalin [From Lyrica] Allergy (Verified 10/17/23 10:14) Unknown ramelteon Allergy (Verified 10/17/23 10:14) Unknown ANTIBIOTICS Allergy (Unknown, Uncoded 07/16/23 08:13) PT STATED NEED TO GO THRU PCP D/T GASTROPARESIS HPI Comments Details: 73 y/o female patient presents for follow up of MERRITT on CPAP, and tardive dyskinesia. The CPAP compliance and therapy response (07/03/23-09/30/23) reviewed with the patient. She is on CPAP at 6cmH2O. Usage days 83% and the usage hours 5 hours 30 min. The residual AHI was 4.3/hr. Pt states that she sleeps well throughout the night with CPAP. She feels rested in the morning but can have daytime tiredness. She states that she has lots of personal issue, and it makes her tired, too. She sees psychiatrist. Pt reports her tardive dyskinesias are stable. She could not tolerate austedo or ingrezza. [facility] Medical History (Updated 10/16/23 @ 08:59 by Rachel Urias [facility]) Obesity MERRITT (obstructive sleep apnea) Expressive speech disorder Speech abnormality Weakness Rheumatoid arthritis Type 2 diabetes mellitus Bipolar II disorder Tremors of nervous system Tardive dyskinesia Sleep apnea Thyroid disease Depression Bipolar 1 disorder Combined hyperlipidemia HTN (hypertension) Surgical History Hx of cholecystectomy H/O shoulder surgery Hx of appendectomy Family History Father No problems noted. Mother No problems noted. Other Family history of rheumatoid arthritis Social History Household Members: Other Housing: Assisted Living Facility Housing Other:: Living with nuns in a wing of a convent due to homelessness Do you presently have visiting nurse or other home services: No Unable to assess alcohol history related to: Unable to respond Alcohol intake: never Patient Tobacco Use Status: Former Tobacco user Quit Date: 55 years ago Tobacco use type: Cigarette e-Cigarette/Vaping Use: Never Used Second Hand Smoke Exposure: No Advance Directives Date on File: 01/21/23 service: No Sexual orientation: Straight/Heterosexual Review of Systems Const All systems reviewed & are unremarkable except as noted in HPI and below Physical Exam Vital Signs: Last Vital Signs Pulse 72 10/17/23 10:20 BP 140/80 H 10/17/23 10:20 Pulse Ox 98 10/17/23 10:20 Oxygen Delivery Method Room Air 10/17/23 10:20 BMI result Body Mass Index 43.8 Const General: cooperative, healthy appearing, comfortable and no acute distress Nutritional Appearance: obese Neck Neck: Yes normal visual inspection and Yes full ROM Neuro Other: Moderate tongue movements with eye blinking. No UE or LE choreiform movements No tremors. Speech- normal. General: CN's II-XI intact bilaterally Cognition (Neuro): normal cognition Gait exam (Neuro): Assisted gait required Gait assisted method: walker Extrem Other: Psych Appearance: grossly normal Mental Status: mental status grossly normal Affect: No Anxious affect present Assessment & Plan Assessment & Plan (1) Sleep apnea: Comment: Hx of complex sleep apnea, Moderate degree of sleep apnea with increased severity in REM sleep. AHI was 19/hr, REM AHI was 61/hr. Oxygen narinder was 83%. Code(s): G47.30 - Sleep apnea, unspecified Category: Medical (2) Tardive dyskinesia: Code(s): G24.01 - Drug induced subacute dyskinesia Category: Medical Plan: she could not tolerate austedo or ingrezza (3) Weakness: Code(s): R53.1 - Weakness Category: Medical (4) Expressive speech disorder: Comment: related to anxiety Code(s): F80.1 - Expressive language disorder Category: Medical Plan Continue CPAP at 6 cm of water as patient experiences good clinical effects, sleep quality and daytime tiredness has improved. Continue Psychotherapy. Coding Level of Care Code Est Pt Level 4 (40719) Diagnoses Sleep apnea G47.30 Tardive dyskinesia G24.01 Weakness R53.1 Expressive speech disorder F80.1
[2023-10-17 10:20] VITALS: BP 140/80; PULSE 72; O2SAT 98; BMI 43.8
== END 2023-10-17 10:36 | disposition home or self-care (01) ==
PROVIDERS: Visit Provider Nurse Practitioner Family
DX: G47.30 Sleep apnea, unspecified (principal); G24.01 Drug induced subacute dyskinesia; R53.1 Weakness; F80.1 Expressive language disorder
CPT/HCPCS: 99214

== ENCOUNTER 2023-10-17 16:04 | Emergency (ER) | payer MEDICARE, OTHER, SELFPAY ==
--- NOTE | ~2023-10-17 | XR_ITS ---
EXAMINATION: XR HIP, LEFT CLINICAL INFORMATION: Hip pain COMPARISON: None available. TECHNIQUE: Two views of the left hip. Pelvis one view FINDINGS: Left hip: No fracture. Alignment is anatomic. Hip joint space is maintained. Soft tissues are unremarkable. Right hip joint space is maintained. SI joints and symphysis pubis intact. Gas and stool projected over the pelvic bones and sacrum limiting evaluation. In the nonobscured bones, no acute fracture is seen. Phleboliths in the pelvis. XR/XR hip LT w PEL1V IMPRESSION: No radiographic evidence of acute fracture or dislocation.
--- NOTE | ~2023-10-17 | US_ITS ---
EXAMINATION: US VENOUS ULTRASOUND WITH DOPPLER LOWER EXTREMITY, LEFT CLINICAL INFORMATION: Medial left knee and calf pain. COMPARISON: None available. TECHNIQUE: Ultrasound of the deep veins is performed from the hip to the calf with compression sonography and color and pulse Doppler assessment. Spectral analysis with color-flow imaging is performed. FINDINGS: There is normal venous compression and respiratory variation and augmented flow. The visualized common femoral vein, superficial femoral vein, profunda femoral vein, popliteal vein, and the trifurcation region shows no evidence of deep venous thrombosis. A 4.3 x 0.8 x 2.6 cm left popliteal fossa Lema's cyst is seen. If the patient's symptoms persist, followup ultrasound in 5 days 7 days might be of value to exclude proximal propagation from a non-visualized calf vein. US/US venous duplex LE LT IMPRESSION: 1. No DVT demonstrated in the left lower extremity. 2. A 4.3 cm left popliteal fossa Lema's cyst is seen.
--- NOTE | 2023-10-17 16:22 | ED.EXTPRO ---
HPI - Extremity Problem General Chief complaint: General Medical Stated complaint: L leg pain, sharp pain, started while sleeping Time Seen by Provider: 10/17/23 16:08 Source: patient and EMS Mode of arrival: EMS Limitations: no limitations History of Present Illness HPI Narrative: Is a 73-year-old female who presents emergency department via EMS coming from [facility] for evaluation of left leg pain. She states that she awoke today with the pain, it is felt primarily the outside of the left hip, behind the knee, along the medial knee, and the proximal anterior tib-fib. She states it is atraumatic in nature. It is made worse with movement of the extremity. She denies any numbness tingling or cold sensation to the foot. She denies any history of this pain in the past. She does admit to having chronic lower back pain, when asked she states she is unsure whether it is worse than usual. She denies any vision changes chest pain, shortness of breath difficulty breathing nausea vomiting, abdominal pain. When asked where she is experiencing dizziness she reports yes but does admit that this is chronic for her. Related Data Home Medications ?Medication ?Instructions ?Recorded ?Confirmed lamotrigine 200 mg tablet 200 mg PO BID 05/26/22 10/03/23 hydrochlorothiazide 25 mg tablet 25 mg PO DAILY 07/14/22 10/03/23 hydroxyzine HCl 25 mg tablet 25 mg PO DAILY as directed 07/16/23 10/03/23 hydroxyzine HCl 25 mg tablet 50 mg PO BEDTIME 10/03/23 10/03/23 levothyroxine 100 mcg tablet 100 mcg PO DAILY 10/03/23 10/03/23 lisinopril 5 mg tablet 5 mg PO DAILY 10/03/23 10/03/23 melatonin 10 mg tablet 10 mg PO BEDTIME 10/03/23 10/03/23 oxcarbazepine 150 mg tablet 150 mg PO BID 10/03/23 10/03/23 oxcarbazepine 300 mg tablet 300 mg PO BID 10/03/23 10/03/23 pantoprazole 40 mg tablet,delayed 40 mg PO DAILY 10/03/23 10/03/23 release trazodone 100 mg tablet 200 mg PO BEDTIME PRN insomia 10/03/23 10/03/23 desvenlafaxine succinate 100 mg 100 mg PO DAILY 10/05/23 10/05/23 tablet,extended release 24 hr Previous Rx's ?Medication ?Instructions ?Recorded amlodipine 10 mg tablet 10 mg PO DAILY@1800 30 days #30 04/06/22 tabs atorvastatin 10 mg tablet 10 mg PO DAILY 30 days #30 tabs 04/06/22 bupropion HCl 150 mg tablet,12 hr 150 mg PO BID 30 days #60 tabs 04/06/22 sustained-release (Wellbutrin SR) tocilizumab 162 mg/0.9 mL 162 mg (0.9 mL) subcut QWEEK #3.6 10/16/23 subcutaneous pen injector (Actemra mL ACTPen) Allergies Allergy/AdvReac Type Severity Reaction Status Date / Time methotrexate Allergy Severe whole body Verified 10/17/23 16:29 itchy, swelling eyes and lips Penicillins Allergy Severe HIVES Verified 10/17/23 10:14 lorazepam [Lorazepam] Allergy Mild REVERSE Verified 10/17/23 10:14 EFFECT oxycodone [Oxycodone] Allergy Mild UNKNOWN Verified 10/17/23 10:14 deutetrabenazine Allergy Unknown TOO MANY Verified 10/17/23 10:14 [From AUSTEDO] SIDE EFFECTS gabapentin [GABAPENTIN] Allergy Unknown DIZZYNESS, Verified 10/17/23 10:14 GI ISSUES NSAIDS (Non-Steroidal Allergy Unknown LIVER Verified 10/17/23 10:14 Anti-Inflamma ENZYME [NSAIDS (NON-STEROIDAL ISSUES ANTI-INFLAMMA] sulfamethoxazole Allergy Unknown DIARRHEA Verified 10/17/23 10:14 [From BACTRIM] trimethoprim [From BACTRIM] Allergy Unknown DIARRHEA Verified 10/17/23 10:14 valbenazine [From INGREZZA] Allergy Unknown INCREASED Verified 10/17/23 10:14 SLEEP 15-16HRS acetaminophen [From Vicodin] Allergy Unknown Verified 10/17/23 10:14 alprazolam [From Xanax] Allergy Unknown Verified 10/17/23 10:14 doxepin Allergy Unknown Verified 10/17/23 10:14 escitalopram [From Lexapro] Allergy Unknown Verified 10/17/23 10:14 estradiol Allergy Unknown Verified 10/17/23 10:14 hydrocodone [From Vicodin] Allergy Unknown Verified 10/17/23 10:14 mirtazapine Allergy Unknown Verified 10/17/23 10:14 pregabalin [From Lyrica] Allergy Unknown Verified 10/17/23 10:14 ramelteon Allergy Unknown Verified 10/17/23 10:14 ANTIBIOTICS Allergy Unknown PT STATED Uncoded 07/16/23 08:13 NEED TO GO THRU PCP D/T GASTROPARESIS Review of Systems Review of Systems: Yes all other systems are reviewed and are negative [facility] Past Medical History Attestation statement: The following information was validated with the patient. Source: old records reviewed Medical History Obesity MERRITT (obstructive sleep apnea) Expressive speech disorder Speech abnormality Weakness Rheumatoid arthritis Type 2 diabetes mellitus Bipolar II disorder Tremors of nervous system Tardive dyskinesia Sleep apnea Thyroid disease Depression Bipolar 1 disorder Combined hyperlipidemia HTN (hypertension) Surgical History Hx of cholecystectomy H/O shoulder surgery Hx of appendectomy Family History Family History Father No problems noted. Mother No problems noted. Other Family history of rheumatoid arthritis Social History Social History Household Members: Other Housing: Assisted Living Facility Housing Other:: Living with nuns in a wing of a convent due to homelessness Do you presently have visiting nurse or other home services: No Unable to assess alcohol history related to: Unable to respond Alcohol intake: never Patient Tobacco Use Status: Former Tobacco user Quit Date: 55 years ago Tobacco use type: Cigarette Smoked in Last 30 Days: No e-Cigarette/Vaping Use: Never Used Second Hand Smoke Exposure: No Use of substances other than those prescribed or required for medical reasons: No Advance Directives: No Advance Directives Information Provided: No Advance Directives Date on File: 01/21/23 service: No Sexual orientation: Straight/Heterosexual Physical Exam Vital Signs: Vital Signs: Last Vital Signs Temp 97.5 F 10/17/23 22:48 Pulse 67 10/17/23 22:48 Resp 18 10/17/23 22:48 BP 194/72 H 10/17/23 22:48 Pulse Ox 96 10/17/23 22:48 O2 Del Method Room Air 10/17/23 22:48 BMI result Body Mass Index 43.5 Appearance: Alert.?Oriented to person, place and time. No acute distress.?Normal affect. Eyes: Pupils equal, round and reactive to light.? ENT: Pharynx normal.?? Neck: Normal inspection.? Neck supple.?? CVS: Heart sounds normal. Normal heart rate and rhythm.? Pulses normal.?? Respiratory: No respiratory distress.? Lung sounds clear to auscultation bilaterally?? Abdomen: Soft and non-tender. Normoactive bowel sounds. No pulsatile mass.?? Skin: Skin warm and dry.? Normal skin color.? Normal skin turgor.?? Extremities: 2+ bilateral lower extremity pitting edema. No open wounds or lesions. Left calf tenderness upon palpation, tenderness upon palpation of the left medial knee. 2+ DP/PT pulse bilaterally. Limited range of motion to the lower extremity, yells out in pain with movement. Neuro: Moves all extremities spontaneously. Sensation intact bilaterally. CN II-XII intact. No focal neuro deficits. Ambulates with normal steady gait. Course Reevaluation(s) Reevaluation #1: Venous duplex ultrasound is without evidence of DVT, there is however a 4.3 cm left popliteal fossa Lema cyst, no notable evidence of rupture. XR is without evidence of acute fracture or dislocation. Ambulatory trial successful, she walked with steady gait, reports no pain upon ambulation. At this time feel that she is stable for discharge back to her assisted living facility.. Time: 19:27 Medical Decision Making Medical Decision Making MDM Narrative: Patient is a 73-year-old female with past medical history of obesity, MERRITT, rheumatoid arthritis, type 2 diabetes, bipolar disorder, tardive dyskinesia, hypertension, hyperlipidemia, hypothyroidism presenting to emergency department for evaluation of left lower extremity pain atraumatic in nature as per HPI. Upon review nursing note she had a ?pseudo seizure? at the facility, patient reports to me that she has a history of ?conversion disorder?, and states that she has episodes where she spaces out, and is not aware of her surroundings, reporting they are typically brief in nature. Patient declined to me having a history of similar pain in the past but she reported to nursing staff that she has experienced this pain before. Will obtain labs, XR of the hip/pelvis does sleep fracture/dislocation venous duplex ultrasound to exclude DVT. Differential Diagnosis Differential Diagnoses: The differential diagnosis associated with the presentation includes (Lumbar radiculopathy, arthritis, electrolyte derangement, DVT, muscular pain, suspect less likely to be acute fracture dislocation of the extremity,) Admission/Observation Consideration of admission/observation: Escalation of care including admission/observation considered (See narrative above and course narrative for further detail) Lab Data MDM Lab Attestation statement: I reviewed the patient's lab results. CBC is without leukocytosis, baseline anemia not meeting transfusion criteria, no thrombocytopenia. No electrolyte derangement. No JORDY. Normal transaminases. Magnesium within normal range. CK normal. 10/17/23 16:55 10/17/23 16:55 Labs: Lab Results 10/17/23 10/17/23 Range/Units 16:55 17:19 WBC 8.5 (4.8-10.8) X10*3/uL RBC 3.91 L (4.20-5.50) X10*6/uL Hgb 10.5 L (12.0-16.0) g/dl Hct 31.9 L (37.0-47.0) % MCV 81.6 (80.0-98.0) fL MCH 26.9 L (27.0-33.0) pg MCHC 32.9 (31.0-35.0) g/dl RDW 16.6 H (11.0-16.0) % Plt Count 227 (160-400) X10*3/uL MPV 9.4 (9.4-12.3) fL Immature Gran % (Auto) 0.5 H (0.0-0.4) % Neut % (Auto) 69.3 (45-73) % Lymph % (Auto) 16.5 L (20-40) % [place] % (Auto) 10.6 (2-11) % Eos % (Auto) 2.6 (0-4) % Baso % (Auto) 0.5 (0-2) % Lymph # (Auto) 1.4 (1.2-4.9) X10*3/uL [place] # (Auto) 0.9 (0.1-1.2) X10*3/uL Eos # (Auto) 0.2 (0.0-0.4) X10*3/uL Baso # (Auto) 0.0 (0.0-0.2) X10*3/uL Abs Immat Gran (auto) 0.04 H (0.00-0.03) X10*3/uL Absolute Neuts (auto) 5.9 (2.0-8.3) x10*3/uL Absolute Nucleated RBC 0.000 (0.0-0.012) X10*3/uL Nucleated RBC % (auto) 0.0 (0.0-0.2) /100WBC PT 11.8 (11.1-13.3) SEC INR 1.0 (0.9-1.1) Sodium 141 (135-145) mmol/L Potassium 4.3 (3.3-5.1) mmol/L Chloride 104 (96-108) mmol/L Carbon Dioxide 26 (22-29) mmol/L Anion Gap 15 (12-20) BUN 17 H (9-16) mg/dL Creatinine 0.85 (0.5-1.4) mg/dL Estim Creat Clear Calc 78.5 Estimated GFR > 60 Random Glucose 122 H (60-115) mg/dL Calcium 9.5 (8.4-10.2) mg/dL Magnesium 2.0 (1.6-2.6) mg/dL Total Bilirubin 0.3 (0.0-1.0) mg/dL AST 20 (5-31) U/L ALT 20 (0-31) U/L Alkaline Phosphatase 105 (39-117) U/L Total Creatine Kinase 59 (26-140) U/L Total Protein 6.9 (6.5-8.0) g/dL Albumin 3.6 (3.5-5.0) g/dL Independent Interpretation I performed an independent interpretation of an: Plain X-Ray (No acute fracture or dislocation) Radiology Impression Discussion of test interpretation with radiology: I have reviewed the radiologist's reading. Radiologist Impression: US/US venous duplex LE LT IMPRESSION: 1. No DVT demonstrated in the left lower extremity. 2. A 4.3 cm left popliteal fossa Lema's cyst is seen. XR/XR hip LT w PEL1V IMPRESSION: No radiographic evidence of acute fracture or dislocation. Independent Historian Clinical information obtained from an independent historian. History obtained from or confirmed by: EMS Discharge Plan Discharge Clinical Impression: Leg pain Patient Disposition: Home, Self-Care Instructions: Leg Cramps (ED), Leg Pain (ED) Additional Instructions: As discussed, the x-ray today does not show any evidence of fracture dislocation to your hip. There is no evidence of blood clot on the ultrasound. It is possible that your pain may be secondary to arthritis versus a nerve pain due to your chronic back pain that you described. You were able to walk in the emergency department today well. Please follow-up with your primary care provider. Return back to emergency department any new or worsening symptoms or concerns. Prescriptions: No Action Actemra ACTPen 162 mg/0.9 mL pen injector 162 mg subcut QWEEK Qty: 3.6 2RF Rx Instructions: Inject 162mg pen injector once weekly. bupropion HCl [Wellbutrin SR] 150 mg tablet sustained-release 12 hr 150 mg PO BID 30 Days Qty: 60 0RF atorvastatin 10 mg tablet 10 mg PO DAILY 30 Days Qty: 30 0RF amlodipine 10 mg tablet 10 mg PO DAILY@1800 30 Days Qty: 30 0RF hydroxyzine HCl 25 mg tablet 50 mg PO BEDTIME oxcarbazepine 150 mg tablet 150 mg PO BID oxcarbazepine 300 mg tablet 300 mg PO BID trazodone 100 mg tablet 200 mg PO BEDTIME PRN (Reason: insomia) levothyroxine 100 mcg tablet 100 mcg PO DAILY lisinopril 5 mg tablet 5 mg PO DAILY pantoprazole 40 mg tablet,delayed release (DR/EC) 40 mg PO DAILY melatonin 10 mg Tablet 10 mg PO BEDTIME desvenlafaxine succinate 100 mg tablet extended release 24 hr 100 mg PO DAILY lamotrigine 200 mg tablet 200 mg PO BID hydrochlorothiazide 25 mg tablet 25 mg PO DAILY hydroxyzine HCl 25 mg tablet 25 mg PO DAILY Referrals: Physician,Unknown J [Primary Care Provider] - Interventions: ED Discharge Assessment Last Done: 10/17/23 22:48 Discharge Date/Time: 10/17/23 23:07 Print Language: [place]
[2023-10-17 16:26] VITALS: BP 150/107; BP 194/78; PULSE 73; PULSE 84; RESP 22; TEMP 36.7; O2SAT 94; O2SAT 97; BMI 43.5
[2023-10-17 17:00] LABS: MANUAL DIFF FLAG NO
[2023-10-17 17:02] LABS: Basophils Percent Auto 0.5 % (0-2); Eosinophils Absolute Auto 0.2 X10*3/uL (0.0-0.4); Eosinophils Percent Auto 2.6 % (0-4); Hematocrit 31.9 % (37.0-47.0); Hemoglobin 10.5 g/dl (12.0-16.0); Imm Gran Abs Auto 0.04 X10*3/uL (0.00-0.03); Imm Gran Pct Auto 0.5 % (0.0-0.4); Lymphocytes Absolute Auto 1.4 X10*3/uL (1.2-4.9); Lymphocytes Percent Auto 16.5 % (20-40); Mean Corpuscular HGB Conc 32.9 g/dl (31.0-35.0); Mean Corpuscular Hemoglobin 26.9 pg (27.0-33.0); Mean Corpuscular Volume 81.6 fL (80.0-98.0); Mean Platelet Volume 9.4 fL (9.4-12.3); Monocytes Absolute Auto 0.9 X10*3/uL (0.1-1.2); Monocytes Percent Auto 10.6 % (2-11); Neutrophils Absolute Auto 5.9 x10*3/uL (2.0-8.3); Neutrophils Percent Auto 69.3 % (45-73); Platelet Count 227 X10*3/uL (160-400); Red Blood Count 3.91 X10*6/uL (4.20-5.50); Red Cell Distribution Width 16.6 % (11.0-16.0); White Blood Count 8.5 X10*3/uL (4.8-10.8)
[2023-10-17 17:21] LABS: Alanine Aminotransferase 20 U/L (0-31); Albumin Level 3.6 g/dL (3.5-5.0); Alkaline Phosphatase 105 U/L (39-117); Anion Gap 15 (12-20); Aspartate Amino Transferase 20 U/L (5-31); Bilirubin Total 0.3 mg/dL (0.0-1.0); Blood Urea Nitrogen 17 mg/dL (9-16); Calcium 9.5 mg/dL (8.4-10.2); Carbon Dioxide 26 mmol/L (22-29); Chloride 104 mmol/L (96-108); Creatinine Clr Calc Pharmacy 78.5; Estimated Glomerular Filt Rate > 60; Glucose Random 122 mg/dL (60-115); Potassium 4.3 mmol/L (3.3-5.1); Sodium 141 mmol/L (135-145); Total Protein 6.9 g/dL (6.5-8.0)
[2023-10-17 17:28] LABS: Prothrombin Time 11.8 SEC (11.1-13.3)
[2023-10-17 18:40] VITALS: BP 184/73; PULSE 65; RESP 16; O2SAT 98
[2023-10-17 22:48] VITALS: BP 194/72; PULSE 67; RESP 18; TEMP 36.4; O2SAT 96
--- NOTE | 2023-10-17 23:06 | PC.NURSE ---
Report to Fannie gao, pt back to assisted living.
== END 2023-10-17 23:07 | disposition home or self-care (01) ==
PROVIDERS: Nurse Practitioner Family; Emergency Provider Emergency Medicine
DX: M79.605 Pain in left leg (principal); R60.0 Localized edema; M71.22 Synovial cyst of popliteal space [Baker], left knee; I10 Essential (primary) hypertension; E11.9 Type 2 diabetes mellitus without complications; E78.2 Mixed hyperlipidemia; E66.9 Obesity, unspecified; Z68.41 Body mass index [BMI] 40.0-44.9, adult; Z87.891 Personal history of nicotine dependence; Z79.02 Long term (current) use of antithrombotics/antiplatelets; Z79.899 Other long term (current) drug therapy
CPT/HCPCS: 36415; 73502; 80053; 82550; 83735; 85025; 85610; 93971; 99212; 99284

== ENCOUNTER 2023-12-06 12:16 | Outpatient (AMB) | payer MEDICARE, OTHER, SELFPAY ==
--- NOTE | 2023-12-06 12:20 | A.OFFVIS_ITS ---
Vital Signs 12/06/23 12:21 Height 5 ft 6 in Weight 269 lb BMI 43.4 BP 136/68 Blood Pressure Location Rt brachial Position Sitting Respiration 17 Pulse 69 Pulse Source Pulse Oximeter Pulse Oximetry (%) 95 Oxygen Delivery Method Room Air Intake Visit Reasons: 6 mo f/u Weakness - Confirmed Intake Note: Pt presents for one month follow up for Expressive speech disorder. Sales Counselor Required: No Allergies methotrexate Allergy (Severe, Verified 12/06/23 12:20) whole body itchy, swelling eyes and lips Penicillins Allergy (Severe, Verified 12/06/23 12:20) HIVES lorazepam [Lorazepam] Allergy (Mild, Verified 12/06/23 12:20) REVERSE EFFECT oxycodone [Oxycodone] Allergy (Mild, Verified 12/06/23 12:20) UNKNOWN deutetrabenazine [From AUSTEDO] Allergy (Unknown, Verified 12/06/23 12:20) TOO MANY SIDE EFFECTS gabapentin [GABAPENTIN] Allergy (Unknown, Verified 12/06/23 12:20) DIZZYNESS, GI ISSUES NSAIDS (Non-Steroidal Anti-Inflamma [NSAIDS (NON-STEROIDAL ANTI-INFLAMMA] Allergy (Unknown, Verified 12/06/23 12:20) LIVER ENZYME ISSUES sulfamethoxazole [From BACTRIM] Allergy (Unknown, Verified 12/06/23 12:20) DIARRHEA trimethoprim [From BACTRIM] Allergy (Unknown, Verified 12/06/23 12:20) DIARRHEA valbenazine [From INGREZZA] Allergy (Unknown, Verified 12/06/23 12:20) INCREASED SLEEP 15-16HRS acetaminophen [From Vicodin] Allergy (Verified 12/06/23 12:20) Unknown alprazolam [From Xanax] Allergy (Verified 12/06/23 12:20) Unknown doxepin Allergy (Verified 12/06/23 12:20) Unknown escitalopram [From Lexapro] Allergy (Verified 12/06/23 12:20) Unknown estradiol Allergy (Verified 12/06/23 12:20) Unknown hydrocodone [From Vicodin] Allergy (Verified 12/06/23 12:20) Unknown mirtazapine Allergy (Verified 12/06/23 12:20) Unknown pregabalin [From Lyrica] Allergy (Verified 12/06/23 12:20) Unknown ramelteon Allergy (Verified 12/06/23 12:20) Unknown ANTIBIOTICS Allergy (Unknown, Uncoded 12/06/23 12:20) PT STATED NEED TO GO THRU PCP D/T GASTROPARESIS Medication List - Last Reconciled 12/06/23 by Lata Dunham MD amlodipine 10 mg PO DAILY@1800 30 days atorvastatin 10 mg PO DAILY 30 days bupropion HCl SR (Wellbutrin SR) 150 mg PO BID 30 days desvenlafaxine succinate ER 100 mg PO DAILY hydrochlorothiazide 25 mg PO DAILY hydroxyzine HCl 50 mg PO BEDTIME hydroxyzine HCl 25 mg PO DAILY lamotrigine 200 mg PO BID levothyroxine 100 mcg PO DAILY lisinopril 5 mg PO DAILY melatonin 10 mg PO BEDTIME oxcarbazepine 300 mg PO BID oxcarbazepine 150 mg PO BID pantoprazole 40 mg PO DAILY Rinvoq ER (upadacitinib) 15 mg PO DAILY NS trazodone 200 mg PO BEDTIME PRN HPI Comments Details: 73 y/o female patient presents for follow up of MERRITT on CPAP, and tardive dyskinesia. she reports pain in her hands and back ( she has RA) she feels her hand movements are slower and weaker. she was given advil while she was in crisis unit ( she had an allergic reaction)she is in a crisis retreat now due to her psych issues.( she is very stressed because of her divorce. The CPAP compliance and therapy response (07/03/23-09/30/23) reviewed with the patient. She is on CPAP at 6cmH2O. Usage days 83% and the usage hours 5 hours 30 min. The residual AHI was 4.3/hr. Pt states that she sleeps well throughout the night with CPAP. She feels rested in the morning but can have daytime tiredness. She states that she has lots of personal issue, and it makes her tired, too. She sees psychiatrist. Pt reports her tardive dyskinesias are stable. She could not tolerate austedo or ingrezza. [facility], LAT[facility] Medical History Obesity MERRITT (obstructive sleep apnea) Expressive speech disorder Speech abnormality Weakness Rheumatoid arthritis Type 2 diabetes mellitus Bipolar II disorder Tremors of nervous system Tardive dyskinesia Sleep apnea Thyroid disease Depression Bipolar 1 disorder Combined hyperlipidemia HTN (hypertension) Surgical History Hx of cholecystectomy H/O shoulder surgery Hx of appendectomy Family History Father No problems noted. Mother No problems noted. Other Family history of rheumatoid arthritis Social History Household Members: Other Housing: Assisted Living Facility Housing Other:: Living with nuns in a wing of a convent due to homelessness Do you presently have visiting nurse or other home services: No Unable to assess alcohol history related to: Unable to respond Alcohol intake: never Patient Tobacco Use Status: Former Tobacco user Tobacco use type: Cigarette e-Cigarette/Vaping Use: Never Used Second Hand Smoke Exposure: No Advance Directives Date on File: 01/21/23 service: No Sexual orientation: Straight/Heterosexual Physical Exam Vital Signs: Last Vital Signs Pulse 69 12/06/23 12:21 Resp 17 12/06/23 12:21 BP 136/68 12/06/23 12:21 Pulse Ox 95 12/06/23 12:21 Oxygen Delivery Method Room Air 12/06/23 12:21 BMI result Body Mass Index 43.4 Const General: cooperative, healthy appearing, comfortable and no acute distress Nutritional Appearance: obese Neck Neck: Yes normal visual inspection and Yes full ROM Neuro Other: Moderate tongue movements with eye blinking. No UE or LE choreiform movements No tremors. Speech- normal. General: CN's II-XI intact bilaterally Cognition (Neuro): normal cognition Gait exam (Neuro): Assisted gait required Gait assisted method: walker Extrem Other: Psych Appearance: grossly normal Mental Status: mental status grossly normal Affect: No Anxious affect present Assessment & Plan Assessment & Plan (1) Sleep apnea: Comment: Hx of complex sleep apnea, Moderate degree of sleep apnea with increased severity in REM sleep. AHI was 19/hr, REM AHI was 61/hr. Oxygen narinder was 83%. Code(s): G47.30 - Sleep apnea, unspecified Category: Medical (2) Tardive dyskinesia: Code(s): G24.01 - Drug induced subacute dyskinesia Category: Medical Plan: she could not tolerate austedo or ingrezza (3) Weakness: Code(s): R53.1 - Weakness Category: Medical (4) Expressive speech disorder: Comment: related to anxiety Code(s): F80.1 - Expressive language disorder Category: Medical Plan Continue CPAP at 6 cm of water as patient experiences good clinical effects, sleep quality and daytime tiredness has improved. Continue Psychotherapy. OT and PT Orders: Orders OT Evaluation and Treatment Today M05.79 - Rheumatoid arthritis with rheumatoid factor of multiple sites without organ or systems involvement, R53.1 - Weakness PT Evaluation and Treatment Today M05.79 - Rheumatoid arthritis with rheumatoid factor of multiple sites without organ or systems involvement, R53.1 - Weakness Coding Level of Care Code Est Pt Level 4 (66299) Complex EM visit Add On G2211 Diagnoses Sleep apnea G47.30 Tardive dyskinesia G24.01 Weakness R53.1 Expressive speech disorder F80.1
[2023-12-06 12:21] VITALS: BP 136/68; PULSE 69; RESP 17; O2SAT 95; BMI 43.4
== END 2023-12-06 13:07 | disposition home or self-care (01) ==
PROVIDERS: Visit Provider Psychiatry & Neurology Neurology
DX: G47.30 Sleep apnea, unspecified (principal); G24.01 Drug induced subacute dyskinesia; R53.1 Weakness; F80.1 Expressive language disorder
CPT/HCPCS: 99214; G2211

== ENCOUNTER → 2023-12-06 12:16 | Outpatient (BNVA) | payer MEDICARE, OTHER, SELFPAY | PROVIDERS: Visit Provider Psychiatry & Neurology Neurology | DX: G47.30 Sleep apnea, unspecified (principal); G24.01 Drug induced subacute dyskinesia; R53.1 Weakness; F80.1 Expressive language disorder | CPT/HCPCS: 99212 ==

== ENCOUNTER 2023-12-11 09:30 | Outpatient (REF) | payer MEDICARE, OTHER, SELFPAY ==
[2023-12-11 09:54] LABS: MANUAL DIFF FLAG NO
[2023-12-11 10:37] LABS: Basophils Percent Auto 0.6 % (0-2); Eosinophils Absolute Auto 0.2 X10*3/uL (0.0-0.4); Eosinophils Percent Auto 2.4 % (0-4); Hematocrit 33.4 % (37.0-47.0); Hemoglobin 10.5 g/dl (12.0-16.0); Imm Gran Abs Auto 0.01 X10*3/uL (0.00-0.03); Imm Gran Pct Auto 0.1 % (0.0-0.4); Lymphocytes Absolute Auto 2.2 X10*3/uL (1.2-4.9); Lymphocytes Percent Auto 30.8 % (20-40); Mean Corpuscular HGB Conc 31.4 g/dl (31.0-35.0); Mean Corpuscular Hemoglobin 26.1 pg (27.0-33.0); Mean Corpuscular Volume 83.1 fL (80.0-98.0); Mean Platelet Volume 9.6 fL (9.4-12.3); Monocytes Absolute Auto 0.7 X10*3/uL (0.1-1.2); Monocytes Percent Auto 9.7 % (2-11); Neutrophils Percent Auto 56.4 % (45-73); Platelet Count 314 X10*3/uL (160-400); Red Blood Count 4.02 X10*6/uL (4.20-5.50); White Blood Count 7.1 X10*3/uL (4.8-10.8)
[2023-12-11 11:13] LABS: Erythrocyte Sedimentation Rate 30 MM/HR (0-20)
[2023-12-11 11:24] LABS: Alanine Aminotransferase 19 U/L (0-31); Alkaline Phosphatase 109 U/L (39-117); Anion Gap 15 (12-20); Aspartate Amino Transferase 15 U/L (5-31); Bilirubin Total 0.4 mg/dL (0.0-1.0); Blood Urea Nitrogen 18 mg/dL (9-16); C Reactive Protein 0.63 mg/dL (< or = 0.50); Calcium 10.3 mg/dL (8.4-10.2); Carbon Dioxide 30 mmol/L (22-29); Chloride 105 mmol/L (96-108); Cholesterol 214 mg/dL (<200); Estimated Glomerular Filt Rate 60; Glucose Random 137 mg/dL (60-115); HDL Cholesterol 71 mg/dL (>40); LDL Cholesterol Calculated 124 mg/dL (<100); Potassium 4.4 mmol/L (3.3-5.1); Sodium 146 mmol/L (135-145); Total Protein 7.2 g/dL (6.5-8.0); Triglycerides 97 mg/dL (<150)
== END 2023-12-11 09:31 | disposition home or self-care (01) ==
LOC: HO.LAB 09:30
PROVIDERS: Visit Provider Student in an Organized Health Care Education/Training Program
DX: M05.79 Rheumatoid arthritis with rheumatoid factor of multiple sites without organ or systems involvement (principal); E87.1 Hypo-osmolality and hyponatremia; E78.5 Hyperlipidemia, unspecified; Z79.899 Other long term (current) drug therapy
CPT/HCPCS: 36415; 80053; 80061; 85025; 85652; 86140; 99212

== ENCOUNTER 2023-12-11 11:13 | Outpatient (AMB) | payer MEDICARE, OTHER, SELFPAY ==
[2023-12-11 11:43] VITALS: BP 138/78; PULSE 69; O2SAT 98; BMI 41.3
--- NOTE | 2023-12-11 11:43 | MHC.OFFVIS ---
Vital Signs 12/11/23 11:43 Height 5 ft 6 in Weight 255 lb 11.779 oz BMI 41.3 BP 138/78 Blood Pressure Location Rt brachial Position Sitting Pulse 69 Pulse Source Pulse Oximeter Pulse Oximetry (%) 98 Oxygen Delivery Method Room Air Intake Visit Reasons: RA/lm Allergies methotrexate Allergy (Severe, Verified 12/11/23 11:46) whole body itchy, swelling eyes and lips Penicillins Allergy (Severe, Verified 12/11/23 11:46) HIVES lorazepam [Lorazepam] Allergy (Mild, Verified 12/11/23 11:46) REVERSE EFFECT oxycodone [Oxycodone] Allergy (Mild, Verified 12/11/23 11:46) UNKNOWN deutetrabenazine [From AUSTEDO] Allergy (Unknown, Verified 12/11/23 11:46) TOO MANY SIDE EFFECTS gabapentin [GABAPENTIN] Allergy (Unknown, Verified 12/11/23 11:46) DIZZYNESS, GI ISSUES NSAIDS (Non-Steroidal Anti-Inflamma [NSAIDS (NON-STEROIDAL ANTI-INFLAMMA] Allergy (Unknown, Verified 12/11/23 11:46) LIVER ENZYME ISSUES sulfamethoxazole [From BACTRIM] Allergy (Unknown, Verified 12/11/23 11:46) DIARRHEA trimethoprim [From BACTRIM] Allergy (Unknown, Verified 12/11/23 11:46) DIARRHEA valbenazine [From INGREZZA] Allergy (Unknown, Verified 12/11/23 11:46) INCREASED SLEEP 15-16HRS acetaminophen [From Vicodin] Allergy (Verified 12/11/23 11:46) Unknown alprazolam [From Xanax] Allergy (Verified 12/11/23 11:46) Unknown doxepin Allergy (Verified 12/11/23 11:46) Unknown escitalopram [From Lexapro] Allergy (Verified 12/11/23 11:46) Unknown estradiol Allergy (Verified 12/11/23 11:46) Unknown hydrocodone [From Vicodin] Allergy (Verified 12/11/23 11:46) Unknown mirtazapine Allergy (Verified 12/11/23 11:46) Unknown pregabalin [From Lyrica] Allergy (Verified 12/11/23 11:46) Unknown ramelteon Allergy (Verified 12/11/23 11:46) Unknown ANTIBIOTICS Allergy (Unknown, Uncoded 12/11/23 11:46) PT STATED NEED TO GO THRU PCP D/T GASTROPARESIS Medication List - Last Reconciled 12/11/23 by Yaquelin Darden MD amlodipine 10 mg PO DAILY@1800 30 days atorvastatin 10 mg PO DAILY 30 days bupropion HCl SR (Wellbutrin SR) 150 mg PO BID 30 days desvenlafaxine succinate ER 100 mg PO DAILY hydrochlorothiazide 25 mg PO DAILY hydroxyzine HCl 50 mg PO BEDTIME hydroxyzine HCl 25 mg PO DAILY lamotrigine 200 mg PO BID levothyroxine 100 mcg PO DAILY lisinopril 5 mg PO DAILY melatonin 10 mg PO BEDTIME oxcarbazepine 300 mg PO BID oxcarbazepine 150 mg PO BID pantoprazole 40 mg PO DAILY Rinvoq ER (upadacitinib) 15 mg PO DAILY NS trazodone 200 mg PO BEDTIME PRN HPI Comments Details: 73-year-old female with seropositive RA (+ RF, +[id number], -ve CCP) who returns for follow-up. Patient started Rinvoq 15 mg p.o. 3-4 weeks ago. Well-tolerated, not effective. Continues to have pain and stiffness in her hands, intermittent pain of her toes. 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 She has morning stiffness of her back that lasts 1-2 hours. She would like to go back to Actemra infusions. Initial history: This is a 71-year-old female past history hypothyroidism, dyslipidemia, depression, bipolar disorder, dyskinesia presents for evaluation diffuse joint pain. patient had bipolar disorder for many years was on antipsychotic many years. She recently developed tardive dyskinesia which is significantly affecting life. Over the past 6-9 months she has been pain swelling and stiffness hands, wrists, ankles and feet. Pain is generally worse in morning associated morning stiffness lasted few hours. She has dry for years but got worse over last 3 months.She was evaluated by her PCP referred to Rheumatology for evaluation. [facility] Medical History Obesity MERRITT (obstructive sleep apnea) Expressive speech disorder Speech abnormality Weakness Rheumatoid arthritis Type 2 diabetes mellitus Bipolar II disorder Tremors of nervous system Tardive dyskinesia Sleep apnea Thyroid disease Depression Bipolar 1 disorder Combined hyperlipidemia HTN (hypertension) Surgical History Hx of cholecystectomy H/O shoulder surgery Hx of appendectomy Family History Father No problems noted. Mother No problems noted. Other Family history of rheumatoid arthritis Social History Household Members: Other Housing: Assisted Living Facility Housing Other:: Living with nuns in a wing of a convent due to homelessness Do you presently have visiting nurse or other home services: No Unable to assess alcohol history related to: Unable to respond Alcohol intake: never Patient Tobacco Use Status: Former Tobacco user Tobacco use type: Cigarette e-Cigarette/Vaping Use: Never Used Second Hand Smoke Exposure: No Advance Directives Date on File: 01/21/23 service: No Sexual orientation: Straight/Heterosexual Review of Systems Musc Reports arthralgias, Reports joint swelling, Reports limited range of motion and Reports stiffness Physical Exam Vital Signs: Last Vital Signs Pulse 69 12/11/23 11:43 BP 138/78 12/11/23 11:43 Pulse Ox 98 12/11/23 11:43 Oxygen Delivery Method Room Air 12/11/23 11:43 BMI result Body Mass Index 41.3 Const General: cooperative, healthy appearing and comfortable Nutritional Appearance: obese morbidly obese Orientation/consciousness: patient oriented x3 Limitations: ambulation with walker HEENT Head: Yes normocephalic and Yes atraumatic Mouth: moist mucous membranes Chest Other: Right chest wall Port insertion site is erythematous and tender and patient Resp Effort & Inspection: normal respiratory effort and able to speak in complete sentences Auscultation: clear to auscultation bilaterally Skin General skin exam: no rashes or lesions noted Neuro General: patient oriented x3 Extrem Other: Normal range of motion of both shoulders and elbows without pain Bilateral wrist tenderness and pain with flexion and extension Right 1st MCP tenderness Multiple tender flexor tendons bilaterally Results Reviewed Results Reviewed: ?MR/MR hand LT wo/w con? 12/08 IMPRESSION: 1. Mild marrow edema within the dorsal aspect of the lunate which may be degenerative or represent an osseous contusion. No associated fracture line. 2. Mild flexor and extensor digitorum tenosynovitis, most prominent within the 3rd flexor digitorum tendon sheath. No transverse tendon tear or tendon retraction. 3. Mild edema along the dorsal aspect of the distal carpal row which could indicate minimal synovitis. No significant joint effusion. Assessment & Plan Assessment & Plan (1) Rheumatoid arthritis: Comment: +RF, -ve on repeat -CCP Dx 07/10 MTX 07/10 (multiple side effects Enbrel 07/10-10/08 ineffective Prednisone effective but causes psychiatric side effects and dizziness Actemra infusions 4 mg/kg 03/2023 effective DC'd d.t. port infection Actemra Sq injections 10/2023-11/2023 ineffective Rinvoq 11/2023 Code(s): M06.9 - Rheumatoid arthritis, unspecified Category: Medical Qualifiers: Rheumatoid arthritis location: multiple sites Rheumatoid factor presence: with rheumatoid factor Qualified Code(s): M05.79 - Rheumatoid arthritis with rheumatoid factor of multiple sites without organ or systems involvement Plan: This is a 73-year-old female with seropositive RA (+RF, -ve CCP) who presents for follow-up. She is HLA B27 positive. Today she is complaining of significant morning stiffness of her back. There is now some suspicion of inflammatory back pain as well. After last visit, her chest wall port was removed, infusions were discontinued, patient did Actemra injections for 4-5 weeks without improvement. We switched her to book 15 mg p.o. daily 3-4 weeks ago. She continues to have inflammatory arthritis. Inflammatory markers remain elevated. Is a little too early to assess response to Rinvoq. Continue with Rinvoq 15 mg p.o. daily for 6 more weeks and we will reassess. Other options would be Simponi Aria infusion, rituximab infusion, Taltz and Cosentyx infusion Infectious screening: Hepatitis panel and T spot -ve 2021 Labs before next visit in 6 weeks (2) High risk medication use: Code(s): Z79.899 - Other skilled nursing (current) drug therapy Category: Medical Plan: Monitor safety labs for DMARDs. Advised patient to call the clinic if she develops any signs of fever or an infection We did discuss the black box warning for Rinvoq and its association with increased cardiovascular events, malignancy and thromboembolic phenomenon. Patient fully aware. Plan I spent 35 minutes reviewing patient's chart, evaluating patient, ordering diagnostic workup, counseling patient and documenting in the chart Orders: Orders Comprehensive Met. Panel 6 Weeks M05.79 - Rheumatoid arthritis with rheumatoid factor of multiple sites without organ or systems involvement C Reactive Protein 6 Weeks M05.79 - Rheumatoid arthritis with rheumatoid factor of multiple sites without organ or systems involvement Complete Blood Count Auto Diff 6 Weeks M05.79 - Rheumatoid arthritis with rheumatoid factor of multiple sites without organ or systems involvement Erythrocyte Sedimentation Rate 6 Weeks M05.79 - Rheumatoid arthritis with rheumatoid factor of multiple sites without organ or systems involvement Coding Level of Care Code Est Pt Level 4 (61175) Diagnoses Rheumatoid arthritis involving multiple sites with positive rheumatoid factor M05.79 Rheumatoid arthritis location: multiple sites Rheumatoid factor presence: with rheumatoid factor High risk medication use Z79.899
== END 2023-12-11 12:21 | disposition home or self-care (01) ==
PROVIDERS: Visit Provider Student in an Organized Health Care Education/Training Program
DX: M05.79 Rheumatoid arthritis with rheumatoid factor of multiple sites without organ or systems involvement (principal); Z79.899 Other long term (current) drug therapy
CPT/HCPCS: 99214

== ENCOUNTER 2024-01-31 10:30 | Outpatient (REF) | payer MEDICARE, OTHER, SELFPAY ==
[2024-01-31 11:56] LABS: MANUAL DIFF FLAG NO
[2024-01-31 12:00] LABS: Basophils Percent Auto 0.8 % (0-2); Eosinophils Absolute Auto 0.1 X10*3/uL (0.0-0.4); Eosinophils Percent Auto 2.7 % (0-4); Hematocrit 33.6 % (37.0-47.0); Hemoglobin 10.6 g/dl (12.0-16.0); Imm Gran Abs Auto 0.02 X10*3/uL (0.00-0.03); Imm Gran Pct Auto 0.4 % (0.0-0.4); Lymphocytes Absolute Auto 1.2 X10*3/uL (1.2-4.9); Lymphocytes Percent Auto 23.6 % (20-40); Mean Corpuscular HGB Conc 31.5 g/dl (31.0-35.0); Mean Corpuscular Hemoglobin 25.9 pg (27.0-33.0); Mean Corpuscular Volume 82.2 fL (80.0-98.0); Mean Platelet Volume 9.1 fL (9.4-12.3); Monocytes Absolute Auto 0.5 X10*3/uL (0.1-1.2); Monocytes Percent Auto 9.5 % (2-11); Neutrophils Absolute Auto 3.3 x10*3/uL (2.0-8.3); Platelet Count 307 X10*3/uL (160-400); Red Blood Count 4.09 X10*6/uL (4.20-5.50); Red Cell Distribution Width 15.5 % (11.0-16.0); White Blood Count 5.2 X10*3/uL (4.8-10.8)
[2024-01-31 12:17] LABS: Alanine Aminotransferase 20 U/L (0-31); Albumin Level 4.1 g/dL (3.5-5.0); Alkaline Phosphatase 108 U/L (39-117); Anion Gap 14 (12-20); Aspartate Amino Transferase 16 U/L (5-31); Bilirubin Total 0.4 mg/dL (0.0-1.0); Blood Urea Nitrogen 14 mg/dL (9-16); C Reactive Protein 0.46 mg/dL (< or = 0.50); Calcium 9.9 mg/dL (8.4-10.2); Carbon Dioxide 27 mmol/L (22-29); Chloride 100 mmol/L (96-108); Estimated Glomerular Filt Rate 53; Glucose Random 169 mg/dL (60-115); Potassium 4.5 mmol/L (3.3-5.1); Sodium 136 mmol/L (135-145); Total Protein 7.5 g/dL (6.5-8.0)
[2024-01-31 12:48] LABS: Erythrocyte Sedimentation Rate 31 MM/HR (0-20)
== END 2024-01-31 10:31 | disposition home or self-care (01) ==
LOC: HO.10HDL 10:30
PROVIDERS: Visit Provider Student in an Organized Health Care Education/Training Program
DX: M05.79 Rheumatoid arthritis with rheumatoid factor of multiple sites without organ or systems involvement (principal); Z79.899 Other long term (current) drug therapy
CPT/HCPCS: 36415; 80053; 85025; 85652; 86140; 99212

== ENCOUNTER 2024-01-31 11:16 | Outpatient (AMB) | payer MEDICARE, OTHER, SELFPAY ==
--- NOTE | 2024-01-31 11:18 | MHC.OFFVIS ---
Vital Signs 01/31/24 11:23 Height 5 ft 6 in Weight 253 lb 8.505 oz BMI 40.9 BP 132/62 Blood Pressure Location Lt brachial Position Sitting Pulse 75 Pulse Source Pulse Oximeter Pulse Oximetry (%) 92 Oxygen Delivery Method Room Air Intake Visit Reasons: RA/CM Intake Note: Patient presents for RA. Left hand swollen and very painful. Allergies methotrexate Allergy (Severe, Verified 01/31/24 11:22) whole body itchy, swelling eyes and lips Penicillins Allergy (Severe, Verified 01/31/24 11:22) HIVES lorazepam [Lorazepam] Allergy (Mild, Verified 01/31/24 11:22) REVERSE EFFECT oxycodone [Oxycodone] Allergy (Mild, Verified 01/31/24 11:22) UNKNOWN deutetrabenazine [From AUSTEDO] Allergy (Unknown, Verified 01/31/24 11:) TOO MANY SIDE EFFECTS gabapentin [GABAPENTIN] Allergy (Unknown, Verified 01/31/24 11:) DIZZYNESS, GI ISSUES NSAIDS (Non-Steroidal Anti-Inflamma [NSAIDS (NON-STEROIDAL ANTI-INFLAMMA] Allergy (Unknown, Verified 01/31/24 11:) LIVER ENZYME ISSUES sulfamethoxazole [From BACTRIM] Allergy (Unknown, Verified 01/31/24 11:) DIARRHEA trimethoprim [From BACTRIM] Allergy (Unknown, Verified 01/31/24 11:) DIARRHEA valbenazine [From INGREZZA] Allergy (Unknown, Verified 01/31/24 11:22) INCREASED SLEEP 15-16HRS acetaminophen [From Vicodin] Allergy (Verified 01/31/24 11:22) Unknown alprazolam [From Xanax] Allergy (Verified 01/31/24 11:22) Unknown doxepin Allergy (Verified 01/31/24 11:22) Unknown escitalopram [From Lexapro] Allergy (Verified 01/31/24 11:22) Unknown estradiol Allergy (Verified 01/31/24 11:) Unknown hydrocodone [From Vicodin] Allergy (Verified 01/31/24 11:22) Unknown mirtazapine Allergy (Verified 01/31/24 11:22) Unknown pregabalin [From Lyrica] Allergy (Verified 01/31/24 11:22) Unknown ramelteon Allergy (Verified 01/31/24 11:22) Unknown ANTIBIOTICS Allergy (Unknown, Uncoded 12/11/23 11:46) PT STATED NEED TO GO THRU PCP D/T GASTROPARESIS Medication List - Last Reconciled 01/31/24 by Yaquelin Darden MD amlodipine 10 mg PO DAILY@1800 30 days atorvastatin 10 mg PO DAILY 30 days bupropion HCl SR (Wellbutrin SR) 150 mg PO BID 30 days desvenlafaxine succinate ER 100 mg PO DAILY hydrochlorothiazide 25 mg PO DAILY hydroxyzine HCl 50 mg PO BEDTIME hydroxyzine HCl 25 mg PO DAILY lamotrigine 200 mg PO BID levothyroxine 100 mcg PO DAILY lisinopril 5 mg PO DAILY melatonin 10 mg PO BEDTIME oxcarbazepine 300 mg PO BID oxcarbazepine 150 mg PO BID pantoprazole 40 mg PO DAILY Rinvoq ER (upadacitinib) 15 mg PO DAILY NS trazodone 200 mg PO BEDTIME PRN HPI Comments Details: 73-year-old female with seropositive RA (+ RF, +[id number], -ve CCP) who returns for follow-up. On Rinvoq 15 mg p.o. daily. She states that she does not feel the medication is helping her much. Today she is complaining of significant pain and swelling of her left hand. Continues to have stiffness. She states that she will be moving to [place] February 16. And will be transferring her care over there Initial history: This is a 71-year-old female past history hypothyroidism, dyslipidemia, depression, bipolar disorder, dyskinesia presents for evaluation diffuse joint pain. patient had bipolar disorder for many years was on antipsychotic many years. She recently developed tardive dyskinesia which is significantly affecting life. Over the past 6-9 months she has been pain swelling and stiffness hands, wrists, ankles and feet. Pain is generally worse in morning associated morning stiffness lasted few hours. She has dry for years but got worse over last 3 months.She was evaluated by her PCP referred to Rheumatology for evaluation. [facility] Medical History Obesity MERRITT (obstructive sleep apnea) Expressive speech disorder Speech abnormality Weakness Rheumatoid arthritis Type 2 diabetes mellitus Bipolar II disorder Tremors of nervous system Tardive dyskinesia Sleep apnea Thyroid disease Depression Bipolar 1 disorder Combined hyperlipidemia HTN (hypertension) Surgical History Hx of cholecystectomy H/O shoulder surgery Hx of appendectomy Family History Father No problems noted. Mother No problems noted. Other Family history of rheumatoid arthritis Social History Household Members: Other Housing: Assisted Living Facility Housing Other:: Living with nuns in a wing of a convent due to homelessness Do you presently have visiting nurse or other home services: No Unable to assess alcohol history related to: Unable to respond Alcohol intake: never Patient Tobacco Use Status: Former Tobacco user Tobacco use type: Cigarette e-Cigarette/Vaping Use: Never Used Second Hand Smoke Exposure: No Advance Directives Date on File: 01/21/23 service: No Sexual orientation: Straight/Heterosexual Female Reproductive History Menstrual Total pregnancies: 3 Full term: 2 Ab spontaneous: 1 Review of Systems Musc Reports arthralgias, Reports joint swelling, Reports limited range of motion and Reports stiffness Physical Exam Vital Signs: Last Vital Signs Pulse 75 01/31/24 11:23 BP 132/62 01/31/24 11:23 Pulse Ox 92 01/31/24 11:23 Oxygen Delivery Method Room Air 01/31/24 11:23 BMI result Body Mass Index 40.9 Const General: cooperative, healthy appearing and comfortable Nutritional Appearance: obese morbidly obese Orientation/consciousness: patient oriented x3 Limitations: ambulation with walker HEENT Head: Yes normocephalic and Yes atraumatic Mouth: moist mucous membranes Resp Effort & Inspection: normal respiratory effort and able to speak in complete sentences Auscultation: clear to auscultation bilaterally Skin General skin exam: no rashes or lesions noted Neuro General: patient oriented x3 Extrem Other: Normal range of motion of both shoulders and elbows without pain Left 2nd 3rd and 4th MCP tenderness Minimal swelling at the dorsum of the left hand Results Reviewed Results Reviewed: ?MR/MR hand LT wo/w con? 12/08 IMPRESSION: 1. Mild marrow edema within the dorsal aspect of the lunate which may be degenerative or represent an osseous contusion. No associated fracture line. 2. Mild flexor and extensor digitorum tenosynovitis, most prominent within the 3rd flexor digitorum tendon sheath. No transverse tendon tear or tendon retraction. 3. Mild edema along the dorsal aspect of the distal carpal row which could indicate minimal synovitis. No significant joint effusion. Assessment & Plan Assessment & Plan (1) Rheumatoid arthritis: Comment: +RF, -ve on repeat -CCP Dx 07/10 MTX 07/10 (multiple side effects ) Enbrel 07/10-10/08 ineffective Prednisone effective but causes psychiatric side effects and dizziness Actemra infusions 4 mg/kg 03/2023 effective DC'd d.t. port infection Actemra Sq injections 10/2023-11/2023 ineffective Rinvoq 11/2023 Code(s): M06.9 - Rheumatoid arthritis, unspecified Category: Medical Qualifiers: Rheumatoid arthritis location: multiple sites Rheumatoid factor presence: with rheumatoid factor Qualified Code(s): M05.79 - Rheumatoid arthritis with rheumatoid factor of multiple sites without organ or systems involvement Plan: This is a 73-year-old female with seropositive RA (+RF, -ve CCP, +HLA b27) who presents for follow-up she is on Rinvoq 15 mg p.o. daily. She states that she does not feel Rinvoq is helping her much. Exam today she has synovitis affecting her left hand. Patient states that she has done the best on Actemra infusions. Other DMARDs have not been effective or not tolerated. Patient will be moving to [place] February 16 and will be transferring her care over there. I think switching back to Actemra infusions would be a reasonable choice. Patient however has poor venous access and will likely need another port. She had a port infection last time. I think this can be re-attempted. Discuss with lead principal technical architect over there I think the Rinvoq should not be discontinued on switching to another DMARD at this time. For now continue with Rinvoq 15 mg p.o. daily Will prescribe small dose short term prednisone to treat current flare Advised patient to get up and move around every 30 minutes or so while in the flight given mildly increased risk of thromboembolism with HEATHER inhibitors (2) High risk medication use: Code(s): Z79.899 - Other mcfp (current) drug therapy Category: Medical Plan: Monitor safety labs for DMARDs. Advised patient to call the clinic if she develops any signs of fever or an infection We did discuss the black box warning for Rinvoq and its association with increased cardiovascular events, malignancy and thromboembolic phenomenon. Patient fully aware. Plan I spent 25 minutes reviewing patient's chart, evaluating patient, ordering diagnostic workup, counseling patient and documenting in the chart Medications: New prednisone 5 - 10 mg (1 - 2 x 5 mg) PO DAILY 10 tabs 0RF Coding Level of Care Code Est Pt Level 4 (17780) Diagnoses Rheumatoid arthritis involving multiple sites with positive rheumatoid factor M05.79 Rheumatoid arthritis location: multiple sites Rheumatoid factor presence: with rheumatoid factor High risk medication use Z79.899
[2024-01-31 11:23] VITALS: BP 132/62; PULSE 75; O2SAT 92; BMI 40.9
== END 2024-01-31 12:30 | disposition home or self-care (01) ==
PROVIDERS: Visit Provider Student in an Organized Health Care Education/Training Program
DX: M05.79 Rheumatoid arthritis with rheumatoid factor of multiple sites without organ or systems involvement (principal); Z79.899 Other long term (current) drug therapy
CPT/HCPCS: 99214

== ENCOUNTER 2024-02-03 16:38 | Emergency (ER) | payer MEDICARE, OTHER, SELFPAY ==
--- NOTE | ~2024-02-03 | CT_ITS ---
EXAMINATION: CT ABDOMEN AND PELVIS WITH CONTRAST CLINICAL INFORMATION: Right lower quadrant pain. COMPARISON: CT abdomen pelvis dated 03/05/2023. TECHNIQUE: Multidetector volumetric images were obtained from the superior aspect of the liver through the pubic symphysis following administration 85 mL of Omnipaque 350 intravenous contrast. Sagittal and coronal reformatted images were obtained on the technologist's workstation. Oral contrast: No This CT examination was performed using dose optimization techniques as appropriate, variously including the following: *Automated exposure control *Adjustment of mA and/or kV according to patient size (this includes techniques or standardized protocols for targeted exams where dose is matched to indication/reason for exam; i.e. extremities or head) *Use of iterative reconstruction technique DLP: 1038 mGy-cm FINDINGS: LUNG BASES: The visualized lung bases are unremarkable. The heart is normal in size. LIVER, GALLBLADDER, AND BILIARY TREE: The liver is normal in size, shape, and attenuation. No focal hepatic lesion or biliary ductal dilatation is present. The gallbladder is surgically absent. PANCREAS: Unremarkable. SPLEEN: Unremarkable. ADRENAL GLANDS: Unremarkable. KIDNEYS AND URETERS: Right side: There is mild to moderate right hydronephrosis and moderate right sided hydroureter. There is extensive right-sided perinephric stranding. There is a 3 mm calculus which appears to be within the distal right ureter just proximal to the ureterovesicular junction. When compared with the 03/05/2023 CT, however, this calculus appears to have been present. Left side: The left kidney is normal in size, shape, and attenuation. No hydronephrosis, hydroureter, or calculi seen. No perinephric stranding. BLADDER: Unremarkable. GASTROINTESTINAL TRACT: The small and large bowel are normal in caliber. There is sigmoid colon diverticulosis. There is no evidence of acute diverticulitis. The appendix is not definitively identified. ABDOMINAL WALL: No significant hernia is appreciated. LYMPH NODES: No lymphadenopathy. VASCULAR: No abdominal aortic aneurysm. There is vascular calcification. PELVIC VISCERA: No adnexal mass. No free fluid within the pelvis. OSSEOUS STRUCTURES: There are degenerative changes of the lumbar spine. CT/CT abdomen pelvis w IV con IMPRESSION: There is mild to moderate right hydronephrosis and moderate right sided hydroureter. There is extensive right-sided perinephric stranding. There is a 3 mm calculus which appears to be within the distal right ureter just proximal to the ureterovesicular junction. When compared with the 03/05/2023 CT, however, this calculus appears to have been present. This raises the possibility that this calculus represents a phlebolith. No additional obstructing lesion is identified. Fleischner guidelines were followed.
[2024-02-03 16:42] VITALS: BP 192/82; PULSE 70; O2SAT 100
[2024-02-03 16:48] VITALS: BP 195/70; PULSE 66; PULSE 68; RESP 18; RESP 20; TEMP 36.8; O2SAT 100; O2SAT 99; BMI 42.6
[2024-02-03 17:18] LABS: Appearance Urine Clear; Color Urine Yellow; Glucose Urine UA Negative (Negative); Leukocyte Esterase Urine Negative (Negative); Nitrite Urine Negative (Negative); Specific Gravity - Urine 1.015 (1.005-1.025); UMIC TRIGGER UACC YES; Urine Blood Trace (Negative); Urine Ketones Negative (Negative); Urine Protein Negative (Neg-Trace)
[2024-02-03 17:46] LABS: MANUAL DIFF FLAG NO
[2024-02-03 17:47] LABS: Basophils Percent Auto 0.2 % (0-2); Eosinophils Percent Auto 0.1 % (0-4); Hematocrit 34.2 % (37.0-47.0); Hemoglobin 11.4 g/dl (12.0-16.0); Imm Gran Abs Auto 0.07 X10*3/uL (0.00-0.03); Imm Gran Pct Auto 0.6 % (0.0-0.4); Lymphocytes Absolute Auto 0.6 X10*3/uL (1.2-4.9); Lymphocytes Percent Auto 4.7 % (20-40); Mean Corpuscular HGB Conc 33.3 g/dl (31.0-35.0); Mean Platelet Volume 8.7 fL (9.4-12.3); Monocytes Absolute Auto 0.5 X10*3/uL (0.1-1.2); Monocytes Percent Auto 4.4 % (2-11); Neutrophils Absolute Auto 10.8 x10*3/uL (2.0-8.3); Platelet Count 287 X10*3/uL (160-400); Red Blood Count 4.22 X10*6/uL (4.20-5.50); Red Cell Distribution Width 15.3 % (11.0-16.0)
[2024-02-03 17:49] LABS: Bacteria Urine None Seen (None Seen); Hyaline Casts Urine 0-2 /LPF (0-2); Squamous Epithelial Cell Urine 0-2 /HPF (0-2); WBC Urine 0-5 /HPF (0-5)
[2024-02-03 18:00] LABS: Alanine Aminotransferase 22 U/L (0-31); Albumin Level 4.3 g/dL (3.5-5.0); Alkaline Phosphatase 119 U/L (39-117); Anion Gap 19 (12-20); Aspartate Amino Transferase 20 U/L (5-31); Bilirubin Direct 0.2 mg/dL (0.0-0.5); Bilirubin Total 0.4 mg/dL (0.0-1.0); Blood Urea Nitrogen 16 mg/dL (9-16); Calcium 10.3 mg/dL (8.4-10.2); Carbon Dioxide 24 mmol/L (22-29); Chloride 99 mmol/L (96-108); Creatinine Clr Calc Pharmacy 60.2; Estimated Glomerular Filt Rate 51; Glucose Random 189 mg/dL (60-115); Lipase 10 U/L (8-78); Magnesium 1.9 mg/dL (1.6-2.6); Sodium 138 mmol/L (135-145); Total Protein 7.6 g/dL (6.5-8.0)
[2024-02-03 18:39] VITALS: BP 169/72; PULSE 69; RESP 18; TEMP 36.9; O2SAT 97
--- NOTE | 2024-02-03 18:39 | PC.NURSE ---
alert and oriented with even and unlabored respirations. IV established, resting quietly in room.
--- NOTE | 2024-02-03 19:13 | ED.GENADULT ---
HPI - General Adult General Chief complaint: Abdominal Pain Stated complaint: abd pain vomiting Time Seen by Provider: 02/03/24 19:13 History of Present Illness ED Provider: Jose Miguel COOPER narrative: Patient is a 73-year-old female who says that she developed right sided abdominal pain at around noon today. The patient has a history of problems with conversion disorder and at 1st she thought her symptoms might be a manifestation of her conversion disorder. She took some hydroxyzine to see if this would help but her symptoms continued and ultimately she called an ambulance and came to the emergency room. No fever. She has had nausea but no vomiting. She has a history of a cholecystectomy and a history of C-sections. Related Data Home Medications ?Medication ?Instructions ?Recorded ?Confirmed lamotrigine 200 mg tablet 200 mg PO BID 05/26/22 12/06/23 hydrochlorothiazide 25 mg tablet 25 mg PO DAILY 07/14/22 12/06/23 hydroxyzine HCl 25 mg tablet 25 mg PO DAILY as directed 07/16/23 12/06/23 hydroxyzine HCl 25 mg tablet 50 mg PO BEDTIME 10/03/23 12/06/23 levothyroxine 100 mcg tablet 100 mcg PO DAILY 10/03/23 12/06/23 lisinopril 5 mg tablet 5 mg PO DAILY 10/03/23 12/06/23 melatonin 10 mg tablet 10 mg PO BEDTIME 10/03/23 12/06/23 oxcarbazepine 150 mg tablet 150 mg PO BID 10/03/23 12/06/23 oxcarbazepine 300 mg tablet 300 mg PO BID 10/03/23 12/06/23 pantoprazole 40 mg tablet,delayed 40 mg PO DAILY 10/03/23 12/06/23 release trazodone 100 mg tablet 200 mg PO BEDTIME PRN insomia 10/03/23 12/06/23 desvenlafaxine succinate 100 mg 100 mg PO DAILY 10/05/23 12/06/23 tablet,extended release 24 hr Previous Rx's ?Medication ?Instructions ?Recorded amlodipine 10 mg tablet 10 mg PO DAILY@1800 30 days #30 04/06/22 tabs atorvastatin 10 mg tablet 10 mg PO DAILY 30 days #30 tabs 04/06/22 bupropion HCl 150 mg tablet,12 hr 150 mg PO BID 30 days #60 tabs 04/06/22 sustained-release (Wellbutrin SR) Rinvoq 15 mg tablet,extended 15 mg PO DAILY #30 tabs 01/14/24 release (upadacitinib) prednisone 5 mg tablet 5 mg PO DAILY #5 tabs 01/31/24 naproxen 500 mg tablet 500 mg PO BID PRN pain 14 days #28 02/04/24 tabs prednisone 20 mg tablet 20 mg PO DAILY 5 days #5 tabs 02/04/24 tamsulosin 0.4 mg capsule 0.4 mg PO BEDTIME 14 days #14 caps 02/04/24 Allergies Allergy/AdvReac Type Severity Reaction Status Date / Time methotrexate Allergy Severe whole body Verified 02/03/24 16:52 itchy, swelling eyes and lips Penicillins Allergy Severe HIVES Verified 02/03/24 16:52 lorazepam [Lorazepam] Allergy Mild REVERSE Verified 02/03/24 16:52 EFFECT oxycodone [Oxycodone] Allergy Mild UNKNOWN Verified 02/03/24 16:52 deutetrabenazine Allergy Unknown TOO MANY Verified 02/03/24 16:52 [From AUSTEDO] SIDE EFFECTS gabapentin [GABAPENTIN] Allergy Unknown DIZZYNESS, Verified 02/03/24 16:52 GI ISSUES NSAIDS (Non-Steroidal Allergy Unknown LIVER Verified 02/03/24 16:52 Anti-Inflamma ENZYME [NSAIDS (NON-STEROIDAL ISSUES ANTI-INFLAMMA] sulfamethoxazole Allergy Unknown DIARRHEA Verified 02/03/24 16:52 [From BACTRIM] trimethoprim [From BACTRIM] Allergy Unknown DIARRHEA Verified 02/03/24 16:52 valbenazine [From INGREZZA] Allergy Unknown INCREASED Verified 02/03/24 16:52 SLEEP 15-16HRS acetaminophen [From Vicodin] Allergy Unknown Verified 02/03/24 16:52 alprazolam [From Xanax] Allergy Unknown Verified 02/03/24 16:52 doxepin Allergy Unknown Verified 02/03/24 16:52 escitalopram [From Lexapro] Allergy Unknown Verified 02/03/24 16:52 estradiol Allergy Unknown Verified 02/03/24 16:52 hydrocodone [From Vicodin] Allergy Unknown Verified 02/03/24 16:52 mirtazapine Allergy Unknown Verified 02/03/24 16:52 pregabalin [From Lyrica] Allergy Unknown Verified 02/03/24 16:52 ramelteon Allergy Unknown Verified 02/03/24 16:52 ANTIBIOTICS Allergy Unknown PT STATED Uncoded 12/11/23 11:46 NEED TO GO THRU PCP D/T GASTROPARESIS Review of Systems Review of Systems: Yes all other systems are reviewed and are negative [facility] Past Medical History Medical History Obesity MERRITT (obstructive sleep apnea) Expressive speech disorder Speech abnormality Weakness Rheumatoid arthritis Type 2 diabetes mellitus Bipolar II disorder Tremors of nervous system Tardive dyskinesia Sleep apnea Thyroid disease Depression Bipolar 1 disorder Combined hyperlipidemia HTN (hypertension) Surgical History Hx of cholecystectomy H/O shoulder surgery Hx of appendectomy Family History Family History Father No problems noted. Mother No problems noted. Other Family history of rheumatoid arthritis Social History Social History Household Members: Other Housing: Assisted Living Facility Housing Other:: Living with nuns in a wing of a convent due to homelessness Do you presently have visiting nurse or other home services: No Unable to assess alcohol history related to: Unable to respond Alcohol intake: never Patient Tobacco Use Status: Former Tobacco user Tobacco use type: Cigarette e-Cigarette/Vaping Use: Never Used Second Hand Smoke Exposure: No Advance Directives: No Advance Directives Information Provided: No Advance Directives Date on File: 01/21/23 Do you have a plan to hurt others: No Plan service: No Sexual orientation: Straight/Heterosexual Physical Exam ED Vital Signs: Vital Signs - 24 hr 02/03/24 16:48 02/03/24 16:48 02/03/24 18:39 Temperature 98.3 F 98.3 F 98.4 F Pulse Rate 68 66 69 Respiratory Rate 18 20 18 Blood Pressure 195/70 H 195/70 H 169/72 H Pulse Oximetry 100 99 97 Oxygen Delivery Method Room Air Room Air Room Air 02/03/24 23:24 02/03/24 23:48 Temperature 98.2 F 98.2 F Pulse Rate 45 L 45 L Respiratory Rate 12 12 Blood Pressure 154/63 H 154/63 H Pulse Oximetry 95 95 Oxygen Delivery Method BMI result Body Mass Index 42.6 Const Other: Patient is a large 73-year-old woman who is awake and alert. She was very talkative. She did not seem in obvious acute distress although she described being uncomfortable. [facility] Head: Yes normal to inspection Face and sinus: Yes normal facial exam and Yes face symmetric Mouth: Normal oral and palatal mucosa present and moist mucous membranes Eyes General: appearance normal, both eyes and all related structures Neck Neck: Yes normal visual inspection and Yes full ROM Resp Effort & Inspection: normal respiratory effort Auscultation: clear to auscultation bilaterally Cardio Rate: regular rate Rhythm: regular rhythm Heart sounds: S1 normal heart sound present and S2 normal heart sound present GI Other: There is some right lower abdominal tenderness. Back/Spine/Pelvis Other: Right-sided CVA percussion tenderness Skin Other: skin is dry and unremarkable Neuro Other: the patient was awake and alert with normal mental status. She was quite verbose. Cranial nerves are grossly intact. She moves her extremities normally and seems grossly neurologically intact. Extrem General: Yes no pedal edema and Yes no calf tenderness Medications Administered Discontinued Medications Generic Name Dose Route Start Last Admin Trade Name Freq PRN Reason Stop Dose Admin Sodium Chloride 1,000 mls @ 999 mls/hr 02/03/24 19:30 02/03/24 22:50 Ns IV 02/03/24 20:30 Infused .Q1H1M EDWARD Infusion Iohexol 85 ml 02/03/24 20:41 02/03/24 20:41 Iohexol 350 Mg/Ml 100 Ml Infus..Btl IV 02/03/24 20:42 85 ml ONCE ONE Administration Medical Decision Making Medical Decision Making [facility] Narrative: The patient is a 73-year-old woman who presents with right-sided abdominal pain. She is very pleasant and says that she has been diagnosed with conversion disorder. She presents with pain that she initially was concerned could be a manifestation of her conversion disorder. The pain started several hours prior to arrival. She has never had this kind of pain before. Clinically her exam was potentially consistent with either appendicitis or right-sided renal colic.. Urinalysis showed 6-10 red cells. No signs of infection in the urine. Other labs are unremarkable. A CT scan of the abdomen and pelvis was read as showing right-sided hydronephrosis and hydroureter down to the level of the UVJ. The radiologist describes a 3mm calculus at the right UVJ which is presumably an obstructive stone although the radiologist then went on to say that perhaps this was a phlebolith. The patient declined pain medications. She says that no pain medications work for her. She also says that she has multiple medication sensitivities and allergies. Ultimately the patient seemed comfortable going home despite the findings on her CT scan. She said she might take Tylenol for pain at home. She has an appoint with her PCP tomorrow. She is given the contact information for urology and she tried to get seen soon at the urology office. Otherwise she should return to the emergency room if significantly worse. There was no sign of infection. Lab Data 02/03/24 17:42 02/03/24 17:42 Labs: Lab Results 02/03/24 02/03/24 Range/Units 17:10 17:42 WBC 12.0 H (4.8-10.8) X10*3/uL RBC 4.22 (4.20-5.50) X10*6/uL Hgb 11.4 L (12.0-16.0) g/dl Hct 34.2 L (37.0-47.0) % MCV 81.0 (80.0-98.0) fL MCH 27.0 (27.0-33.0) pg MCHC 33.3 (31.0-35.0) g/dl RDW 15.3 (11.0-16.0) % Plt Count 287 (160-400) X10*3/uL MPV 8.7 L (9.4-12.3) fL Immature Gran % (Auto) 0.6 H (0.0-0.4) % Neut % (Auto) 90.0 H (45-73) % Lymph % (Auto) 4.7 L (20-40) % [place] % (Auto) 4.4 (2-11) % Eos % (Auto) 0.1 (0-4) % Baso % (Auto) 0.2 (0-2) % Lymph # (Auto) 0.6 L (1.2-4.9) X10*3/uL [place] # (Auto) 0.5 (0.1-1.2) X10*3/uL Eos # (Auto) 0.0 (0.0-0.4) X10*3/uL Baso # (Auto) 0.0 (0.0-0.2) X10*3/uL Abs Immat Gran (auto) 0.07 H (0.00-0.03) X10*3/uL Absolute Neuts (auto) 10.8 H (2.0-8.3) x10*3/uL Absolute Nucleated RBC 0.000 (0.0-0.012) X10*3/uL Nucleated RBC % (auto) 0.0 (0.0-0.2) /100WBC Sodium 138 (135-145) mmol/L Potassium 4.0 (3.3-5.1) mmol/L Chloride 99 (96-108) mmol/L Carbon Dioxide 24 (22-29) mmol/L Anion Gap 19 (12-20) BUN 16 (9-16) mg/dL Creatinine 1.06 (0.5-1.4) mg/dL Estim Creat Clear Calc 60.2 Estimated GFR 51 Random Glucose 189 H (60-115) mg/dL Calcium 10.3 H (8.4-10.2) mg/dL Magnesium 1.9 (1.6-2.6) mg/dL Total Bilirubin 0.4 (0.0-1.0) mg/dL Direct Bilirubin 0.2 (0.0-0.5) mg/dL AST 20 (5-31) U/L ALT 22 (0-31) U/L Alkaline Phosphatase 119 H (39-117) U/L Total Protein 7.6 (6.5-8.0) g/dL Albumin 4.3 (3.5-5.0) g/dL Lipase 10 (8-78) U/L Urine Color Yellow Urine Appearance Clear Urine pH 8.0 (5.0-9.0) Ur Specific Power 1.015 (1.005-1.025) Urine Protein Negative (Neg-Trace) mg/dL Urine Glucose (UA) Negative (Negative) mg/dL Urine Ketones Negative (Negative) mg/dL Urine Blood Trace H (Negative) Urine Nitrite Negative (Negative) Ur Leukocyte Esterase Negative (Negative) Urine RBC 6-10 H (0-2) /HPF Urine WBC 0-5 (0-5) /HPF Ur Squamous Epith Cells 0-2 (0-2) /HPF Urine Bacteria None Seen (None Seen) Hyaline Casts 0-2 (0-2) /LPF Discharge Plan Discharge Clinical Impression: Colic, ureteral, Right ureteral calculus, Hydronephrosis of right kidney Patient Disposition: Home, Self-Care Instructions: Kidney Stones (ED), Renal Colic (ED) Additional Instructions: The pain on your right side is coming from a kidney stone in your right ureter. The stone is 3 mm in size. Stones of the size usually pass on their own. I am very sorry that I am not able to prescribe any pain medications that might help you. Please call the urology office first thing in the morning to try to get an appointment with them. Drink lot of fluids. Keep your appointment with your regular doctor as well tomorrow. Your significantly worse please return to the emergency department. Prescriptions: No Action Rinvoq 15 mg tablet extended release 24 hr 15 mg PO DAILY Qty: 30 2RF prednisone 5 mg tablet 5 mg PO DAILY Qty: 5 0RF tamsulosin 0.4 mg capsule 0.4 mg PO BEDTIME 14 Days Qty: 14 0RF prednisone 20 mg tablet 20 mg PO DAILY 5 Days Qty: 5 0RF naproxen 500 mg tablet 500 mg PO BID PRN (Reason: pain) 14 Days Qty: 28 0RF bupropion HCl [Wellbutrin SR] 150 mg tablet sustained-release 12 hr 150 mg PO BID 30 Days Qty: 60 0RF atorvastatin 10 mg tablet 10 mg PO DAILY 30 Days Qty: 30 0RF amlodipine 10 mg tablet 10 mg PO DAILY@1800 30 Days Qty: 30 0RF hydroxyzine HCl 25 mg tablet 50 mg PO BEDTIME oxcarbazepine 150 mg tablet 150 mg PO BID oxcarbazepine 300 mg tablet 300 mg PO BID trazodone 100 mg tablet 200 mg PO BEDTIME PRN (Reason: insomia) levothyroxine 100 mcg tablet 100 mcg PO DAILY lisinopril 5 mg tablet 5 mg PO DAILY pantoprazole 40 mg tablet,delayed release (DR/EC) 40 mg PO DAILY melatonin 10 mg Tablet 10 mg PO BEDTIME desvenlafaxine succinate 100 mg tablet extended release 24 hr 100 mg PO DAILY lamotrigine 200 mg tablet 200 mg PO BID hydrochlorothiazide 25 mg tablet 25 mg PO DAILY hydroxyzine HCl 25 mg tablet 25 mg PO DAILY Referrals: Franky Licea MD [Physician] - (Right distal ureteral stone with hydronephrosis) Interventions: ED Discharge Assessment Last Done: 02/03/24 23:48 Discharge Date/Time: 02/03/24 23:51 Print Language: Luxembourger
[2024-02-03] MEDS: 0.9 % Sodium Chloride 1,000 ML 999 ML IV (19:46)
[2024-02-03] MEDS: iohexoL 350 MG/ML 100 ML INFUS..BTL 85 ML IV (20:41)
[2024-02-03 23:24] VITALS: BP 154/63; PULSE 45; RESP 12; TEMP 36.8; O2SAT 95
[2024-02-03 23:48] VITALS: BP 154/63; PULSE 45; RESP 12; TEMP 36.8; O2SAT 95
== END 2024-02-03 23:51 | disposition home or self-care (01) ==
PROVIDERS: Physician Assistant; Emergency Provider Emergency Medicine
DX: N13.2 Hydronephrosis with renal and ureteral calculous obstruction (principal); R11.2 Nausea with vomiting, unspecified; Z79.899 Other long term (current) drug therapy; Z87.891 Personal history of nicotine dependence
CPT/HCPCS: 36415; 74177; 80048; 80076; 81001; 83690; 83735; 85025; 96365; 99284; 99285; Q9967

== ENCOUNTER 2024-05-19 12:25 | Outpatient (AMB) | payer MEDICARE, OTHER, SELFPAY ==
--- NOTE | 2024-05-19 12:33 | A.OFFVIS_ITS ---
Vital Signs 05/19/24 12:42 Height 5 ft 5 in Weight 268 lb 15.423 oz BMI 44.8 BP 132/72 Blood Pressure Location Lt radial Pulse 69 Pulse Source Pulse Oximeter Pulse Oximetry (%) 87 L Oxygen Delivery Method Room Air Intake Visit Reasons: RA/LM Intake Note: Patient presents for RA. Allergies methotrexate Allergy (Severe, Verified 05/19/24 12:37) whole body itchy, swelling eyes and lips Penicillins Allergy (Severe, Verified 05/19/24 12:37) HIVES lorazepam [Lorazepam] Allergy (Mild, Verified 05/19/24 12:37) REVERSE EFFECT oxycodone [Oxycodone] Allergy (Mild, Verified 05/19/24 12:37) UNKNOWN deutetrabenazine [From [place]] Allergy (Unknown, Verified 05/19/24 12:37) TOO MANY SIDE EFFECTS gabapentin [GABAPENTIN] Allergy (Unknown, Verified 05/19/24 12:37) DIZZYNESS, GI ISSUES NSAIDS (Non-Steroidal Anti-Inflamma [NSAIDS (NON-STEROIDAL ANTI-INFLAMMA] Allergy (Unknown, Verified 05/19/24 12:37) LIVER ENZYME ISSUES sulfamethoxazole [From BACTRIM] Allergy (Unknown, Verified 05/19/24 12:37) DIARRHEA trimethoprim [From BACTRIM] Allergy (Unknown, Verified 05/19/24 12:37) DIARRHEA valbenazine [From INGREZZA] Allergy (Unknown, Verified 05/19/24 12:37) INCREASED SLEEP 15-16HRS acetaminophen [From Vicodin] Allergy (Verified 05/19/24 12:37) Unknown alprazolam [From Xanax] Allergy (Verified 05/19/24 12:37) Unknown doxepin Allergy (Verified 05/19/24 12:37) Unknown escitalopram [From Lexapro] Allergy (Verified 05/19/24 12:37) Unknown estradiol Allergy (Verified 05/19/24 12:37) Unknown hydrocodone [From Vicodin] Allergy (Verified 05/19/24 12:37) Unknown mirtazapine Allergy (Verified 05/19/24 12:37) Unknown pregabalin [From Lyrica] Allergy (Verified 05/19/24 12:37) Unknown ramelteon Allergy (Verified 05/19/24 12:37) Unknown ANTIBIOTICS Allergy (Unknown, Uncoded 12/11/23 11:46) PT STATED NEED TO GO THRU PCP D/T GASTROPARESIS Medication List - Last Reconciled 05/19/24 by Yaquelin Darden MD acetaminophen (Acetaminophen Pain Relief) 1,000 mg PO TID PRN amlodipine 10 mg PO DAILY@1800 30 days atorvastatin 10 mg PO DAILY 30 days bupropion HCl SR (Wellbutrin SR) 150 mg PO BID 30 days desvenlafaxine succinate ER 150 mg PO DAILY hydrochlorothiazide 25 mg PO DAILY hydroxyzine HCl 50 mg PO BEDTIME hydroxyzine HCl 25 mg PO DAILY lamotrigine 200 mg PO BID levothyroxine 100 mcg PO DAILY lisinopril 5 mg PO DAILY melatonin 10 mg PO BEDTIME naproxen 500 mg PO BID PRN 14 days oxcarbazepine 300 mg PO BID oxcarbazepine 150 mg PO BID pantoprazole 40 mg PO DAILY prednisone 20 mg PO DAILY 5 days Rinvoq ER (upadacitinib) 15 mg PO DAILY NS tamsulosin 0.4 mg PO BEDTIME 14 days trazodone 200 mg PO BEDTIME PRN HPI Comments Details: 73-year-old female with seropositive RA (+ RF, +[id number], -ve CCP) who returns for follow-up. On Rinvoq 15 mg p.o. daily. She states that she does not feel the medication is helping her much. She has moved to [place]. She is here for the holidays. She states that she continues to have multiple joint pains especially her left ring finger and her right 2nd toe. She has also noticed significant feet swelling. She can not wear normal shoes. He was started on Tylenol 1000 mg t.i.d. by her PCP nurse practitioner in [place]. She has an appointment with a metal tube cutter 07/17/2024 in [place]. Initial history: This is a 71-year-old female past history hypothyroidism, dyslipidemia, depression, bipolar disorder, dyskinesia presents for evaluation diffuse joint pain. patient had bipolar disorder for many years was on antipsychotic many years. She recently developed tardive dyskinesia which is significantly affecting life. Over the past 6-9 months she has been pain swelling and stiffness hands, wrists, ankles and feet. Pain is generally worse in morning associated morning stiffness lasted few hours. She has dry for years but got worse over last 3 months.She was evaluated by her PCP referred to Rheumatology for evaluation. [facility] Medical History Obesity MERRITT (obstructive sleep apnea) Expressive speech disorder Speech abnormality Weakness Rheumatoid arthritis Type 2 diabetes mellitus Bipolar II disorder Tremors of nervous system Tardive dyskinesia Sleep apnea Thyroid disease Depression Bipolar 1 disorder Combined hyperlipidemia HTN (hypertension) Surgical History Hx of cholecystectomy H/O shoulder surgery Hx of appendectomy Family History Father No problems noted. Mother No problems noted. Other Family history of rheumatoid arthritis Social History Household Members: Other Housing: Assisted Living Facility Housing Other:: Living with nuns in a wing of a convent due to homelessness Do you presently have visiting nurse or other home services: No Unable to assess alcohol history related to: Unable to respond Alcohol intake: never Patient Tobacco Use Status: Former Tobacco user Tobacco use type: Cigarette e-Cigarette/Vaping Use: Never Used Second Hand Smoke Exposure: No Advance Directives Date on File: 01/21/23 service: No Sexual orientation: Straight/Heterosexual Female Reproductive History Menstrual Total pregnancies: 3 Full term: 2 Ab spontaneous: 1 Review of Systems Musc Reports arthralgias, Reports joint swelling, Reports limited range of motion and Reports stiffness Physical Exam Vital Signs: Last Vital Signs Pulse 69 05/19/24 12:42 BP 132/72 05/19/24 12:42 Pulse Ox 87 L 05/19/24 12:42 Oxygen Delivery Method Room Air 05/19/24 12:42 BMI result Body Mass Index 44.8 Const General: cooperative, healthy appearing and comfortable Nutritional Appearance: obese morbidly obese Orientation/consciousness: patient oriented x3 Limitations: ambulation with walker HEENT Head: Yes normocephalic and Yes atraumatic Mouth: moist mucous membranes Resp Effort & Inspection: normal respiratory effort and able to speak in complete sentences Auscultation: clear to auscultation bilaterally Skin General skin exam: no rashes or lesions noted Neuro General: patient oriented x3 Extrem Other: Normal range of motion of both shoulders and elbows without pain Left 4th MCP tenderness without swelling Normal bilateral hand ammonium nitrate crystallizer strength Bilateral lower limb pitting edema Right ankle tenderness laterally without any warmth Right 2nd MTP tenderness no toe swelling bilaterally Negative MTP squeeze test bilaterally Results Reviewed Results Reviewed: ?MR/MR hand LT wo/w con? 12/08 IMPRESSION: 1. Mild marrow edema within the dorsal aspect of the lunate which may be degenerative or represent an osseous contusion. No associated fracture line. 2. Mild flexor and extensor digitorum tenosynovitis, most prominent within the 3rd flexor digitorum tendon sheath. No transverse tendon tear or tendon retraction. 3. Mild edema along the dorsal aspect of the distal carpal row which could indicate minimal synovitis. No significant joint effusion. Assessment & Plan Assessment & Plan (1) Rheumatoid arthritis: Comment: +RF, -ve on repeat -CCP Dx 07/10 MTX 07/10 (multiple side effects ) Enbrel 07/10-10/08 ineffective Prednisone effective but causes psychiatric side effects and dizziness Actemra infusions 4 mg/kg 03/2023 effective DC'd d.t. port infection Actemra Sq injections 10/2023-11/2023 ineffective Rinvoq 11/2023 Code(s): M06.9 - Rheumatoid arthritis, unspecified Category: Medical Qualifiers: Rheumatoid arthritis location: multiple sites Rheumatoid factor presence: with rheumatoid factor Qualified Code(s): M05.79 - Rheumatoid arthritis with rheumatoid factor of multiple sites without organ or systems involvement Plan: This is a 73-year-old female with seropositive RA (+RF, -ve CCP, +HLA b27) who presents for follow-up she is on Rinvoq 15 mg p.o. daily. She states that she does not feel Rinvoq is helping her much. On exam today she has a couple of tender joints. There are no swollen joints. She has bilateral ankle and foot pitting edema rather than synovitis. Patient has already moved to [place]. She has an appointment with a metal tube cutter July 17 in [place]. I think at this time there is no need to change her Rinvoq. She is in low disease activity. She can follow-up with metal tube cutter in [place]. 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 Advised patient to call the clinic if she develops any signs of fever or an infection We did discuss the black box warning for Rinvoq and its association with increased cardiovascular events, malignancy and thromboembolic phenomenon. Patient fully aware. Plan I spent 25 minutes reviewing patient's chart, evaluating patient, counseling patient and documenting in the chart Coding Level of Care Code Est Pt Level 3 (06361) Diagnoses Rheumatoid arthritis involving multiple sites with positive rheumatoid factor M05.79 Rheumatoid arthritis location: multiple sites Rheumatoid factor presence: with rheumatoid factor High risk medication use Z79.899
[2024-05-19 12:42] VITALS: BP 132/72; PULSE 69; O2SAT 87; BMI 44.8
== END 2024-05-19 13:13 | disposition home or self-care (01) ==
PROVIDERS: Visit Provider Student in an Organized Health Care Education/Training Program
DX: M05.79 Rheumatoid arthritis with rheumatoid factor of multiple sites without organ or systems involvement (principal); Z79.899 Other long term (current) drug therapy
CPT/HCPCS: 99213

== ENCOUNTER → 2024-05-19 12:25 | Outpatient (BNVA) | payer MEDICARE, OTHER, SELFPAY | PROVIDERS: Visit Provider Student in an Organized Health Care Education/Training Program | DX: M05.79 Rheumatoid arthritis with rheumatoid factor of multiple sites without organ or systems involvement (principal); Z79.899 Other long term (current) drug therapy | CPT/HCPCS: 99212 ==